=== PATIENT | female | born 1950 | race African-American/Black ===

== ENCOUNTER 2016-12-15 17:24 | Inpatient (IN) ==
[2016-12-15] MEDS ORDERED: SODIUM CHLORIDE 0.9% 500 ML IV STA (17:56)
--- NOTE | 2016-12-15 18:01 | Emergency Department Note ---
Guanako Lubin Brooke, am scribing for, and in the presence of, Chadwick Adrian MD 18 :00. Nguyễn Lubin Charles R, MD, personally performed the services described in this documentation, ascribed by Tanya Mujica in my presence, and it is both accurate and complete 801 . Arrival - Arrival Chief Complaint: Altered Mental Status ED Nursing Triage Note: pt has had alt loc for a few days per family Mode of Arrival: Stretcher Limitations: Altered Mental Status Source: Patient, EMS, RN Notes Reviewed Time Seen by Provider: 12/15/16 17:43 - History of Present Illness HPI Narrative: Patient is a 66 year old female who was brought into the ED by EMS with c/o altered mental status. Patient is a poor historian. There is no family in the room with her. She is not oriented to place or time but is oriented to person. She says she is here because she was disoriented. Patient says her abdomen hurts and the pain is located in the center. She says she does have bowel movements daily. Patient lives alone but does have a sitter. She says she is able to walk a little. Patient has PMHx of CHF, gout, and GERD. Patient's Primary Care Provider is Dr. Lomeli. Allergies/Adverse Reactions: Allergies Allergy/AdvReac Type Severity Reaction Status Date / Time povidone-iodine Allergy Unknown/Unable Verified 12/15/16 17:34 [From Betadine] to obtain soap [From Betadine] Allergy Unknown/Unable Verified 12/15/16 17:34 to obtain Sulfa (Sulfonamide Allergy Unknown/Unable Verified 12/15/16 17:34 Antibiotics) to obtain Review of System - Review of System ROS unobtainable: due to mental status - Review of System Constitutional: Absent: fever Respiratory: Absent: respiratory distress Gastrointestinal: Present: abdominal pain Skin: Absent: rash Neurological: Present: confusion Medical,Surgical,& Family Hx - Medical History Cardio: History of: CHF Rheumatology: History of;: Gout Gastrointestinal: History of: GERD - Social History Smoking Status: Smoker, status unknown Frequency of Alcohol Use: None Type of Drug Use: None Exam Vital Signs: Vital Signs Temperature 98.0 F 12/15/16 17:30 Pulse Rate 98 H 12/15/16 17:30 Respiratory Rate 18 12/15/16 17:43 Blood Pressure 90/61 12/15/16 17:30 O2 Sat by Pulse Oximetry 97 12/15/16 17:30 - General Exam limited due to: ALOC General appearance: alert, in no apparent distress, obese, other (confused) - Head Head exam: Present: atraumatic, normocephalic - Eye Eye exam: Present: normal appearance, PERRL, EOMI - ENT ENT exam: Present: normal exam - Neck Neck exam: Present: normal inspection - Chest Chest inspection: Present: normal inspection, symmetric chest wall rise - Respiratory Respiratory exam: Present: rhonchi (bilateral) - Cardiovascular Cardiovascular exam: Present: regular rate, normal rhythm, normal heart sounds - Abdominal Exam Abdominal exam: Present: soft, tenderness (suprapubic tenderness and fullness), hypoactive bowel sounds. Absent: distention - Extremities Exam Extremities exam: Present: pedal edema (chronic lower extremity edema) - Back Exam Back exam: Present: normal inspection - Neurological Exam Neurological exam: Present: alert, other (confused about why she is here and about her medical history.). Absent: oriented X3 (not oriented to place or time ) - Psychiatric Psychiatric exam: Present: normal affect, normal mood - Skin Skin exam: Present: warm, dry, intact, normal color Course - Consultations Consultation #1: Hospitalist will admit the patient Results - Labs CBC & BMP: 12/15/16 18:47 12/15/16 18:47 Lab Results: I have reviewed the patients labs Disposition Clinical Impression: Altered mental status, Sepsis, Confusion, Left perihilar infiltrate, Pneumonia , Pedal edema, Hypotension, Renal failure Case discussed with: patient, patient's family Disposition: Still a Patient Condition: Stable Time of Disposition: 20:33
--- NOTE | 2016-12-15 18:24 | CT Report ---
CT head/brain wo con Indication: Mental status changes. CT BRAIN WITHOUT CONTRAST DLP: 915 mGy*cm. One or more of the following dose reduction techniques was used: Automated exposure control, adjustment of the mA and/or kV according the patient size, or use of iterative reconstruction techniques. Comparison: None. Date of admission: 12/15/2016. Technique: Axial noncontrast CT images of the brain were obtained. Findings: No acute hemorrhage, mass or mass effect. Generalized atrophy and patchy periventricular white matter hypodensity is present throughout both convexities. Cortical costello-white junction and structures of the basal ganglia are well-defined. No bone lesions are shown. Internal auditory canals are symmetric. Visualized sinuses and mastoid air cells are clear. Impression: No acute intracranial pathology. Generalized atrophy and changes consistent with microvascular disease. PROCEDURE INTERPRETED AT [facility] DEPARTMENT OF RADIOLOGY Final Report Signed by: Jakub Silverman M.D.
--- NOTE | 2016-12-15 18:25 | XRay Report ---
XR chest 1V portable Indication: Altered mental status. Chest one view: No comparison. Heart size and mediastinal contour are unremarkable. Lungs are hypoinflated. Left basilar strand-like opacities are now present. Right lung appears generally clear. Pleural spaces are clear. Impression: Pulmonary hypoinflation. Left infrahilar pneumonia likely. Is there history of aspiration? PROCEDURE INTERPRETED AT [facility] DEPARTMENT OF RADIOLOGY Final Report Signed by: Jakub Silverman M.D.
[2016-12-15] MEDS ORDERED: cefTRIAXone 1,000 MG in SODIUM CHLORIDE 0.9% 100 ML IV STA (18:38)
[2016-12-15 18:55] LABS: Basophils % 0.3 % (0.0-0.8); Hematocrit 44.2 VOL% (35.7-47.0); Immature Granulocytes % 0.6 %; Immature Granulocytes Absolute 0.05 #; Lymphocytes % 10.9 % (21.3-54.2); Mean Corpuscular HGB Conc 33.9 GM/DL (32-36); Mean Corpuscular Hemoglobin 31 PG (27-34); Mean Corpuscular Volume 92.1 FL (87-102); Mean Platelet Volume 13.2 FL (9.6-12.0); Monocytes # 0.9 10*3/uL (0.11-0.8); Monocytes % 10.2 % (1.7-12.7); Neutrophils # 7.1 10*3/uL (1.4-7.4); Platelet Count 157 T/CUMM (130-400); Red Cell Distribution Width 17.7 % (9.3-17.3); White Blood Count 9.1 T/CUMM (4-12)
[2016-12-15 19:04] LABS: INR 1.1; PT Patient Result 11.4 SECS
[2016-12-15 19:15] LABS: Alanine Aminotransferase 16 U/L (13-56); Albumin 3.4 G/DL (3.4-5.0); Alkaline Phosphatase 107 U/L (45-117); Aspartate Amino Transferase 12 U/L (0-37); Blood Urea Nitrogen 48 MG/DL (7-18); Calcium 8.7 MG/DL (8.5-10.1); Glucose 104 MG/DL (74-106); Magnesium 1.8 MG/DL (1.8-2.4); Osmolality,Calculated 278.4 MOS/KG (273-304); Potassium 3.4 MMOL/L (3.5-5.1); Sodium 133 MMOL/L (136-145); Total Protein 6.8 G/DL (6.4-8.3); Troponin I Only < 0.015 NG/ML (0.00-0.045)
[2016-12-15 19:18] LABS: Ammonia 17 UMOL/L (11-32)
[2016-12-15 20:07] LABS: Sedimentation Rate-Westergren 8 MM/HR (0-30)
--- NOTE | 2016-12-15 20:48 | Hospitalist History & Physical ---
Assessment and Plan (1) Pneumonia Status: Acute Assessment and plan: The patient was treated for aspiration pneumonia with admission to intensive care unit for careful monitoring. She will receive IV antibiotic with renal adjusted dose Levaquin and with Rocephin. She will have beta agonist nebulized breathing therapies. We will obtain old records from [facility]. I am going to restart her hydrocodone to reduce risk of withdrawal phenomenon. The patient's confusion may be due to overtaking her pain medication or its effects while she has kidney failure. We will recheck electrolytes in the morning and obtain echocardiogram to assess her left ventricular status. It is possible that she has obesity hypoventilation syndrome as a cause of pulmonary hypertension causing the lower extremity edema. At any rate her blood pressure is too low to support aggressive diuresis at this time. Current Visit: Yes Qualifiers: Pneumonia type: aspiration pneumonia Aspiration pneumonia type: due to gastric secretions Laterality: left Lung location: upper lobe of lung Qualified Code(s): J69.0 - Pneumonitis due to inhalation of food and vomit (2) Altered mental status Status: Acute Current Visit: Yes (3) Confusion Status: Acute Current Visit: Yes (4) Renal failure Status: Acute Current Visit: Yes History of Present Illness Chief complaint: Generalized weakness and altered mental status History of present illness: Ms. Hightower is a 66 year old female with history of chronic kidney disease stage IV. The patient lives at home alone with the help with personal care providers in the home. The patient has received previous care at [facility]. The patient states that she was last hospitalized there about a year ago and was treated for congestive heart failure. The patient has no list of her current medications. The prescription monitoring program website shows that she feels prescriptions for Flexeril tramadol hydrocodone and Lomotil on a regular basis and has seen Karina Thomas and [facility] in [place] over the last several months. The patient was apparently at home in her usual state of health and found to have altered mental status by her fleet administrative assistant and sent to the emergency room. The patient has been drowsy here in the emergency room she has some cough mild shortness of breath no pleurisy. The patient denies palpitations or angina. The patient has not complained of abdominal pain. The patient does complain of lower extremity edema. The patient's generalized weakness is moderate, continuous, and worsening. I screen the patient for tobacco use and found that she was a previous smoker. I gave her 4 minutes tobacco avoidance education. The patient is her own healthcare decision maker and when asked she wished to be full code. Allergies Allergy/AdvReac Type Severity Reaction Status Date / Time povidone-iodine Allergy Unknown/Unable Verified 12/15/16 17:34 [From Betadine] to obtain soap [From Betadine] Allergy Unknown/Unable Verified 12/15/16 17:34 to obtain Sulfa (Sulfonamide Allergy Unknown/Unable Verified 12/15/16 17:34 Antibiotics) to obtain Medical,Surgical,& Family Hx - Medical History Cardio: History of: CHF Endocrine: History of: Diabetes Mellitus (NIDDM) Rheumatology: History of;: Gout Renal: History of: Renal Failure Gastrointestinal: History of: GERD - Social History Smoking Status: Former smoker Have you smoked in the last 12 months: No Time spent discussing smoking cessation with patient: 3 to 10 minutes Frequency of Alcohol Use: None Type of Drug Use: None Marital Status: Lives With:: Alone Functional capacity: wheelchair bound 12 point system: reviewed and no additional remarkable complaints except as stated Exam - Constitutional Vitals: Period Temp Pulse Resp BP Sys/Vega Pulse Ox Last 24 Hr 98.0 F-98.0 F 98-98 18-18 90-90/61-61 97-97 Exam: Constitutional System: Morbidly obese with moderate distress. No tremulousness. Head: Normocephalic, atraumatic. Ears, Nose and Throat System: No evidence of Otitis or Mastoiditis. No epistaxis or discharge Eyes System: Pupils equal, round, and reactive. Extraocular muscles intact. Neck: Supple, without adenopathy, No jugular venous distention. No thyromegaly , neck mass, or prior surgery apparent. Respiratory System: Chest with left-sided rhonchi to auscultation. Cardiovascular System: Heart with regular rate and rhythm. No murmur. GI System: Abdomen obese, soft, nontender. Normo active bowel sounds present. Musculoskeletal System: limbs with 2+ brawny pedal edema. Full distal pulses. Neurological System: No discernable sensory deficit. No aphasia Psychiatric System: Conversation is rational Results - Labs CBC & BMP: 12/15/16 18:47 12/15/16 18:47 Lab Results: I have reviewed the past 24 hour labs - Diagnostic Findings Procedure: Chest x-ray: image reviewed by me, report reviewed by me (The patient has some infiltrate in the left perihilar region consistent with aspiration)
[2016-12-15 20:53] LABS: Apearance,Urine CLEAR (Clear); Bilirubin,Urine Negative (Negative); Blood, Urine Negative (Negative); Glucose,Urine (UA) Negative (Negative); Ketones,Urine Negative (Negative); Mucus,Urine Occasional /LPF (Occasional); Nitrite,Urine Negative (Negative); Protein,Urine Negative; RBC,Urine 1 /HPF (0-4); Squamous Epithelial Cell,Urine Occasional /HPF (0-10); Urine Color Straw (Yellow); Urine Specific Gravity 1.004 (1.001-1.035); Urine Urobilinogen < 2.0 EU/DL (0.2-1.0); WBC,Urine 3 /HPF (0-6)
[2016-12-15 21:03] LABS: Barbiturates Screen,Urine Negative (Negative); Benzodiazepines Screen,Urine Negative (Negative); Cannabinoid Screen,Urine Negative (Negative); Opiate Screen,Urine Positive (Negative); Phencyclidine Screen,Urine Negative (Negative)
[2016-12-15] MEDS ORDERED: ONDANSETRON 4 MG/2 ML VIAL IV PRN (21:53)
[2016-12-15] MEDS ORDERED: GLUCAGON 1 MG VIAL IM PRN (21:53)
[2016-12-15] MEDS ORDERED: DEXTROSE 50% 25 GM/50 ML SYRINGE IV PRN (21:53)
[2016-12-15] MEDS ORDERED: LEVOFLOXACIN INJ 500 MG in PREMIX 1 EACH IV SCH (22:00)
[2016-12-15] MEDS: INSULIN LISPRO 100 UNIT/ML SUBCUT SCH (22:05)
[2016-12-15] MEDS: ENOXAPARIN 30 MG/0.3 ML SYRINGE SUBCUT SCH (22:10)
[2016-12-16] MEDS: ALBUTEROL/IPRATROPIUM 3 ML NEB RESP TX SCH ×4 (02:24→20:10)
[2016-12-16 05:47] LABS: Basophils % 0.3 % (0.0-0.8); Eosinophils % 0.4 % (0.00-10.9); Hematocrit 42.9 VOL% (35.7-47.0); Hemoglobin 14.4 GM/DL (12.0-16.0); Immature Granulocytes % 0.5 %; Immature Granulocytes Absolute 0.04 #; Lymphocytes # 1.3 10*3/uL (1.4-4.0); Lymphocytes % 16.5 % (21.3-54.2); Mean Corpuscular HGB Conc 33.6 GM/DL (32-36); Mean Corpuscular Hemoglobin 31 PG (27-34); Mean Corpuscular Volume 91.3 FL (87-102); Mean Platelet Volume 12.9 FL (9.6-12.0); Monocytes # 0.8 10*3/uL (0.11-0.8); Monocytes % 10.6 % (1.7-12.7); Neutrophils # 5.6 10*3/uL (1.4-7.4); Neutrophils % 71.7 % (38.7-73.9); Platelet Count 145 T/CUMM (130-400); White Blood Count 7.8 T/CUMM (4-12)
[2016-12-16 06:16] LABS: Magnesium 1.8 MG/DL (1.8-2.4); Osmolality,Calculated 283.7 MOS/KG (273-304); Potassium 3.3 MMOL/L (3.5-5.1)
[2016-12-16] MEDS: INSULIN LISPRO 100 UNIT/ML SUBCUT SCH ×4 (07:36→23:36)
--- NOTE | 2016-12-16 07:51 | EKG Report ---
Stationary ECG Study [facility] ER Test Date: 12/15/2016 6:52:41 PM Pat Name: CYRIL JONES Department: Room: 107 Gender: F Spray Applicator: RAE : 1950 Requested by: Chadwick Mccormack Order Number: [id number] Reading MD: LUCIA CASAREZ Intervals [place] Rate: 100 P: 44 MA: 165 QRS: -21 QRSD: 78 T: 61 QT: 363 QTc: 420 Interpretive Statements SINUS TACHYCARDIA LEFT ATRIAL ABNORMALITY LOW QRS VOLTAGE IN PRECORDIAL LEADS INFERIOR MYOCARDIAL INFARCTION, PROBABLY OLD Electronically Signed On 12-17-16 07:01:31 CDT by LUCIA CASAREZ [email or web address]
--- NOTE | 2016-12-16 08:06 | XRay Report ---
Portable chest. Indication: Cough and dyspnea. Comparison: Yesterday's exam. The heart is normal in size. There is uncoiling of the thoracic aorta. The lung volumes are small. The pulmonary vasculature is prominent. There are bilateral infiltrates present at the bases, with interval worsening. Some volume loss is also suspected at the right base. No pneumothorax or pleural effusion. Impression: Interval worsening. PROCEDURE INTERPRETED AT [facility] [place] DEPARTMENT OF RADIOLOGY Final Report Signed by: Dr. Elle Feng
[2016-12-16] MEDS: PANTOPRAZOLE 40 MG TABLET PO SCH (08:19)
--- NOTE | 2016-12-16 10:00 | Hospitalist Progress Note ---
Assessment and Plan (1) Pneumonia Status: Acute Assessment and plan: The patient was treated for aspiration pneumonia with admission to intensive care unit for careful monitoring. She will continue to receive IV antibiotic with renal adjusted dose Levaquin and with Rocephin. She will have beta agonist nebulized breathing therapies. We will obtain old records from [facility]. I am going to restart her hydrocodone to reduce risk of withdrawal phenomenon. The patient's confusion may be due to overtaking her pain medication or its effects while she has kidney failure. We will recheck electrolytes in the morning and obtain echocardiogram to assess her left ventricular status. It is possible that she has obesity hypoventilation syndrome as a cause of pulmonary hypertension causing the lower extremity edema. At any rate her blood pressure is too low to support aggressive diuresis at this time. The patient has improved enough to transfer to a monitored bed. Current Visit: Yes Qualifiers: Pneumonia type: aspiration pneumonia Aspiration pneumonia type: due to gastric secretions Laterality: left Lung location: upper lobe of lung Qualified Code(s): J69.0 - Pneumonitis due to inhalation of food and vomit (2) Altered mental status Status: Acute Current Visit: Yes (3) Confusion Status: Acute Current Visit: Yes (4) Renal failure Status: Acute Current Visit: Yes Hospitalist: Subjective Interval history: Mrs. Hightower was admitted to the hospital yesterday with generalized weakness, cough, chest x-ray consistent with aspiration pneumonia. She may have been oversedated from her chronic pain medications. The patient is mostly bedbound at home and has personal care assistance. The patient does not complain of chest pain or palpitations today. She is drowsy but arousable and oriented. She says she feels better today and her legs are less swollen. Exam - Constitutional Vitals: Period Temp Pulse Resp BP Sys/Vega Pulse Ox Last 24 Hr 97.3 F-98.9 F 88-105 16-22 90-112/57-74 91-100 Exam: Constitutional System: Morbidly obese with mild distress. No tremulousness. Head: Normocephalic, atraumatic. Ears, Nose and Throat System: No evidence of Otitis or Mastoiditis. No epistaxis or discharge Eyes System: Pupils equal, round, and reactive. Extraocular muscles intact. Neck: Supple, without adenopathy, No jugular venous distention. No thyromegaly , neck mass, or prior surgery apparent. Respiratory System: Chest with left-sided rhonchi to auscultation. Cardiovascular System: Heart with regular rate and rhythm. No murmur. GI System: Abdomen obese, soft, nontender. Normo active bowel sounds present. Musculoskeletal System: limbs with 1+ brawny pedal edema. Full distal pulses. Neurological System: No discernable sensory deficit. No aphasia Psychiatric System: Conversation is rational Results - Labs CBC & BMP: 12/16/16 05:08 12/16/16 05:08 Lab Results: I have reviewed the past 24 hour labs - Diagnostic Findings Procedure: Chest x-ray: image reviewed by me (Infiltrates are worsened today)
[2016-12-16] MEDS ORDERED: DIPHENOXYLATE/ATROPINE 2.5-0.025 MG TABLET PO PRN (11:39)
--- NOTE | 2016-12-16 12:02 | ECHO Report ---
Shawna Hightower 12/16/2016 Exam Date: 09:28 Referring Physician: Lashell Joaquin Technologist: CANDI Age: 66 Ht (in): 62 Wt (lb): 183 FExam Location: [facility] Gender: Echo [id number]: Pneumonia, Altered mental status, CoIndications:nfusion, Weakness, Edema, unspecified, Chronic kidney disease, stage 4 (severe), NIDDM BP: 100 / 62 HR: 105 SinusRhythm: goodTechnical Quality: IMPRESSIONS Left ventricular ejection fraction is estimated at 60 %. Mild left ventricular hypertrophy. Grade I diastolic dysfunction. Tricuspid regurgitation velocities suggest a RVSP of 41 mmHg plus the right atrial pressure. MEASUREMENTS (Male / Female) Normal Values 2D ECHO LV Diastolic Diameter PLAX 4.3 cm 4.2 - 5.9 / 3.9 - 5.3 cm LV Systolic Diameter PLAX 2.8 cm LV Fractional Shortening PLAX 35.1 % IVS Diastolic Thickness 1.1 cm 0.6 - 1.0 / 0.6 - 0.9 cm LVPW Diastolic Thickness 1.1 cm 0.6 - 1.0 / 0.6 - 0.9 cm RV Internal Dim ED PLAX 2.8 cm Aortic Root Diameter 3.0 cm LA Systolic Diameter LX 3.6 cm 3.0 - 4.0 / 2.7 - 3.8 cm DOPPLER TR Peak Velocity 322.0 cm/s TR Peak Gradient 41.5 mmHg FINDINGS Left Ventricle Normal left ventricular cavity size. Mild left ventricular hypertrophy. Left ventricular ejection fraction is estimated at 60 %. Grade I diastolic dysfunction. Right Ventricle The right ventricle is normal in size and function. Right Atrium The right atrium is normal in size. Left Atrium The left atrium is normal in size. Mitral Valve Morphologically normal mitral valve. Trace mitral valve regurgitation. Aortic Valve Morphologically normal aortic valve without significant sclerosis or stenosis. There is no aortic regurgitation. Tricuspid Valve Morphologically normal tricuspid valve. Mild tricuspid valve regurgitation. Tricuspid regurgitation velocities suggest a RVSP of 41 mmHg plus the right atrial pressure. Pulmonic Valve Morphologically normal pulmonic valve without significant stenosis. There is no pulmonic regurgitation. Pericardium Normal pericardium without effusion. Aorta Normal ascending aorta dimension. Gilda Berry (Electronically Signed) 16 December 2016 Final Date: 12:01
[2016-12-16] MEDS: ALLOPURINOL 300 MG TABLET PO SCH (13:04)
[2016-12-16] MEDS: SPIRONOLACTONE 50 MG TABLET PO SCH (13:04)
[2016-12-16] MEDS: COLCHICINE 0.6 MG TABLET PO SCH (13:04)
[2016-12-16] MEDS: POTASSIUM CHLORIDE 20 MEQ TABLET PO SCH ×3 (13:04→19:48)
[2016-12-16] MEDS: ESCITALOPRAM 10 MG TABLET PO SCH (13:05)
[2016-12-16] MEDS: NICOTINE 14 MG/24 HR PATCH TRANSDERM SCH (17:10)
[2016-12-16] MEDS: ENOXAPARIN 30 MG/0.3 ML SYRINGE SUBCUT SCH (23:17)
[2016-12-16] MEDS: cefTRIAXone 1,000 MG in SODIUM CHLORIDE 0.9% 100 ML IV SCH (23:20)
[2016-12-17] MEDS: ALBUTEROL/IPRATROPIUM 3 ML NEB RESP TX SCH ×5 (01:12→23:48)
[2016-12-17 07:23] LABS: Basophils % 0.2 % (0.0-0.8); Eosinophils % 0.1 % (0.00-10.9); Hematocrit 41.5 VOL% (35.7-47.0); Hemoglobin 13.9 GM/DL (12.0-16.0); Immature Granulocytes % 0.5 %; Immature Granulocytes Absolute 0.05 #; Lymphocytes # 0.7 10*3/uL (1.4-4.0); Lymphocytes % 7.7 % (21.3-54.2); Mean Corpuscular HGB Conc 33.5 GM/DL (32-36); Mean Corpuscular Hemoglobin 31 PG (27-34); Mean Platelet Volume 11.8 FL (9.6-12.0); Monocytes % 10.2 % (1.7-12.7); Neutrophils # 7.7 10*3/uL (1.4-7.4); Neutrophils % 81.3 % (38.7-73.9); Platelet Count 150 T/CUMM (130-400); Red Blood Count 4.51 MC/CUMM (3.8-5.5); Red Cell Distribution Width 17.6 % (9.3-17.3); White Blood Count 9.5 T/CUMM (4-12)
[2016-12-17 07:41] LABS: Calcium 9.1 MG/DL (8.5-10.1); Osmolality,Calculated 288.1 MOS/KG (273-304); Potassium 4.1 MMOL/L (3.5-5.1)
[2016-12-17] MEDS: INSULIN LISPRO 100 UNIT/ML SUBCUT SCH ×4 (09:17→21:00)
[2016-12-17] MEDS: NICOTINE 14 MG/24 HR PATCH TRANSDERM SCH (09:33)
[2016-12-17] MEDS: PANTOPRAZOLE 40 MG TABLET PO SCH (09:34)
[2016-12-17] MEDS: ESCITALOPRAM 10 MG TABLET PO SCH (09:34)
[2016-12-17] MEDS: SPIRONOLACTONE 50 MG TABLET PO SCH (09:34)
[2016-12-17] MEDS: COLCHICINE 0.6 MG TABLET PO SCH (09:34)
[2016-12-17] MEDS: ALLOPURINOL 300 MG TABLET PO SCH (09:34)
[2016-12-17] MEDS: LEVOFLOXACIN INJ 750 MG in PREMIX 1 EACH IV SCH (10:39)
--- NOTE | 2016-12-17 11:27 | Hospitalist Progress Note ---
Assessment and Plan (1) Altered mental status Status: Acute Assessment and plan: Her mental status appears normal today. Her admission alteration of mental status will most probably due to her underlying infection. Current Visit: Yes Qualifiers: Altered mental status type: disorientation Qualified Code(s): R41.0 - Disorientation, unspecified (2) Sepsis Status: Acute Assessment and plan: She is hemodynamically stable today. She is being treated with intravenous ceftriaxone and levofloxacin. Current Visit: Yes (3) Pneumonia Status: Acute Assessment and plan: As noted above, she is being treated with intravenous ceftriaxone and levofloxacin. Current Visit: Yes Qualifiers: Pneumonia type: aspiration pneumonia Aspiration pneumonia type: due to gastric secretions Laterality: left Lung location: upper lobe of lung Qualified Code(s): J69.0 - Pneumonitis due to inhalation of food and vomit Hospitalist: Subjective Interval history: Patient states that she is feeling well. She is awake and alert. She is presently being treated for pneumonia with intravenous ceftriaxone and levofloxacin and albuterol ipratropium nebulizer therapy. Exam - Constitutional Vitals: Period Temp Pulse Resp BP Sys/Vega Pulse Ox Last 24 Hr 97.2 F-100.2 F 90-121 16-24 95-122/61-81 91-100 General appearance: no acute distress - Head Head exam: Present: normal inspection - Neck Neck exam: Present: normal inspection - Respiratory Respiratory exam: Present: clear to auscultation bilaterally - Cardiovascular Cardiovascular exam: Present: regular rate and rhythm - GI/Abdominal GI/Abdominal exam: Present: normal bowel sounds, soft, other (Nontender with no palpable masses or hepatosplenomegaly.) - Extremities Exam Extremities exam: Present: normal inspection - Neurological Exam Neurological exam: Present: alert - Psychiatric Psychiatric exam: Present: normal affect - Skin Skin exam: Present: normal color, warm, intact Results - Labs CBC & BMP: 12/17/16 06:58 12/17/16 06:58
[2016-12-17] MEDS: cefTRIAXone 1,000 MG in SODIUM CHLORIDE 0.9% 100 ML IV SCH (21:00)
[2016-12-17] MEDS ORDERED: ENOXAPARIN 40 MG/0.4 ML SYRINGE SUBCUT SCH (21:00)
[2016-12-18] MEDS: ALBUTEROL/IPRATROPIUM 3 ML NEB RESP TX SCH ×2 (07:20→13:09)
[2016-12-18 07:39] LABS: Basophils % 0.3 % (0.0-0.8); Eosinophils % 0.2 % (0.00-10.9); Hematocrit 40.8 VOL% (35.7-47.0); Hemoglobin 13.6 GM/DL (12.0-16.0); Immature Granulocytes % 0.6 %; Immature Granulocytes Absolute 0.06 #; Lymphocytes % 9.9 % (21.3-54.2); Mean Corpuscular HGB Conc 33.3 GM/DL (32-36); Mean Corpuscular Hemoglobin 31 PG (27-34); Mean Corpuscular Volume 92.3 FL (87-102); Mean Platelet Volume 12.6 FL (9.6-12.0); Monocytes # 0.9 10*3/uL (0.11-0.8); Monocytes % 9.1 % (1.7-12.7); Neutrophils # 7.8 10*3/uL (1.4-7.4); Neutrophils % 79.9 % (38.7-73.9); Platelet Count 160 T/CUMM (130-400); Red Blood Count 4.42 MC/CUMM (3.8-5.5); Red Cell Distribution Width 17.7 % (9.3-17.3); White Blood Count 9.7 T/CUMM (4-12)
[2016-12-18] MEDS: INSULIN LISPRO 100 UNIT/ML SUBCUT SCH ×3 (07:52→16:24)
[2016-12-18] MEDS: NICOTINE 14 MG/24 HR PATCH TRANSDERM SCH (08:04)
[2016-12-18] MEDS: COLCHICINE 0.6 MG TABLET PO SCH (08:05)
[2016-12-18] MEDS: PANTOPRAZOLE 40 MG TABLET PO SCH (08:05)
[2016-12-18 08:06] LABS: Calcium 8.9 MG/DL (8.5-10.1); Osmolality,Calculated 284.1 MOS/KG (273-304)
[2016-12-18] MEDS: SPIRONOLACTONE 50 MG TABLET PO SCH (08:06)
[2016-12-18] MEDS: ALLOPURINOL 300 MG TABLET PO SCH (08:06)
[2016-12-18] MEDS: ESCITALOPRAM 10 MG TABLET PO SCH (08:48)
[2016-12-18] MEDS: LEVOFLOXACIN INJ 750 MG in PREMIX 1 EACH IV SCH (08:59)
--- NOTE | 2016-12-18 10:31 | Discharge Summary ---
Hospital Course - Hospital Course Hospital Course: Patient was admitted to the hospital with altered mental status and aspiration pneumonia. She was initially admitted to the intensive care unit and subsequently transferred to the medical surgical floor. She was treated with intravenous levofloxacin and ceftriaxone. She improved rapidly such that she was able to be transferred out of the intensive care unit the day after admission. On the day of discharge she insisted that she be discharged that day although I recommended to her that she remain in the hospital for further treatment. She was, however, stable on the day of discharge. Diagnosis - Discharge Diagnosis (1) Altered mental status Status: Acute (2) Sepsis Status: Acute (3) Pneumonia Status: Acute Discharge Plan - Discharge Data Condition at Discharge: Stable Discharge Diet: advance to your usual diet Activity: resume usual activities as tolerated - Discharge Medications Continue Ibuprofen 1 tablet PO TID Tizanidine HCl 1 tablet PO BID Enalapril/Hydrochlorothiazide [Enalapril-Hctz 5-12.5 mg Tab] 1 tablet PO DAILY Promethazine HCl 25 mg PO Q6HR PRN PRN Reason: Nausea/Vomiting Spironolactone 1 tablet PO DAILY Escitalopram Oxalate 10 mg PO DAILY Tramadol HCl [Tramadol Tab] 1 tablet PO BID PRN PRN Reason: Pain Colchicine [Colcrys] 1 tablet PO DAILY Omeprazole 1 tablet PO BID Allopurinol 1 tablet PO DAILY Diphenoxylate/Atrop 2.5-0.025 [Lomotil Tab] 1 tablet PO QID PRN PRN Reason: Diarrhea Metoclopramide Tab [Reglan Tab] 10 mg PO TID Amoxicillin/Potassium Clav [Amox-Clav 875-125 mg Tablet] 1 tablet PO Q12HR # 10 Magnesium Oxide 400 mg PO BID Furosemide 1 tablet PO BID - Follow Up or Referral - Forms/Instructions Exam - Constitutional Vitals: Period Temp Pulse Resp BP Sys/Vega Pulse Ox Last 24 Hr 97.5 F-98.6 F 75-102 16-20 112-141/61-83 93-98 Discharge Results Procedures and tests throughout hospitalization: Pending Orders 12/15/16 18:40 Blood Culture Stat Labs on day of discharge: Labs from last 24 hours 12/18/16 12/18/16 12/18/16 07:30 07:17 07:17 WBC 9.7 RBC 4.42 Hgb 13.6 Hct 40.8 MCV 92.3 MCH 31 MCHC 33.3 RDW 17.7 H Plt Count 160 MPV 12.6 H Neut % (Auto) 79.9 H Lymph % (Auto) 9.9 L [place] % (Auto) 9.1 Eos % (Auto) 0.2 Baso % (Auto) 0.3 Neut # (Auto) 7.8 H Lymph # (Auto) 1.0 L [place] # (Auto) 0.9 H Eos # (Auto) 0.0 Baso # (Auto) 0.0 Immature Gran % 0.6 Nucleated RBC % 0.0 Immature Gran # 0.06 Nucleated RBCs # 0.00 Immature Plt Fraction 0.0 Sodium 142 Potassium 5.0 Chloride 109 H Carbon Dioxide 31 Anion Gap 7.0 BUN 15 Creatinine 0.80 GFR Calculation 102 BUN/Creatinine Ratio 18.00 Glucose 112 H POC Glucose 113 H Calculated Osmolality 284.1 Calcium 8.9 12/17/16 12/17/16 12/17/16 20:04 19:41 15:19 WBC RBC Hgb Hct MCV MCH MCHC RDW Plt Count MPV Neut % (Auto) Lymph % (Auto) Mingo % (Auto) Eos % (Auto) Baso % (Auto) Neut # (Auto) Lymph # (Auto) Mingo # (Auto) Eos # (Auto) Baso # (Auto) Immature Gran % Nucleated RBC % Immature Gran # Nucleated RBCs # Immature Plt Fraction Sodium Potassium Chloride Carbon Dioxide Anion Gap BUN Creatinine GFR Calculation BUN/Creatinine Ratio Glucose POC Glucose 134 H 122 H 163 H Calculated Osmolality Calcium 12/17/16 11:41 WBC RBC Hgb Hct MCV MCH MCHC RDW Plt Count MPV Neut % (Auto) Lymph % (Auto) Mingo % (Auto) Eos % (Auto) Baso % (Auto) Neut # (Auto) Lymph # (Auto) Mingo # (Auto) Eos # (Auto) Baso # (Auto) Immature Gran % Nucleated RBC % Immature Gran # Nucleated RBCs # Immature Plt Fraction Sodium Potassium Chloride Carbon Dioxide Anion Gap BUN Creatinine GFR Calculation BUN/Creatinine Ratio Glucose POC Glucose 125 H Calculated Osmolality Calcium Preliminary micro results at discharge 12/15/16 18:40 Blood Culture - Preliminary Blood No growth at 1 day 12/15/16 18:27 Blood Culture - Preliminary Blood No growth at 1 day DS: Provider Date of admission: 12/15/16 20:37 Primary care physician: Byron Santoyo MD Attending physician on admission: Sherwin Valencia MD Consults: 12/15/16 22:24 Consult to Dietitian [CONS] Routine Reason for Dietitian: Dietary Consult Discharging clinician: Wiliam Matthew
[2016-12-18 17:49] VITALS: BP 133/81
== END 2016-12-18 16:25 | disposition home or self-care (01) | DRG 871 ==
LOC: EDUNIT# → EDBD → N.ED 17:24 → N.EDINP 20:37 → SUATTDRO 20:37 → N.ICU 21:14 → N.2E 12-16 16:51
PROVIDERS: ADMIT Internal Medicine

== ENCOUNTER 2017-01-11 19:37 | Inpatient (IN) ==
[2017-01-11] MEDS ORDERED: FUROSEMIDE 100 MG/10 ML VIAL IV STA (19:50)
[2017-01-11] MEDS ORDERED: FUROSEMIDE 40 MG/4 ML VIAL IV STA (19:50)
[2017-01-11] MEDS ORDERED: LEVOFLOXACIN INJ 750 MG in PREMIX 1 EACH IV STA (19:50)
[2017-01-11] MEDS ORDERED: ALBUTEROL/IPRATROPIUM 3 ML NEB RESP TX STA (19:50)
--- NOTE | 2017-01-11 20:02 | Emergency Department Note ---
Arrival - Arrival Stated Complaint: SOB, Lethargic, Elevated Temp, and Chest Pain Mode of Arrival: Stretcher Limitations: Altered Mental Status Source: EMS Time Seen by Provider: 01/11/17 19:50 - History of Present Illness HPI Narrative: This 66-year-old black female presents per EMS with history from the [facility] home of being short of breath with a temperature of 102, increasing mental confusion , and hypoxia. The patient is oriented to self and roughly to place but not time at all. Patient herself at this moment says she feels fine and does not know why she is here but does complain of some tightness to her feet. She denies chest pain, shortness of breath, nausea, vomiting, or any sweats. Of note, the patient was hospitalized by the hospitalist service for sepsis from aspiration pneumonia 1 month ago. Currently she presents in no acute medical distress resting in the [facility]. Onset (ago): unknown Allergies/Adverse Reactions: Allergies Allergy/AdvReac Type Severity Reaction Status Date / Time povidone-iodine Allergy Unknown/Unable Verified 12/15/16 17:34 [From Betadine] to obtain soap [From Betadine] Allergy Unknown/Unable Verified 12/15/16 17:34 to obtain Sulfa (Sulfonamide Allergy Unknown/Unable Verified 12/15/16 17:34 Antibiotics) to obtain Home Medications: Home Medications Medication Instructions Recorded Confirmed Type Diphenoxylate/Atrop 2.5-0.025 1 each PO QID PRN 12/15/16 01/11/17 History [Lomotil Tab] Enalapril/Hydrochlorothiazide 1 each PO DAILY 12/15/16 01/11/17 History [Enalapril-Hctz 5-12.5 mg Tab] Escitalopram Oxalate 10 mg PO DAILY 12/15/16 01/11/17 History Ibuprofen 800 mg PO TID 12/15/16 01/11/17 History Metoclopramide Tab [Reglan Tab] 10 mg PO TID 12/15/16 01/11/17 History Omeprazole 20 mg PO BID 12/15/16 01/11/17 History Promethazine HCl 25 mg PO Q6HR PRN 12/15/16 01/11/17 History Spironolactone 50 mg PO DAILY 12/15/16 01/11/17 History Tramadol HCl [Tramadol Tab] 50 mg PO BID PRN 12/15/16 01/11/17 History Carisoprodol [Carisoprodol] 350 mg PO BID 01/11/17 01/11/17 History Hydrocodone/Acetaminophen 1 each PO QID PRN 01/11/17 01/11/17 History [Hydrocodon-Acetaminophn 10-325] diphenhydrAMINE CAP [Benadryl Cap] 25 mg PO TID PRN 01/11/17 01/11/17 History Review of System - Review of System 12 point system: reviewed and no additional remarkable complaints except as stated - Review of System Constitutional: Present: as per HPI Respiratory: Present: as per HPI Cardiovascular: Present: as per HPI Gastrointestinal: Present: as per HPI Medical,Surgical,& Family Hx - Medical History Cardio: History of: Hypertension Endocrine: History of: Diabetes Mellitus (NIDDM) Rheumatology: History of;: Rheumatoid Arthritis Respiratory: History of: Asthma, Obstructive Sleep Apnea, Pneumonia Renal: History of: Renal Failure Genitourinary: History of: Recurring Urinary Tract Infections Gastrointestinal: History of: GERD - Surgical History Cardiac Surgeries: Sugical HX of: Cardiac Catheterization Abdominal Surgeries: Surgical HX of: Appendectomy, Cholecystectomy Orthopedic Surgeries: Surgical HX of;: Total Knee Replacement - Social History Smoking Status: Current every day smoker Exam Physical Examination: GENERAL: Obese elderly black female in no acute distress. HEENT: Normocephalic. No trauma. Moist mucous membranes. EOMI. PERRLA. ENT NML NECK: Supple. No adenopathy. CARDIAC: Regular. No murmurs. Heart rate 120 CHEST: Scattered rhonchi with end-expiratory rales and expiratory wheezes anteriorly. No respiratory distress. O2 sat 92% ABDOMEN: Soft. Nontender. Active bowel sounds. EXTREMITIES: No trauma. Normal ROM. 2+ pedal edema. Stasis dermatitis both ankles right worse than left with evidence of right stasis cellulitis as well as a small abrasion to the posterior right ankle, small skin ulcers/lesions SKIN: No diaphoresis. No rash. NEURO: Alert. Oriented to person and grossly to place and time. Motor, sensory , vibratory intact. No focal deficits. Vital Signs: Vital Signs Temperature 99.9 F H 01/11/17 19:49 Pulse Rate 122 H 01/11/17 20:10 Respiratory Rate 23 01/11/17 20:10 Blood Pressure 99/60 01/11/17 19:49 O2 Sat by Pulse Oximetry 95 01/11/17 20:10 Course - Reevaluation(s) Reevaluation #1: Discussed with patient the need for hospitalization - Consultations Consultation #1: Discussed with hospitalist service who will admit for further evaluation Results - Labs CBC & BMP: 01/11/17 20:12 01/11/17 20:12 Labs: I reviewed the lab and noted the elevated BMP and bump in troponin. - Impressions EKG: Sinus tachycardia with left axis deviation at rate of 120 with normal VA interval and QRS duration. Diffuse nonspecific ST changes. No acute injury pattern noted. - Diagnostic Findings Procedure: Chest x-ray: image reviewed by me, report reviewed by me ( Cardiomegaly with evidence of pulmonary edema) Disposition Clinical Impression: Congestive failure, Abnormal cardiac enzymes, Fever/skin ulcers Case discussed with: patient Disposition: Still a Patient Condition: Guarded Time of Disposition: 23:01
[2017-01-11] MEDS ORDERED: LEVOFLOXACIN INJ 150 ML IV ONE (20:07)
[2017-01-11] MEDS ORDERED: FUROSEMIDE 20 MG/2 ML VIAL ONE (20:07)
[2017-01-11] MEDS ORDERED: FUROSEMIDE 40 MG/4 ML VIAL ONE (20:07)
[2017-01-11 20:50] LABS: Basophils % 0.2 % (0.0-0.8); Eosinophils % 0.4 % (0.00-10.9); Hematocrit 44.1 VOL% (35.7-47.0); Hemoglobin 14.5 GM/DL (12.0-16.0); Immature Granulocytes % 0.6 %; Immature Granulocytes Absolute 0.06 #; Lymphocytes # 0.8 10*3/uL (1.4-4.0); Lymphocytes % 7.5 % (21.3-54.2); Mean Corpuscular HGB Conc 32.9 GM/DL (32-36); Mean Corpuscular Hemoglobin 31 PG (27-34); Mean Platelet Volume 13.4 FL (9.6-12.0); Monocytes # 0.8 10*3/uL (0.11-0.8); Monocytes % 7.8 % (1.7-12.7); Neutrophils # 8.7 10*3/uL (1.4-7.4); Neutrophils % 83.5 % (38.7-73.9); Platelet Count 164 T/CUMM (130-400); Red Blood Count 4.74 MC/CUMM (3.8-5.5); Red Cell Distribution Width 17.2 % (9.3-17.3); White Blood Count 10.4 T/CUMM (4-12)
[2017-01-11 21:00] LABS: INR 1.1; PT Patient Result 11.4 SECS; Partial Thromboplastin Time 30.6 SECS (0-40)
--- NOTE | 2017-01-11 21:05 | XRay Report ---
XR chest 1V portable Indication: Cough, dyspnea Comparison: 16 December 2016 Findings: The heart and mediastinum are stable in size and configuration. The pulmonary vascularity is slightly increased with bilateral increased interstitial lung density. No other lung infiltrates, effusions, pneumothorax or other abnormality is demonstrated. Impression: Findings suggest mild cardiac decompensation. PROCEDURE INTERPRETED AT [facility] DEPARTMENT OF RADIOLOGY Final Report Signed by: Dr. Mohit Saeed
[2017-01-11 21:20] LABS: Alanine Aminotransferase 20 U/L (13-56); Albumin 2.9 G/DL (3.4-5.0); Alkaline Phosphatase 106 U/L (45-117); Aspartate Amino Transferase 34 U/L (0-37); Blood Urea Nitrogen 25 MG/DL (7-18); Calcium 9.1 MG/DL (8.5-10.1); Glucose 139 MG/DL (74-106); Potassium 3.6 MMOL/L (3.5-5.1); Sodium 136 MMOL/L (136-145); Total Protein 6.3 G/DL (6.4-8.3); Troponin I Only 0.089 NG/ML (0.00-0.045)
[2017-01-11 22:13] LABS: Apearance,Urine CLEAR (Clear); Bacteria,Urine Occasional /HPF (Few); Bilirubin,Urine Negative (Negative); Blood, Urine Small mg/dL (Negative); Glucose,Urine (UA) Negative (Negative); Hyaline Casts,Urine 16 /LPF (0-3); Ketones,Urine Negative (Negative); Nitrite,Urine Negative (Negative); Protein,Urine Negative; RBC,Urine 1 /HPF (0-4); Squamous Epithelial Cell,Urine Occasional /HPF (0-10); Urine Color Yellow (Yellow); Urine Specific Gravity 1.004 (1.001-1.035); Urine Urobilinogen < 2.0 EU/DL (0.2-1.0); WBC,Urine 1 /HPF (0-6)
[2017-01-11 22:21] LABS: Barbiturates Screen,Urine Negative (Negative); Benzodiazepines Screen,Urine Negative (Negative); Cannabinoid Screen,Urine Negative (Negative); Opiate Screen,Urine Negative (Negative); Phencyclidine Screen,Urine Negative (Negative)
[2017-01-12] MEDS ORDERED: ONDANSETRON 4 MG/2 ML VIAL IV PRN (00:22)
[2017-01-12] MEDS ORDERED: SODIUM CHLORIDE 0.9% 1,000 ML IV ONE (01:25)
[2017-01-12] MEDS: CEFTAROLINE 600 MG in SODIUM CHLORIDE 0.9% 100 ML IV SCH ×3 (01:50→18:09)
--- NOTE | 2017-01-12 02:16 | Hospitalist History & Physical ---
Assessment and Plan - Time spent with patient Time spent with patient: Greater than 30 minutes (1) Sepsis Status: Acute Assessment and plan: Admit to hospitalist services. Monitored bed. HR 122, RR 22 with suspected infection of BLEs. WBC 10.4. Lactic acid pending. Blood cultures drawn in ED; follow. History of CHF and CKD, so careful hydration with a bolus of NS followed by NS at 100 ml/hr. Start Teflaro 600 mg IV Q12. Repeat CBC in am. Current Visit: No (2) Cellulitis Status: Acute Assessment and plan: As above for Sepsis. Current Visit: Yes (3) Hypertension Status: Acute Assessment and plan: Continue home medications. Monitor. Current Visit: Yes (4) Renal failure Status: Acute Assessment and plan: Creatinine 1.4. Rehydrate. Monitor for fluid overload. Repeat CMP in am. Current Visit: No (5) CHF (congestive heart failure) Status: Chronic Assessment and plan: BNP in ED was 299 and CXR showed "mild cardiac decompensation". However, upon assessment, the patient appeared to be dehydrated with dry mucus membranes and poor skin turgor. Lasix given in ED. No additional lasix for now. Careful hydration. Monitor for fluid overload. Continue home medications. Current Visit: Yes (6) DVT prophylaxis Status: Acute Assessment and plan: Lovenox 40 mg SQ daily. Current Visit: Yes History of Present Illness Chief complaint: "I couldn't walk" History of present illness: Ms. Hightower is a 66 year old female with a past medical history of HTN, CHF, CKD, and COPD who was brought to the ED tonight by EMS for complaints of weakness and inability to walk. The information obtained from the patient is conflicting with that given to the ERP, and the patient does not seem to be a reliable historian. The ERP reports that she was brought in for chest pain and SOB. The ER nurse reports that EMS was called by the patient's caregivers. EMS found her O2 sats to be in the 70s. They gave an Atrovent treatment in the field, and sats increased into the 80s. Upon arrival to ED, the nurse reports that the patient had altered mental status and seemed to be in mild respiratory distress , he reports that her course improved after ED treatment with lasix and O2. Ms. Hightower also reports that she had a fever of 98.0 at home and chills. She also complains of peristernal chest tenderness that is reproducible with palpation. She reports that caregivers wrapped their arms around her chest when trying to lift her. She denies any current nausea or vomiting. ED work up was significant for BNP 299, Total CK 470, Troponin 0.089, Creatinine 1.4, and BG of 139. WBC count was normal. CXR showed "mild cardiac decompensation" and stable size of heart. Hospitalist services were consulted, and the patient will be admitted for further evaluation and treatment. Home medications were reviewed and reconciled. She is a full code. Home Medications Medication Instructions Recorded Confirmed Type Diphenoxylate/Atrop 2.5-0.025 1 each PO QID PRN 12/15/16 01/11/17 History [Lomotil Tab] Enalapril/Hydrochlorothiazide 1 each PO DAILY 12/15/16 01/11/17 History [Enalapril-Hctz 5-12.5 mg Tab] Escitalopram Oxalate 10 mg PO DAILY 12/15/16 01/11/17 History Ibuprofen 800 mg PO TID 12/15/16 01/11/17 History Metoclopramide Tab [Reglan Tab] 10 mg PO TID 12/15/16 01/11/17 History Omeprazole 20 mg PO BID 12/15/16 01/11/17 History Promethazine HCl 25 mg PO Q6HR PRN 12/15/16 01/11/17 History Spironolactone 50 mg PO DAILY 12/15/16 01/11/17 History Tramadol HCl [Tramadol Tab] 50 mg PO BID PRN 12/15/16 01/11/17 History Carisoprodol [Carisoprodol] 350 mg PO BID 01/11/17 01/11/17 History Hydrocodone/Acetaminophen 1 each PO QID PRN 01/11/17 01/11/17 History [Hydrocodon-Acetaminophn 10-325] diphenhydrAMINE CAP [Benadryl Cap] 25 mg PO TID PRN 01/11/17 01/11/17 History Allergies Allergy/AdvReac Type Severity Reaction Status Date / Time povidone-iodine Allergy Unknown/Unable Verified 12/15/16 17:34 [From Betadine] to obtain soap [From Betadine] Allergy Unknown/Unable Verified 12/15/16 17:34 to obtain Sulfa (Sulfonamide Allergy Unknown/Unable Verified 12/15/16 17:34 Antibiotics) to obtain Medical,Surgical,& Family Hx - Medical History Cardio: History of: Hypertension Endocrine: History of: Diabetes Mellitus (NIDDM) Rheumatology: History of;: Rheumatoid Arthritis Respiratory: History of: Asthma, COPD, Obstructive Sleep Apnea, Pneumonia Renal: History of: Renal Failure Genitourinary: History of: Recurring Urinary Tract Infections Gastrointestinal: History of: GERD - Surgical History Cardiac Surgeries: Sugical HX of: Cardiac Catheterization HEENT Surgeries: Surgical HX of: Eye Surgery (reports bilateral cataract surgery ) Abdominal Surgeries: Surgical HX of: Appendectomy, Cholecystectomy Orthopedic Surgeries: Surgical HX of;: Total Knee Replacement - Family History Family History: Reports;: Family Hypertension - Social History Smoking Status: Current every day smoker Have you smoked in the last 12 months: Yes (1 ppd) Time spent discussing smoking cessation with patient: 3 to 10 minutes (3 minutes were spent discussing smoking cessation with the patinet.) Frequency of Alcohol Use: None Type of Drug Use: None Marital Status: Lives With:: Alone (has caregivers) Functional capacity: uses cane/walker 12 point system: reviewed and no additional remarkable complaints except as stated - Constitutional Constitutional: Present: fever(s), weakness. Absent: chills, malaise - EENT Eyes: Absent: blurry vision, diplopia, loss of vision Ears: Absent: decreased hearing, ear discharge, ear pain Nose, mouth and throat: Absent: headache(s), nasal congestion, sore throat - Cardiovascular Cardiovascular: Present: chest pain with activity, dyspnea, edema. Absent: orthopnea, palpitations - Respiratory Respiratory: Present: cough, dyspnea. Absent: wheezing - Gastrointestinal Gastrointestinal: Absent: abdominal pain, diarrhea, nausea, vomiting - Genitourinary Genitourinary: Absent: dysuria, flank pain, urinary frequency - Musculoskeletal Musculoskeletal: Present: arthralgias (knee pain ), joint swelling, muscle weakness. Absent: myalgias - Neurological Neurological: Absent: dizziness, numbness, paresthesias, syncope - Psychiatric Psychiatric: Absent: anxiety, depression - Endocrine Endocrine: Absent: cold intolerance, polydipsia, polyphagia, polyuria - Hematologic/Lymphatic Hematologic/Lymphatic: Absent: easy bleeding, easy bruising Exam - Constitutional Vitals: Period Temp Pulse Resp BP Sys/Vega Pulse Ox Last 24 Hr 99.9 F-99.9 F 101-124 17-23 99-110/60-81 85-97 Exam: Constitutional System: Low-grade fever. Awake, alert and oriented x 2. No distress. No tremulousness. Skin: poor turgor. Head: Normocephalic, atraumatic. Ears, Nose and Throat System: No pain or tenderness. No epistaxis or discharge. Dry mucus membranes. Eyes System: Pupils equal, round, and reactive. Extraocular muscles intact. Neck: Supple, without adenopathy, No jugular venous distention. No thyromegaly, neck mass, or prior surgery apparent. Respiratory System: Posterior inspiratory fine rales. Cardiovascular System: Heart with regular rate and rhythm. No murmur. GI System: Abdomen soft, nontender. Normo active bowel sounds present. Musculoskeletal System: Significant BLE edema, right worse than left with weeping. Full distal pulses. Normal capillary refill. Neurological System: No discernable sensory deficit. No aphasia Psychiatric System: Conversation is rational Results - Labs CBC & BMP: 01/11/17 20:12 01/11/17 20:12 Lab Results: I have reviewed the past 24 hour labs - Diagnostic Findings Procedure: Chest x-ray: report reviewed by me Sepsis - Sepsis Classification of Sepsis: Sepsis Sepsis documentation within 6 hours of presentation: fluid change - Physical Exam Respiratory exam: rales Capillary Refill: Less Than 3 Seconds Peripheral pulses: Radial (L): 5+, Radial (R): 5+ Cardiovascular exam: regular rate and rhythm Skin exam: normal color
[2017-01-12] MEDS: ACETAMINOPHEN 325 MG TABLET PO PRN ×2 (02:20→10:37)
[2017-01-12] MEDS ORDERED: SODIUM CHLORIDE 0.9% 1,000 ML IV SCH (02:30)
[2017-01-12 03:24] LABS: Basophils % 0.4 % (0.0-0.8); Eosinophils % 0.1 % (0.00-10.9); Hematocrit 39.6 VOL% (35.7-47.0); Hemoglobin 13.3 GM/DL (12.0-16.0); Immature Granulocytes % 0.5 %; Immature Granulocytes Absolute 0.04 #; Lymphocytes # 0.5 10*3/uL (1.4-4.0); Lymphocytes % 5.9 % (21.3-54.2); Mean Corpuscular HGB Conc 33.6 GM/DL (32-36); Mean Corpuscular Hemoglobin 31 PG (27-34); Mean Corpuscular Volume 91.7 FL (87-102); Monocytes # 0.5 10*3/uL (0.11-0.8); Monocytes % 6.4 % (1.7-12.7); Neutrophils # 7.2 10*3/uL (1.4-7.4); Neutrophils % 86.7 % (38.7-73.9); Platelet Count 133 T/CUMM (130-400); Red Blood Count 4.32 MC/CUMM (3.8-5.5); Red Cell Distribution Width 17.1 % (9.3-17.3); White Blood Count 8.3 T/CUMM (4-12)
[2017-01-12 03:54] LABS: Albumin 2.4 G/DL (3.4-5.0); Bilirubin,Total 0.8 MG/DL (0.2-1.0); Calcium 8.5 MG/DL (8.5-10.1); Magnesium 1.1 MG/DL (1.8-2.4); Potassium 3.9 MMOL/L (3.5-5.1); Total Protein 5.6 G/DL (6.4-8.3)
[2017-01-12] MEDS ORDERED: FUROSEMIDE 40 MG/4 ML VIAL IV SCH (08:00)
--- NOTE | 2017-01-12 08:13 | EKG Report ---
Stationary ECG Study 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
[2017-01-12] MEDS: METOCLOPRAMIDE 10 MG TABLET PO SCH ×3 (09:00→20:27)
[2017-01-12] MEDS: hydroCHLOROthiazide 12.5 MG CAPSULE PO SCH (09:00)
[2017-01-12] MEDS: ENOXAPARIN 40 MG/0.4 ML SYRINGE SUBCUT SCH (09:01)
[2017-01-12] MEDS: PANTOPRAZOLE 40 MG TABLET PO SCH ×2 (09:01→20:27)
[2017-01-12] MEDS ORDERED: MAGNESIUM SULF RIDER 4 GM in PREMIX 1 EACH IV ONE (10:03)
--- NOTE | 2017-01-12 10:07 | Hospitalist Progress Note ---
Assessment and Plan (1) Sepsis Status: Acute Assessment and plan: The patient has symptoms of acute sepsis syndrome likely due to the wounds on her lower extremities. We will continue IV antibiotics and wound care. The patient has had IV fluid hydration and appears to be mildly volume overloaded. Will restart her home diuretic medication. We will recheck electrolytes in the morning. We will replete magnesium overnight. Current Visit: No (2) Confusion Status: Acute Current Visit: No (3) Pedal edema Status: Acute Current Visit: No (4) Cellulitis Status: Acute Current Visit: Yes Hospitalist: Subjective Interval history: The patient is requesting to be discharged home. The patient has less discomfort in her legs today. The patient received IV antibiotics and fluid resuscitation overnight. The patient has modest elevation of troponin which is likely related to her severe infection. The patient had low oxygen this morning but responded to cough and deep breathe with improved oxygenation. Exam - Constitutional Vitals: Period Temp Pulse Resp BP Sys/Vega Pulse Ox Last 24 Hr 98.2 F-99.9 F 101-124 16-23 99-120/60-81 85-97 Exam: Constitutional System: Mild distress. No tremulousness. Sitting up in bed and in good spirits Head: Normocephalic, atraumatic. Ears, Nose and Throat System: No evidence of Otitis or Mastoiditis. No epistaxis or discharge Eyes System: Pupils equal, round, and reactive. Extraocular muscles intact. Neck: Supple, without adenopathy, 1+ jugular venous distention. No thyromegaly , neck mass, or prior surgery apparent. Respiratory System: Chest few rales in bases bilaterally to auscultation. Cardiovascular System: Heart with regular rate and rhythm. No murmur. GI System: Abdomen soft, nontender. Normo active bowel sounds present. Musculoskeletal System: limbs with 2+ brawny pedal edema. Inflamed wounds due to chronic edema Full distal pulses. Neurological System: No discernable sensory deficit. No aphasia Psychiatric System: Conversation is rational Capillary Refill: less than 2 sec Results - Labs CBC & BMP: 01/12/17 02:35 01/12/17 02:35 Lab Results: I have reviewed the past 24 hour labs
[2017-01-12] MEDS: SPIRONOLACTONE 50 MG TABLET PO SCH (10:37)
[2017-01-12] MEDS: ENALAPRIL 5 MG TABLET PO SCH (10:42)
[2017-01-12] MEDS: COLCHICINE 0.6 MG TABLET PO SCH (11:57)
[2017-01-12] MEDS: traMADol 50 MG TABLET PO SCH ×2 (11:57→20:27)
[2017-01-12] MEDS: ESCITALOPRAM 10 MG TABLET PO SCH (11:57)
[2017-01-12] MEDS: FUROSEMIDE 40 MG TABLET PO SCH (15:10)
[2017-01-13] MEDS: CEFTAROLINE 600 MG in SODIUM CHLORIDE 0.9% 100 ML IV SCH ×2 (05:22→17:01)
[2017-01-13 06:57] LABS: Basophils % 0.2 % (0.0-0.8); Eosinophils # 0.1 10*3/uL (0.0-0.87); Eosinophils % 1.2 % (0.00-10.9); Hematocrit 39.9 VOL% (35.7-47.0); Hemoglobin 13.6 GM/DL (12.0-16.0); Immature Granulocytes % 0.6 %; Immature Granulocytes Absolute 0.05 #; Lymphocytes # 1.2 10*3/uL (1.4-4.0); Mean Corpuscular HGB Conc 34.1 GM/DL (32-36); Mean Corpuscular Hemoglobin 31 PG (27-34); Mean Corpuscular Volume 90.1 FL (87-102); Mean Platelet Volume 11.7 FL (9.6-12.0); Monocytes # 0.7 10*3/uL (0.11-0.8); Monocytes % 7.9 % (1.7-12.7); Neutrophils # 6.4 10*3/uL (1.4-7.4); Neutrophils % 76.1 % (38.7-73.9); Platelet Count 131 T/CUMM (130-400); Red Blood Count 4.43 MC/CUMM (3.8-5.5); Red Cell Distribution Width 17.2 % (9.3-17.3); White Blood Count 8.4 T/CUMM (4-12)
[2017-01-13 07:29] LABS: Magnesium 1.6 MG/DL (1.8-2.4); Osmolality,Calculated 275.7 MOS/KG (273-304); Potassium 3.4 MMOL/L (3.5-5.1)
[2017-01-13] MEDS ORDERED: ALLOPURINOL 300 MG TABLET PO SCH (09:00)
[2017-01-13] MEDS: COLCHICINE 0.6 MG TABLET PO SCH (09:15)
[2017-01-13] MEDS: SPIRONOLACTONE 50 MG TABLET PO SCH (09:15)
[2017-01-13] MEDS: hydroCHLOROthiazide 12.5 MG CAPSULE PO SCH (09:16)
[2017-01-13] MEDS: ESCITALOPRAM 10 MG TABLET PO SCH (09:16)
[2017-01-13] MEDS: ENOXAPARIN 40 MG/0.4 ML SYRINGE SUBCUT SCH (09:17)
[2017-01-13] MEDS: traMADol 50 MG TABLET PO SCH (09:18)
[2017-01-13] MEDS: PANTOPRAZOLE 40 MG TABLET PO SCH (09:18)
[2017-01-13] MEDS: METOCLOPRAMIDE 10 MG TABLET PO SCH ×2 (09:18→14:24)
[2017-01-13] MEDS: ENALAPRIL 5 MG TABLET PO SCH (09:20)
[2017-01-13] MEDS: FUROSEMIDE 40 MG TABLET PO SCH ×2 (09:36→15:22)
[2017-01-13] MEDS ORDERED: MAGNESIUM SULF RIDER 2 GM in PREMIX 1 EACH IV PRN (09:57)
[2017-01-13] MEDS ORDERED: MAGNESIUM SULF RIDER 4 GM in PREMIX 1 EACH IV PRN (09:57)
[2017-01-13] MEDS: POTASSIUM CHLORIDE 20 MEQ TABLET PO PRN ×3 (10:37→14:24)
--- NOTE | 2017-01-13 11:22 | Discharge Summary ---
Hospital Course - Hospital Course Hospital Course: The patient was admitted to the hospital with infection of wounds on her lower extremities. The patient has chronic brawny edema below the knees to the ankles. The patient is dressed with compression dressings which were changed yesterday. The patient no longer has sepsis syndrome symptoms. The patient requests discharge home so she can make office visits to her outpatient doctor. On the date of discharge, the chest is clear and heart has regular rate and rhythm. Abdomen is soft. Patient medications were reconciled upon admission, and again at the time of discharge. The patient was screened for tobacco use and found to be a occasional smoker. The patient was given 4 minutes of tobacco avoidance education. The patient's medical decsion maker is themself, and when asked, they asked to be Full code. Discharge Time was 34 minutes, including final examination, evaluation and planning, education, reconciliation of medications, writing prescriptions, coordinating care with case fitter, and preparing discharge documentation. - Time spent with patient Time with patient DS: Greater than 30 minutes Time spent discussing smoking cessation with patient: 3 to 10 minutes Diagnosis - Discharge Diagnosis (1) Sepsis Status: Resolved (2) Confusion Status: Resolved (3) Pedal edema Status: Chronic (4) Cellulitis Status: Chronic Discharge Plan - Discharge Data Disposition: Home Health Service Condition at Discharge: Stable Discharge Diet: diabetic diet Activity: resume usual activities as tolerated Wound / Dressing Care Instructions: home health to change compressive bandages twice weekly. - Discharge Medications New Ciprofloxacin Tab [Cipro Tab] 500 mg PO BID #14 tablet Continue Enalapril/Hydrochlorothiazide [Enalapril-Hctz 5-12.5 mg Tab] 1 each PO DAILY Spironolactone 50 mg PO DAILY Escitalopram Oxalate 10 mg PO DAILY Tramadol HCl [Tramadol Tab] 50 mg PO BID Omeprazole 20 mg PO BID Metoclopramide Tab [Reglan Tab] 10 mg PO TID Colchicine [Colcrys] 0.6 mg PO DAILY Amoxicillin/Potassium Clav [Amox-Clav 875-125 mg Tablet] 1 each PO Q12HR Allopurinol 300 mg PO DAILY Carisoprodol 350 mg PO BID Hydrocodone/Acetaminophen [Hydrocodon-Acetaminophn 10-325] 1 each PO QID PRN PRN Reason: Pain Furosemide Tab [Lasix Tab] 40 mg PO BID DIURETIC Discontinued Ibuprofen 800 mg PO TID Promethazine HCl 25 mg PO Q6HR PRN PRN Reason: Nausea/Vomiting Diphenoxylate/Atrop 2.5-0.025 [Lomotil Tab] 1 each PO QID PRN PRN Reason: Diarrhea diphenhydrAMINE CAP [Benadryl Cap] 25 mg PO TID PRN PRN Reason: ALLERGIES - Follow Up or Referral Follow Up: Adarsh Perry [REFERRING DOCTOR/PRACTITIONER] - 2 Weeks - Forms/Instructions Exam - Constitutional Vitals: Period Temp Pulse Resp BP Sys/Vega Pulse Ox Last 24 Hr 97.6 F-99.0 F 90-109 18-21 117-158/68-82 89-96 Discharge Results Procedures and tests throughout hospitalization: Pending Orders 01/11/17 20:12 Blood Culture Stat Labs on day of discharge: Labs from last 24 hours 01/13/17 01/13/17 06:21 06:21 WBC 8.4 RBC 4.43 Hgb 13.6 Hct 39.9 MCV 90.1 MCH 31 MCHC 34.1 RDW 17.2 Plt Count 131 MPV 11.7 Neut % (Auto) 76.1 H Lymph % (Auto) 14.0 L [place] % (Auto) 7.9 Eos % (Auto) 1.2 Baso % (Auto) 0.2 Neut # (Auto) 6.4 Lymph # (Auto) 1.2 L [place] # (Auto) 0.7 Eos # (Auto) 0.1 Baso # (Auto) 0.0 Immature Gran % 0.6 Nucleated RBC % 0.0 Immature Gran # 0.05 Nucleated RBCs # 0.00 Immature Plt Fraction 0.0 Sodium 138 Potassium 3.4 L Chloride 99 Carbon Dioxide 36 H Anion Gap 6.4 BUN 16 Creatinine 0.80 GFR Calculation 102 BUN/Creatinine Ratio 20.00 Glucose 93 Calculated Osmolality 275.7 Calcium 9.0 Magnesium 1.6 L Preliminary micro results at discharge 01/11/17 20:12 Blood Culture - Preliminary Blood No growth at 1 day 01/11/17 20:12 Blood Culture - Preliminary Blood No growth at 1 day DS: Provider Date of admission: 01/11/17 23:02 Primary care physician: Byron Santoyo MD Attending physician on admission: Festus Hudson MD Consults: 01/12/17 02:01 Consult to Case Mgmt/Social Srvs [CONS] Routine Reason for Case Mgmt/Social Srvs: Discharge Planning 01/13/17 11:15 Consult to Case Mgmt/Social Srvs [CONS] Routine Reason for Case Mgmt/Social Srvs: Home Health Consult Comment: [facility] w/ PT Discharging clinician: Sherwin Valencia MD
[2017-01-13] MEDS: ACETAMINOPHEN 325 MG TABLET PO PRN (15:45)
[2017-01-13 16:21] VITALS: BP 124/61
--- NOTE | 2017-01-14 10:58 | Physician Query Form ---
CLICK EDIT DOCUMENT TO SELECT QUERY ANSWER --> OK --> SIGN Trina Yo RN, CCDS Certified Clinical Hold Worker W) [phone] (f) [phone] [email or web address] PROVIDERS: Make your selection(s) from the choices in EACH section by typing an "x" and enter comments in the comment section. Please use your independent medical judgment in providing your response. This request does not imply that any particular answer is desired or expected. CLINICAL INDICATORS: (Providers should not edit this section) The medical record indicates that the patient was admitted with sepsis, BNP 299# , "Rales", CXR showed "mild cardiac decompensation", and the patient was treated with IV / PO Lasix: "normal ejection fraction in the recent past" Please provide further specificity regarding CHF. ACUITY: ( ) Acute ( ) Chronic (X ) Acute on Chronic ( ) Clinically unable to determine TYPE: ( ) Systolic (HFrEF - heart failure with reduced systolic function/EF) (X ) Diastolic (HFpEF - heart failure with preserved systolic function/EF) ( ) Combined Systolic/Diastolic ( ) Other, please specify: ( ) Clinically unable to determine ( ) Past Medical History of Systolic CHF ( ) Past Medical History of Diastolic CHF ( ) Clinically unable to determine COMMENTS: PLEASE ALSO DOCUMENT RESPONSE IN PROGRESS NOTES AND/OR DISCHARGE SUMMARY Use of terms such as suspected, likely, or probable (associated with a specific diagnosis that is being evaluated, monitored, or treated as if it exists) are acceptable and can be restated in the discharge summary if not ruled out. MTDD
== END 2017-01-13 17:52 | disposition home health service (06) | DRG 871 ==
LOC: N.ED 19:37 → N.EDINP 23:02 → SUATTDRO 23:02 → N.5E 01-12 00:50
PROVIDERS: ADMIT Hospitalist; ATTEND Internal Medicine

== ENCOUNTER 2017-01-14 13:30 | Inpatient (IN) ==
[2017-01-14] MEDS ORDERED: SODIUM CHLORIDE 0.9% 2,700 ML IV ONE (13:50)
--- NOTE | 2017-01-14 14:14 | XRay Report ---
XR chest 1V portable Indication: Hypertension, tachycardia Comparison: Chest x-ray January 11, 2017 Technique: Single frontal view of the chest. Findings: Continued cardiomegaly. There is a nonspecific reticular pattern throughout the bilateral lungs suspicious for interstitial pulmonary edema, interstitial pneumonia, or other interstitial lung disease. Bilateral basilar opacification suspicious for superimposed pneumonia. There is left hilar prominence. Consider CT chest for further evaluation. Visualized osseous and surrounding soft tissue structures appear grossly unchanged. IMPRESSION: As above. PROCEDURE INTERPRETED AT [facility] DEPARTMENT OF RADIOLOGY Final Report Signed by: Dr Julius Spicer
[2017-01-14 14:36] LABS: Basophils % 0.4 % (0.0-0.8); Hematocrit 47.1 VOL% (35.7-47.0); Hemoglobin 15.4 GM/DL (12.0-16.0); Immature Granulocytes % 1.5 %; Immature Granulocytes Absolute 0.15 #; Lymphocytes # 0.9 10*3/uL (1.4-4.0); Lymphocytes % 9.3 % (21.3-54.2); Mean Corpuscular HGB Conc 32.7 GM/DL (32-36); Mean Corpuscular Hemoglobin 31 PG (27-34); Mean Platelet Volume 12.2 FL (9.6-12.0); Monocytes # 0.7 10*3/uL (0.11-0.8); Monocytes % 6.7 % (1.7-12.7); NRBC # 0.04 10*3/uL; Neutrophils # 8.1 10*3/uL (1.4-7.4); Neutrophils % 82.1 % (38.7-73.9); Platelet Count 165 T/CUMM (130-400); Red Blood Count 5.01 MC/CUMM (3.8-5.5); Red Cell Distribution Width 18.3 % (9.3-17.3); White Blood Count 9.9 T/CUMM (4-12)
[2017-01-14] MEDS ORDERED: SODIUM CHLORIDE 0.9% 1,000 ML IV STA (14:49)
[2017-01-14] MEDS ORDERED: PIPERACILLIN/TAZOBACTAM 3,375 MG VIAL IV ONE (15:02)
[2017-01-14 15:04] LABS: Albumin 2.9 G/DL (3.4-5.0); Bilirubin,Total 0.6 MG/DL (0.2-1.0); Calcium 9.1 MG/DL (8.5-10.1); Potassium 4.3 MMOL/L (3.5-5.1); Total Protein 6.7 G/DL (6.4-8.3)
[2017-01-14 15:27] LABS: Apearance,Urine Slightly Hazy (Clear); Bacteria,Urine Occasional /HPF (Few); Bilirubin,Urine Negative (Negative); Blood, Urine Negative (Negative); Glucose,Urine (UA) Negative (Negative); Ketones,Urine Negative (Negative); Mucus,Urine Occasional /LPF (Occasional); Nitrite,Urine Negative (Negative); Protein,Urine 100 MG/DL; RBC,Urine 6 /HPF (0-4); Urine Specific Gravity 1.013 (1.001-1.035); WBC,Urine 3 /HPF (0-6)
[2017-01-14 15:28] LABS: Urine Color Yellow (Yellow)
--- NOTE | 2017-01-14 15:30 | Emergency Department Note ---
Toby Lubin Manpreet, am scribing for, and in the presence of, Maciel Ascencio MD 13:57. Silva Luibn Phillip K, MD, personally performed the services described in this documentation, ascribed by Phong Luis in my presence, and it is both accurate and complete 529 . Arrival - Arrival Chief Complaint: Altered Mental Status Stated Complaint: altered LOC ED Nursing Triage Note: Brought in by EMS c/o altered LOC-onset this morning upon waking. Patient recently discharged from here for urosepsis. Mode of Arrival: Stretcher Limitations: No Limitations Source: Patient, RN Notes Reviewed Time Seen by Provider: 01/14/17 13:45 - History of Present Illness HPI Narrative: Pt iws a 66 y/o female, with PMHx of HTN, CHF, NIDDM, RA, asthma, COPD, and PNA , who is brought to the ED via EMS with CC of AMS. Pt was brought to the ED on for AMS and hospitalized for LE wound infection. Pt is unable to communicate clearly and effectively but follows commands of marker shipments and leg raise when prompted. Pt denies being in any pain. No other pains/complaints reported to the ED. Onset (ago): hour(s) (This AM) Consistency: constant Allergies/Adverse Reactions: Allergies Allergy/AdvReac Type Severity Reaction Status Date / Time povidone-iodine Allergy Unknown/Unable Verified 12/15/16 17:34 [From Betadine] to obtain soap [From Betadine] Allergy Unknown/Unable Verified 12/15/16 17:34 to obtain Sulfa (Sulfonamide Allergy Unknown/Unable Verified 12/15/16 17:34 Antibiotics) to obtain Home Medications: Home Medications Medication Instructions Recorded Confirmed Type Enalapril/Hydrochlorothiazide 1 each PO DAILY 12/15/16 01/14/17 History [Enalapril-Hctz 5-12.5 mg Tab] Escitalopram Oxalate 10 mg PO DAILY 12/15/16 01/14/17 History Metoclopramide Tab [Reglan Tab] 10 mg PO TID 12/15/16 01/14/17 History Omeprazole 20 mg PO BID 12/15/16 01/14/17 History Spironolactone 50 mg PO DAILY 12/15/16 01/14/17 History Tramadol HCl [Tramadol Tab] 50 mg PO BID 12/15/16 01/14/17 History Carisoprodol 350 mg PO BID 01/11/17 01/14/17 History Hydrocodone/Acetaminophen 1 each PO QID PRN 01/11/17 01/14/17 History [Hydrocodon-Acetaminophn 10-325] Allopurinol 300 mg PO DAILY 01/12/17 01/14/17 History Amoxicillin/Potassium Clav 1 each PO Q12HR 01/12/17 01/14/17 History [Amox-Clav 875-125 mg Tablet] Colchicine [Colcrys] 0.6 mg PO DAILY 01/12/17 01/14/17 History Furosemide Tab [Lasix Tab] 40 mg PO BID DIURETIC 01/12/17 01/14/17 History Ciprofloxacin Tab [Cipro Tab] 500 mg PO BID #14 tablet 01/13/17 01/14/17 Rx Review of System - Review of System 12 point system: reviewed and no additional remarkable complaints except as stated - Review of System Constitutional: Absent: chills, diaphoresis, fever Respiratory: Absent: cough, respiratory distress, wheezing Cardiovascular: Absent: chest pain Gastrointestinal: Absent: abdominal pain, nausea, vomiting, diarrhea Genitourinary female: Absent: dysuria Musculoskeletal: Absent: arm pain, back pain Neurological: Present: confusion. Absent: headache, weakness, numbness, paresthesias Medical,Surgical,& Family Hx - Medical History Cardio: History of: CHF, Hypertension Endocrine: History of: Diabetes Mellitus (NIDDM) Rheumatology: History of;: Rheumatoid Arthritis Respiratory: History of: Asthma, COPD, Obstructive Sleep Apnea, Pneumonia Renal: History of: Renal Failure Genitourinary: History of: Recurring Urinary Tract Infections Gastrointestinal: History of: GERD - Surgical History Cardiac Surgeries: Sugical HX of: Cardiac Catheterization HEENT Surgeries: Surgical HX of: Eye Surgery (reports bilateral cataract surgery ) Abdominal Surgeries: Surgical HX of: Appendectomy, Cholecystectomy Orthopedic Surgeries: Surgical HX of;: Total Knee Replacement - Family History Family History: Reports;: Family Hypertension - Social History Smoking Status: Current every day smoker Frequency of Alcohol Use: None Type of Drug Use: None Exam Vital Signs: Vital Signs Temperature 97.5 F L 01/14/17 13:36 Pulse Rate 122 H 01/14/17 13:36 Respiratory Rate 01/14/17 13:36 Blood Pressure 107/75 01/14/17 13:36 O2 Sat by Pulse Oximetry 99 01/14/17 13:36 - General General appearance: alert, obese - Head Head exam: Present: atraumatic, normocephalic, normal inspection - Eye Eye exam: Present: normal appearance, PERRL, EOMI - ENT ENT exam: Present: normal exam, normal oropharynx, mucous membranes moist, TM's normal bilaterally - Neck Neck exam: Present: normal inspection, full ROM, trachea midline - Chest Chest inspection: Present: normal inspection, symmetric chest wall rise - Respiratory Respiratory exam: Present: normal lung sounds bilaterally. Absent: respiratory distress - Cardiovascular Cardiovascular exam: Present: regular rate, normal rhythm, normal heart sounds. Absent: murmur, rubs, gallop - Abdominal Exam Abdominal exam: Present: soft, distention, normal bowel sounds. Absent: tenderness, guarding - Extremities Exam Extremities exam: Absent: normal inspection - Back Exam Back exam: Present: normal inspection, full ROM. Absent: tenderness - Neurological Exam Neurological exam: Present: alert, oriented X3, CN II-XII intact, reflexes normal - Psychiatric Psychiatric exam: Present: normal affect, normal mood - Skin Skin exam: Present: warm, dry, intact, normal color. Absent: pallor Course Course Narrative: Admit to the hospitalist Results - Labs CBC & BMP: 01/14/17 14:11 01/14/17 14:11 Lab Results: I have reviewed the patients labs Labs: Laboratory Tests 01/14/17 01/14/17 14:11 14:43 WBC 9.9 RBC 5.01 Hgb 15.4 Hct 47.1 H MCV 94.0 MCH 31 MCHC 32.7 MPV 12.2 H Neut % (Auto) 82.1 H Lymph % (Auto) 9.3 L [place] % (Auto) 6.7 Eos % (Auto) 0.0 Baso % (Auto) 0.4 Neut # (Auto) 8.1 H Lymph # (Auto) 0.9 L POC Glucose 153 H Laboratory Tests 01/14/17 14:44 Lactic Acid 2.3 H Laboratory Tests 01/14/17 15:09 Urine Color Yellow Urine Appearance Slightly hazy Urine pH 5.0 Ur Specific [place] 1.013 Urine Protein 100 Urine Glucose (UA) Negative Urine Ketones Negative Urine Blood Negative Urine Nitrate Negative Urine Bilirubin Negative Urine Urobilinogen 4.0 H Urine Leukocytes Trace Urine RBC 6 Urine WBC 3 Urine Bacteria Occasional Urine Mucus Occasional Ur Culture Indicated? Ordered separately Laboratory Tests 01/14/17 14:11 Sodium 136 Potassium 4.3 Chloride 98 Carbon Dioxide 29 Anion Gap 13.3 BUN 23 H Creatinine 2.00 H GFR Calculation 34 BUN/Creatinine Ratio 11.00 Glucose 132 H Calculated Osmolality 277.0 Calcium 9.1 Total Bilirubin 0.60 AST 54 H ALT 24 Alkaline Phosphatase 113 Total Protein 6.7 Albumin 2.9 L Globulin 3.8 H Albumin/Globulin Ratio 0.7 L Laboratory Tests 01/14/17 01/14/17 14:11 15:09 Sodium 136 Potassium 4.3 Chloride 98 Carbon Dioxide 29 Anion Gap 13.3 BUN 23 H Creatinine 2.00 H GFR Calculation 34 BUN/Creatinine Ratio 11.00 Glucose 132 H Calculated Osmolality 277.0 Calcium 9.1 Total Bilirubin 0.60 AST 54 H ALT 24 Alkaline Phosphatase 113 Total Protein 6.7 Albumin 2.9 L Globulin 3.8 H Albumin/Globulin Ratio 0.7 L Urine Opiates Screen Positive H Ur Barbiturates Screen Negative Ur Phencyclidine Scrn Negative U Amphetamine/Methamph Negative U Benzodiazepines Scrn Negative U Cocaine Metab Screen Negative U Cannabinoids Screen Negative - EKG EKG results: interpreted by ERMD (Sinus tachycardia, questionable old inferior NV) - Diagnostic Findings Procedure: Chest x-ray: report reviewed by me ("Chest X-ray: Continued cardiomegaly. There is nonspecific reticular pattern throughout the bilateral lungs suspicious for interstitial pulmonary edema, interstitial pneumonia, or other interstitial lung disease. Bilateral basilar opacification suspicious for superimposed pneumonia. There is left hilar prominence. Consider CT chest for further evaluation. Visualized osseous and surrounding soft tissue structures appear grossly unchanged.") Disposition Clinical Impression: Bibasilar pneumonia, Sepsis Case discussed with: patient Disposition: Still a Patient Condition: Guarded
[2017-01-14 15:36] LABS: Barbiturates Screen,Urine Negative (Negative); Benzodiazepines Screen,Urine Negative (Negative); Cannabinoid Screen,Urine Negative (Negative); Opiate Screen,Urine Positive (Negative); Phencyclidine Screen,Urine Negative (Negative)
--- NOTE | 2017-01-14 16:23 | Hospitalist History & Physical ---
Assessment and Plan - Time spent with patient Time spent with patient: Less than 30 minutes (1) Severe sepsis Status: Acute Assessment and plan: At the time of ED presentation, the patient presented grossly altered. In addition, the patient was noted to be tachycardic with a heart rate recorded at 122. Labs were obtained which were significant for renal insufficiency with a creatinine noted at 2.00, and BUN noted at 23. The patient's lactic acid level was elevated at 2.3. Urinalysis was significant for trace leukocytes, urine WBCs were noted at 3 in the presence of occasional urine bacteria and mucus was noted. Chest x-ray was significant for continued cardiomegaly, the presence of a non-specific reticular pattern throughout the bilateral lungs which was suspicious for interstitial pneumonia, interstitial pulmonary edema, or other interstitial lung disease. In addition, bilateral basilar opacification suspicious for superimposed pneumonia and the presence of a left hilar prominence was noted. Based on these findings, the patient meets the severe sepsis criteria. The severe sepsis criteria bundle has been initiated. Current Visit: Yes (2) Altered mental status Status: Acute Assessment and plan: At the time of ED presentation, the patient was noted to be grossly altered. Upon examination, the patient was noted to respond to both tactile and verbal stimuli with much encouragement. We will obtain a CT head without contrast to investigate possible sources of altered mental status. The patient source of altered mental status may is likely secondary to overwhelming infection however ,we will obtain CT for good measures. Current Visit: No Qualifiers: Altered mental status type: disorientation Qualified Code(s): R41.0 - Disorientation, unspecified (3) Pneumonia Status: Acute Assessment and plan: Chest x-ray significant was for continued cardiomegaly, the presence of a non- specific reticular pattern throughout the bilateral lungs which was suspicious for interstitial pneumonia, interstitial pulmonary edema, or other interstitial lung disease. In addition, bilateral basilar opacification suspicious for superimposed pneumonia and the presence of a left hilar prominence was noted. We will start empiric antibiotic coverage, inhaled bronchodilators and recheck chest x-ray in a.m. Current Visit: Yes Qualifiers: Pneumonia type: due to unspecified organism Laterality: bilateral (4) Chronic skin ulcer of lower leg Status: Acute Assessment and plan: The patient has chronic skin ulcerations to the bilateral lower extremities. We will consult surgery and wound care to evaluate and offer recommendations. Current Visit: Yes History of Present Illness Chief complaint: Altered mental status History of present illness: This is a chronically ill 66-year-old female that presented to the ED at [facility] this afternoon via EMS for the evaluation of altered mental status. The patient has a medical history significant for congestive heart failure, hypertension, [id number] diabetes mellitus , rheumatoid arthritis, asthma, chronic obstructive pulmonary disease, obstructive sleep apnea, pneumonia, renal failure, gouty arthritis, depression, chronic urinary tract infections, chronic lower extremity ulcerations, and gastroesophageal reflux disease. Patient has a surgical history significant for cardiac catheterization, bilateral cataract removal, appendectomy, cholecystectomy, right total knee replacement. The patient was discharged from [facility] on yesterday after a subsequent admission for urosepsis. The patient was treated with empiric antibiotic coverage and her symptoms improved. Today, family noted that she was experiencing a change in mental status. They reported that they noticed a change initially this morning when the patient and the patient's mental status gradually declined throughout the day. They became alarmed and summoned EMS. The patient was subsequently transferred to [facility] for further evaluation. The patient was assessed at the time of ED presentation. The patient was noted to be grossly altered and lethargic. The patient was noted to only respond to tactile stimuli initially however, her mental status improved slightly and she was able to follow simple commands. Labs were obtained which were significant for hematocrit 47.1, BUN 23, creatinine 2.00, glucose 132, lactic acid 2.3, AST 54, albumin 2.9. Urinalysis was obtained which was remarkable for urine urobilinogen 4.0, urine leukocytes trace, urine RBCs 6, urine WBC 3, and occasional urine bacteria and urine mucus was noted. Urine toxicology was positive for urine opiates. Chest x-ray was significant for continued cardiomegaly, the presence of a non-specific reticular pattern throughout the bilateral lungs which was suspicious for interstitial pneumonia, interstitial pulmonary edema, or other interstitial lung disease. In addition, bilateral basilar opacification suspicious for superimposed pneumonia and the presence of a left hilar prominence was noted. After brief discussion with both Dr. Ascencio and Dr. Valencia, the patient will be admitted to the hospitalist service for continuation of care. Home medications have been reviewed and reconciled. CODE STATUS discussed; the patient is FULL CODE. At the time of ED presentation, the patient presented grossly altered. In addition, the patient was noted to be tachycardic with a heart rate recorded at 122. Labs were obtained which were significant for renal insufficiency with a creatinine noted at 2.00, and BUN noted at 23. The patient's lactic acid level was elevated at 2.3. Urinalysis was significant for trace leukocytes, urine WBCs were noted at 3 in the presence of occasional urine bacteria and mucus was noted. Chest x-ray was significant for continued cardiomegaly, the presence of a non-specific reticular pattern throughout the bilateral lungs which was suspicious for interstitial pneumonia, interstitial pulmonary edema, or other interstitial lung disease. In addition, bilateral basilar opacification suspicious for superimposed pneumonia and the presence of a left hilar prominence was noted.Based on these findings, the patient meets the severe sepsis criteria. The severe sepsis criteria bundle has been initiated. Home Medications Medication Instructions Recorded Confirmed Type Enalapril/Hydrochlorothiazide 1 each PO DAILY 12/15/16 01/14/17 History [Enalapril-Hctz 5-12.5 mg Tab] Escitalopram Oxalate 10 mg PO DAILY 12/15/16 01/14/17 History Metoclopramide Tab [Reglan Tab] 10 mg PO TID 12/15/16 01/14/17 History Omeprazole 20 mg PO BID 12/15/16 01/14/17 History Spironolactone 50 mg PO DAILY 12/15/16 01/14/17 History Tramadol HCl [Tramadol Tab] 50 mg PO BID 12/15/16 01/14/17 History Carisoprodol 350 mg PO BID 01/11/17 01/14/17 History Hydrocodone/Acetaminophen 1 each PO QID PRN 01/11/17 01/14/17 History [Hydrocodon-Acetaminophn 10-325] Allopurinol 300 mg PO DAILY 01/12/17 01/14/17 History Amoxicillin/Potassium Clav 1 each PO Q12HR 01/12/17 01/14/17 History [Amox-Clav 875-125 mg Tablet] Colchicine [Colcrys] 0.6 mg PO DAILY 01/12/17 01/14/17 History Furosemide Tab [Lasix Tab] 40 mg PO BID DIURETIC 01/12/17 01/14/17 History Ciprofloxacin Tab [Cipro Tab] 500 mg PO BID #14 tablet 01/13/17 01/14/17 Rx Allergies Allergy/AdvReac Type Severity Reaction Status Date / Time povidone-iodine Allergy Unknown/Unable Verified 12/15/16 17:34 [From Betadine] to obtain soap [From Betadine] Allergy Unknown/Unable Verified 12/15/16 17:34 to obtain Sulfa (Sulfonamide Allergy Unknown/Unable Verified 12/15/16 17:34 Antibiotics) to obtain Medical,Surgical,& Family Hx - Medical History Cardio: History of: CHF, Hypertension Endocrine: History of: Diabetes Mellitus (NIDDM) Rheumatology: History of;: Gout, Rheumatoid Arthritis Respiratory: History of: Asthma, COPD, Obstructive Sleep Apnea, Pneumonia Renal: History of: Renal Failure Genitourinary: History of: Recurring Urinary Tract Infections Gastrointestinal: History of: GERD - Surgical History Cardiac Surgeries: Sugical HX of: Cardiac Catheterization HEENT Surgeries: Surgical HX of: Eye Surgery (reports bilateral cataract surgery ) Abdominal Surgeries: Surgical HX of: Appendectomy, Cholecystectomy Orthopedic Surgeries: Surgical HX of;: Total Knee Replacement - Family History Family History: Reports;: Family Hypertension - Social History Smoking Status: Current every day smoker Have you smoked in the last 12 months: Yes Frequency of Alcohol Use: None Type of Drug Use: None Marital Status: Single Lives With:: Children Functional capacity: wheelchair bound ROS unobtainable: due to mental status Exam - Constitutional Vitals: Period Temp Pulse Resp BP Sys/Vega Pulse Ox Last 24 Hr 97.5 F-97.5 F 122-122 18-18 107-107/75-75 99 General appearance: normal weight - Head Head exam: Present: normal inspection, normocephalic, atraumatic - Eye Eye exam: Present: EOMI. Absent: conjunctival injection Pupils: Present: JUICE, normal accommodation - ENT ENT exam: Present: normal exam, normal external ear exam, normal oropharynx - Neck Neck exam: Present: normal inspection. Absent: lymphadenopathy, meningismus, thyromegaly - Respiratory Respiratory exam: Present: clear to auscultation bilaterally. Absent: rales, rhonchi, stridor, wheezes - Cardiovascular Cardiovascular exam: Present: tachycardia. Absent: carotid bruit, diastolic murmur, gallop, JVD, regular rate and rhythm, rubs, systolic murmur - GI/Abdominal GI/Abdominal exam: Present: normal bowel sounds, soft - Extremities Exam Extremities exam: Present: normal capillary refill, edema (+2 pitting edema noted to the bilateral lower extremity), other (Compression dressings noted to the patient's bilateral lower extremities) - Back Exam Back exam: Present: normal inspection - Neurological Exam Neurological exam: Present: altered, other (Lethargic) - Psychiatric Psychiatric exam: Present: other (Unable to assess secondary to altered mental status) - Skin Skin exam: Present: normal color, warm, dry Results - Labs CBC & BMP: 01/14/17 14:11 01/14/17 14:11 Lab Results: I have reviewed the past 24 hour labs Sepsis - Sepsis Classification of Sepsis: Severe Sepsis Possible / Suspected infection from: Urinary tract/pneumonia - Physical Exam Physical Exam: At the time of ED presentation, the patient presented grossly altered. In addition, the patient was noted to be tachycardic with a heart rate recorded at 122. Labs were obtained which were significant for renal insufficiency with a creatinine noted at 2.00, and BUN noted at 23. The patient's lactic acid level was elevated at 2.3. Urinalysis was significant for trace leukocytes, urine WBCs were noted at 3 in the presence of occasional urine bacteria and mucus was noted. Based on these findings, the patient meets the severe sepsis criteria. The severe sepsis criteria bundle has been initiated. - Physical Exam Respiratory exam: clear to auscultation bilaterally Capillary Refill: Less Than 3 Seconds Peripheral pulses: Radial (L): 1+, Radial (R): 1+, Dorsalis Pedis (L) PM: 1+, Dorsalis Pedis (R) PM: 1+, Posterior Tibialis (L): 1+, Posterior Tibialis (R): 1 + Cardiovascular exam: tachycardia Skin exam: normal color
[2017-01-14] MEDS: PIPERACILLIN/TAZOBACTAM 3,375 MG in SODIUM CHLORIDE 0.9% 100 ML IV SCH ×2 (16:34→23:22)
[2017-01-14] MEDS ORDERED: ONDANSETRON 4 MG/2 ML VIAL IV PRN (16:43)
[2017-01-14 17:05] LABS: ABG Base Excess 1.7 MMOL/L (-2.5-2.5); ABG HCO3 25.5 MMOL/L (20-26); ABG Oxygen Saturation 83.8 % (95-100); ABG PCO2 57.3 MM HG (35-48); ABG PH 7.321 (7.35-7.45); ABG PO2 54.6 MM HG (80-95); ABG TCO2 25.6 MMOL/L (23-27)
--- NOTE | 2017-01-14 17:42 | CT Report ---
CT of the head without contrast. Indication: Altered mental status. Comparison: December 15, 2016. There is heavy calcific plaque present within the intracranial internal carotid arteries. There is generalized atrophy, worse in the cerebellum. There are prominent areas of low density in the periventricular white matter, worse in the parietal lobes. These are stable compared to the recent previous study. No cortical infarcts are seen at this time. There is no mass effect, midline shift, or area of hemorrhage noted. The calvarium is intact. Included paranasal sinuses and the mastoid air cells are clear. Impression: 1. Generalized atrophy, worse in the cerebellum. 2. Extensive white matter abnormality, stable, and likely attributable to chronic microvascular ischemia. The CT exam was performed using one or more of the following dose reduction techniques: Automated exposure control, adjustment of the mA and/or kV according to patient size, or use of iterative reconstruction technique. PROCEDURE INTERPRETED AT [facility] DEPARTMENT OF RADIOLOGY Final Report Signed by: Dr. Elle Feng
[2017-01-14] MEDS: SODIUM CHLORIDE 0.9% 1,000 ML IV SCH (17:53)
[2017-01-14] MEDS: ENOXAPARIN 40 MG/0.4 ML SYRINGE SUBCUT SCH (18:01)
[2017-01-14] MEDS: CEFTAROLINE 400 MG in SODIUM CHLORIDE 0.9% 100 ML IV SCH (18:32)
[2017-01-14] MEDS: VANCOMYCIN INJ 1,250 MG in SODIUM CHLORIDE 0.9% 250 ML IV SCH (20:01)
[2017-01-15] MEDS: CEFTAROLINE 400 MG in SODIUM CHLORIDE 0.9% 100 ML IV SCH ×2 (05:08→20:36)
[2017-01-15 06:06] LABS: Basophils % 0.1 % (0.0-0.8); Hematocrit 43.6 VOL% (35.7-47.0); Hemoglobin 14.4 GM/DL (12.0-16.0); Immature Granulocytes % 0.5 %; Immature Granulocytes Absolute 0.05 #; Lymphocytes # 1.3 10*3/uL (1.4-4.0); Lymphocytes % 13.5 % (21.3-54.2); Mean Corpuscular Hemoglobin 31 PG (27-34); Mean Corpuscular Volume 93.6 FL (87-102); Mean Platelet Volume 11.8 FL (9.6-12.0); Monocytes # 0.7 10*3/uL (0.11-0.8); Monocytes % 7.3 % (1.7-12.7); NRBC # 0.04 10*3/uL; Neutrophils # 7.3 10*3/uL (1.4-7.4); Neutrophils % 78.6 % (38.7-73.9); Platelet Count 145 T/CUMM (130-400); Red Blood Count 4.66 MC/CUMM (3.8-5.5); Red Cell Distribution Width 18.1 % (9.3-17.3); White Blood Count 9.2 T/CUMM (4-12)
[2017-01-15] MEDS: SODIUM CHLORIDE 0.9% 1,000 ML IV SCH (06:23)
[2017-01-15 06:52] LABS: Magnesium 1.9 MG/DL (1.8-2.4); Osmolality,Calculated 281.7 MOS/KG (273-304)
[2017-01-15 06:53] LABS: Troponin I Only 0.516 NG/ML (0.00-0.045)
[2017-01-15] MEDS: PIPERACILLIN/TAZOBACTAM 3,375 MG in SODIUM CHLORIDE 0.9% 100 ML IV SCH ×2 (06:59→15:30)
[2017-01-15] MEDS: MORPHINE 2 MG/1 ML SYRINGE IV PRN ×2 (07:15→17:57)
--- NOTE | 2017-01-15 08:13 | EKG Report ---
Stationary ECG Study [facility] ER Test Date: 01/14/2017 1:39:02 PM Pat Name: CYRIL JONES Department: Room: 338 Gender: F Cops: : 1950 Requested by: Maciel Holbrook Order Number: [id number] Reading MD: LUCIA CASAREZ Intervals [place] Rate: 121 P: 40 [place]: 120 QRS: 60 QRSD: 85 T: -5 QT: 338 QTc: 410 Interpretive Statements SINUS TACHYCARDIA LOW QRS VOLTAGE IN PRECORDIAL LEADS PROBABLE INFERIOR MYOCARDIAL INFARCTION, OLD Electronically Signed On 01-17-17 17:10:08 CDT by LUCIA CASAREZ [email or web address]
--- NOTE | 2017-01-15 08:26 | EKG Report ---
Stationary ECG Study [facility] Test Date: 01/15/2017 8:19:15 AM Pat Name: CYRIL JONES Department: Room: 338 Gender: F Pattern Mechanic: ANUJA : 1950 Requested by: Laurel Ingram Order Number: [id number] Reading MD: LUCIA CASAREZ Intervals [place] Rate: 109 P: 1 [place]: 144 QRS: -47 QRSD: 90 T: 10 QT: 372 QTc: 436 Interpretive Statements SINUS TACHYCARDIA MARKED LEFT AXIS DEVIATION POSSIBLE RIGHT VENTRICULAR CONDUCTION DELAY Electronically Signed On 01-17-17 17:42:49 CDT by LUCIA CASAREZ [email or web address]
[2017-01-15] MEDS ORDERED: ASPIRIN 325 MG TABLET ONE (08:31)
[2017-01-15] MEDS ORDERED: PANTOPRAZOLE 40 MG VIAL IV ONE ×2 (08:33→08:36)
[2017-01-15] MEDS ORDERED: ASPIRIN EC 325 MG TABLET PO ONE (08:34)
[2017-01-15] MEDS ORDERED: NITROGLYCERIN SL 0.4 MG TABLET SL ONE (08:35)
[2017-01-15] MEDS ORDERED: ENOXAPARIN 100 MG/ML SYRINGE SUBCUT ONE (08:36)
[2017-01-15] MEDS ORDERED: ALUM/MAG/SIMETH/LIDO VISC 1:1 30 ML BOTTLE PO ONE (08:36)
[2017-01-15] MEDS ORDERED: NITROGLYCERIN SL 0.4 MG TABLET SL PRN (08:37)
[2017-01-15] MEDS ORDERED: METOPROLOL TARTRATE 5 MG/5 ML VIAL IV ONE (08:39)
[2017-01-15] MEDS ORDERED: NITROGLYCERIN 2% OINT 1 INCH/GM PACK TOP ONE (08:45)
[2017-01-15] MEDS: NITROGLYCERIN 0.1 MG/HR PATCH TRANSDERM SCH (08:47)
[2017-01-15] MEDS ORDERED: SODIUM CHLORIDE 0.9% 1,000 ML IV ONE (09:21)
--- NOTE | 2017-01-15 09:29 | Event Note ---
I was called a stat consult to see this patient. The patient had been moved from the room on 3 E. when I arrived I came to the ICU to evaluate the patient. At that time her blood pressure was 85 over 50s heart rate was 110. Echocardiogram was being performed she has a small underfilled hyperdynamic left ventricle she has a dilated hypokinetic right ventricle the right ventricle is almost 50% larger than the left ventricle. She has pain in her legs they are dressed. She does not answer questions appropriately and completely. I reviewed her chart I see her creatinine is 2.0. She is hypotensive and has right heart failure by echocardiogram. I do not think this represents acute coronary syndrome if anything there may be some demand ischemia she has no regional wall motion abnormal healthy but does have flattening of the interventricular septum suggesting right-sided pressure and volume overload. I think this necessitates and a rapid workup first ulnar embolism potentially life-threatening. I have ordered a CT PE protocol I will initiate bicarbonate infusion along with a fluid bolus to hopefully escalate her pressure. With the fluid bolus the hospitalist ordered her blood pressure has come from the 70s to the 100s. The patient is not able to give any significant history she is [facility] but answers "yeah" to open ended questions. Her mental status is clearly not normal at this time. Initial orders have been started. Blood gases are crossed and she is hypoxemic. She may need further workup for this if she does not have pulmonary embolism however I think at this time this is #1 on the list. This could potentially represent septic shock but I think the findings at the echo are suggestive of pulmonary embolism. She has a "allergy" to Provodine-Iodine I am not aware if she has ever had problems with IV contrast. The first and foremost issue here I think is to correct her hypoxemia currently her sats are 94% on nasal cannula. Rule out pulmonary embolism if not there is pulmonary embolism as there is a diagnosis consider EKOS. This right ventricular changes look acute her pressures are about 36 by TR jet and she has right heart failure. Although I have completed my history and physical exam and reviewed the data I am in a crunch for time and will have to come back and complete a full detailed note later.
[2017-01-15] MEDS ORDERED: SODIUM CHLORIDE 0.45% 1,000 ML IV SCH (09:30)
--- NOTE | 2017-01-15 09:48 | Ultrasound Report ---
Venous Doppler ultrasound bilateral lower extremities Indication: Shortness of breath Comparison: None available Findings: No evidence of echogenic, noncompressible thrombus seen in the visualized veins of the extremities. Color Doppler venous waveform pattern is within normal limits. Impression: No evidence of deep venous thrombosis. Ultrasound images stored and captured. PROCEDURE INTERPRETED AT [facility] DEPARTMENT OF RADIOLOGY Final Report Signed by: Dr. Mohit Saeed
--- NOTE | 2017-01-15 10:05 | XRay Report ---
XR chest 1V portable Indication: Chest pain Comparison: 14 January 2017 Findings: The heart and mediastinum are stable in size and configuration. The pulmonary vascularity is prominent centrally similar to previous exam. Bilateral lower lung pulmonary density is present similar to previous study. No other lung infiltrates, effusions, pneumothorax or other abnormality is demonstrated. Impression: No significant changes. PROCEDURE INTERPRETED AT [facility] DEPARTMENT OF RADIOLOGY Final Report Signed by: Dr. Mohit Saeed
--- NOTE | 2017-01-15 10:18 | CT Report ---
CT chest pulmonary embolism Indication: Chest pain, shortness of breath Comparison: None available Technique: Axial CT imaging of the chest is performed with intravenous contrast. Contrast dose is 80 cc of Omnipaque 350. Findings: No thrombus or other abnormality is identified in the pulmonary arteries or veins. The pulmonary vessel caliber is within normal limits. The right ventricle appears prominent and contrast refluxes into the inferior cava and hepatic veins. Mediastinum and great vessels appear within normal limits. There is bilateral lower lung airspace density. Remaining pulmonary parenchyma shows no evidence of airspace disease or abnormal density. No effusion or pneumothorax is present. Impression: No evidence of pulmonary thromboembolism. Bilateral lower lung airspace density, may indicate pneumonia. Prominent right ventricle with reflux of contrast in the inferior vena cava and hepatic veins can indicate right ventricle dysfunction. This CT exam was performed using one or more the following dose reduction techniques: Automated exposure control, adjustment of the MA and/or KV according to patient size, or use of iterative reconstruction technique. PROCEDURE INTERPRETED AT [facility] DEPARTMENT OF RADIOLOGY Final Report Signed by: Dr. Mohit Saeed
[2017-01-15] MEDS ORDERED: MORPHINE 2 MG/1 ML SYRINGE IV ONE (10:31)
--- NOTE | 2017-01-15 10:46 | EKG Report ---
Stationary ECG Study [facility] Test Date: 01/15/2017 8:39:26 AM Pat Name: CYRIL JONES Department: Room: 111 Gender: F Patient Scheduling Manager: : [id number] Requested by: Laurel Ingram Order Number: [id number] Reading MD: LUCIA CASAREZ Intervals [place] Rate: 108 P: 33 CO: 177 QRS: -44 QRSD: 79 T: 2 QT: 352 QTc: 416 Interpretive Statements SINUS TACHYCARDIA POSSIBLE RIGHT VENTRICULAR CONDUCTION DELAY LOW VOLTAGE TRACING Electronically Signed On 01-17-17 17:44:28 CDT by LUCIA CASAREZ [email or web address]
[2017-01-15] MEDS: SODIUM BICARB INJ 50 MEQ in SODIUM CHLORIDE 0.45% 1,000 ML IV SCH ×2 (10:51→19:59)
[2017-01-15] MEDS: VANCOMYCIN INJ 1,250 MG in SODIUM CHLORIDE 0.9% 250 ML IV SCH ×2 (10:59→21:51)
--- NOTE | 2017-01-15 11:16 | Hospitalist Progress Note ---
Assessment and Plan (1) Chest pain Status: Acute Assessment and plan: cause is still unclear. ?ACS with PE ruled out. May be due to bilateral pneumonia. Echocardiogram showed a small underfilled hyperdynamic left ventricle she has a dilated hypokinetic right ventricle the right ventricle is almost 50% larger than the left ventricle.Troponin was slightly bumped though her creatinine was 2.0. She had a CT chest which showed no PE but bilateral pneumonia. Doppler showed no evidence of DVT. Plan -Unit for closer monitoring -continue with ASA, lovenox, bblocker -Follow Cardiology and Pulmonology's recommendations -continue IV antibiotics Current Visit: Yes (2) Severe sepsis Status: Acute Assessment and plan: continue with IV antibiotics. UC -no growth so far Plan Follow BC Current Visit: Yes (3) Altered mental status Status: Acute Assessment and plan: CT head showed chronic changes. She appeared lucid and was not confused this am. Current Visit: No Qualifiers: Altered mental status type: disorientation Qualified Code(s): R41.0 - Disorientation, unspecified (4) Pneumonia Status: Acute Assessment and plan: Bilateral Continue with Iv antibiotics Pulm to see Current Visit: No Qualifiers: Pneumonia type: aspiration pneumonia Aspiration pneumonia type: due to gastric secretions Laterality: left Lung location: upper lobe of lung Qualified Code(s): J69.0 - Pneumonitis due to inhalation of food and vomit (5) Chronic skin ulcer of lower leg Status: Acute Assessment and plan: Dopplers showed no DVT Plan Follow Wound care Nurse consult Current Visit: Yes (6) Acute hypoxemic respiratory failure Status: Acute Assessment and plan: PE has been ruled out. It is most likely due to combination of FADY vs COPD vs Asthma vs Pneumonia Plan Continue with IV antibiotics, oxygen Pulm to evaluate Current Visit: Yes Hospitalist: Subjective Interval history: Patient complained of chest pain this am. Chest pain was located in the sternal region, occasionally radiating to the neck. EKG showed some changes.She was given some oxygen,nitro,aspirin, lovenox, lopressor, morphine, protonix. Cardiology was consulted and her Echocardiogram showed a small underfilled hyperdynamic left ventricle she has a dilated hypokinetic right ventricle the right ventricle is almost 50% larger than the left ventricle.Troponin was slightly bumped though her creatinine was 2.0. She had a CT chest which showed no PE but bilateral pneumonia. Doppler showed no evidence of DVT. She has been moved to the unit for closer monitoring. Exam - Constitutional Vitals: Period Temp Pulse Resp BP Sys/Vega Pulse Ox Last 24 Hr 97.0 F-98.4 F 102-122 18-22 94-119/60-75 91-99 General appearance: no acute distress, over weight, other (moaning in pain) - Head Head exam: Present: normal inspection - Respiratory Respiratory exam: Present: clear to auscultation bilaterally - Cardiovascular Cardiovascular exam: Present: regular rate and rhythm - GI/Abdominal GI/Abdominal exam: Present: normal bowel sounds - Extremities Exam Extremities exam: Present: other (bilateral wounds- bandaged) - Neurological Exam Neurological exam: Present: alert, oriented X3 Results - Labs CBC & BMP: 01/15/17 05:38 01/15/17 05:38 Lab Results: I have reviewed the past 24 hour labs Quality Measures - VTE Contraindication to Mechanical VTE Prophylaxis: Vascular Ulceration
--- NOTE | 2017-01-15 11:22 | ECHO Report ---
Shawna Hightower Exam Date: 01/15/2017 09:15 Referring Physician: Technologist: Aixa Riggs Age: 66 Ht (in): 66 Wt (lb): 215 Gender: F Exam Location: [facility] Echo Indications: chest pain, sepsis, pneumonia, skin ulcer lower leg BP: 119 / 70 HR: 111 Rhythm: tachycardia Technical Quality: IMPRESSIONS Grossly mild to moderate right ventricular enlargement with RV hypokinesis Hyperdynamic LV systolic function with ejection fraction estimated to be 75% without segmental wall motion normality 1+ tricuspid regurgitation with RVSP 37 mmHg plus RAP Mild tachycardia noted MEASUREMENTS (Male / Female) Normal Values 2D ECHO LV Diastolic Diameter PLAX 3.0 cm 4.2 - 5.9 / 3.9 - 5.3 cm LV Systolic Diameter PLAX 1.7 cm LV Fractional Shortening PLAX 45.2 % IVS Diastolic Thickness 1.3 cm 0.6 - 1.0 / 0.6 - 0.9 cm LVPW Diastolic Thickness 1.2 cm 0.6 - 1.0 / 0.6 - 0.9 cm Aortic Root Diameter 2.5 cm LA Systolic Diameter LX 3.3 cm 3.0 - 4.0 / 2.7 - 3.8 cm DOPPLER TR Peak Velocity 304.0 cm/s TR Peak Gradient 37.0 mmHg FINDINGS Left Ventricle Normal left ventricular cavity size. Moderate concentric left ventricular hypertrophy with moderate diastolic dysfunction. Left ventricular ejection fraction is estimated at 50-55 %. Right Ventricle Moderately increased right ventricular size. Right Atrium Moderately increased right atrial size. Left Atrium Normal left atrial size. Mitral Valve Mildly thickened mitral valve with trace- mild mitral regurgitation. Aortic Valve The aortic valve is trileaflet and has normal motion. Tricuspid Valve Morphologically normal tricuspid valve. Moderate tricuspid valve regurgitation. Tricuspid regurgitation velocities suggest a PAP of 37.1 mmHg + RAP. Pulmonic Valve Morphologically normal pulmonic valve. Trace pulmonary valve regurgitation. Pericardium No pericardial effusion. Aorta Normal size aortic root and proximal ascending aorta. Alvarado Reyes (Electronically Signed) Final Date: 15 January 2017 11:20
[2017-01-15 11:48] LABS: Basophils % 0.2 % (0.0-0.8); Eosinophils % 0.2 % (0.00-10.9); Hematocrit 44.6 VOL% (35.7-47.0); Hemoglobin 14.7 GM/DL (12.0-16.0); Immature Granulocytes % 0.5 %; Immature Granulocytes Absolute 0.07 #; Lymphocytes # 1.2 10*3/uL (1.4-4.0); Lymphocytes % 9.4 % (21.3-54.2); Mean Corpuscular Hemoglobin 31 PG (27-34); Mean Corpuscular Volume 94.9 FL (87-102); Mean Platelet Volume 12.8 FL (9.6-12.0); Monocytes # 1.2 10*3/uL (0.11-0.8); Monocytes % 9.1 % (1.7-12.7); NRBC # 0.03 10*3/uL; Neutrophils # 10.4 10*3/uL (1.4-7.4); Neutrophils % 80.6 % (38.7-73.9); Platelet Count 171 T/CUMM (130-400); Red Cell Distribution Width 18.3 % (9.3-17.3); White Blood Count 12.9 T/CUMM (4-12)
[2017-01-15 11:50] LABS: INR 1.1; PT Patient Result 11.4 SECS; Partial Thromboplastin Time 31.5 SECS (0-40)
[2017-01-15 12:11] LABS: Blood Urea Nitrogen 34 MG/DL (7-18); Calcium 8.8 MG/DL (8.5-10.1); Glucose 99 MG/DL (74-106); Potassium 5.4 MMOL/L (3.5-5.1); Sodium 136 MMOL/L (136-145)
[2017-01-15 12:15] LABS: Troponin I Only 0.499 NG/ML (0.00-0.045)
--- NOTE | 2017-01-15 13:27 | Cardiology Consult Note ---
Assessment and Plan - Time spent with patient Time spent with patient: Greater than 30 minutes (Chart review film reviewed documentation discussion with radiology examination orders) (1) Right heart failure Status: Acute Assessment and plan: see HPI. Current Visit: Yes (2) Altered mental status Status: Acute Current Visit: No Qualifiers: Altered mental status type: disorientation Qualified Code(s): R41.0 - Disorientation, unspecified (3) Sepsis Status: Resolved Current Visit: No (4) Confusion Status: Resolved Current Visit: No (5) Hypotension Status: Acute Current Visit: No (6) Hypertension Status: Acute Current Visit: No (7) Diabetes mellitus Status: Acute Current Visit: Yes (8) Acute hypoxemic respiratory failure Status: Acute Current Visit: Yes (9) Chest pain Status: Acute Assessment and plan: I do not think this represents ACS if it does certainly may be related to demand ischemia patient has been hypotensive and she has resting tachycardia with sepsis syndrome type pictures. I recommended that we give her fluid bolus and also because of need for CT scan I placed the patient on a bicarbonate infusion. Recommend serial cardiac biomarkers improving hemodynamics and consider the addition of beta-carmen. Current Visit: Yes History of Present Illness - Data of Consult Patient: new to practice Consult date: 01/15/17 Requesting Physician: Laurel Ingram - Consult Narrative Reason for consult: chest pain History of present illness: Ms. Hightower is a 66 year old female admitted yesterday to the hospital service with sepsis and signs and symptoms of underlying infection altered mental status. Patient was admitted to the floor yesterday and today complained of chest discomfort and a "heart alert" was called I was consulted. I came to 3 E. to see the patient however she had been moved to the ICU where I evaluated her. Time I evaluated her she was receiving a transthoracic echocardiogram which I reviewed briefly at the bedside which demonstrated significant right ventricular enlargement and hypokinesis with flattening of the intraventricular septum in the hyperdynamic left ventricle. Given this history I recommended CT PE protocol which was performed and shows no evidence of pulmonary embolism. The patient appears to have evidence of right-sided heart failure and acute elevation of right-sided pressures based on the findings seen echocardiogram. Her left ventricle is underfilled and hyperdynamic with no regional wall motion O'Santos however she has flattening of the interventricular septum I saw and examined the patient and there is an admit note that correlates with the time of that evaluation. The patient has altered mental status and will not answer my questions appropriately I do not know her baseline status. She is alert and oriented only to "Jelani's" but many other questions I am unable to get an answer or even get a "yeah" to even open ended questions. I do not think the history that I taken his in any way reliable. She is not able to give any clarification quantification or additional information other than "chest pain." I have reviewed her EKG and her echo. I reviewed her chart as well. Also reviewed her echocardiogram from 12/16/2016 that showed a similar PA pressure to his pressures today however her right ventricle was functioning dramatically better at that time. She had right ventricular systolic pressure estimated in the low 40s. Her right ventricular function appeared to be normal and her right ventricle was not dilated. This is significantly better or different at that time then currently. CC: Laurel Ingram MD - Home Medications and Allergies Home Medications: Home Medications Medication Instructions Recorded Confirmed Type Enalapril/Hydrochlorothiazide 1 each PO DAILY 12/15/16 01/14/17 History [Enalapril-Hctz 5-12.5 mg Tab] Escitalopram Oxalate 10 mg PO DAILY 12/15/16 01/14/17 History Metoclopramide Tab [Reglan Tab] 10 mg PO TID 12/15/16 01/14/17 History Omeprazole 20 mg PO BID 12/15/16 01/14/17 History Spironolactone 50 mg PO DAILY 12/15/16 01/14/17 History Tramadol HCl [Tramadol Tab] 50 mg PO BID 12/15/16 01/14/17 History Carisoprodol 350 mg PO BID 01/11/17 01/14/17 History Hydrocodone/Acetaminophen 1 each PO QID PRN 01/11/17 01/14/17 History [Hydrocodon-Acetaminophn 10-325] Allopurinol 300 mg PO DAILY 01/12/17 01/14/17 History Amoxicillin/Potassium Clav 1 each PO Q12HR 01/12/17 01/14/17 History [Amox-Clav 875-125 mg Tablet] Colchicine [Colcrys] 0.6 mg PO DAILY 01/12/17 01/14/17 History Furosemide Tab [Lasix Tab] 40 mg PO BID DIURETIC 01/12/17 01/14/17 History Ciprofloxacin Tab [Cipro Tab] 500 mg PO BID #14 tablet 01/13/17 01/14/17 Rx Allergies/Adverse Reactions: Allergies Allergy/AdvReac Type Severity Reaction Status Date / Time povidone-iodine Allergy Unknown/Unable Verified 12/15/16 17:34 [From Betadine] to obtain soap [From Betadine] Allergy Unknown/Unable Verified 12/15/16 17:34 to obtain Sulfa (Sulfonamide Allergy Unknown/Unable Verified 12/15/16 17:34 Antibiotics) to obtain ROS unobtainable: due to delirium Medical,Surgical,& Family Hx - Medical History Cardio: History of: Hypertension Endocrine: History of: Diabetes Mellitus (NIDDM) Rheumatology: History of;: Gout, Rheumatoid Arthritis Respiratory: History of: Asthma, COPD, Obstructive Sleep Apnea, Pneumonia Renal: History of: Renal Failure Genitourinary: History of: Recurring Urinary Tract Infections Gastrointestinal: History of: GERD - Surgical History Cardiac Surgeries: Sugical HX of: Cardiac Catheterization HEENT Surgeries: Surgical HX of: Eye Surgery (reports bilateral cataract surgery ) Abdominal Surgeries: Surgical HX of: Appendectomy, Cholecystectomy Reproductive Surgeries: Patient denies;: Genitourinary Surgery Orthopedic Surgeries: Surgical HX of;: Total Knee Replacement - Family History Family History: Reports;: Family Hypertension - Social History Smoking Status: Current every day smoker Frequency of Alcohol Use: None Type of Drug Use: None Physical Examination Vital Signs Temp Pulse Resp BP Pulse Ox 97.5 F L 122 H 18 107/75 99 01/14/17 13:36 01/14/17 13:36 01/14/17 13:36 01/14/17 13:36 01/14/17 13:36 General: Present: Other (She appears ill but comfortable no distress she has a Ventimask on Thursday saturations are 94% on a Ventimask) HEENT: Present: Normocephaly Neck: Present: Supple Neck, Midline Trachea Cardiac: Present: Reg Rate and Rhythm, S1/S2. Absent: S4 Lungs: Present: Scattered Rhonchi Neuro: Present: Cranial Nerve 2-12 Intact Abdomen: Present: Soft, Active Bowel Sounds Skin: Present: Clear Extremities: Present: No Edema Result/EKG - Labs CBC & BMP: 01/15/17 11:37 09/21/17 11:37 Labs: Laboratory Results - last 24 hr 01/14/17 01/14/17 01/14/17 14:11 14:11 14:43 WBC 9.9 RBC 5.01 Hgb 15.4 Hct 47.1 H MCV 94.0 MCH 31 MCHC 32.7 RDW 18.3 H Plt Count 165 D MPV 12.2 H Neut % (Auto) 82.1 H Lymph % (Auto) 9.3 L Faulk % (Auto) 6.7 Eos % (Auto) 0.0 Baso % (Auto) 0.4 Neut # (Auto) 8.1 H Lymph # (Auto) 0.9 L Faulk # (Auto) 0.7 Eos # (Auto) 0.0 Baso # (Auto) 0.0 Immature Gran % 1.5 Nucleated RBC % 0.4 Immature Gran # 0.15 Nucleated RBCs # 0.04 Immature Plt Fraction 0.0 INR PT Patient/Control Mix Fibrinogen D-Dimer, Quantitative Circ Anticoag PTT Plt Func Screen - ADP Plt Func Scrn - Epineph ABG pH ABG pCO2 ABG pO2 ABG HCO3 ABG Total CO2 ABG O2 Saturation ABG Base Excess Sodium 136 Potassium 4.3 Chloride 98 Carbon Dioxide 29 Anion Gap 13.3 BUN 23 H Creatinine 2.00 H GFR Calculation 34 BUN/Creatinine Ratio 11.00 Glucose 132 H POC Glucose 153 H Calculated Osmolality 277.0 Lactic Acid Cancelled Calcium 9.1 Magnesium Total Bilirubin 0.60 AST 54 H ALT 24 Alkaline Phosphatase 113 Total Creatine Kinase CK-MB (CK-2) Troponin I Total Protein 6.7 Albumin 2.9 L Globulin 3.8 H Albumin/Globulin Ratio 0.7 L Urine Color Urine Appearance Urine pH Ur Specific Converse Urine Protein Urine Glucose (UA) Urine Ketones Urine Blood Urine Nitrate Urine Bilirubin Urine Urobilinogen Urine Leukocytes Urine RBC Urine WBC Urine Bacteria Urine Mucus Ur Culture Indicated? Urine Opiates Screen Ur Barbiturates Screen Ur Phencyclidine Scrn U Amphetamine/Methamph U Benzodiazepines Scrn U Cocaine Metab Screen U Cannabinoids Screen 01/14/17 01/14/17 01/14/17 14:44 15:09 15:09 WBC RBC Hgb Hct MCV MCH MCHC RDW Plt Count MPV Neut % (Auto) Lymph % (Auto) Faulk % (Auto) Eos % (Auto) Baso % (Auto) Neut # (Auto) Lymph # (Auto) Faulk # (Auto) Eos # (Auto) Baso # (Auto) Immature Gran % Nucleated RBC % Immature Gran # Nucleated RBCs # Immature Plt Fraction INR PT Patient/Control Mix Fibrinogen D-Dimer, Quantitative Circ Anticoag PTT Plt Func Screen - ADP Plt Func Scrn - Epineph ABG pH ABG pCO2 ABG pO2 ABG HCO3 ABG Total CO2 ABG O2 Saturation ABG Base Excess Sodium Potassium Chloride Carbon Dioxide Anion Gap BUN Creatinine GFR Calculation BUN/Creatinine Ratio Glucose POC Glucose Calculated Osmolality Lactic Acid 2.3 H Calcium Magnesium Total Bilirubin AST ALT Alkaline Phosphatase Total Creatine Kinase CK-MB (CK-2) Troponin I Total Protein Albumin Globulin Albumin/Globulin Ratio Urine Color Yellow Urine Appearance Slightly hazy Urine pH 5.0 Ur Specific Converse 1.013 Urine Protein 100 Urine Glucose (UA) Negative Urine Ketones Negative Urine Blood Negative Urine Nitrate Negative Urine Bilirubin Negative Urine Urobilinogen 4.0 H Urine Leukocytes Trace Urine RBC 6 Urine WBC 3 Urine Bacteria Occasional Urine Mucus Occasional Ur Culture Indicated? Ordered separately Urine Opiates Screen Positive H Ur Barbiturates Screen Negative Ur Phencyclidine Scrn Negative U Amphetamine/Methamph Negative U Benzodiazepines Scrn Negative U Cocaine Metab Screen Negative U Cannabinoids Screen Negative 01/14/17 01/15/17 01/15/17 15:15 05:38 05:38 WBC 9.2 RBC 4.66 Hgb 14.4 Hct 43.6 MCV 93.6 MCH 31 MCHC 33.0 RDW 18.1 H Plt Count 145 MPV 11.8 Neut % (Auto) 78.6 H Lymph % (Auto) 13.5 L Faulk % (Auto) 7.3 Eos % (Auto) 0.0 Baso % (Auto) 0.1 Neut # (Auto) 7.3 Lymph # (Auto) 1.3 L Faulk # (Auto) 0.7 Eos # (Auto) 0.0 Baso # (Auto) 0.0 Immature Gran % 0.5 Nucleated RBC % 0.4 Immature Gran # 0.05 Nucleated RBCs # 0.04 Immature Plt Fraction 0.0 INR PT Patient/Control Mix Fibrinogen D-Dimer, Quantitative Circ Anticoag PTT Plt Func Screen - ADP Plt Func Scrn - Epineph ABG pH 7.321 L ABG pCO2 57.3 H ABG pO2 54.6 L ABG HCO3 25.5 ABG Total CO2 25.6 ABG O2 Saturation 83.8 L ABG Base Excess 1.7 Sodium 138 Potassium 5.0 Chloride 101 Carbon Dioxide 27 Anion Gap 15.0 BUN 31 H Creatinine 2.00 H GFR Calculation 35 BUN/Creatinine Ratio 15.00 Glucose 106 POC Glucose Calculated Osmolality 281.7 Lactic Acid Calcium 9.0 Magnesium 1.9 Total Bilirubin AST ALT Alkaline Phosphatase Total Creatine Kinase 139 D CK-MB (CK-2) Troponin I 0.516 H D Total Protein Albumin Globulin Albumin/Globulin Ratio Urine Color Urine Appearance Urine pH Ur Specific Converse Urine Protein Urine Glucose (UA) Urine Ketones Urine Blood Urine Nitrate Urine Bilirubin Urine Urobilinogen Urine Leukocytes Urine RBC Urine WBC Urine Bacteria Urine Mucus Ur Culture Indicated? Urine Opiates Screen Ur Barbiturates Screen Ur Phencyclidine Scrn U Amphetamine/Methamph U Benzodiazepines Scrn U Cocaine Metab Screen U Cannabinoids Screen 01/15/17 01/15/17 01/15/17 08:37 08:44 11:37 WBC 12.9 H D RBC 4.70 Hgb 14.7 Hct 44.6 MCV 94.9 MCH 31 MCHC 33.0 RDW 18.3 H Plt Count 171 MPV 12.8 H Neut % (Auto) 80.6 H Lymph % (Auto) 9.4 L Faulk % (Auto) 9.1 Eos % (Auto) 0.2 Baso % (Auto) 0.2 Neut # (Auto) 10.4 H Lymph # (Auto) 1.2 L Faulk # (Auto) 1.2 H Eos # (Auto) 0.0 Baso # (Auto) 0.0 Immature Gran % 0.5 Nucleated RBC % 0.2 Immature Gran # 0.07 Nucleated RBCs # 0.03 Immature Plt Fraction 0.0 INR PT Patient/Control Mix Fibrinogen D-Dimer, Quantitative 3.9 Circ Anticoag PTT Plt Func Screen - ADP Plt Func Scrn - Epineph ABG pH ABG pCO2 ABG pO2 ABG HCO3 ABG Total CO2 ABG O2 Saturation ABG Base Excess Sodium Potassium Chloride Carbon Dioxide Anion Gap BUN Creatinine GFR Calculation BUN/Creatinine Ratio Glucose POC Glucose Calculated Osmolality Lactic Acid Calcium Magnesium Total Bilirubin AST ALT Alkaline Phosphatase Total Creatine Kinase CK-MB (CK-2) Troponin I 0.484 H Total Protein Albumin Globulin Albumin/Globulin Ratio Urine Color Urine Appearance Urine pH Ur Specific Converse Urine Protein Urine Glucose (UA) Urine Ketones Urine Blood Urine Nitrate Urine Bilirubin Urine Urobilinogen Urine Leukocytes Urine RBC Urine WBC Urine Bacteria Urine Mucus Ur Culture Indicated? Urine Opiates Screen Ur Barbiturates Screen Ur Phencyclidine Scrn U Amphetamine/Methamph U Benzodiazepines Scrn U Cocaine Metab Screen U Cannabinoids Screen 01/15/17 01/15/17 11:37 11:37 WBC RBC Hgb Hct MCV MCH MCHC RDW Plt Count MPV Neut % (Auto) Lymph % (Auto) Faulk % (Auto) Eos % (Auto) Baso % (Auto) Neut # (Auto) Lymph # (Auto) Faulk # (Auto) Eos # (Auto) Baso # (Auto) Immature Gran % Nucleated RBC % Immature Gran # Nucleated RBCs # Immature Plt Fraction INR 1.1 PT Patient/Control Mix 11.4 Fibrinogen 575 H D-Dimer, Quantitative Circ Anticoag PTT 31.5 Plt Func Screen - ADP 55 L Plt Func Scrn - Epineph 75 L ABG pH ABG pCO2 ABG pO2 ABG HCO3 ABG Total CO2 ABG O2 Saturation ABG Base Excess Sodium 136 Potassium 5.4 H Chloride 100 Carbon Dioxide 29 Anion Gap 12.4 BUN 34 H Creatinine 1.90 H GFR Calculation 37 BUN/Creatinine Ratio 17.00 Glucose 99 POC Glucose Calculated Osmolality 279.0 Lactic Acid Calcium 8.8 Magnesium Total Bilirubin AST ALT Alkaline Phosphatase Total Creatine Kinase 128 CK-MB (CK-2) 3.1 Troponin I 0.499 H Total Protein Albumin Globulin Albumin/Globulin Ratio Urine Color Urine Appearance Urine pH Ur Specific Converse Urine Protein Urine Glucose (UA) Urine Ketones Urine Blood Urine Nitrate Urine Bilirubin Urine Urobilinogen Urine Leukocytes Urine RBC Urine WBC Urine Bacteria Urine Mucus Ur Culture Indicated? Urine Opiates Screen Ur Barbiturates Screen Ur Phencyclidine Scrn U Amphetamine/Methamph U Benzodiazepines Scrn U Cocaine Metab Screen U Cannabinoids Screen - EKG EKG results: interpreted by me (I reviewed multiple EKGs the patient has right her pulmonary disease type pattern she has got some ST segment changes that are appear to be old. I see no acute changes from the current EKG compared the most recent one done routinely this morning without chest discomfort) Quality Measures - VTE Contraindication to Mechanical VTE Prophylaxis: Vascular Ulceration
[2017-01-15 13:51] LABS: ABG Base Excess 0.2 MMOL/L (-2.5-2.5); ABG HCO3 24.5 MMOL/L (20-26); ABG Oxygen Saturation 92.7 % (95-100); ABG PH 7.328 (7.35-7.45); ABG PO2 74.6 MM HG (80-95); ABG TCO2 23.8 MMOL/L (23-27)
[2017-01-15] MEDS: ENOXAPARIN 40 MG/0.4 ML SYRINGE SUBCUT SCH (17:30)
[2017-01-15] MEDS ORDERED: ALBUTEROL/IPRATROPIUM 3 ML NEB RESP TX PRN (18:18)
[2017-01-15 18:32] LABS: Troponin I Only 0.372 NG/ML (0.00-0.045)
[2017-01-15] MEDS ORDERED: ALBUTEROL/IPRATROPIUM 3 ML NEB RESP TX SCH (19:00)
--- NOTE | 2017-01-15 20:28 | Pulmonology Consult Note ---
History of Present Illness Chief complaint: S OB. Hypoxemia. Tachycardia. CRF. Pneumonia History of present illness: Ms. Hightower is a 66 year old female whom I been asked to see in pulmonary consultation. This patient was admitted to [facility] 01/14/2017. She had an altered mental status. She was found to have a fast heart rate. He had a creatinine of 2.0. Lactic acid level is elevated 2.3. Chest x-ray and CT scan of the tests were abnormal. On the morning of 01/15/2017 patient developed hypotension. Echocardiogram was done and this showed a small underfilled hyperdynamic left ventricle. There was a dilated hypokinetic right ventricle. The right ventricle was 50% larger than the left ventricle. It was noted that the patient had dressed infections or lower extremities. Her mental status was still altered. It was felt that she had acute pulmonary emboli but test did not show this. This patient is unable to give a review of systems. Her review of systems therefore is negative. I reviewed this patient's chest x-rays and CT scans of her chest and I think she probably has bibasilar aspiration pneumonia. Note that the patient was hospitalized here 12/15/2016 through 12/18/2016. At that time she had a diagnosis of aspiration pneumonia and altered mental status . She did not see pulmonary during that admission. Dr. Matthew's had recommended that the patient stay in the hospital a while longer but she insisted on discharge today. Patient was then hospitalized here 01/11/2017 through 01/13/2017. Her discharge diagnosis was infection of wounds in the lower extremities. Sepsis syndrome which has resolved. Patient was then readmitted 01/14/2017 with an altered mental status fast heart rate elevated lactic acid level. Allergies. Betadine. Sulfa. Home medicines. See list. Hospital medicines. See list Past history. See above concerning hospitalization 12/15/2016 through 12/18/2016 with a diagnosis of aspiration pneumonia and altered mental status. See above concerning hospitalization 01/11/2017 through 01/13/2017 with infected wounds and sepsis syndrome.High blood pressure. History of congestive heart failure. Non- insulin-dependent diabetes mellitus. Gout. Rheumatoid arthritis. COPD/ asthma. Obstructive sleep apnea. History pneumonia. History of renal failure. History of gastroesophageal reflux disease. History of recurrent urinary tract infections. Previous appendectomy, cholecystectomy and total knee replacement. Family history. Positive for high blood pressure Social history. Daily smoker. Denies alcohol and drug use in the past. Single. Lives with children. Wheelchair-bound. Chest x-ray and CT of the chest. My impression. Bibasilar infiltrates. Most likely secondary to aspiration. Probable bacterial superinfection. Lab. White count is 12,900 with 80.6 segs. H&H is 14.7/44.6. INR is 1.1. Fibrinogen is elevated 575. D-dimer is elevated 3.9. Electrolytes are normal. Creatinine was 0.80 on 01/13/2017. On 01/14/2017 creatinine was 2.0 and today it is dropped 1.90. BUN is 34. Troponins are 0.405. Platelets are 171,000. Urinalysis shows no evidence of infection. ABGs. FiO2 28%. PH 7.328, PCO2 52.0, PO2 74.6, bicarb 24.5. Doppler venograms. 01/15/2017. Negative for deep venous thrombophlebitis Echocardiogram. 01/15/2017. See report. Pulmonary hypertension with right ventricular enlargement. Physical exam. Vital signs. See below. No recent elevated temps. Psychiatric. Hard to arouse. Mental status appears to be abnormal. Neurologic. Cranial nerves are grossly intact. Patient moves all 4 extremities. Face. Symmetrical. No edema of the lips or tongue Neck. Symmetrical. No meningismus Lymphatics. No submandibular cervical supraclavicular or epitrochlear adenopathy Chest. Mild large airway congestion. Heart. No gallop Abdomen. Obese. Rare bowel sounds Lower extremities. Her bandage for treatment of infection. Brawny edema is present. The remainder the physical exam is negative for noncontributory. Impression. 1. Probable bibasilar pneumonia. Suspect aspiration pneumonia and/or bacterial superinfection 2. History of gastroesophageal reflux disease and recent history of aspiration pneumonia 3. Tobacco abuse. Probable underlying COPD 4. Mild hypercarbia and moderate hypoxemia 5. Acute renal failure 6. See past history. 7. Pulmonary hypertension. Pulmonary emboli suspected but not found. Plan. 1. Agree with medicines including antibiotics 2. Cultures 3. When this patient is sufficiently stable she will be evaluated with fiberoptic bronchoscopy. 4. Follow-up chest x-ray and ABGs. 5. See Home Medications Medication Instructions Recorded Confirmed Type Enalapril/Hydrochlorothiazide 1 each PO DAILY 12/15/16 01/14/17 History [Enalapril-Hctz 5-12.5 mg Tab] Escitalopram Oxalate 10 mg PO DAILY 12/15/16 01/14/17 History Metoclopramide Tab [Reglan Tab] 10 mg PO TID 12/15/16 01/14/17 History Omeprazole 20 mg PO BID 12/15/16 01/14/17 History Spironolactone 50 mg PO DAILY 12/15/16 01/14/17 History Tramadol HCl [Tramadol Tab] 50 mg PO BID 12/15/16 01/14/17 History Carisoprodol 350 mg PO BID 01/11/17 01/14/17 History Hydrocodone/Acetaminophen 1 each PO QID PRN 01/11/17 01/14/17 History [Hydrocodon-Acetaminophn 10-325] Allopurinol 300 mg PO DAILY 01/12/17 01/14/17 History Amoxicillin/Potassium Clav 1 each PO Q12HR 01/12/17 01/14/17 History [Amox-Clav 875-125 mg Tablet] Colchicine [Colcrys] 0.6 mg PO DAILY 01/12/17 01/14/17 History Furosemide Tab [Lasix Tab] 40 mg PO BID DIURETIC 01/12/17 01/14/17 History Ciprofloxacin Tab [Cipro Tab] 500 mg PO BID #14 tablet 01/13/17 01/14/17 Rx Allergies Allergy/AdvReac Type Severity Reaction Status Date / Time povidone-iodine Allergy Unknown/Unable Verified 12/15/16 17:34 [From Betadine] to obtain soap [From Betadine] Allergy Unknown/Unable Verified 12/15/16 17:34 to obtain Sulfa (Sulfonamide Allergy Unknown/Unable Verified 12/15/16 17:34 Antibiotics) to obtain Exam (Pulmonay) H&P - Constitutional Vitals: Period Temp Pulse Resp BP Sys/Vega Pulse Ox Last 24 Hr 96.9 F-98.4 F 90-111 16-26 79-119/58-90 86-96 Medical,Surgical,& Family Hx - Medical History Cardio: History of: CHF, Hypertension Endocrine: History of: Diabetes Mellitus (NIDDM) Rheumatology: History of;: Gout, Rheumatoid Arthritis Respiratory: History of: Asthma, COPD, Obstructive Sleep Apnea, Pneumonia Renal: History of: Renal Failure Genitourinary: History of: Recurring Urinary Tract Infections Gastrointestinal: History of: GERD - Surgical History Cardiac Surgeries: Sugical HX of: Cardiac Catheterization HEENT Surgeries: Surgical HX of: Eye Surgery (reports bilateral cataract surgery ) Abdominal Surgeries: Surgical HX of: Appendectomy, Cholecystectomy Reproductive Surgeries: Patient denies;: Genitourinary Surgery Orthopedic Surgeries: Surgical HX of;: Total Knee Replacement - Family History Family History: Reports;: Family Hypertension - Social History Smoking Status: Current every day smoker Frequency of Alcohol Use: None Type of Drug Use: None Results - Labs CBC & BMP: 01/15/17 11:37 01/15/17 11:37 Quality Measures - VTE Contraindication to Mechanical VTE Prophylaxis: Vascular Ulceration
[2017-01-15 21:39] LABS: Troponin I Only 0.353 NG/ML (0.00-0.045)
[2017-01-16] MEDS: PIPERACILLIN/TAZOBACTAM 3,375 MG in SODIUM CHLORIDE 0.9% 100 ML IV SCH ×4 (00:13→22:56)
[2017-01-16] MEDS: ALBUTEROL/IPRATROPIUM 3 ML NEB RESP TX SCH ×4 (01:09→19:34)
[2017-01-16 03:14] LABS: Basophils % 0.2 % (0.0-0.8); Eosinophils % 0.1 % (0.00-10.9); Hematocrit 39.7 VOL% (35.7-47.0); Immature Granulocytes % 0.4 %; Immature Granulocytes Absolute 0.04 #; Lymphocytes # 0.8 10*3/uL (1.4-4.0); Lymphocytes % 9.1 % (21.3-54.2); Mean Corpuscular HGB Conc 32.7 GM/DL (32-36); Mean Corpuscular Hemoglobin 30 PG (27-34); Mean Platelet Volume 12.7 FL (9.6-12.0); Monocytes # 0.8 10*3/uL (0.11-0.8); Monocytes % 9.4 % (1.7-12.7); NRBC # 0.02 10*3/uL; Neutrophils # 7.2 10*3/uL (1.4-7.4); Neutrophils % 80.8 % (38.7-73.9); Platelet Count 139 T/CUMM (130-400); Red Blood Count 4.27 MC/CUMM (3.8-5.5); Red Cell Distribution Width 17.8 % (9.3-17.3); White Blood Count 8.9 T/CUMM (4-12)
[2017-01-16 03:30] LABS: INR 1.1; PT Patient Result 11.7 SECS; Partial Thromboplastin Time 33.5 SECS (0-40)
[2017-01-16 03:48] LABS: Calcium 8.5 MG/DL (8.5-10.1); Magnesium 1.7 MG/DL (1.8-2.4); Osmolality,Calculated 282.7 MOS/KG (273-304); Potassium 4.4 MMOL/L (3.5-5.1); Risk Ratio 4.37; VLDL CHOLESTEROL 21.6 MG/DL
[2017-01-16 04:04] LABS: Troponin I Only 0.312 NG/ML (0.00-0.045)
[2017-01-16] MEDS: SODIUM BICARB INJ 50 MEQ in SODIUM CHLORIDE 0.45% 1,000 ML IV SCH (04:25)
[2017-01-16] MEDS: CEFTAROLINE 400 MG in SODIUM CHLORIDE 0.9% 100 ML IV SCH ×2 (05:34→18:20)
--- NOTE | 2017-01-16 07:10 | Cardiology Progress Note ---
Assessment and Plan (1) Right heart failure Status: Acute Assessment and plan: see HPI. Current Visit: Yes (2) Altered mental status Status: Acute Current Visit: No Qualifiers: Altered mental status type: disorientation Qualified Code(s): R41.0 - Disorientation, unspecified (3) Hypotension Status: Acute Assessment and plan: Blood pressure is labile. He was hypotensive up until this morning she is hypertensive with escalate her beta-carmen if she tolerates. Current Visit: No (4) Hypertension Status: Acute Current Visit: No (5) Diabetes mellitus Status: Chronic Current Visit: Yes Qualifiers: Diabetes mellitus type: type 2 (6) Acute hypoxemic respiratory failure Status: Acute Current Visit: Yes (7) Chest pain Status: Acute Assessment and plan: I do not think this represents ACS. Treat risk factors for coronary artery disease. Current Visit: Yes Cardiology - PN: Subj Interval history: Ms. Hightower seems to me to still be confused when I ask her where she was and what year it was she told me she was at [facility] and it was 2006. Her blood pressure has been low but actually when I saw her it was 150/100 her heart rate was about 100. Her cardiac biomarkers are not suggestive of significant myocardial ischemia. She has tachycardia and this is certainly enough to cause this troponin elevation in the face of her renal insufficiency she may also have demand ischemia. Her right ventricle echocardiogram was enlarged and failings certainly this can cause this degree of troponin elevation as well. Her creatinine has improved with hydration. Decrease bicarbonate infusion. This point I have nothing further to add I will decrease her bicarbonate infusion and sign off. Please call if needed. Exam (Progress Note) - Constitutional Vitals: Period Temp Pulse Resp BP Sys/Vega Pulse Ox Last 24 Hr 96.9 F-98.4 F 89-111 16-29 79-150/50-100 86-98 General appearance: over weight - Head Head exam: Present: normal inspection - Eye Eye exam: Present: EOMI - Respiratory Respiratory exam: Present: rhonchi - Cardiovascular Cardiovascular exam: Present: regular rate and rhythm (Resting tachycardia), tachycardia - GI/Abdominal GI/Abdominal exam: Present: normal bowel sounds - Extremities Exam Extremities exam: Present: other (Wrapped) - Neurological Exam Neurological exam: Present: alert. Absent: oriented X3 Result/EKG - Labs CBC & BMP: 01/16/17 02:53 01/16/17 02:53 Labs: Laboratory Results - last 24 hr 01/15/17 01/15/17 01/15/17 08:37 08:44 11:37 WBC 12.9 H D RBC 4.70 Hgb 14.7 Hct 44.6 MCV 94.9 MCH 31 MCHC 33.0 RDW 18.3 H Plt Count 171 MPV 12.8 H Neut % (Auto) 80.6 H Lymph % (Auto) 9.4 L Elliott % (Auto) 9.1 Eos % (Auto) 0.2 Baso % (Auto) 0.2 Neut # (Auto) 10.4 H Lymph # (Auto) 1.2 L Elliott # (Auto) 1.2 H Eos # (Auto) 0.0 Baso # (Auto) 0.0 Immature Gran % 0.5 Nucleated RBC % 0.2 Immature Gran # 0.07 Nucleated RBCs # 0.03 Immature Plt Fraction 0.0 INR PT Patient/Control Mix Fibrinogen D-Dimer, Quantitative 3.9 Circ Anticoag PTT Plt Func Screen - ADP Plt Func Scrn - Epineph ABG pH ABG pCO2 ABG pO2 ABG HCO3 ABG Total CO2 ABG O2 Saturation ABG Base Excess FiO2 Sodium Potassium Chloride Carbon Dioxide Anion Gap BUN Creatinine GFR Calculation BUN/Creatinine Ratio Glucose Calculated Osmolality Calcium Magnesium Total Creatine Kinase CK-MB (CK-2) Troponin I 0.484 H Triglycerides Cholesterol LDL Cholesterol VLDL Cholesterol HDL Cholesterol Heart Disease Risk Ratio 01/15/17 01/15/17 01/15/17 11:37 11:37 13:41 WBC RBC Hgb Hct MCV MCH MCHC RDW Plt Count MPV Neut % (Auto) Lymph % (Auto) Elliott % (Auto) Eos % (Auto) Baso % (Auto) Neut # (Auto) Lymph # (Auto) Elliott # (Auto) Eos # (Auto) Baso # (Auto) Immature Gran % Nucleated RBC % Immature Gran # Nucleated RBCs # Immature Plt Fraction INR 1.1 PT Patient/Control Mix 11.4 Fibrinogen 575 H D-Dimer, Quantitative Circ Anticoag PTT 31.5 Plt Func Screen - ADP 55 L Plt Func Scrn - Epineph 75 L ABG pH 7.328 L ABG pCO2 52.0 H ABG pO2 74.6 L ABG HCO3 24.5 ABG Total CO2 23.8 ABG O2 Saturation 92.7 L ABG Base Excess 0.2 FiO2 28.00 Sodium 136 Potassium 5.4 H Chloride 100 Carbon Dioxide 29 Anion Gap 12.4 BUN 34 H Creatinine 1.90 H GFR Calculation 37 BUN/Creatinine Ratio 17.00 Glucose 99 Calculated Osmolality 279.0 Calcium 8.8 Magnesium Total Creatine Kinase 128 CK-MB (CK-2) 3.1 Troponin I 0.499 H Triglycerides Cholesterol LDL Cholesterol VLDL Cholesterol HDL Cholesterol Heart Disease Risk Ratio 01/15/17 01/15/17 01/15/17 13:51 17:49 21:12 WBC RBC Hgb Hct MCV MCH MCHC RDW Plt Count MPV Neut % (Auto) Lymph % (Auto) Elliott % (Auto) Eos % (Auto) Baso % (Auto) Neut # (Auto) Lymph # (Auto) Elliott # (Auto) Eos # (Auto) Baso # (Auto) Immature Gran % Nucleated RBC % Immature Gran # Nucleated RBCs # Immature Plt Fraction INR PT Patient/Control Mix Fibrinogen D-Dimer, Quantitative Circ Anticoag PTT Plt Func Screen - ADP Plt Func Scrn - Epineph ABG pH ABG pCO2 ABG pO2 ABG HCO3 ABG Total CO2 ABG O2 Saturation ABG Base Excess FiO2 Sodium Potassium Chloride Carbon Dioxide Anion Gap BUN Creatinine GFR Calculation BUN/Creatinine Ratio Glucose Calculated Osmolality Calcium Magnesium Total Creatine Kinase 102 D 71 D CK-MB (CK-2) 2.4 1.9 Troponin I 0.405 H 0.372 H 0.353 H Triglycerides Cholesterol LDL Cholesterol VLDL Cholesterol HDL Cholesterol Heart Disease Risk Ratio 01/16/17 01/16/17 01/16/17 02:53 02:53 02:53 WBC 8.9 D RBC 4.27 Hgb 13.0 Hct 39.7 MCV 93.0 MCH 30 MCHC 32.7 RDW 17.8 H Plt Count 139 MPV 12.7 H Neut % (Auto) 80.8 H Lymph % (Auto) 9.1 L Elliott % (Auto) 9.4 Eos % (Auto) 0.1 Baso % (Auto) 0.2 Neut # (Auto) 7.2 Lymph # (Auto) 0.8 L Elliott # (Auto) 0.8 Eos # (Auto) 0.0 Baso # (Auto) 0.0 Immature Gran % 0.4 Nucleated RBC % 0.2 Immature Gran # 0.04 Nucleated RBCs # 0.02 Immature Plt Fraction 0.0 INR PT Patient/Control Mix Fibrinogen D-Dimer, Quantitative Circ Anticoag PTT Plt Func Screen - ADP Plt Func Scrn - Epineph ABG pH ABG pCO2 ABG pO2 ABG HCO3 ABG Total CO2 ABG O2 Saturation ABG Base Excess FiO2 Sodium 138 Potassium 4.4 Chloride 101 Carbon Dioxide 31 Anion Gap 10.4 BUN 34 H Creatinine 1.30 H GFR Calculation 59 BUN/Creatinine Ratio 26.00 H Glucose 107 H Calculated Osmolality 282.7 Calcium 8.5 Magnesium 1.7 L Total Creatine Kinase 59 CK-MB (CK-2) 1.6 Troponin I 0.312 H Triglycerides 108 Cholesterol 118 LDL Cholesterol 76.0 VLDL Cholesterol 21.6 HDL Cholesterol 27 L Heart Disease Risk Ratio 4.37 01/16/17 02:53 WBC RBC Hgb Hct MCV MCH MCHC RDW Plt Count MPV Neut % (Auto) Lymph % (Auto) Elliott % (Auto) Eos % (Auto) Baso % (Auto) Neut # (Auto) Lymph # (Auto) Elliott # (Auto) Eos # (Auto) Baso # (Auto) Immature Gran % Nucleated RBC % Immature Gran # Nucleated RBCs # Immature Plt Fraction INR 1.1 PT Patient/Control Mix 11.7 Fibrinogen D-Dimer, Quantitative Circ Anticoag PTT 33.5 Plt Func Screen - ADP Plt Func Scrn - Epineph ABG pH ABG pCO2 ABG pO2 ABG HCO3 ABG Total CO2 ABG O2 Saturation ABG Base Excess FiO2 Sodium Potassium Chloride Carbon Dioxide Anion Gap BUN Creatinine GFR Calculation BUN/Creatinine Ratio Glucose Calculated Osmolality Calcium Magnesium Total Creatine Kinase CK-MB (CK-2) Troponin I Triglycerides Cholesterol LDL Cholesterol VLDL Cholesterol HDL Cholesterol Heart Disease Risk Ratio Quality Measures - VTE Contraindication to Mechanical VTE Prophylaxis: Vascular Ulceration
--- NOTE | 2017-01-16 07:32 | XRay Report ---
Exam: XR chest 1V portable Date: 01/16/2017 4:00 AM Indication: Shortness of breath Comparison: 01/15/2017 Technical: AP Findings: Cardiomegaly is present with low volume effusion and interstitial infiltrates present in the basilar regions and left perihilar region. External cardiac leads are present. The mediastinum is intact. Impression: 1. Cardiomegaly with low volume effusions and atelectatic changes with bibasilar infiltrates and left perihilar infiltrate present. 2. Tiny low volume effusions PROCEDURE INTERPRETED AT [facility] Final Report Signed by: Dr. Festus Giraldo
--- NOTE | 2017-01-16 08:30 | Event Note ---
In-hospital diagnostic and therapeutic fiberoptic bronchoscopy. Bilateral bronchoalveolar lavages were sent for cytology, Gram stain, bacterial cultures, fungal stains and culture, AFB stains and cultures. This is a 66-year-old black female with a history of aspiration. She has known gastroesophageal reflux. She was admitted with extensive bibasilar infiltrates along with hypoxemia shortness of breath and altered mental status. For all these reasons she is evaluated with fiberoptic bronchoscopy. Vocal cords were normal. There was a good bit of retained thick secretions in the laryngeal area had occluded the suction channel requiring withdrawal and cleaning of the suction channel. The trachea was markedly collapsible and full of secretions that were retained because of the severe obstruction. The trachea was friable secondary to aspiration injury. The julius was sharp. The left mainstem bronchus was full of thick tenacious secretions. These extended into the left upper lung and right lower lung. These areas were lavaged and suctioned until clear. The large and small airways were markedly collapsible secondary to underlying COPD. There was severe erosive thickened friable partially stenotic bronchitis in the left upper lung all of the segments in the left lower lung. The right mainstem bronchus was full of thick tenacious secretions these extended into the right upper lung, right middle lung and right lower lung. Right upper lung and right middle lung with friable. In the bronchial mucosa was taken in the right lower lung. These thick and edematous and friable areas exacerbated the underlying obstruction secondary to collapsible large and small airways. All 3 lobes were evaluated with bronchoalveolar lavage. Specimens were sent for cytology. The patient has severe erosive friable partially stenotic bronchitis bilaterally. This is probably secondary to aspiration injury but I could not say for sure that there was no cancerous involvement. Patient tolerated procedure well and there were no complications. Impression. 1. Severe COPD with collapsible trachea, large airways and small airways. 2. Tracheitis and extensive bilateral erosive friable partially stenotic bronchitis, most prominent in the left lower lung and right lower lung. This all appears to be secondary to aspiration injury with bacterial superinfection. 3. History of gastroesophageal reflux disease 4. Extensive bibasilar infiltrates secondary to retained secretions, gastric aspirate and probably secondary to infection. 5. Hypercarbia and hypoxemia Plan. 1. Steroids 2. Antibiotics 3. Follow-up chest x-ray 4. Follow-up ABGs 5. Check bronchoscopy spelled
[2017-01-16] MEDS: VANCOMYCIN INJ 1,250 MG in SODIUM CHLORIDE 0.9% 250 ML IV SCH ×2 (08:54→21:21)
--- NOTE | 2017-01-16 09:28 | Hospitalist Progress Note ---
Assessment and Plan (1) Cellulitis Status: Chronic Assessment and plan: Chronic venous insufficiency with secondary wound infections. 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 Recurrent episodes of prerenal azotemia suggesting impaired oral intake perhaps exacerbated by use of diuretics with normal echocardiographic left ventricular systolic performance Current Visit: Yes Hospitalist: Subjective Interval history: 66-year-old female presenting with hypercapnia, respiratory acidosis and hypoxemia, with elevated serum creatinine level with normal white blood cell count on January 14. This was the third hospitalization since late November for this individual including a discharge from this hospital on 13 January. She typically has presented with an elevated creatinine with a benign urinary sediment responding to rehydration with normal renal function at times of discharge. She has a chronic nonhealing lower extremity lesions and has been evaluated several times for possible sepsis with all cultures negative by current report. On this occasion she was felt to have sepsis syndrome possibly arising from lower extremity cellulitis once again. She has had an elevated but gradually decreasing cardiac troponin I level dating back to November admissions with a cardiac alert performed shortly after transfer from intensive care unit yesterday. Her echocardiogram does suggest mild right ventricular dysfunction however there was no evidence of pulmonary thromboembolus or peripheral venous thrombosis. Her blood pressure was quite labile overnight she was afebrile. She voices no specific complaint this morning. The patient's November discharge summary indicates treatment for aspiration pneumonia. Today she had undergone bronchoscopy by pulmonary which shows changes of a chemical bronchitis superimposed upon COPD. Her echocardiographic findings and radiographic findings raise the possibility of chronic recurrent aspiration syndrome. The recurrent episodes of prerenal azotemia raises potential for problems associated with deglutination (prior H&P's have consistently shown a component at least of altered mental status at each presentation). Exam - Constitutional Vitals: Period Temp Pulse Resp BP Sys/Vega Pulse Ox Last 24 Hr 96.9 F-98.2 F 89-100 16-29 83-155/50-108 88-98 General appearance: over weight - Respiratory Respiratory exam: Present: rales (Bilaterally, both bases are also slightly vesicular). Absent: rhonchi, wheezes - Cardiovascular Cardiovascular exam: Present: regular rate and rhythm - GI/Abdominal GI/Abdominal exam: Present: normal bowel sounds. Absent: distended, organomegaly - Extremities Exam Extremities exam: Present: other (Bandaged wounds lower extremities). Absent: edema - Neurological Exam Neurological exam: Present: alert, oriented X3 Results - Labs CBC & BMP: 01/16/17 02:53 01/16/17 02:53 Labs: PH 7.33 PCO2 52 PO2 75 Non-HDL cholesterol 91 Continued fallen troponin level currently 0.312 - Diagnostic Findings Procedure: Chest x-ray: image reviewed by me (Widened mediastinum with prominent pulmonary trunks) Quality Measures - VTE Contraindication to Mechanical VTE Prophylaxis: Vascular Ulceration
--- NOTE | 2017-01-16 10:04 | Pulmonology Progress Note ---
Pulmonary - PN: Subj Interval history: This is a 66-year-old black female. I saw this patient in pulmonary consultation on 01/15/2017. She had been admitted with sepsis and evidence of bibasilar pneumonia. My impressions were. 1. Probable bibasilar pneumonia. Suspect aspiration pneumonia and/or bacterial superinfection 2. History of gastroesophageal reflux disease and recent history of aspiration pneumonia 3. Tobacco abuse. Probable underlying COPD 4. Mild hypercarbia and moderate hypoxemia 5. Acute renal failure 6. See past history. 7. Pulmonary hypertension. Pulmonary emboli suspected but not found. 01/16/2017. This patient's chest x-ray shows cardiomegaly bibasilar infiltrates. Infiltrates are much more prominent on CT scan of the chest. This morning she was evaluated with fiberoptic bronchoscopy. See bronchoscopy report. She had aspiration injury in her trachea both mainstem bronchi all 5 lobes of the lung. The injury was worse at the bases and this appears chronic. There is hypertrophy friable mucosa which is partially stenotic. This is superimposed on severe obstructive disease that involves the trachea and all the large and small airways that are visible. I did not see any evidence of cancer but I sent specimens for cytology. Also specimens were sent for bacteria , AFB and fungus. This patient's had a recent November hospitalization with a discharge diagnosis of aspiration pneumonia. Pulmonary did not see her during that admission. She then had a second admission that ended one day prior to this admission. She was treated for sepsis and lower extremity infections. White count is fallen from 12,900 8900 with 81% segs. H&H is 13.0/39.7. Platelets are 139,000. Electrolytes are normal. Creatinine has dropped from 2.0-1.30 with a BUN of 34. Hypotension has resolved. The patient had an altered mental status and this is improved significantly. So far there are no positive cultures. Plan is to treat this patient with steroids and antibiotics. Check bronchoscopy specimens. She is receiving inhalation therapy and I have added Pulmozyme. I have also ordered a TSH. Physical exam. Psychiatric. Awake and will respond to simple commands. Neurologic. Cranial nerves appear to be intact. Patient moves all 4 extremities. Face symmetrical. Tongue is large but I do not see any edema. Neck. Short thick symmetrical with no meningismus. Chest. Coarse large airway congestion Heart. No gallop Abdomen obese. Positive bowel sounds. Lower extremities. Chronic brawny edema with bandaged lesions. Lymphatics. No submandibular cervical supraclavicular or epitrochlear adenopathy. The remainder the physical exam is noncontributory Plan. 01/15/2017. 1. Agree with medicines including antibiotics 2. Cultures 3. When this patient is sufficiently stable she will be evaluated with fiberoptic bronchoscopy. 4. Follow-up chest x-ray and ABGs. 5. See past history 01/16/2017 1. See fiberoptic bronchoscopy. Severe chronic and acute aspiration injury 2. Check bronchoscopy specimens 3. Get TSH 4. Add Solu-Medrol 40 IV push every 8 hours 5. Continue inhalation therapy 6. And inhalation therapy with Pulmozyme 7. Add Mucinex 600 mg p.o. 3 times daily. Exam (Progress Note) - Constitutional Vitals: Period Temp Pulse Resp BP Sys/Vega Pulse Ox Last 24 Hr 96.9 F-98.2 F 89-113 14-29 83-208/50-135 88-98 Results - Labs CBC & BMP: 01/16/17 02:53 01/16/17 02:53
[2017-01-16] MEDS: DORNASE ALFA 2.5 MG/2.5 ML VIAL RESP TX SCH ×2 (10:29→19:34)
[2017-01-16 10:32] LABS: Free T4 (Free Thyroxine) 1.06 NG/DL (0.76-1.46); Thyroid Stimulating Hormone 0.784 uIU/ml (0.358-3.74)
[2017-01-16] MEDS: NITROGLYCERIN 0.1 MG/HR PATCH TRANSDERM SCH (10:35)
[2017-01-16] MEDS: methylPREDNISolone SOD SUC 40 MG/1 ML VIAL IV SCH ×2 (11:42→18:24)
[2017-01-16] MEDS: SKIN HEALING OINT (AQUAPHOR) 50 GM TUBE TOP PRN (11:59)
[2017-01-16] MEDS: LACTATED RINGERS 1,000 ML IV SCH ×2 (14:09→23:36)
[2017-01-16] MEDS: ESCITALOPRAM 10 MG TABLET PO SCH (14:11)
[2017-01-16] MEDS: ALLOPURINOL 300 MG TABLET PO SCH (14:11)
[2017-01-16] MEDS: ENOXAPARIN 40 MG/0.4 ML SYRINGE SUBCUT SCH (18:26)
[2017-01-16] MEDS: traMADol 50 MG TABLET PO SCH (20:53)
[2017-01-17] MEDS: ALBUTEROL/IPRATROPIUM 3 ML NEB RESP TX SCH ×5 (00:53→23:42)
[2017-01-17] MEDS: VANCOMYCIN INJ 1,250 MG in SODIUM CHLORIDE 0.9% 250 ML IV SCH ×2 (01:45→21:04)
[2017-01-17] MEDS: methylPREDNISolone SOD SUC 40 MG/1 ML VIAL IV SCH ×3 (01:46→18:08)
[2017-01-17 03:46] LABS: ABG Base Excess 4.1 MMOL/L (-2.5-2.5); ABG HCO3 27.9 MMOL/L (20-26); ABG Oxygen Saturation 93.2 % (95-100); ABG PCO2 48.1 MM HG (35-48); ABG PH 7.401 (7.35-7.45); ABG PO2 71.1 MM HG (80-95); ABG TCO2 25.9 MMOL/L (23-27); Allen Test Positive
[2017-01-17] MEDS: CEFTAROLINE 400 MG in SODIUM CHLORIDE 0.9% 100 ML IV SCH ×2 (06:23→17:58)
[2017-01-17] MEDS: PIPERACILLIN/TAZOBACTAM 3,375 MG in SODIUM CHLORIDE 0.9% 100 ML IV SCH ×3 (06:23→23:34)
[2017-01-17 06:49] LABS: Calcium 8.8 MG/DL (8.5-10.1); Magnesium 1.8 MG/DL (1.8-2.4); Osmolality,Calculated 280.5 MOS/KG (273-304)
[2017-01-17] MEDS: DORNASE ALFA 2.5 MG/2.5 ML VIAL RESP TX SCH ×2 (07:34→17:37)
--- NOTE | 2017-01-17 07:51 | Pulmonology Progress Note ---
Pulmonary - PN: Subj Interval history: Patient is a 66-year-old black lady that has a history of COPD and is overweight and recently was in the hospital with cellulitis of her legs. She came back in with shortness of breath and confusion and was felt to have had aspiration pneumonia. She has bibasilar infiltrates. She says she is feeling better and having less shortness of breath. She still gets confused easily. She apparently is having trouble swallowing also. She is on liquids at the present time. She still has a little cough and congestion. She appears comfortable at present. Exam (Progress Note) - Constitutional Vitals: Period Temp Pulse Resp BP Sys/Vega Pulse Ox Last 24 Hr 97.5 F-98.3 F 92-113 12-31 101-208/63-135 3-100 General appearance: no acute distress (She looks reasonably comfortable at present.), over weight - Head Head exam: Present: normal inspection, normocephalic - Eye Eye exam: Present: EOMI. Absent: scleral icterus Pupils: Present: JUICE - ENT ENT exam: Present: other (She has a narrow hypopharynx) - Neck Neck exam: Present: other (She has no stridor.). Absent: lymphadenopathy, thyromegaly - Respiratory Respiratory exam: Present: rhonchi, other (She has fair breath sounds bilaterally with some rhonchi present.). Absent: accessory muscle use - Cardiovascular Cardiovascular exam: Present: regular rate and rhythm. Absent: gallop, systolic murmur - GI/Abdominal GI/Abdominal exam: Present: normal bowel sounds, soft. Absent: organomegaly, tenderness - Extremities Exam Extremities exam: Present: edema (She has some chronic brawny edema of the legs. ). Absent: calf tenderness - Neurological Exam Neurological exam: Present: alert, altered (She does get confused easily.). Absent: oriented X3 - Psychiatric Psychiatric exam: Absent: anxious - Skin Skin exam: Present: warm, dry Results - Labs CBC & BMP: 01/16/17 02:53 01/17/17 03:40 Labs: Her PO2 71 with a PCO2 of 48 and a pH of 7.4 - Diagnostic Findings Procedure: Chest x-ray: image reviewed by me, report reviewed by me (Chest x- ray showed cardiomegaly with mild bibasilar infiltrates.) Assessment and Plan (1) COPD (chronic obstructive pulmonary disease) Status: Acute Assessment and plan: The patient will be treated for COPD and continue bronchodilator therapy. Current Visit: Yes (2) Confusion Status: Resolved Assessment and plan: Her mental status is better but she still gets confused easily. Current Visit: No (3) Pneumonia Status: Acute Assessment and plan: Patient will continue treatment for pneumonia. Current Visit: No Qualifiers: Pneumonia type: aspiration pneumonia Aspiration pneumonia type: due to gastric secretions Laterality: left Lung location: upper lobe of lung Qualified Code(s): J69.0 - Pneumonitis due to inhalation of food and vomit (4) Hypertension Status: Acute Assessment and plan: Blood pressure and heart rate have been stable. Current Visit: No (5) Chronic skin ulcer of lower leg Status: Acute Assessment and plan: Patient will continue with wound care. Current Visit: Yes (6) Diabetes mellitus Status: Chronic Assessment and plan: Glucoses been monitored and is 125 today. Current Visit: Yes Qualifiers: Diabetes mellitus type: type 2 (7) Acute hypoxemic respiratory failure Status: Acute Assessment and plan: The patient's ABGs are better and she is stable at present. She will continue with present therapy. Current Visit: Yes
[2017-01-17] MEDS: ESCITALOPRAM 10 MG TABLET PO SCH (08:11)
[2017-01-17] MEDS: NITROGLYCERIN 0.1 MG/HR PATCH TRANSDERM SCH (08:11)
[2017-01-17] MEDS: traMADol 50 MG TABLET PO SCH ×2 (08:11→21:05)
[2017-01-17] MEDS: ALLOPURINOL 300 MG TABLET PO SCH (08:12)
--- NOTE | 2017-01-17 09:47 | Hospitalist Progress Note ---
Assessment and Plan (1) Cellulitis Status: Chronic Assessment and plan: Chronic venous insufficiency with secondary wound infections. 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 Recurrent episodes of prerenal azotemia suggesting impaired oral intake perhaps exacerbated by use of diuretics with normal echocardiographic left ventricular systolic performance. Swallowing evaluation suggest swallowing dysfunction. Current Visit: Yes Hospitalist: Subjective Interval history: 66-year-old female who had presented with hypercapnia, respiratory acidosis, and hypoxemia. This was a third hospitalization since November for this individual including a discharge from the hospital on 13 January. She is typically presented with confusion elevated serum creatinine level with a benign urinary sediment with normalization of her creatinine during the hospital stay. She has been treated for sepsis on each occasion attributed to chronic venous insufficiency with leg ulcerations. Her echocardiogram shows mild right ventricular dysfunction with normal right ventricular systolic pressure and no evidence of pulmonary thromboembolism. Her left ventricular systolic performance is preserved. She had been admitted in November with a possible aspiration pneumonia and bronchoscopic evaluation done during this hospitalization confirmed a presumed chemical bronchial injury. Her swallowing study shows poor function with solids and the overall clinical picture suggest a chronic recurrent aspirations and associated with early right ventricular systolic dysfunction. Patient vital signs have been stable overnight blood pressure continues to be variable. She feels well and has no specific complaint. Exam - Constitutional Vitals: Period Temp Pulse Resp BP Sys/Vega Pulse Ox Last 24 Hr 97.5 F-98.3 F 93-104 12-22 101-140/63-96 3-100 General appearance: over weight - Respiratory Respiratory exam: Present: rales (Bilateral). Absent: rhonchi, wheezes - Cardiovascular Cardiovascular exam: Present: regular rate and rhythm - GI/Abdominal GI/Abdominal exam: Present: normal bowel sounds. Absent: distended, tenderness - Extremities Exam Extremities exam: Present: other (Chronic venous changes). Absent: edema - Neurological Exam Neurological exam: Present: alert, oriented X3 Results - Labs CBC & BMP: 01/16/17 02:53 01/17/17 03:40 Labs: PH 7.40 PCO2 48 PO2 71 Vancomycin 24.9 (adjusted last p.m.) Magnesium 1.8 - Diagnostic Findings Procedure: Chest x-ray: image reviewed by me (Basilar reticular changes right greater than left, mediastinal widening) Quality Measures - VTE Contraindication to Mechanical VTE Prophylaxis: Vascular Ulceration
[2017-01-17] MEDS: LACTATED RINGERS 1,000 ML IV SCH ×2 (10:07→21:05)
--- NOTE | 2017-01-17 11:45 | XRay Report ---
History is pneumonia follow-up Comparison 01/16/2017 The cardiac silhouette is markedly enlarged with diffuse prominence the thoracic aorta again seen The there remain diffuse bilateral hazy and interstitial pulmonary opacities without significant change Small underlying effusion suspected bilaterally Impression: No significant change in diffuse bilateral infiltrates versus edema PROCEDURE INTERPRETED AT [facility] DEPARTMENT OF RADIOLOGY Final Report Signed by: Dr. Sharmila Feng
[2017-01-17] MEDS: METOCLOPRAMIDE 10 MG TABLET PO SCH ×2 (15:56→21:05)
[2017-01-17] MEDS: SKIN HEALING OINT (AQUAPHOR) 50 GM TUBE TOP PRN (18:10)
[2017-01-17] MEDS: ENOXAPARIN 40 MG/0.4 ML SYRINGE SUBCUT SCH (18:10)
[2017-01-17] MEDS: PANTOPRAZOLE 40 MG TABLET PO SCH (21:05)
[2017-01-18] MEDS: methylPREDNISolone SOD SUC 40 MG/1 ML VIAL IV SCH ×3 (01:42→18:31)
[2017-01-18 03:30] LABS: Hematocrit 38.9 VOL% (35.7-47.0); Immature Granulocytes % 0.5 %; Immature Granulocytes Absolute 0.04 #; Lymphocytes # 0.3 10*3/uL (1.4-4.0); Mean Corpuscular HGB Conc 33.4 GM/DL (32-36); Mean Corpuscular Hemoglobin 31 PG (27-34); Mean Corpuscular Volume 91.7 FL (87-102); Mean Platelet Volume 11.8 FL (9.6-12.0); Monocytes # 0.2 10*3/uL (0.11-0.8); Monocytes % 2.4 % (1.7-12.7); NRBC # 0.02 10*3/uL; Neutrophils # 7.4 10*3/uL (1.4-7.4); Neutrophils % 93.1 % (38.7-73.9); Platelet Count 178 T/CUMM (130-400); Red Blood Count 4.24 MC/CUMM (3.8-5.5); Red Cell Distribution Width 17.7 % (9.3-17.3)
[2017-01-18 03:59] LABS: Calcium 8.9 MG/DL (8.5-10.1); Magnesium 1.8 MG/DL (1.8-2.4); Osmolality,Calculated 281.5 MOS/KG (273-304)
[2017-01-18 04:05] LABS: ABG Base Excess 3.7 MMOL/L (-2.5-2.5); ABG HCO3 27.6 MMOL/L (20-26); ABG Oxygen Saturation 93.3 % (95-100); ABG PCO2 48.3 MM HG (35-48); ABG PH 7.394 (7.35-7.45); ABG PO2 71.2 MM HG (80-95); ABG TCO2 25.8 MMOL/L (23-27)
[2017-01-18] MEDS: DORNASE ALFA 2.5 MG/2.5 ML VIAL RESP TX SCH ×2 (04:56→19:31)
[2017-01-18] MEDS: ALBUTEROL/IPRATROPIUM 3 ML NEB RESP TX SCH ×3 (04:56→19:19)
[2017-01-18] MEDS: LACTATED RINGERS 1,000 ML IV SCH (06:23)
[2017-01-18] MEDS: PIPERACILLIN/TAZOBACTAM 3,375 MG in SODIUM CHLORIDE 0.9% 100 ML IV SCH ×2 (06:31→14:11)
[2017-01-18] MEDS: CEFTAROLINE 400 MG in SODIUM CHLORIDE 0.9% 100 ML IV SCH (06:31)
--- NOTE | 2017-01-18 07:19 | Pulmonology Progress Note ---
Pulmonary - PN: Subj Interval history: Patient is a 66-year-old black lady that has a history of COPD and is overweight and recently was in the hospital with cellulitis of her legs. She came back in with shortness of breath and confusion and was felt to have had aspiration pneumonia. She has bibasilar infiltrates. She says she is feeling better and having less shortness of breath. She apparently had a fairly good night and rested well. Her confusion is better. She denies shortness of breath and her cough is better. Her chest x-ray does look better. She says she sat up in a chair for hours yesterday. Overall she appears quite stable. She should be able to move to a regular room. Exam (Progress Note) - Constitutional Vitals: Period Temp Pulse Resp BP Sys/Vega Pulse Ox Last 24 Hr 97.2 F-98.2 F 82-97 12-258 116-145/76-105 93-100 Exam: General appearance: no acute distress (She looks reasonably comfortable at present. She has no respiratory distress.), over weight - Head Head exam: Present: normal inspection, normocephalic - Eye Eye exam: Present: EOMI. Absent: scleral icterus Pupils: Present: JUICE - ENT ENT exam: Present: other (She has a narrow hypopharynx) - Neck Neck exam: Present: other (She has no stridor.). Absent: lymphadenopathy, thyromegaly - Respiratory Respiratory exam: Present: She has good breath sounds bilaterally is moving air well and has no wheezing now. - Cardiovascular Cardiovascular exam: Present: regular rate and rhythm. Absent: gallop, systolic murmur - GI/Abdominal GI/Abdominal exam: Present: normal bowel sounds, soft. Absent: organomegaly, tenderness - Extremities Exam Extremities exam: Present: Her leg swelling is better and she has dressings on both legs. - Neurological Exam Neurological exam: Present: alert, she looks reasonably clear mentally now. - Psychiatric Psychiatric exam: Absent: anxious - Skin Skin exam: Present: warm, dry Results - Labs CBC & BMP: 01/18/17 02:49 01/18/17 02:49 Labs: Her PO2 71 with a PCO2 of 48 and a pH of 7.39 - Diagnostic Findings Procedure: Chest x-ray: image reviewed by me, report reviewed by me (Her chest x -ray shows mild cardiomegaly with better aeration of both lower lungs.) Assessment and Plan (1) COPD (chronic obstructive pulmonary disease) Status: Acute Assessment and plan: The patient will be treated for COPD and continue bronchodilator therapy. She is certainly breathing comfortably at present. Current Visit: Yes (2) Pneumonia Status: Acute Assessment and plan: Patient will continue treatment for pneumonia. Her chest x-ray looks much better now Current Visit: No Qualifiers: Pneumonia type: aspiration pneumonia Aspiration pneumonia type: due to gastric secretions Laterality: left Lung location: upper lobe of lung Qualified Code(s): J69.0 - Pneumonitis due to inhalation of food and vomit (3) Hypertension Status: Acute Assessment and plan: Blood pressure and heart rate have been stable. Current Visit: No (4) Chronic skin ulcer of lower leg Status: Acute Assessment and plan: Patient will continue with wound care. Current Visit: Yes (5) Diabetes mellitus Status: Chronic Assessment and plan: Glucoses been monitored and is 132 today. Current Visit: Yes Qualifiers: Diabetes mellitus type: type 2 (6) Acute hypoxemic respiratory failure Status: Acute Assessment and plan: The patient's ABGs are stable and clinically she is doing quite well. Will cut back on her steroids and she can probably move to a room. Current Visit: Yes
[2017-01-18 07:37] LABS: Giant Platelets Few; Hypochromasia 1+; Lymphocytes 2 % (20-55); Ovalocytes Slight; Platelet Estimate Normal; Segmented Neutrophils 96 % (50-85); Total Cells Counted 100
[2017-01-18] MEDS: NITROGLYCERIN 0.1 MG/HR PATCH TRANSDERM SCH (08:00)
[2017-01-18] MEDS: ALLOPURINOL 300 MG TABLET PO SCH (08:02)
[2017-01-18] MEDS: ESCITALOPRAM 10 MG TABLET PO SCH (08:02)
[2017-01-18] MEDS: METOCLOPRAMIDE 10 MG TABLET PO SCH ×3 (08:02→20:56)
[2017-01-18] MEDS: traMADol 50 MG TABLET PO SCH ×2 (08:03→20:55)
[2017-01-18] MEDS: PANTOPRAZOLE 40 MG TABLET PO SCH ×2 (08:03→20:56)
[2017-01-18] MEDS ORDERED: ALLOPURINOL 300 MG TABLET PO SCH (09:00)
[2017-01-18] MEDS ORDERED: ESCITALOPRAM 10 MG TABLET PO SCH (09:00)
--- NOTE | 2017-01-18 09:33 | XRay Report ---
Portable chest Exam date: 01/18/2017 4:00 AM Indication: Shortness of breath, cough pneumonia Comparison: Previous day at 0309 hours Findings: Cardiomediastinal contours are stable with underlying cardiomegaly. Improving pulmonary edema pattern with likely no change in the bibasilar atelectasis and trace effusions. No acute osseous abnormalities. Visualized upper abdomen demonstrates no acute pathology. Impression: Improving pulmonary edema pattern with no change in the bibasilar atelectasis and small effusions PROCEDURE INTERPRETED AT [facility] DEPARTMENT OF RADIOLOGY Final Report Signed by: All Hayden
--- NOTE | 2017-01-18 10:54 | Hospitalist Progress Note ---
Hospitalist: Subjective Interval history: Patient is doing quite well in ICU. She is a 66-year-old -[place] female who was admitted with shortness of breath and was found to have aspiration pneumonia with bibasilar infiltrates. She was recently in the hospital for cellulitis of the lower extremity. She is breathing much more comfortably. Exam - Constitutional Vitals: Period Temp Pulse Resp BP Sys/Vega Pulse Ox Last 24 Hr 97.2 F-98.2 F 82-97 12-258 116-145/76-107 93-100 Exam: General: No Acute Distress HEENT: Normocephalic, atraumatic, Extra ocular movements intact Neck: Supple, No JVD Chest: Crackles at lung bases, good breath sounds bilaterally CV: S1 + S2 audible without murmur, gallop or rub Abd: soft, NT, Non-distended, BS + Ext: Some edema Skin: No purpura, bruising or rash Rheumatologic: No Joint deformities Neurologic: Awake and alert Results - Labs CBC & BMP: 01/18/17 02:49 01/18/17 02:49 - Impressions Assessment and Plan: Aspiration pneumonia Status: Acute Assessment and plan: Chest x-ray shows improvement, continue IV antibiotics Current Visit: Impaired swallowing Status: Acute Assessment and plan: Swallowing evaluation suggest swallowing dysfunction. Continue speech therapy evaluation for further recommendations Current Visit: Yes Acute on chronic COPD exacerbation Status: Acute Assessment and plan: This is improved with bronchodilators and other supportive treatment Current Visit: Yes Acute on chronic hypoxemic and hypercapnic respiratory failure Status: Acute Assessment and plan: Stable Current Visit: Yes Chronic skin ulcer of lower leg Status: Chronic Assessment and plan: Continue wound care. Current Visit: Yes Essential hypertension Status: Chronic Assessment and plan: Controlled Current Visit: No Diabetes mellitus-2 Status: Chronic Assessment and plan: Accu-Cheks are controlled Current Visit: Yes Patient is doing quite well in ICU and transferred to medical floor today. Will order physical therapy. Quality Measures - VTE Contraindication to Mechanical VTE Prophylaxis: Vascular Ulceration
[2017-01-18] MEDS: SKIN HEALING OINT (AQUAPHOR) 50 GM TUBE TOP PRN (12:33)
[2017-01-18] MEDS: VANCOMYCIN INJ 1,250 MG in SODIUM CHLORIDE 0.9% 250 ML IV SCH (14:11)
[2017-01-18] MEDS: ENOXAPARIN 40 MG/0.4 ML SYRINGE SUBCUT SCH (18:31)
[2017-01-19] MEDS: ALBUTEROL/IPRATROPIUM 3 ML NEB RESP TX SCH ×4 (00:25→19:06)
[2017-01-19] MEDS: PIPERACILLIN/TAZOBACTAM 3,375 MG in SODIUM CHLORIDE 0.9% 100 ML IV SCH ×4 (00:26→22:20)
[2017-01-19 03:36] LABS: ABG Base Excess 4.1 MMOL/L (-2.5-2.5); ABG HCO3 27.9 MMOL/L (20-26); ABG PH 7.377 (7.35-7.45); ABG PO2 72.1 MM HG (80-95); ABG TCO2 26.7 MMOL/L (23-27); Allen Test Positive
[2017-01-19 06:53] LABS: Calcium 8.9 MG/DL (8.5-10.1); Magnesium 1.9 MG/DL (1.8-2.4); Osmolality,Calculated 282.5 MOS/KG (273-304); Potassium 4.2 MMOL/L (3.5-5.1)
[2017-01-19] MEDS: DORNASE ALFA 2.5 MG/2.5 ML VIAL RESP TX SCH ×2 (08:05→19:06)
--- NOTE | 2017-01-19 08:24 | XRay Report ---
History: Pneumonia Date: 01/19/2017 Study: Chest x-ray AP portable Comparison exam: 01/18/2017 There is continued cardiomegaly. There is increasing patchy and hazy edema/infiltrate in the lower lungs compared to the previous study. There is mild bilateral pleural effusion. The pulmonary vasculature appears slightly prominent on today's exam. The mediastinal contour is unchanged. Osseous structures are similar. Impression: Increasing bibasilar pulmonary edema/infiltrate compared to the previous study. Mild bilateral pleural effusion, the same or increased. There is at least an element of congestive heart failure present PROCEDURE INTERPRETED AT [facility] DEPARTMENT OF RADIOLOGY Final Report Signed by: Dr. Apolonia Dumont
[2017-01-19] MEDS: traMADol 50 MG TABLET PO SCH ×2 (09:05→20:08)
[2017-01-19] MEDS: PANTOPRAZOLE 40 MG TABLET PO SCH ×2 (09:05→20:07)
[2017-01-19] MEDS: methylPREDNISolone SOD SUC 40 MG/1 ML VIAL IV SCH ×2 (09:05→20:09)
[2017-01-19] MEDS: ALLOPURINOL 300 MG TABLET PO SCH (09:05)
[2017-01-19] MEDS: ESCITALOPRAM 10 MG TABLET PO SCH (09:05)
[2017-01-19] MEDS: METOCLOPRAMIDE 10 MG TABLET PO SCH ×3 (09:06→20:07)
[2017-01-19] MEDS: NITROGLYCERIN 0.1 MG/HR PATCH TRANSDERM SCH (09:07)
[2017-01-19] MEDS: VANCOMYCIN INJ 1,250 MG in SODIUM CHLORIDE 0.9% 250 ML IV SCH ×3 (09:14→20:11)
--- NOTE | 2017-01-19 12:16 | Pathology Report from [facility] ---
[facility] [place] : [id number] PATIENT NAME : Shawna Hightower ORDERING DR : KELLY BENNETT MD CLINICAL HX: COPD, Aspiration POST-OP DX: Same SPECIMEN INFO: Washing,Bronchial,TIKI - 20 mls blood tinged, cloudy with white particles CLASS: I CLASS COMMENTS: Benign respiratory cells; fungal hyphae and spores suggestive of Latha sp.CELL BLOCK: Same CLASS LEGEND: CLASS 0 Material inadequate for diagnosis because of (see comment) CLASS I Absence of atypical or abnormal cells CLASS II Atypical Cytology but no evidence of malignancy CLASS III Cytology suggestive of but not conclusive for malignancy CLASS IV Cytology strongly suggestive of malignancy CLASS V Cytology conclusive for malignancy COLLECTED DATE: 01/16/2017 [facility] REPORT DATE: 01/19/2017 ELECTRONICALLY SIGNED BY: Zaina Garcia M.D. 01/19/2017 - 9:08:54 ADRIAN
--- NOTE | 2017-01-19 15:00 | Hospitalist Progress Note ---
Assessment and Plan (1) Aspiration pneumonia Status: Acute Assessment and plan: 1)resp failure from asp pneumonia and COPD- improving. continue vanc and zosyn and nebs. on steroids. taper steroids tomorrow. She is improved. 2)impaired swallowing- speech to see today 3)leg ulcer- local care continue per wound nurses 4)HTN 5)DMT2- controlled. 6)give lasix today and take sherwood out tomorrow. Current Visit: Yes (2) Acute on chronic respiratory failure with hypoxemia Status: Acute Current Visit: Yes (3) COPD exacerbation Status: Acute Current Visit: Yes (4) Impaired swallowing Status: Acute Current Visit: Yes (5) Hypertension Status: Acute Current Visit: No (6) Chronic skin ulcer of lower leg Status: Acute Current Visit: Yes (7) Diabetes mellitus Status: Chronic Current Visit: Yes Qualifiers: Diabetes mellitus type: type 2 Hospitalist: Subjective Interval history: Mrs Hightower is feeling better but remains tired and wants to keep her sherwood another day. She denies shortness of breath or cough. She denies pain. Exam - Constitutional Vitals: Period Temp Pulse Resp BP Sys/Vega Pulse Ox Last 24 Hr 97.1 F-98.3 F 77-85 15-22 129-148/55-91 90-100 General appearance: no acute distress, morbidly obese - Eye Eye exam: Present: EOMI. Absent: scleral icterus - Respiratory Respiratory exam: Present: rales (at bases) - Cardiovascular Cardiovascular exam: Present: regular rate and rhythm - GI/Abdominal GI/Abdominal exam: Present: normal bowel sounds, soft. Absent: tenderness - Extremities Exam Extremities exam: Present: edema (1-2+ edema, no erythema) - Neurological Exam Neurological exam: Present: alert, oriented X3 Results - Labs CBC & BMP: 01/18/17 02:49 01/19/17 05:33 Lab Results: I have reviewed the past 24 hour labs Quality Measures - VTE Contraindication to Mechanical VTE Prophylaxis: Vascular Ulceration
[2017-01-19] MEDS ORDERED: FUROSEMIDE 40 MG/4 ML VIAL IV ONE (15:02)
--- NOTE | 2017-01-19 17:04 | Pulmonology Progress Note ---
Pulmonary - PN: Subj Interval history: Kevin Joseph, [facility]-, acting as scribe for Dr. Festus Abdalla This is a 66-year-old black female. We saw this patient in pulmonary consultation on 01/15/2017. She had been admitted with sepsis and evidence of bibasilar pneumonia. At the time of our initial consultation, our impressions were: 1. Probable bibasilar pneumonia. Suspect aspiration pneumonia and/or bacterial superinfection 2. History of gastroesophageal reflux disease and recent history of aspiration pneumonia 3. Tobacco abuse. Probable underlying COPD 4. Mild hypercarbia and moderate hypoxemia 5. Acute renal failure 6. Pulmonary hypertension. Pulmonary emboli suspected but not found. 7. See past history 01/16/2017. This patient's chest x-ray shows cardiomegaly bibasilar infiltrates. Infiltrates are much more prominent on CT scan of the chest. This morning she was evaluated with fiberoptic bronchoscopy. See bronchoscopy report. She had aspiration injury in her trachea both mainstem bronchi all 5 lobes of the lung. The injury was worse at the bases and this appears chronic. There is hypertrophy friable mucosa which is partially stenotic. This is superimposed on severe obstructive disease that involves the trachea and all the large and small airways that are visible. I did not see any evidence of cancer but I sent specimens for cytology. Also specimens were sent for bacteria , AFB and fungus. This patient's had a recent November hospitalization with a discharge diagnosis of aspiration pneumonia. Pulmonary did not see her during that admission. She then had a second admission that ended one day prior to this admission. She was treated for sepsis and lower extremity infections. White count is fallen from 12,900 8900 with 81% segs. H&H is 13.0/39.7. Platelets are 139,000. Electrolytes are normal. Creatinine has dropped from 2.0-1.30 with a BUN of 34. Hypotension has resolved. The patient had an altered mental status and this is improved significantly. So far there are no positive cultures. Plan is to treat this patient with steroids and antibiotics. Check bronchoscopy specimens. She is receiving inhalation therapy and I have added Pulmozyme. I have also ordered a TSH. 01/19/2017. The patient was seen today along with Krystal Abrams RN. The patient was moved to the medical floor of the weekend. She is much more awake and alert. She is talkative and able to answer questions. She states her breathing has improved. Chest x-ray today shows improvement. Tomorrow we will attempt to obtain a PA and lateral chest x-ray. ABGs are stable. Bronchoscopy cultures only grew Latha albicans, but this was not a Latha pneumonia. Medications have been reviewed. We made no changes today. Labs been reviewed. Creatinine 1.00, BUN 23, electrolytes are normal; vancomycin trough still elevated at 24.2. Note, this is being managed by pharmacology. ABGs this morning on an FiO2 of 28% show pH of 7.377, PCO2 52.0, PO2 72.1, bicarb 27.9, and oxygen saturation 93.0% Exam (Progress Note) - Constitutional Vitals: Period Temp Pulse Resp BP Sys/Vega Pulse Ox Last 24 Hr 97.1 F-98.0 F 77-85 16-22 129-158/55-97 90-100 Exam: Chest is fairly clear Heart no gallop Abdomen is nontender and nondistended; bowel sounds positive 4 Extremities nothing to suggest acute deep venous thrombophlebitis; dressings to bilateral legs Psychiatric oriented at least to person and place Neurologic... See above Plan: Continue present treatment. Will attempt to obtain a PA and lateral chest x-ray tomorrow. See orders. Results - Labs CBC & BMP: 01/18/17 02:49 01/19/17 05:33
[2017-01-19] MEDS: ENOXAPARIN 40 MG/0.4 ML SYRINGE SUBCUT SCH (17:20)
[2017-01-20] MEDS: ALBUTEROL/IPRATROPIUM 3 ML NEB RESP TX SCH ×4 (00:24→19:18)
[2017-01-20] MEDS: PIPERACILLIN/TAZOBACTAM 3,375 MG in SODIUM CHLORIDE 0.9% 100 ML IV SCH ×3 (06:02→22:16)
[2017-01-20 06:08] LABS: Osmolality,Calculated 279.8 MOS/KG (273-304); Potassium 4.2 MMOL/L (3.5-5.1)
[2017-01-20] MEDS: DORNASE ALFA 2.5 MG/2.5 ML VIAL RESP TX SCH ×2 (07:31→19:18)
[2017-01-20] MEDS: methylPREDNISolone SOD SUC 40 MG/1 ML VIAL IV SCH (08:46)
[2017-01-20] MEDS: NITROGLYCERIN 0.1 MG/HR PATCH TRANSDERM SCH (08:46)
[2017-01-20] MEDS: ALLOPURINOL 300 MG TABLET PO SCH (08:47)
[2017-01-20] MEDS: METOCLOPRAMIDE 10 MG TABLET PO SCH ×3 (08:47→20:07)
[2017-01-20] MEDS: PANTOPRAZOLE 40 MG TABLET PO SCH ×2 (08:47→20:07)
[2017-01-20] MEDS: traMADol 50 MG TABLET PO SCH ×2 (08:47→20:07)
[2017-01-20] MEDS: ESCITALOPRAM 10 MG TABLET PO SCH (08:47)
--- NOTE | 2017-01-20 09:56 | XRay Report ---
XR chest 1V portable Indication: Shortness of breath and cough. Chest one view: Comparison 01/19/2017. Given changes in patient positioning, cardiomegaly and tortuous thoracic aorta appear stable. Worsening bilateral perihilar infiltrates are noted with continued obscuration of both lung bases. Pleural spaces are indeterminate. Impression: Worsening bilateral perihilar infiltrates with continued bibasilar pneumonia. PROCEDURE INTERPRETED AT [facility] DEPARTMENT OF RADIOLOGY Final Report Signed by: Jakub Silverman M.D.
--- NOTE | 2017-01-20 10:27 | Pulmonology Progress Note ---
Pulmonary - PN: Subj Interval history: Kevin Joseph, [facility]-, acting as scribe for Dr. Festus Abdalla This is a 66-year-old black female. We saw this patient in pulmonary consultation on 01/15/2017. She had been admitted with sepsis and evidence of bibasilar pneumonia. At the time of our initial consultation, our impressions were: 1. Probable bibasilar pneumonia. Suspect aspiration pneumonia and/or bacterial superinfection 2. History of gastroesophageal reflux disease and recent history of aspiration pneumonia 3. Tobacco abuse. Probable underlying COPD 4. Mild hypercarbia and moderate hypoxemia 5. Acute renal failure 6. Pulmonary hypertension. Pulmonary emboli suspected but not found. 7. See past history 01/16/2017. This patient's chest x-ray shows cardiomegaly bibasilar infiltrates. Infiltrates are much more prominent on CT scan of the chest. This morning she was evaluated with fiberoptic bronchoscopy. See bronchoscopy report. She had aspiration injury in her trachea both mainstem bronchi all 5 lobes of the lung. The injury was worse at the bases and this appears chronic. There is hypertrophy friable mucosa which is partially stenotic. This is superimposed on severe obstructive disease that involves the trachea and all the large and small airways that are visible. I did not see any evidence of cancer but I sent specimens for cytology. Also specimens were sent for bacteria , AFB and fungus. This patient's had a recent November hospitalization with a discharge diagnosis of aspiration pneumonia. Pulmonary did not see her during that admission. She then had a second admission that ended one day prior to this admission. She was treated for sepsis and lower extremity infections. White count is fallen from 12,900 8900 with 81% segs. H&H is 13.0/39.7. Platelets are 139,000. Electrolytes are normal. Creatinine has dropped from 2.0-1.30 with a BUN of 34. Hypotension has resolved. The patient had an altered mental status and this is improved significantly. So far there are no positive cultures. Plan is to treat this patient with steroids and antibiotics. Check bronchoscopy specimens. She is receiving inhalation therapy and I have added Pulmozyme. I have also ordered a TSH. 01/19/2017. The patient was seen today along with Krystal Abrams RN. The patient was moved to the medical floor of the weekend. She is much more awake and alert. She is talkative and able to answer questions. She states her breathing has improved. Chest x-ray today shows improvement. Tomorrow we will attempt to obtain a PA and lateral chest x-ray. ABGs are stable. Bronchoscopy cultures only grew Latha albicans, but this was not a Latha pneumonia. Medications have been reviewed. We made no changes today. Labs been reviewed. Creatinine 1.00, BUN 23, electrolytes are normal; vancomycin trough still elevated at 24.2. Note, this is being managed by pharmacology. ABGs this morning on an FiO2 of 28% show pH of 7.377, PCO2 52.0, PO2 72.1, bicarb 27.9, and oxygen saturation 93.0% 01/20/2017. The patient was seen today along with Baiely Salter RN. Today's chest x-ray is an upright, shallow right oblique. There are retained secretions in the bilateral bases but no overt congestive heart failure. Overall, this is improved when compared to previous films. Patient is able to take a deeper breath. She states that her breathing is doing very well. She asked about discharge. We again explained her that she has had now 3 recent hospitalizations and we feel is in her best interest to treat her until she is fully well. She understands this. Cytology from his recent bronchoscopy was class I. Medications have been reviewed. We made no changes today. Labs been reviewed. Creatinine is stable at 1.00, BUN 26, electrolytes are normal Exam (Progress Note) - Constitutional Vitals: Period Temp Pulse Resp BP Sys/Vega Pulse Ox Last 24 Hr 97.6 F-98.0 F 77-92 16-20 140-158/91-100 93-99 Exam: Chest is fairly clear Heart no gallop Abdomen is nontender and nondistended; bowel sounds positive 4 Extremities with nothing to suggest acute deep venous thrombophlebitis; dressings to bilateral legs Psychiatric oriented at least to person and place Neurologic long-term motor function is intact Plan: Continue present treatment. Again, this is her third recent hospitalization and we feel is in her best interest to treat her until well. See orders. Results - Labs CBC & BMP: 01/18/17 02:49 01/20/17 04:38
[2017-01-20] MEDS ORDERED: methylPREDNISolone SOD SUC 40 MG/1 ML VIAL IV SCH (10:30)
--- NOTE | 2017-01-20 11:18 | Hospitalist Progress Note ---
Assessment and Plan (1) Aspiration pneumonia Status: Acute Assessment and plan: 1)resp failure from asp pneumonia and COPD- improving. continue vanc and zosyn and nebs. on steroids- change to oral. She is improving. CXR with increased perhilar infiltrates and bibasilar pneumonia at odds with her clinical improvements. increase activity. 2)impaired swallowing- she did well with bedside eval and soft diet recommended while upright. 3)leg ulcer- local care continue per wound nurses 4)HTN 5)DMT2- controlled. 6)sherwood out, increase activity to get to [facility] [place]. 7)dispo- to home with caregiver and and medicaid waiver. Current Visit: Yes (2) Acute on chronic respiratory failure with hypoxemia Status: Acute Current Visit: Yes (3) COPD exacerbation Status: Acute Current Visit: Yes (4) Impaired swallowing Status: Acute Current Visit: Yes (5) Hypertension Status: Acute Current Visit: No (6) Chronic skin ulcer of lower leg Status: Acute Current Visit: Yes (7) Diabetes mellitus Status: Chronic Current Visit: Yes Qualifiers: Diabetes mellitus type: type 2 Hospitalist: Subjective Interval history: Mrs Hightower is doing well this morning and wants to go home. I have reviewed Dr Abdalla's note and agree with her frequent admission recently she would benefit from a longer stay with IV antibiotics. She will go home from here. No nausea, no pain. No shortness of breath. She has O2 at home. Exam - Constitutional Vitals: Period Temp Pulse Resp BP Sys/Vega Pulse Ox Last 24 Hr 97.6 F-98.0 F 77-92 16-20 140-158/91-100 93-99 General appearance: no acute distress, morbidly obese - Eye Eye exam: Present: EOMI. Absent: scleral icterus - Respiratory Respiratory exam: Present: clear to auscultation bilaterally. Absent: rales, rhonchi, wheezes - Cardiovascular Cardiovascular exam: Present: regular rate and rhythm - GI/Abdominal GI/Abdominal exam: Present: normal bowel sounds, soft. Absent: tenderness - Extremities Exam Extremities exam: Absent: edema - Neurological Exam Neurological exam: Present: alert, oriented X3 - Skin Skin exam: Present: warm, dry Results - Labs CBC & BMP: 01/18/17 02:49 01/20/17 04:38 Lab Results: I have reviewed the past 24 hour labs Quality Measures - VTE Contraindication to Mechanical VTE Prophylaxis: Vascular Ulceration
[2017-01-20] MEDS: ENOXAPARIN 40 MG/0.4 ML SYRINGE SUBCUT SCH ×2 (16:57→17:03)
[2017-01-20] MEDS: VANCOMYCIN INJ 1,250 MG in SODIUM CHLORIDE 0.9% 250 ML IV SCH (20:07)
[2017-01-21] MEDS: PIPERACILLIN/TAZOBACTAM 3,375 MG in SODIUM CHLORIDE 0.9% 100 ML IV SCH ×3 (06:27→22:04)
[2017-01-21] MEDS: ALLOPURINOL 300 MG TABLET PO SCH (08:18)
[2017-01-21] MEDS: predniSONE 20 MG TABLET PO SCH (08:18)
[2017-01-21] MEDS: traMADol 50 MG TABLET PO SCH ×2 (08:18→20:40)
[2017-01-21] MEDS: ESCITALOPRAM 10 MG TABLET PO SCH (08:18)
[2017-01-21] MEDS: PANTOPRAZOLE 40 MG TABLET PO SCH ×2 (08:19→20:40)
[2017-01-21] MEDS: NITROGLYCERIN 0.1 MG/HR PATCH TRANSDERM SCH (08:19)
[2017-01-21] MEDS: METOCLOPRAMIDE 10 MG TABLET PO SCH ×3 (08:19→22:03)
[2017-01-21] MEDS: ALBUTEROL/IPRATROPIUM 3 ML NEB RESP TX SCH ×4 (08:35→19:55)
[2017-01-21] MEDS: DORNASE ALFA 2.5 MG/2.5 ML VIAL RESP TX SCH ×2 (08:40→20:00)
--- NOTE | 2017-01-21 10:28 | Pulmonology Progress Note ---
Pulmonary - PN: Subj Interval history: Kevin Joseph, [facility]-, acting as scribe for Dr. Festus Abdalla This is a 66-year-old black female. We saw this patient in pulmonary consultation on 01/15/2017. She had been admitted with sepsis and evidence of bibasilar pneumonia. At the time of our initial consultation, our impressions were: 1. Probable bibasilar pneumonia. Suspect aspiration pneumonia and/or bacterial superinfection 2. History of gastroesophageal reflux disease and recent history of aspiration pneumonia 3. Tobacco abuse. Probable underlying COPD 4. Mild hypercarbia and moderate hypoxemia 5. Acute renal failure 6. Pulmonary hypertension. Pulmonary emboli suspected but not found. 7. See past history 01/16/2017. This patient's chest x-ray shows cardiomegaly bibasilar infiltrates. Infiltrates are much more prominent on CT scan of the chest. This morning she was evaluated with fiberoptic bronchoscopy. See bronchoscopy report. She had aspiration injury in her trachea both mainstem bronchi all 5 lobes of the lung. The injury was worse at the bases and this appears chronic. There is hypertrophy friable mucosa which is partially stenotic. This is superimposed on severe obstructive disease that involves the trachea and all the large and small airways that are visible. I did not see any evidence of cancer but I sent specimens for cytology. Also specimens were sent for bacteria , AFB and fungus. This patient's had a recent November hospitalization with a discharge diagnosis of aspiration pneumonia. Pulmonary did not see her during that admission. She then had a second admission that ended one day prior to this admission. She was treated for sepsis and lower extremity infections. White count is fallen from 12,900 8900 with 81% segs. H&H is 13.0/39.7. Platelets are 139,000. Electrolytes are normal. Creatinine has dropped from 2.0-1.30 with a BUN of 34. Hypotension has resolved. The patient had an altered mental status and this is improved significantly. So far there are no positive cultures. Plan is to treat this patient with steroids and antibiotics. Check bronchoscopy specimens. She is receiving inhalation therapy and I have added Pulmozyme. I have also ordered a TSH. 01/19/2017. The patient was seen today along with Krystal Abrams RN. The patient was moved to the medical floor of the weekend. She is much more awake and alert. She is talkative and able to answer questions. She states her breathing has improved. Chest x-ray today shows improvement. Tomorrow we will attempt to obtain a PA and lateral chest x-ray. ABGs are stable. Bronchoscopy cultures only grew Latha albicans, but this was not a Latha pneumonia. Medications have been reviewed. We made no changes today. Labs been reviewed. Creatinine 1.00, BUN 23, electrolytes are normal; vancomycin trough still elevated at 24.2. Note, this is being managed by pharmacology. ABGs this morning on an FiO2 of 28% show pH of 7.377, PCO2 52.0, PO2 72.1, bicarb 27.9, and oxygen saturation 93.0% 01/20/2017. The patient was seen today along with Bailey Salter RN. Today's chest x-ray is an upright, shallow right oblique. There are retained secretions in the bilateral bases but no overt congestive heart failure. Overall, this is improved when compared to previous films. Patient is able to take a deeper breath. She states that her breathing is doing very well. She asked about discharge. We again explained her that she has had now 3 recent hospitalizations and we feel is in her best interest to treat her until she is fully well. She understands this. Cytology from his recent bronchoscopy was class I. Medications have been reviewed. We made no changes today. Labs been reviewed. Creatinine is stable at 1.00, BUN 26, electrolytes are normal 01/21/2017. Patient's chest x-ray today continues to show non-resolving bilateral basilar infiltrates, however, clinically she is improving. We will continue IV antibiotics for the time being. We have ordered a repeat chest x- ray tomorrow. She continues to have loose large airway congestion that she needs to expectorate. She is already on Pulmozyme twice daily and Mucinex. She would like to be discharged in the near future and with any luck she could be ready by Thursday. We will repeat a sputum for Gram stain, culture and sensitivity today. Medications been reviewed. We made no changes today. Labs been reviewed. No new labs were drawn today. Exam (Progress Note) - Constitutional Vitals: Period Temp Pulse Resp BP Sys/Vega Pulse Ox Last 24 Hr 97.6 F-98.5 F 82-98 18-20 127-166/77-96 89-98 Exam: Chest... See above Heart no gallop Abdomen is nontender and nondistended; bowel sounds positive 4 Extremities with nothing to suggest acute deep venous thrombophlebitis; dressings to bilateral legs Psychiatric oriented at least to person and place Neurologic long-term motor function is intact Plan: Continue present treatment. Again, this is her third recent hospitalization and we feel is in her best interest to treat her until well. Will repeat chest x-ray again tomorrow. Will attempt to repeat sputum for Gram stain, culture and sensitivity today. Hopefully she will be appropriate for discharge on Thursday. Results - Labs CBC & BMP: 01/18/17 02:49 01/20/17 04:38
--- NOTE | 2017-01-21 11:57 | Hospitalist Progress Note ---
Assessment and Plan (1) Aspiration pneumonia Status: Acute Assessment and plan: 1)resp failure from asp pneumonia and COPD- improving. continue vanc and zosyn and nebs. on steroids- change to oral. She is improving. CXR with increased perhilar infiltrates and bibasilar pneumonia at odds with her clinical improvements. increase activity. 2)impaired swallowing- she did well with bedside eval and soft diet recommended while upright. 3)leg ulcer- local care continue per wound nurses 4)HTN 5)DMT2- controlled. 6)[place] out, increase activity to get [place] [facility] [place] 7)dispo- to home with caregiver and HH and medicaid waiver. Current Visit: Yes (2) Acute on chronic respiratory failure with hypoxemia Status: Acute Current Visit: Yes (3) COPD exacerbation Status: Acute Current Visit: Yes (4) Impaired swallowing Status: Acute Current Visit: Yes (5) Hypertension Status: Acute Current Visit: No (6) Chronic skin ulcer of lower leg Status: Acute Current Visit: Yes (7) Diabetes mellitus Status: Chronic Current Visit: Yes Qualifiers: Diabetes mellitus type: type 2 Hospitalist: Subjective Interval history: Mrs Hightower is doing well this morning. She is able to lie flat and breathe comfortably. She wants to go home but agrees with plan to continue IV antibiotics here. Exam - Constitutional Vitals: Period Temp Pulse Resp BP Sys/Vega Pulse Ox Last 24 Hr 97.6 F-98.5 F 84-98 18-20 127-166/77-94 89-98 General appearance: no acute distress, morbidly obese - Head Head exam: Present: normocephalic, atraumatic - Eye Eye exam: Present: EOMI. Absent: scleral icterus - Respiratory Respiratory exam: Present: rales (few at bases bilaterally) - Cardiovascular Cardiovascular exam: Present: regular rate and rhythm - GI/Abdominal GI/Abdominal exam: Present: normal bowel sounds, soft. Absent: tenderness - Extremities Exam Extremities exam: Absent: edema - Neurological Exam Neurological exam: Present: alert, oriented X3 Results - Labs CBC & BMP: 01/18/17 02:49 01/20/17 04:38 Lab Results: I have reviewed the past 24 hour labs Quality Measures - VTE Contraindication to Mechanical VTE Prophylaxis: Vascular Ulceration
[2017-01-21] MEDS: ENOXAPARIN 40 MG/0.4 ML SYRINGE SUBCUT SCH (17:15)
[2017-01-21] MEDS: VANCOMYCIN INJ 1,250 MG in SODIUM CHLORIDE 0.9% 250 ML IV SCH (20:40)
[2017-01-21] MEDS ORDERED: VANCOMYCIN INJ 1,250 MG in SODIUM CHLORIDE 0.9% 250 ML IV SCH (21:00)
[2017-01-22] MEDS: ALBUTEROL/IPRATROPIUM 3 ML NEB RESP TX SCH ×4 (00:06→19:01)
[2017-01-22] MEDS: PIPERACILLIN/TAZOBACTAM 3,375 MG in SODIUM CHLORIDE 0.9% 100 ML IV SCH ×3 (06:05→23:26)
[2017-01-22] MEDS: DORNASE ALFA 2.5 MG/2.5 ML VIAL RESP TX SCH ×2 (07:35→19:06)
[2017-01-22] MEDS: PANTOPRAZOLE 40 MG TABLET PO SCH ×2 (08:29→21:04)
[2017-01-22] MEDS: traMADol 50 MG TABLET PO SCH ×2 (08:29→21:03)
[2017-01-22] MEDS: METOCLOPRAMIDE 10 MG TABLET PO SCH ×3 (08:29→21:03)
[2017-01-22] MEDS: ALLOPURINOL 300 MG TABLET PO SCH (08:29)
[2017-01-22] MEDS: predniSONE 20 MG TABLET PO SCH (08:29)
[2017-01-22] MEDS: ESCITALOPRAM 10 MG TABLET PO SCH (08:30)
--- NOTE | 2017-01-22 09:16 | XRay Report ---
Portable chest Date: 01/22/2017 Clinical history: Pneumonia Comparison: 01/20/2017 Technique: Portable AP sitting chest Findings: The heart appears smaller in size with reduced parenchymal findings in both mid to lower lung zones with smaller pleural effusions. Stable mediastinum and osseous structures. Impression: Improved bilateral pneumonia/CHF with smaller pleural effusions. PROCEDURE INTERPRETED AT [facility] DEPARTMENT OF RADIOLOGY Final Report Signed by: Dr. Linh Sheriff
--- NOTE | 2017-01-22 10:43 | Discharge Summary ---
Hospital Course - Hospital Course Hospital Course: Mrs Hightower presented with aspiration pneumonia and has done well. She is breathing back at baseline but remains weak generally. A month ago she was getting around with a walker but today it requires max assist to help her to the chair. She is agreeable with referral to [facility] which SW has done. She has completed her course of antibiotics. Her bronch specimen grew yeast so I will give her diflucan at discharge. She will be discharged to swing bed when it is arranged. She was discharged after admission for sepsis and cellulitis a day prior to this admission but this time she was not septic. She had a bronch at admission. Dr Abdalla was the pulmonary [employer] consultant. - Time spent with patient Time with patient DS: Greater than 30 minutes (42 minutes were required for coordination of care with pulmonary, documentation, medicine reconciliation, and discharge planning) Diagnosis - Discharge Diagnosis (1) Aspiration pneumonia Status: Resolved (2) Acute on chronic respiratory failure with hypoxemia Status: Resolved (3) COPD exacerbation Status: Resolved (4) Impaired swallowing Status: Chronic (5) Hypertension Status: Chronic (6) Chronic skin ulcer of lower leg Status: Chronic (7) Diabetes mellitus Status: Chronic Specialty Discharge - Follow Up or Referrals Follow up with: Adarsh Perry [REFERRING DOCTOR/PRACTITIONER] - 1 Week (Pt needs appt within 1 week of discharge date. Nurse to call [phone]. If over the weekend, leave a voicemail and let pt know they will be contact thursday chelly with an appt. All records need to be faxed to [phone]. ) Festus Abdalla MD [Physician] - Discharge Plan - Discharge Data Disposition: Home Health Service Condition at Discharge: Stable Discharge Diet: diabetic diet, heart healthy Activity: resume usual activities as tolerated (home PT) - Discharge Medications New Dornase Matt [Pulmozyme] 2.5 mg RESP TX RT Q12H #10 vial guaiFENesin ER TAB [Mucinex] 600 mg PO BID tablet Nitroglycerin 0.1 mg/Hr Patch [Nitro-Dur 0.1 mg/hr Patch] 1 patch TRANSDERM DAILY #30 patch predniSONE TAB [PredniSONE] 10 mg PO DAILY #10 tablet Fluconazole Tab [Diflucan Tab] 150 mg PO DAILY #10 tablet Albuterol/Ipratropium Neb [Duoneb] 3 ml RESP TX RT Q6H #40 vial Skin Healing Oint (Aquaphor) [Aquaphor] 1 applic TOP PRN PRN applic PRN Reason: Dry Skin Continue Enalapril/Hydrochlorothiazide [Enalapril-Hctz 5-12.5 mg Tab] 1 each PO DAILY Escitalopram Oxalate 10 mg PO DAILY Tramadol HCl [Tramadol Tab] 50 mg PO BID Omeprazole 20 mg PO BID Metoclopramide Tab [Reglan Tab] 10 mg PO TID Colchicine [Colcrys] 0.6 mg PO DAILY Allopurinol 300 mg PO DAILY Hydrocodone/Acetaminophen [Hydrocodon-Acetaminophn 10-325] 1 each PO QID PRN PRN Reason: Pain Furosemide Tab [Lasix Tab] 40 mg PO BID DIURETIC Promethazine HCl 25 mg PO Q6HR PRN PRN Reason: Nausea/Vomiting Discontinued Spironolactone 50 mg PO DAILY Diphenoxylate HCl/Atropine [Diphenoxylate/Atropine 2.5-0.025 mg Tab] 1 tablet PO Q6H PRN PRN Reason: Diarrhea Carisoprodol 350 mg PO BID - Follow Up or Referral Follow Up: Adarsh Perry [REFERRING DOCTOR/PRACTITIONER] - 1 Week (Pt needs appt within 1 week of discharge date. Nurse to call [phone]. If over the weekend, leave a voicemail and let pt know they will be contact thursday chelly with an appt. All records need to be faxed to [phone]. ) Festus Abdalla MD [Physician] - - Forms/Instructions Additional Discharge Instructions: refer to swing bed today and if she is approved, send her there. If she is not approved, she will go home with home health and Pt and medicaid waiver. Exam - Constitutional Vitals: Period Temp Pulse Resp BP Sys/Vega Pulse Ox Last 24 Hr 97.6 F-98.7 F 71-88 18-20 140-157/81-94 89-98 General appearance: no acute distress, morbidly obese - Eye Eye exam: Present: EOMI. Absent: scleral icterus - Respiratory Respiratory exam: Present: clear to auscultation bilaterally - Cardiovascular Cardiovascular exam: Present: regular rate and rhythm - GI/Abdominal GI/Abdominal exam: Present: normal bowel sounds, soft. Absent: tenderness - Extremities Exam Extremities exam: Absent: edema Discharge Results Procedures and tests throughout hospitalization: Pending Orders 01/16/17 08:24 AFB Culture/Smears Stat Fungal Culture w/ Prep Stat 01/21/17 10:27 Sputum Culture and Gram Stain Routine Labs on day of discharge: Labs from last 24 hours 01/21/17 01/21/17 19:27 10:44 Troponin I 0.109 H Vancomycin Trough 15.6 DS: Provider Date of admission: 01/14/17 15:00 Primary care physician: . No PCP Attending physician on admission: Sherwin Valencia MD Consults: 01/14/17 16:43 Consult to Wound Care - [place] [CONS] Routine Reason for Wound Care: Wound Care Management 01/17/17 13:25 Consult to Physical Therapy [CONS] Routine Reason for Physical Therapy: Weakness 01/19/17 09:46 Consult to Physician [CONS] Routine Comment: Consulting Provider: Festus Abdalla Date Notified: 01/19/17 Time Notified: 15:31 Consult Notification Comment: PATIENT OF DR. Abdalla Discharging clinician: Dianna Morton MD
--- NOTE | 2017-01-22 11:19 | Pulmonology Progress Note ---
Pulmonary - PN: Subj Interval history: Kevin Joseph, [facility]-, acting as scribe for Dr. Festus Abdalla This is a 66-year-old black female. We saw this patient in pulmonary consultation on 01/15/2017. She had been admitted with sepsis and evidence of bibasilar pneumonia. At the time of our initial consultation, our impressions were: 1. Probable bibasilar pneumonia. Suspect aspiration pneumonia and/or bacterial superinfection 2. History of gastroesophageal reflux disease and recent history of aspiration pneumonia 3. Tobacco abuse. Probable underlying COPD 4. Mild hypercarbia and moderate hypoxemia 5. Acute renal failure 6. Pulmonary hypertension. Pulmonary emboli suspected but not found. 7. See past history 01/16/2017. This patient's chest x-ray shows cardiomegaly bibasilar infiltrates. Infiltrates are much more prominent on CT scan of the chest. This morning she was evaluated with fiberoptic bronchoscopy. See bronchoscopy report. She had aspiration injury in her trachea both mainstem bronchi all 5 lobes of the lung. The injury was worse at the bases and this appears chronic. There is hypertrophy friable mucosa which is partially stenotic. This is superimposed on severe obstructive disease that involves the trachea and all the large and small airways that are visible. I did not see any evidence of cancer but I sent specimens for cytology. Also specimens were sent for bacteria , AFB and fungus. This patient's had a recent November hospitalization with a discharge diagnosis of aspiration pneumonia. Pulmonary did not see her during that admission. She then had a second admission that ended one day prior to this admission. She was treated for sepsis and lower extremity infections. White count is fallen from 12,900 8900 with 81% segs. H&H is 13.0/39.7. Platelets are 139,000. Electrolytes are normal. Creatinine has dropped from 2.0-1.30 with a BUN of 34. Hypotension has resolved. The patient had an altered mental status and this is improved significantly. So far there are no positive cultures. Plan is to treat this patient with steroids and antibiotics. Check bronchoscopy specimens. She is receiving inhalation therapy and I have added Pulmozyme. I have also ordered a TSH. 01/19/2017. The patient was seen today along with Krystal Abrams RN. The patient was moved to the medical floor of the weekend. She is much more awake and alert. She is talkative and able to answer questions. She states her breathing has improved. Chest x-ray today shows improvement. Tomorrow we will attempt to obtain a PA and lateral chest x-ray. ABGs are stable. Bronchoscopy cultures only grew Latha albicans, but this was not a Latha pneumonia. Medications have been reviewed. We made no changes today. Labs been reviewed. Creatinine 1.00, BUN 23, electrolytes are normal; vancomycin trough still elevated at 24.2. Note, this is being managed by pharmacology. ABGs this morning on an FiO2 of 28% show pH of 7.377, PCO2 52.0, PO2 72.1, bicarb 27.9, and oxygen saturation 93.0% 01/20/2017. The patient was seen today along with Bailey Salter RN. Today's chest x-ray is an upright, shallow right oblique. There are retained secretions in the bilateral bases but no overt congestive heart failure. Overall, this is improved when compared to previous films. Patient is able to take a deeper breath. She states that her breathing is doing very well. She asked about discharge. We again explained her that she has had now 3 recent hospitalizations and we feel is in her best interest to treat her until she is fully well. She understands this. Cytology from his recent bronchoscopy was class I. Medications have been reviewed. We made no changes today. Labs been reviewed. Creatinine is stable at 1.00, BUN 26, electrolytes are normal 01/21/2017. Patient's chest x-ray today continues to show non-resolving bilateral basilar infiltrates, however, clinically she is improving. We will continue IV antibiotics for the time being. We have ordered a repeat chest x- ray tomorrow. She continues to have loose large airway congestion that she needs to expectorate. She is already on Pulmozyme twice daily and Mucinex. She would like to be discharged in the near future and with any luck she could be ready by Thursday. We will repeat a sputum for Gram stain, culture and sensitivity today. Medications been reviewed. We made no changes today. Labs been reviewed. No new labs were drawn today. 01/22/2017. The patient was seen today along with Sharmila Hu RN. We discussed the case with Dr. Christensen and have coordinated our care. Patient's chest x-ray shows that her previously noted infiltrates are gradually clearing, but this is lagging behind her clinical improvement. There are no positive cultures, therefore, given the length of her antibiotics while inpatient we do not feel that she would require any further antibiotics at discharge. She has been working with physical therapy and is slowly regaining her strength. She states that at home she walks with a walker. Medications have been reviewed. We made no changes today. Labs been reviewed. Vancomycin trough yesterday was 15.6. Vancomycin is being managed by pharmacology. Exam (Progress Note) - Constitutional Vitals: Period Temp Pulse Resp BP Sys/Vega Pulse Ox Last 24 Hr 97.6 F-98.7 F 71-88 18-20 140-157/81-94 89-98 Exam: Chest is fairly clear; wheeze free Heart no gallop Abdomen is nontender and nondistended; bowel sounds positive 4 Extremities with nothing to suggest acute deep venous thrombophlebitis; dressings to bilateral legs Psychiatric oriented at least to person and place Neurologic long-term motor function is intact Plan: As discussed with Dr. Morton, the patient's chest x-ray is clearly lacking behind her clinical improvement. We feel that she would be safe for discharge at this point. We did not think that she needs any further antibiotics at discharge. She can follow-up with her primary care physician. She does not need a follow-up appointment to see us, but we could see her as an outpatient in the future if needed. We will sign off. Please reconsult as needed. Results - Labs CBC & BMP: 01/18/17 02:49 01/20/17 04:38 Specialty Discharge - Follow Up or Referrals Follow up with: Adarsh Perry [REFERRING DOCTOR/PRACTITIONER] - 1 Week (Pt needs appt within 1 week of discharge date. Nurse to call [phone]. If over the weekend, leave a voicemail and let pt know they will be contact thursday chelly with an appt. All records need to be faxed to [phone]. ) Festus Abdalla MD [Physician] -
[2017-01-22] MEDS ORDERED: TUBERCULIN SKIN TEST 0.1 ML SYRINGE INTRADERM ONE (15:00)
--- NOTE | 2017-01-22 15:03 | Case Mgmt Physician Query Form ---
TB Signs and Symptoms Screening ([place]) INSTRUCTIONS: To be completed annually on residents/staff with a significant Tuberculin Skin Test (TST) upon admission/hire or a prior significant TST. To be completed on all staff at hire. Please respond to each listed symptom with an (X) in either the "YES" or "NO" box. Do you currently have any of the following symptoms: YES NO ( ) ( ) A cough If yes, is it: ( ) Productive ( ) Non- productive ( ) ( ) Hemoptysis (spitting up blood) ( ) ( ) Chest pains ( ) ( ) Weight Loss ( ) ( ) Fever ( ) ( ) Night Sweats ( ) ( ) Weakness ( ) ( ) Loss of Appetite ( ) ( ) Difficulty Breathing If you answered YES" to any of the above questions, how long have symptoms been present? Comments: If you have any questions, please contact me . Thank you, Arely VILLALBA Email: [email or web address] Patient was discharged before I became aware of this form. So, I am unable to complete it. ADRIAN
[2017-01-22] MEDS: NITROGLYCERIN 0.1 MG/HR PATCH TRANSDERM SCH (16:33)
[2017-01-22] MEDS: VANCOMYCIN INJ 1,250 MG in SODIUM CHLORIDE 0.9% 250 ML IV SCH (16:33)
[2017-01-22] MEDS: ENOXAPARIN 40 MG/0.4 ML SYRINGE SUBCUT SCH (18:13)
[2017-01-22] MEDS: ZINC OXIDE PASTE 113 GM TUBE TOP SCH (21:03)
[2017-01-23] MEDS: ALBUTEROL/IPRATROPIUM 3 ML NEB RESP TX SCH ×2 (00:03→07:42)
[2017-01-23] MEDS: PIPERACILLIN/TAZOBACTAM 3,375 MG in SODIUM CHLORIDE 0.9% 100 ML IV SCH (06:34)
[2017-01-23] MEDS: DORNASE ALFA 2.5 MG/2.5 ML VIAL RESP TX SCH (07:42)
[2017-01-23] MEDS: traMADol 50 MG TABLET PO SCH (08:54)
[2017-01-23] MEDS: PANTOPRAZOLE 40 MG TABLET PO SCH (08:54)
[2017-01-23] MEDS: METOCLOPRAMIDE 10 MG TABLET PO SCH (08:54)
[2017-01-23] MEDS: ALLOPURINOL 300 MG TABLET PO SCH (08:55)
[2017-01-23] MEDS: predniSONE 20 MG TABLET PO SCH (08:55)
[2017-01-23] MEDS: ESCITALOPRAM 10 MG TABLET PO SCH (08:55)
[2017-01-23] MEDS: VANCOMYCIN INJ 1,250 MG in SODIUM CHLORIDE 0.9% 250 ML IV SCH (08:55)
[2017-01-23] MEDS: ZINC OXIDE PASTE 113 GM TUBE TOP SCH (08:58)
[2017-01-23 12:21] VITALS: BP 159/93
[2017-01-23] MEDS ORDERED: NITROGLYCERIN 0.1 MG/HR PATCH TRANSDERM SCH (16:00)
== END 2017-01-23 13:58 | disposition home health service (06) | DRG 853 ==
LOC: EDBD → EDUNIT# → N.ED 13:30 → N.EDINP 15:00 → SUATTDRO 15:00 → N.3E 16:29 → N.ICU 01-15 08:55 → N.5E 01-18 15:15
PROVIDERS: ADMIT Internal Medicine; ATTEND Internal Medicine

== ENCOUNTER 2017-03-06 09:53 | Inpatient (IN) ==
[2017-03-06] MEDS ORDERED: FUROSEMIDE 40 MG/4 ML VIAL ONE (10:19)
[2017-03-06] MEDS ORDERED: FUROSEMIDE 40 MG/4 ML VIAL IV STA (10:19)
[2017-03-06 10:30] LABS: Basophils % 0.3 % (0.0-0.8); Eosinophils % 0.1 % (0.00-10.9); Hematocrit 45.6 VOL% (35.7-47.0); Hemoglobin 15.3 GM/DL (12.0-16.0); Immature Granulocytes % 0.9 %; Lymphocytes % 8.7 % (21.3-54.2); Mean Corpuscular HGB Conc 33.6 GM/DL (32-36); Mean Corpuscular Hemoglobin 31 PG (27-34); Mean Corpuscular Volume 91.4 FL (87-102); Mean Platelet Volume 11.9 FL (9.6-12.0); Monocytes # 0.9 10*3/uL (0.11-0.8); Monocytes % 7.9 % (1.7-12.7); Neutrophils % 82.1 % (38.7-73.9); Platelet Count 301 T/CUMM (130-400); Red Blood Count 4.99 MC/CUMM (3.8-5.5); Red Cell Distribution Width 17.5 % (9.3-17.3)
[2017-03-06 10:38] LABS: PT Patient Result 10.7 SECS; Partial Thromboplastin Time 28.6 SECS (0-40)
[2017-03-06 11:04] LABS: Albumin 3.1 G/DL (3.4-5.0); Bilirubin,Total 0.4 MG/DL (0.2-1.0); CKMB % 0.7 %; Calcium 9.2 MG/DL (8.5-10.1); Total Protein 6.8 G/DL (6.4-8.3)
[2017-03-06 11:05] LABS: Troponin I Only 0.231 NG/ML (0.00-0.045)
[2017-03-06] MEDS ORDERED: POTASSIUM CHLORIDE 20 MEQ TABLET PO STA (11:13)
[2017-03-06] MEDS ORDERED: POTASSIUM CHLORIDE 20 MEQ TABLET PO ONE (11:27)
[2017-03-06] MEDS ORDERED: ASPIRIN 325 MG TABLET ONE (11:28)
[2017-03-06] MEDS ORDERED: ASPIRIN 325 MG TABLET PO STA (11:29)
[2017-03-06] MEDS ORDERED: ENOXAPARIN 100 MG/ML SYRINGE SUBCUT STA (11:40)
[2017-03-06] MEDS ORDERED: ENOXAPARIN 100 MG/ML SYRINGE SUBCUT ONE (11:41)
[2017-03-06 12:42] LABS: Apearance,Urine CLOUDY (Clear); Bilirubin,Urine Negative (Negative); Blood, Urine Large mg/dL (Negative); Glucose,Urine (UA) Negative (Negative); Ketones,Urine Negative (Negative); Nitrite,Urine Negative (Negative); Protein,Urine 100 MG/DL; RBC,Urine 7 /HPF (0-4); Urine Color Amber (Yellow); Urine Urobilinogen < 2.0 EU/DL (0.2-1.0); WBC,Urine 1088 /HPF (0-6)
[2017-03-06] MEDS ORDERED: ZALEPLON 5 MG CAPSULE PO PRN (15:04)
[2017-03-06] MEDS ORDERED: ONDANSETRON 4 MG/2 ML VIAL IV PRN (15:04)
[2017-03-06] MEDS ORDERED: MORPHINE 2 MG/1 ML SYRINGE IV PRN (15:04)
[2017-03-06] MEDS ORDERED: IBUPROFEN 800 MG TABLET PO PRN (15:06)
[2017-03-06] MEDS ORDERED: SKIN HEALING OINT (AQUAPHOR) 50 GM TUBE TOP PRN (15:06)
[2017-03-06] MEDS ORDERED: PROMETHAZINE 25 MG TABLET PO PRN (15:06)
[2017-03-06] MEDS: FUROSEMIDE 40 MG TABLET PO SCH (16:24)
[2017-03-06] MEDS ORDERED: POTASSIUM CHLORIDE 20 MEQ/15 ML UDCUP PER TUBE PRN (16:28)
[2017-03-06] MEDS: traMADol 50 MG TABLET PO SCH (20:56)
[2017-03-06] MEDS: CIPROFLOXACIN 500 MG TABLET PO SCH (20:56)
[2017-03-06] MEDS: PANTOPRAZOLE 40 MG TABLET PO SCH (20:56)
[2017-03-06] MEDS: POTASSIUM CHLORIDE 20 MEQ TABLET PO PRN (20:56)
[2017-03-06] MEDS: tiZANidine 4 MG TABLET PO SCH (20:57)
[2017-03-06] MEDS: METOCLOPRAMIDE 10 MG TABLET PO SCH (20:57)
[2017-03-06] MEDS: CARISOPRODOL 350 MG TABLET PO SCH (21:03)
[2017-03-07 03:19] LABS: CKMB % 0.5 %; Magnesium 1.7 MG/DL (1.8-2.4); Osmolality,Calculated 284.1 MOS/KG (273-304); Risk Ratio 2.56; Thyroid Stimulating Hormone 0.304 uIU/ml (0.358-3.74); VLDL CHOLESTEROL 14.2 MG/DL
[2017-03-07 03:24] LABS: Troponin I Only 0.159 NG/ML (0.00-0.045)
[2017-03-07] MEDS: ALLOPURINOL 300 MG TABLET PO SCH (08:40)
[2017-03-07] MEDS: METOCLOPRAMIDE 10 MG TABLET PO SCH ×3 (08:40→20:48)
[2017-03-07] MEDS: COLCHICINE 0.6 MG TABLET PO SCH (08:40)
[2017-03-07] MEDS: hydroCHLOROthiazide 12.5 MG CAPSULE PO SCH (08:40)
[2017-03-07] MEDS: CARISOPRODOL 350 MG TABLET PO SCH (08:40)
[2017-03-07] MEDS: ENALAPRIL 2.5 MG TABLET PO SCH (08:41)
[2017-03-07] MEDS: ESCITALOPRAM 10 MG TABLET PO SCH (08:42)
[2017-03-07] MEDS: FUROSEMIDE 40 MG TABLET PO SCH ×2 (08:42→17:34)
[2017-03-07] MEDS: CIPROFLOXACIN 500 MG TABLET PO SCH ×2 (08:42→20:48)
[2017-03-07] MEDS: traMADol 50 MG TABLET PO SCH (08:42)
[2017-03-07] MEDS: SPIRONOLACTONE 50 MG TABLET PO SCH (08:42)
[2017-03-07] MEDS: PANTOPRAZOLE 40 MG TABLET PO SCH ×2 (08:42→20:48)
[2017-03-07] MEDS: tiZANidine 4 MG TABLET PO SCH (08:43)
[2017-03-07] MEDS: NITROGLYCERIN 0.1 MG/HR PATCH TRANSDERM SCH (09:58)
[2017-03-07 22:34] LABS: Barbiturates Screen,Urine Negative (Negative); Benzodiazepines Screen,Urine Negative (Negative); Cannabinoid Screen,Urine Negative (Negative); Opiate Screen,Urine Positive (Negative); Phencyclidine Screen,Urine Negative (Negative)
[2017-03-08] MEDS: ALLOPURINOL 300 MG TABLET PO SCH (09:19)
[2017-03-08] MEDS: ENALAPRIL 2.5 MG TABLET PO SCH (09:20)
[2017-03-08] MEDS: COLCHICINE 0.6 MG TABLET PO SCH (09:20)
[2017-03-08] MEDS: hydroCHLOROthiazide 12.5 MG CAPSULE PO SCH (09:20)
[2017-03-08] MEDS: SPIRONOLACTONE 50 MG TABLET PO SCH (09:21)
[2017-03-08] MEDS: PANTOPRAZOLE 40 MG TABLET PO SCH ×2 (09:21→21:22)
[2017-03-08] MEDS: NITROGLYCERIN 0.1 MG/HR PATCH TRANSDERM SCH (09:21)
[2017-03-08] MEDS: METOCLOPRAMIDE 10 MG TABLET PO SCH ×3 (09:21→21:22)
[2017-03-08] MEDS: CIPROFLOXACIN 500 MG TABLET PO SCH ×2 (09:21→21:22)
[2017-03-08] MEDS: FUROSEMIDE 40 MG TABLET PO SCH ×2 (09:21→15:19)
[2017-03-08] MEDS: ESCITALOPRAM 10 MG TABLET PO SCH (09:21)
[2017-03-09 04:01] LABS: Basophils % 0.3 % (0.0-0.8); Eosinophils # 0.1 10*3/uL (0.0-0.87); Eosinophils % 1.5 % (0.00-10.9); Hematocrit 39.6 VOL% (35.7-47.0); Hemoglobin 13.1 GM/DL (12.0-16.0); Immature Granulocytes % 1.1 %; Immature Granulocytes Absolute 0.07 #; Lymphocytes # 1.8 10*3/uL (1.4-4.0); Lymphocytes % 27.2 % (21.3-54.2); Mean Corpuscular HGB Conc 33.1 GM/DL (32-36); Mean Corpuscular Hemoglobin 30 PG (27-34); Mean Platelet Volume 11.7 FL (9.6-12.0); Monocytes # 0.8 10*3/uL (0.11-0.8); Monocytes % 11.7 % (1.7-12.7); NRBC # 0.02 10*3/uL; Neutrophils # 3.8 10*3/uL (1.4-7.4); Neutrophils % 58.2 % (38.7-73.9); Platelet Count 250 T/CUMM (130-400); Red Blood Count 4.35 MC/CUMM (3.8-5.5); Red Cell Distribution Width 17.1 % (9.3-17.3); White Blood Count 6.5 T/CUMM (4-12)
[2017-03-09 04:35] LABS: Calcium 8.7 MG/DL (8.5-10.1); Osmolality,Calculated 279.4 MOS/KG (273-304); Potassium 3.1 MMOL/L (3.5-5.1)
[2017-03-09 06:48] LABS: Apearance,Urine CLEAR (Clear); Bacteria,Urine Occasional /HPF (Few); Bilirubin,Urine Negative (Negative); Blood, Urine Small mg/dL (Negative); Glucose,Urine (UA) Negative (Negative); Ketones,Urine Negative (Negative); Nitrite,Urine Negative (Negative); Protein,Urine Negative; RBC,Urine 1 /HPF (0-4); Squamous Epithelial Cell,Urine Occasional /HPF (0-10); Urine Color Yellow (Yellow); Urine Specific Gravity 1.006 (1.001-1.035); Urine Urobilinogen < 2.0 EU/DL (0.2-1.0); WBC,Urine 12 /HPF (0-6)
[2017-03-09] MEDS ORDERED: AMOXICILLIN/CLAV 875 MG TABLET PO SCH (09:00)
[2017-03-09] MEDS: hydroCHLOROthiazide 12.5 MG CAPSULE PO SCH (09:02)
[2017-03-09] MEDS: COLCHICINE 0.6 MG TABLET PO SCH (09:02)
[2017-03-09] MEDS: ENALAPRIL 2.5 MG TABLET PO SCH (09:03)
[2017-03-09] MEDS: SPIRONOLACTONE 50 MG TABLET PO SCH (09:05)
[2017-03-09] MEDS: ALLOPURINOL 300 MG TABLET PO SCH (09:05)
[2017-03-09] MEDS: PANTOPRAZOLE 40 MG TABLET PO SCH (09:06)
[2017-03-09] MEDS: METOCLOPRAMIDE 10 MG TABLET PO SCH ×2 (09:06→15:48)
[2017-03-09] MEDS: FUROSEMIDE 40 MG TABLET PO SCH ×2 (09:06→16:12)
[2017-03-09] MEDS: ESCITALOPRAM 10 MG TABLET PO SCH (09:07)
[2017-03-09] MEDS: POTASSIUM CHLORIDE 20 MEQ TABLET PO PRN ×2 (10:37→13:39)
[2017-03-09] MEDS: NITROGLYCERIN 0.1 MG/HR PATCH TRANSDERM SCH (10:39)
[2017-03-09 13:09] VITALS: BP 120/66
== END 2017-03-09 16:00 | disposition home health service (06) | DRG 91 ==
LOC: EDUNIT# → EDBD → N.ED 09:53 → N.EDINP 11:37 → SUATTDRO 11:37 → N.2E 13:05
PROVIDERS: ADMIT Family Medicine; ATTEND Hospitalist

== ENCOUNTER 2017-05-01 17:13 | Inpatient (IN) ==
[2017-05-01] MEDS ORDERED: ALUM/MAG/SIMETH/LIDO VISC 1:1 30 ML BOTTLE PO STA (17:57)
[2017-05-01] MEDS ORDERED: ASPIRIN 325 MG TABLET PO STA (17:57)
[2017-05-01] MEDS ORDERED: MORPHINE 2 MG/1 ML SYRINGE IV STA (17:57)
[2017-05-01] MEDS ORDERED: NITROGLYCERIN 2% OINT 1 INCH/GM PACK TOP STA (17:57)
[2017-05-01] MEDS ORDERED: ONDANSETRON 4 MG/2 ML VIAL IV STA (17:57)
[2017-05-01 18:11] LABS: Basophils % 0.1 % (0.0-0.8); Eosinophils # 0.1 10*3/uL (0.0-0.87); Eosinophils % 0.8 % (0.00-10.9); Hemoglobin 11.8 GM/DL (12.0-16.0); Immature Granulocytes % 0.5 %; Immature Granulocytes Absolute 0.04 #; Lymphocytes % 13.2 % (21.3-54.2); Mean Corpuscular HGB Conc 31.9 GM/DL (32-36); Mean Corpuscular Hemoglobin 29 PG (27-34); Mean Corpuscular Volume 90.5 FL (87-102); Mean Platelet Volume 11.4 FL (9.6-12.0); Monocytes # 0.6 10*3/uL (0.11-0.8); Monocytes % 8.2 % (1.7-12.7); Neutrophils # 5.8 10*3/uL (1.4-7.4); Neutrophils % 77.2 % (38.7-73.9); Platelet Count 235 T/CUMM (130-400); Red Blood Count 4.09 MC/CUMM (3.8-5.5); Red Cell Distribution Width 17.3 % (9.3-17.3); White Blood Count 7.6 T/CUMM (4-12)
[2017-05-01 18:14] LABS: INR 0.9; PT Patient Result 9.8 SECS
[2017-05-01] MEDS ORDERED: ALUM/MAG/SIMETH/LIDO VISC 1:1 30 ML BOTTLE PO ONE (18:29)
[2017-05-01] MEDS ORDERED: NITROGLYCERIN 2% OINT 1 INCH/GM PACK TOP ONE (18:29)
[2017-05-01 18:37] LABS: Albumin 2.4 G/DL (3.4-5.0); Bilirubin,Total 0.8 MG/DL (0.2-1.0); Calcium 8.3 MG/DL (8.5-10.1); Magnesium 1.8 MG/DL (1.8-2.4); Osmolality,Calculated 272.1 MOS/KG (273-304); Potassium 3.8 MMOL/L (3.5-5.1); Total Protein 6.8 G/DL (6.4-8.3)
[2017-05-01 18:38] LABS: Lactic Acid 1.6 MMOL/L (0.4-2.0); Troponin I Only 0.02 NG/ML (0.00-0.045)
[2017-05-01 18:52] LABS: Burr Cells Few; Hypochromasia Slight; Platelet Estimate Normal; Poikilocytosis Slight; Tear Drop Cells Few
[2017-05-01] MEDS ORDERED: cefTRIAXone 1,000 MG in SODIUM CHLORIDE 0.9% 100 ML IV STA (19:09)
[2017-05-01] MEDS ORDERED: SKIN HEALING OINT (AQUAPHOR) 50 GM TUBE TOP PRN (19:57)
[2017-05-01] MEDS ORDERED: cefTRIAXone 1,000 MG VIAL ONE (19:57)
[2017-05-01] MEDS ORDERED: DOCUSATE SODIUM 100 MG CAPSULE PO PRN (20:00)
[2017-05-01] MEDS ORDERED: NICOTINE 21 MG/24 HR PATCH TRANSDERM PRN (20:00)
[2017-05-01] MEDS ORDERED: SODIUM CHLORIDE 0.9% 1,000 ML IV SCH (20:00)
[2017-05-01] MEDS ORDERED: DEXTROSE 50% 25 GM/50 ML VIAL IV PRN (20:00)
[2017-05-01] MEDS ORDERED: traZODone 50 MG TABLET PO PRN (20:00)
[2017-05-01] MEDS ORDERED: ACETAMINOPHEN 325 MG TABLET PO PRN (20:00)
[2017-05-01] MEDS ORDERED: guaiFENesin/DM ER 600-30 MG TABLET PO PRN (20:00)
[2017-05-01] MEDS ORDERED: GLUCAGON 1 MG VIAL IM PRN (20:00)
[2017-05-01] MEDS ORDERED: BISACODYL 5 MG TABLET PO PRN (20:00)
[2017-05-01] MEDS ORDERED: ONDANSETRON 4 MG/2 ML VIAL IV PRN (20:00)
[2017-05-01] MEDS ORDERED: hydrALAZINE 20 MG/1 ML VIAL IV PRN (20:11)
[2017-05-01] MEDS ORDERED: ENOXAPARIN 30 MG/0.3 ML SYRINGE SUBCUT SCH (21:00)
[2017-05-01] MEDS ORDERED: cefTRIAXone 1,000 MG in SYRINGE 1 EACH IV SCH (21:00)
[2017-05-01] MEDS ORDERED: AZITHROMYCIN INJ 500 MG in SODIUM CHLORIDE 0.9% 250 ML IV SCH (22:00)
[2017-05-01] MEDS: PANTOPRAZOLE 40 MG TABLET PO SCH (22:28)
[2017-05-02] MEDS ORDERED: SODIUM CHLORIDE 0.9% 1,000 ML IV SCH (02:37)
[2017-05-02 05:08] LABS: Basophils % 0.2 % (0.0-0.8); Eosinophils # 0.1 10*3/uL (0.0-0.87); Eosinophils % 0.8 % (0.00-10.9); Hematocrit 30.8 VOL% (35.7-47.0); Hemoglobin 9.8 GM/DL (12.0-16.0); Immature Granulocytes % 0.6 %; Immature Granulocytes Absolute 0.04 #; Lymphocytes % 15.5 % (21.3-54.2); Mean Corpuscular HGB Conc 31.8 GM/DL (32-36); Mean Corpuscular Hemoglobin 29 PG (27-34); Mean Corpuscular Volume 89.5 FL (87-102); Mean Platelet Volume 11.2 FL (9.6-12.0); Monocytes # 0.6 10*3/uL (0.11-0.8); Monocytes % 9.4 % (1.7-12.7); Neutrophils # 4.7 10*3/uL (1.4-7.4); Neutrophils % 73.5 % (38.7-73.9); Platelet Count 228 T/CUMM (130-400); Red Blood Count 3.44 MC/CUMM (3.8-5.5); Red Cell Distribution Width 17.2 % (9.3-17.3); White Blood Count 6.4 T/CUMM (4-12)
[2017-05-02 05:35] LABS: Osmolality,Calculated 276.7 MOS/KG (273-304); Potassium 3.9 MMOL/L (3.5-5.1)
[2017-05-02] MEDS ORDERED: INSULIN REGULAR 100 UNIT/ML SUBCUT SCH (07:30)
[2017-05-02] MEDS: PANTOPRAZOLE 40 MG TABLET PO SCH (08:57)
[2017-05-02] MEDS ORDERED: ENALAPRIL 10 MG TABLET PO SCH (09:00)
[2017-05-02] MEDS ORDERED: hydroCHLOROthiazide 12.5 MG CAPSULE PO SCH (09:00)
[2017-05-02] MEDS ORDERED: THEOPHYLLINE ER (24 HR) 300 MG CAPSULE PO SCH (09:00)
[2017-05-02 11:52] VITALS: BP 137/68
== END 2017-05-02 13:58 | DRG 194 ==
LOC: EDUNIT# → EDBD → N.ED 17:13 → N.EDINP 19:56 → N.2E 20:20

== ENCOUNTER 2017-08-04 10:21 | Inpatient (IN) ==
[2017-08-04] MEDS ORDERED: ROCURONIUM 100 MG/10 ML VIAL IV ONE ×2 (10:37→10:42)
[2017-08-04] MEDS ORDERED: ETOMIDATE 20 MG/10 ML VIAL IV ONE ×2 (10:37→10:42)
[2017-08-04] MEDS ORDERED: SODIUM CHLORIDE 0.9% 500 ML IV STA (10:41)
[2017-08-04] MEDS ORDERED: PROPOFOL 1,000 MG/100 ML BOTTLE IV ONE ×2 (10:48→14:21)
[2017-08-04 10:54] LABS: INR 1.1; PT Patient Result 11.5 SECS; Partial Thromboplastin Time 24.8 SECS (0-40)
[2017-08-04 10:57] LABS: Basophils % 0.2 % (0.0-0.8); Hematocrit 46.5 VOL% (35.7-47.0); Immature Granulocytes % 0.6 %; Immature Granulocytes Absolute 0.05 #; Lymphocytes # 0.7 10*3/uL (1.4-4.0); Lymphocytes % 8.2 % (21.3-54.2); Mean Corpuscular HGB Conc 28.8 GM/DL (32-36); Mean Corpuscular Hemoglobin 22 PG (27-34); Mean Corpuscular Volume 75.5 FL (87-102); Monocytes # 0.4 10*3/uL (0.11-0.8); Monocytes % 5.2 % (1.7-12.7); NRBC # 0.07 10*3/uL; Neutrophils # 7.2 10*3/uL (1.4-7.4); Neutrophils % 85.8 % (38.7-73.9); Platelet Count 340 T/CUMM (130-400); Red Blood Count 6.16 MC/CUMM (3.8-5.5); Red Cell Distribution Width 23.8 % (9.3-17.3); White Blood Count 8.3 T/CUMM (4-12)
[2017-08-04 10:58] LABS: Hemoglobin 13.4 GM/DL (12.0-16.0)
[2017-08-04 11:08] LABS: ABG Base Excess 6.8 MMOL/L (-2.5-2.5); ABG HCO3 30.5 MMOL/L (20-26); ABG Oxygen Saturation 92.5 % (95-100); ABG PCO2 45.4 MM HG (35-48); ABG PH 7.454 (7.35-7.45); ABG TCO2 27.7 MMOL/L (23-27)
[2017-08-04 11:09] LABS: Albumin 3.1 G/DL (3.4-5.0); Bilirubin,Total 0.4 MG/DL (0.2-1.0); Calcium 9.2 MG/DL (8.5-10.1); Osmolality,Calculated 284.4 MOS/KG (273-304); Total Protein 7.8 G/DL (6.4-8.3)
[2017-08-04 11:12] LABS: Potassium 2.5 MMOL/L (3.5-5.1)
[2017-08-04 11:13] LABS: Troponin I Only 0.113 NG/ML (0.00-0.045)
[2017-08-04] MEDS ORDERED: POTASSIUM CHLORIDE RIDER 20 MEQ in PREMIX 1 EACH IV STA (11:13)
[2017-08-04] MEDS: PROPOFOL 1,000 MG/100 ML BOTTLE IV SCH (11:15)
[2017-08-04 11:18] LABS: Hypochromasia 2+; Microcytosis 1+; Ovalocytes Slight; Platelet Estimate Normal; Target Cells Slight
[2017-08-04] MEDS ORDERED: PIPERACILLIN/TAZOBACTAM 3,375 MG in SODIUM CHLORIDE 0.9% 100 ML IV STA (11:18)
[2017-08-04 11:23] LABS: Lactic Acid 2.2 MMOL/L (0.4-2.0)
[2017-08-04 12:02] LABS: Apearance,Urine Slightly Hazy (Clear); Bilirubin,Urine Negative (Negative); Blood, Urine Negative (Negative); Glucose,Urine (UA) Negative (Negative); Hyaline Casts,Urine 7 /LPF (0-3); Ketones,Urine Negative (Negative); Mucus,Urine Occasional /LPF (Occasional); Nitrite,Urine Negative (Negative); Protein,Urine >=500 MG/DL; RBC,Urine <1 /HPF (0-4); Squamous Epithelial Cell,Urine Occasional /HPF (0-10); Urine Color Yellow (Yellow); Urine Specific Gravity 1.016 (1.001-1.035); Urine Urobilinogen < 2.0 EU/DL (0.2-1.0); WBC,Urine <1 /HPF (0-6)
[2017-08-04 12:03] LABS: Barbiturates Screen,Urine Negative (Negative); Benzodiazepines Screen,Urine Negative (Negative); Cannabinoid Screen,Urine Negative (Negative); Opiate Screen,Urine Positive (Negative); Phencyclidine Screen,Urine Negative (Negative)
[2017-08-04] MEDS ORDERED: PIPERACILLIN/TAZOBACTAM 3,375 MG VIAL IV ONE (12:12)
[2017-08-04] MEDS ORDERED: POTASSIUM CHLORIDE RIDER 100 ML IV ONE ×2 (12:12→14:50)
[2017-08-04] MEDS ORDERED: SODIUM CHLORIDE 0.9% 100 ML IV ONE (12:13)
[2017-08-04] MEDS ORDERED: ALBUTEROL 2.5 MG/3 ML NEB RESP TX PRN (12:36)
[2017-08-04] MEDS ORDERED: hydrALAZINE 20 MG/1 ML VIAL IV PRN (13:32)
[2017-08-04] MEDS ORDERED: GLUCAGON 1 MG VIAL IM PRN (13:35)
[2017-08-04] MEDS ORDERED: DEXTROSE 50% 25 GM/50 ML VIAL IV PRN (13:35)
[2017-08-04] MEDS ORDERED: POTASSIUM CHLORIDE 20 MEQ TABLET PO ONE (14:05)
[2017-08-04] MEDS ORDERED: CARVEDILOL 3.125 MG TABLET ONE ×2 (14:05→14:09)
[2017-08-04] MEDS: CARVEDILOL 12.5 MG TABLET PO SCH ×2 (14:30→16:24)
[2017-08-04] MEDS: POTASSIUM CHLORIDE 20 MEQ TABLET PO SCH ×3 (14:34→18:11)
[2017-08-04] MEDS: INSULIN LISPRO 100 UNIT/ML SUBCUT SCH ×2 (14:59→20:39)
[2017-08-04] MEDS: methylPREDNISolone SOD SUC 40 MG/1 ML VIAL IV SCH (15:00)
[2017-08-04] MEDS: FUROSEMIDE 40 MG/4 ML VIAL IV SCH (15:47)
[2017-08-04 16:01] LABS: ABG Base Excess 6.3 MMOL/L (-2.5-2.5); ABG HCO3 29.3 MMOL/L (20-26); ABG Oxygen Saturation 99.6 % (95-100); ABG PCO2 36.4 MM HG (35-48); ABG PH 7.523 (7.35-7.45); ABG PO2 352.7 MM HG (80-95); ABG TCO2 30.4 MMOL/L (23-27)
[2017-08-04] MEDS: ALBUTEROL/IPRATROPIUM 3 ML NEB RESP TX SCH ×3 (16:13→23:12)
[2017-08-04 18:58] LABS: Troponin I Only 0.109 NG/ML (0.00-0.045)
[2017-08-04] MEDS: PIPERACILLIN/TAZOBACTAM 3,375 MG in SODIUM CHLORIDE 0.9% 100 ML IV SCH (20:30)
[2017-08-05 00:08] LABS: Troponin I Only 0.082 NG/ML (0.00-0.045)
[2017-08-05] MEDS: INSULIN LISPRO 100 UNIT/ML SUBCUT SCH ×4 (00:13→17:50)
[2017-08-05] MEDS ORDERED: SODIUM CHLORIDE 0.9% 250 ML IV ONE (02:12)
[2017-08-05] MEDS: ALBUTEROL/IPRATROPIUM 3 ML NEB RESP TX SCH ×6 (02:17→23:00)
[2017-08-05 03:36] LABS: ABG HCO3 30.9 MMOL/L (20-26); ABG Oxygen Saturation 99.3 % (95-100); ABG PCO2 37.8 MM HG (35-48); ABG PH 7.513 (7.35-7.45); ABG TCO2 26.3 MMOL/L (23-27)
[2017-08-05] MEDS: PIPERACILLIN/TAZOBACTAM 3,375 MG in SODIUM CHLORIDE 0.9% 100 ML IV SCH ×3 (04:21→20:13)
[2017-08-05] MEDS: methylPREDNISolone SOD SUC 40 MG/1 ML VIAL IV SCH ×2 (04:22→16:20)
[2017-08-05 06:09] LABS: Basophils % 0.1 % (0.0-0.8); Hematocrit 41.3 VOL% (35.7-47.0); Hemoglobin 12.5 GM/DL (12.0-16.0); Immature Granulocytes % 0.4 %; Immature Granulocytes Absolute 0.04 #; Lymphocytes # 0.3 10*3/uL (1.4-4.0); Lymphocytes % 2.8 % (21.3-54.2); Mean Corpuscular HGB Conc 30.3 GM/DL (32-36); Mean Corpuscular Hemoglobin 22 PG (27-34); Mean Corpuscular Volume 72.7 FL (87-102); Mean Platelet Volume 10.1 FL (9.6-12.0); Monocytes # 0.2 10*3/uL (0.11-0.8); Monocytes % 1.9 % (1.7-12.7); NRBC # 0.09 10*3/uL; Neutrophils # 8.8 10*3/uL (1.4-7.4); Neutrophils % 94.8 % (38.7-73.9); Platelet Count 308 T/CUMM (130-400); Red Blood Count 5.68 MC/CUMM (3.8-5.5); Red Cell Distribution Width 23.4 % (9.3-17.3); White Blood Count 9.3 T/CUMM (4-12)
[2017-08-05 06:21] LABS: Band Neutrophils 1 % (0-10); Lymphocytes 4 % (20-55); Nucleated Red Blood Cells 1 (0-5); Segmented Neutrophils 92 % (50-85); Total Cells Counted 100
[2017-08-05 06:22] LABS: Hypochromasia 2+; Microcytosis 1+; Ovalocytes Slight; Target Cells Slight
[2017-08-05 06:23] LABS: Platelet Estimate Normal
[2017-08-05 06:34] LABS: Calcium 8.7 MG/DL (8.5-10.1); Osmolality,Calculated 290.8 MOS/KG (273-304); Potassium 3.1 MMOL/L (3.5-5.1)
[2017-08-05 06:49] LABS: Lactic Acid 1.7 MMOL/L (0.4-2.0)
[2017-08-05] MEDS: ESCITALOPRAM 10 MG TABLET PO SCH (08:25)
[2017-08-05] MEDS: CARVEDILOL 12.5 MG TABLET PO SCH ×2 (08:25→16:20)
[2017-08-05] MEDS: FUROSEMIDE 40 MG/4 ML VIAL IV SCH ×2 (08:25→16:20)
[2017-08-05] MEDS: ZINC OXIDE PASTE 113 GM TUBE TOP SCH ×2 (12:15→20:14)
[2017-08-05] MEDS: PROPOFOL 1,000 MG/100 ML BOTTLE IV SCH ×2 (13:30→18:50)
[2017-08-05] MEDS: POTASSIUM CHLORIDE 20 MEQ/15 ML UDCUP PO SCH ×2 (16:20→20:15)
[2017-08-06] MEDS: INSULIN LISPRO 100 UNIT/ML SUBCUT SCH ×4 (00:07→18:00)
[2017-08-06] MEDS: PROPOFOL 1,000 MG/100 ML BOTTLE IV SCH ×4 (00:49→21:18)
[2017-08-06] MEDS: ALBUTEROL/IPRATROPIUM 3 ML NEB RESP TX SCH ×6 (01:32→23:10)
[2017-08-06] MEDS: PIPERACILLIN/TAZOBACTAM 3,375 MG in SODIUM CHLORIDE 0.9% 100 ML IV SCH (03:22)
[2017-08-06] MEDS: methylPREDNISolone SOD SUC 40 MG/1 ML VIAL IV SCH (03:23)
[2017-08-06 03:34] LABS: ABG Base Excess 7.3 MMOL/L (-2.5-2.5); ABG HCO3 27.4 MMOL/L (20-26); ABG Oxygen Saturation 98.4 % (95-100); ABG PCO2 25.8 MM HG (35-48); ABG PO2 117.7 MM HG (80-95); ABG TCO2 28.2 MMOL/L (23-27); Allen Test Positive; Pt O2 Delivery Device Ventilator
[2017-08-06 03:39] LABS: ABG PH 7.644 (7.35-7.45)
[2017-08-06 04:02] LABS: Hematocrit 43.9 VOL% (35.7-47.0); Hemoglobin 12.5 GM/DL (12.0-16.0); Immature Granulocytes % 0.4 %; Immature Granulocytes Absolute 0.03 #; Lymphocytes # 0.3 10*3/uL (1.4-4.0); Lymphocytes % 3.1 % (21.3-54.2); Mean Corpuscular HGB Conc 28.5 GM/DL (32-36); Mean Corpuscular Hemoglobin 22 PG (27-34); Mean Platelet Volume 10.1 FL (9.6-12.0); Monocytes # 0.4 10*3/uL (0.11-0.8); Monocytes % 4.5 % (1.7-12.7); Neutrophils # 7.4 10*3/uL (1.4-7.4); Platelet Count 329 T/CUMM (130-400); Red Blood Count 5.78 MC/CUMM (3.8-5.5); Red Cell Distribution Width 23.9 % (9.3-17.3); White Blood Count 8.1 T/CUMM (4-12)
[2017-08-06 04:23] LABS: Calcium 8.9 MG/DL (8.5-10.1); Osmolality,Calculated 299.4 MOS/KG (273-304); Potassium 3.9 MMOL/L (3.5-5.1)
[2017-08-06 04:34] LABS: Lymphocytes 6 % (20-55); Nucleated Red Blood Cells 1 (0-5); Polychromasia Few; Segmented Neutrophils 90 % (50-85); Total Cells Counted 100
[2017-08-06 04:35] LABS: Elliptocytes Few; Giant Platelets Few; Hypochromasia 1+; Platelet Estimate Normal; Target Cells Few
[2017-08-06 05:18] LABS: ABG Base Excess 6.9 MMOL/L (-2.5-2.5); ABG HCO3 30.7 MMOL/L (20-26); ABG Oxygen Saturation 98.7 % (95-100); ABG PH 7.554 (7.35-7.45); ABG TCO2 25.5 MMOL/L (23-27); Allen Test Positive; Pt O2 Delivery Device Ventilator
[2017-08-06] MEDS: FUROSEMIDE 40 MG/4 ML VIAL IV SCH (07:40)
[2017-08-06] MEDS: CARVEDILOL 12.5 MG TABLET PO SCH ×2 (08:10→17:00)
[2017-08-06] MEDS: ESCITALOPRAM 10 MG TABLET PO SCH (08:10)
[2017-08-06] MEDS: POTASSIUM CHLORIDE 20 MEQ/15 ML UDCUP PO SCH (08:10)
[2017-08-06] MEDS: ZINC OXIDE PASTE 113 GM TUBE TOP SCH ×2 (09:10→20:37)
[2017-08-06] MEDS ORDERED: MORPHINE 4 MG/1 ML VIAL IV PRN (09:45)
[2017-08-06] MEDS ORDERED: MAGNESIUM SULF RIDER 2 GM in PREMIX 1 EACH IV ONE (10:30)
[2017-08-06] MEDS: CEFEPIME 1,000 MG in SYRINGE 1 EACH IV SCH ×2 (10:30→23:54)
[2017-08-06] MEDS ORDERED: VANCOMYCIN INJ 2,250 MG in SODIUM CHLORIDE 0.9% 500 ML IV ONE (11:00)
[2017-08-06] MEDS: methylPREDNISolone SOD SUC 125 MG/2 ML VIAL IV SCH ×2 (13:05→18:20)
[2017-08-06] MEDS ORDERED: SODIUM CHLORIDE 0.9% 250 ML IV ONE (20:22)
[2017-08-06] MEDS ORDERED: ENOXAPARIN 40 MG/0.4 ML SYRINGE SUBCUT SCH (21:00)
[2017-08-07] MEDS: INSULIN LISPRO 100 UNIT/ML SUBCUT SCH ×3 (00:49→12:14)
[2017-08-07] MEDS: methylPREDNISolone SOD SUC 125 MG/2 ML VIAL IV SCH ×3 (00:50→12:14)
[2017-08-07 02:16] LABS: Basophils % 0.1 % (0.0-0.8); Hematocrit 42.7 VOL% (35.7-47.0); Hemoglobin 12.1 GM/DL (12.0-16.0); Immature Granulocytes % 0.4 %; Immature Granulocytes Absolute 0.04 #; Lymphocytes # 0.2 10*3/uL (1.4-4.0); Lymphocytes % 2.1 % (21.3-54.2); Mean Corpuscular HGB Conc 28.3 GM/DL (32-36); Mean Corpuscular Hemoglobin 22 PG (27-34); Mean Corpuscular Volume 77.1 FL (87-102); Mean Platelet Volume 10.7 FL (9.6-12.0); Monocytes # 0.2 10*3/uL (0.11-0.8); Monocytes % 2.3 % (1.7-12.7); Neutrophils # 8.7 10*3/uL (1.4-7.4); Neutrophils % 95.1 % (38.7-73.9); Platelet Count 315 T/CUMM (130-400); Red Blood Count 5.54 MC/CUMM (3.8-5.5); Red Cell Distribution Width 23.7 % (9.3-17.3); White Blood Count 9.1 T/CUMM (4-12)
[2017-08-07] MEDS: ALBUTEROL/IPRATROPIUM 3 ML NEB RESP TX SCH ×3 (02:22→11:07)
[2017-08-07 02:31] LABS: Calcium 8.4 MG/DL (8.5-10.1); Osmolality,Calculated 300.7 MOS/KG (273-304); Potassium 4.2 MMOL/L (3.5-5.1)
[2017-08-07 03:05] LABS: Band Neutrophils 2 % (0-10); Lymphocytes 10 % (20-55); Microcytosis 2+; Platelet Estimate Normal; Segmented Neutrophils 87 % (50-85); Total Cells Counted 100
[2017-08-07 03:20] LABS: ABG Base Excess 4.8 MMOL/L (-2.5-2.5); ABG HCO3 28.7 MMOL/L (20-26); ABG Oxygen Saturation 97.6 % (95-100); ABG PCO2 33.3 MM HG (35-48); ABG PH 7.522 (7.35-7.45); ABG TCO2 23.9 MMOL/L (23-27); Allen Test Positive; Pt O2 Delivery Device Ventilator
[2017-08-07] MEDS: PROPOFOL 1,000 MG/100 ML BOTTLE IV SCH ×2 (04:09→12:16)
[2017-08-07] MEDS ORDERED: VANCOMYCIN INJ 1,250 MG in SODIUM CHLORIDE 0.9% 250 ML IV SCH (06:00)
[2017-08-07 08:20] LABS: Prealbumin 33.6 MG/DL (20-40)
[2017-08-07] MEDS ORDERED: FUROSEMIDE 40 MG/4 ML VIAL IV SCH (09:00)
[2017-08-07] MEDS: CARVEDILOL 12.5 MG TABLET PO SCH (09:05)
[2017-08-07] MEDS: ESCITALOPRAM 10 MG TABLET PO SCH (09:05)
[2017-08-07] MEDS: ZINC OXIDE PASTE 113 GM TUBE TOP SCH (09:06)
[2017-08-07] MEDS: SODIUM CHLORIDE 0.45% 1,000 ML IV SCH ×2 (09:15→14:23)
[2017-08-07] MEDS: CEFEPIME 1,000 MG in SYRINGE 1 EACH IV SCH (10:35)
[2017-08-07 14:25] VITALS: BP 132/87
== END 2017-08-07 14:45 | DRG 917 ==
LOC: EDBD → EDUNIT# → N.ED 10:21 → N.EDINP 12:34 → N.ICU 15:17
PROVIDERS: ADMIT Internal Medicine; ATTEND Internal Medicine

== ENCOUNTER 2017-10-05 16:13 | Inpatient (IN) ==
[2017-10-05] MEDS ORDERED: ALBUTEROL/IPRATROPIUM 3 ML NEB RESP TX STA (16:42)
[2017-10-05 17:47] LABS: ABG HCO3 24.6 MMOL/L (20-26); ABG Oxygen Saturation 20.8 % (95-100); ABG PCO2 64.4 MM HG (35-48); ABG PH 7.286 (7.35-7.45)
[2017-10-05 17:49] LABS: ABG PO2 17.5 MM HG (80-95)
[2017-10-05 18:10] LABS: Basophils % 0.6 % (0.0-0.8); Eosinophils % 0.6 % (0.00-10.9); Immature Granulocytes % 0.3 %; Immature Granulocytes Absolute 0.02 #; Lymphocytes # 1.2 10*3/uL (1.4-4.0); Lymphocytes % 18.4 % (21.3-54.2); Mean Corpuscular Hemoglobin 23 PG (27-34); Mean Corpuscular Volume 80.9 FL (87-102); Mean Platelet Volume 10.2 FL (9.6-12.0); Monocytes # 0.5 10*3/uL (0.11-0.8); Monocytes % 7.5 % (1.7-12.7); Neutrophils # 4.6 10*3/uL (1.4-7.4); Neutrophils % 72.6 % (38.7-73.9); Platelet Count 318 T/CUMM (130-400); Red Blood Count 5.13 MC/CUMM (3.8-5.5); Red Cell Distribution Width 24.6 % (9.3-17.3); White Blood Count 6.4 T/CUMM (4-12)
[2017-10-05 18:18] LABS: Lactic Acid 1.1 MMOL/L (0.4-2.0)
[2017-10-05 18:20] LABS: Albumin 2.6 G/DL (3.4-5.0); Bilirubin,Total 0.5 MG/DL (0.2-1.0); Calcium 9.1 MG/DL (8.5-10.1); Potassium 3.2 MMOL/L (3.5-5.1); Total Protein 6.8 G/DL (6.4-8.3)
[2017-10-05 18:26] LABS: INR 1.2; PT Patient Result 12.2 SECS; Partial Thromboplastin Time 28.5 SECS (0-40)
[2017-10-05 18:29] LABS: Apearance,Urine Slightly Hazy (Clear); Bacteria,Urine Moderate /HPF (Few); Bilirubin,Urine Negative (Negative); Blood, Urine Small mg/dL (Negative); Glucose,Urine (UA) Negative (Negative); Ketones,Urine Negative (Negative); Mucus,Urine Occasional /LPF (Occasional); Nitrite,Urine Negative (Negative); Protein,Urine Negative; RBC,Urine 4 /HPF (0-4); Squamous Epithelial Cell,Urine Occasional /HPF (0-10); Urine Color Yellow (Yellow); Urine Specific Gravity 1.006 (1.001-1.035); Urine Urobilinogen < 2.0 EU/DL (0.2-1.0); WBC,Urine 62 /HPF (0-6)
[2017-10-05 18:33] LABS: Hematocrit 41.2 VOL% (35.7-47.0)
[2017-10-05 18:34] LABS: Hemoglobin 11.6 GM/DL (12.0-16.0)
[2017-10-05 18:38] LABS: Barbiturates Screen,Urine Negative (Negative); Benzodiazepines Screen,Urine Negative (Negative); Cannabinoid Screen,Urine Negative (Negative); Opiate Screen,Urine Positive (Negative); Phencyclidine Screen,Urine Negative (Negative)
[2017-10-05] MEDS ORDERED: FUROSEMIDE 40 MG/4 ML VIAL IV STA (19:13)
[2017-10-05] MEDS ORDERED: ONDANSETRON 4 MG/2 ML VIAL IV PRN (21:21)
[2017-10-05] MEDS ORDERED: ALBUTEROL 2.5 MG/3 ML NEB RESP TX PRN (21:21)
[2017-10-05] MEDS ORDERED: ALBUMIN 25% 50 GM in PREMIX 1 EACH IV ONE (21:21)
[2017-10-05] MEDS ORDERED: ATROPINE 1 MG/10 ML SYRINGE IV ONE (21:35)
[2017-10-05 21:41] LABS: ABG Base Excess 1.3 MMOL/L (-2.5-2.5); ABG HCO3 25.6 MMOL/L (20-26); ABG Oxygen Saturation 99.7 % (95-100); ABG PCO2 55.3 MM HG (35-48); ABG PH 7.322 (7.35-7.45); ABG TCO2 25.6 MMOL/L (23-27)
[2017-10-05] MEDS: PANTOPRAZOLE 40 MG VIAL IV SCH (21:53)
[2017-10-05] MEDS: FUROSEMIDE 40 MG/4 ML VIAL IV SCH (21:54)
[2017-10-05] MEDS: cefTRIAXone 1,000 MG in SYRINGE 1 EACH IV SCH (21:55)
[2017-10-05] MEDS ORDERED: ENOXAPARIN 30 MG/0.3 ML SYRINGE SUBCUT SCH (22:00)
[2017-10-05] MEDS ORDERED: LEVOFLOXACIN INJ 500 MG in PREMIX 1 EACH IV SCH (22:00)
[2017-10-05 23:06] LABS: Cholesterol 112 MG/DL (50-200); HDL Cholesterol 34 MG/DL (40-60); Risk Ratio 3.29; Triglycerides 133 MG/DL (2-150); Troponin I Only < 0.015 NG/ML (0.00-0.045); VLDL CHOLESTEROL 26.6 MG/DL
[2017-10-05 23:08] LABS: Free T4 (Free Thyroxine) 0.73 NG/DL (0.76-1.46); Thyroid Stimulating Hormone 1.59 uIU/ml (0.358-3.74)
[2017-10-05 23:43] LABS: Troponin I Only < 0.015 NG/ML (0.00-0.045)
[2017-10-05] MEDS: ALBUTEROL/IPRATROPIUM 3 ML NEB RESP TX SCH (23:57)
[2017-10-06] MEDS: POTASSIUM CHLORIDE RIDER 10 MEQ in PREMIX 1 EACH IV PRN ×2 (00:36→01:15)
[2017-10-06] MEDS ORDERED: DEXTROSE 50% 25 GM/50 ML VIAL IV PRN (01:35)
[2017-10-06] MEDS ORDERED: GLUCAGON 1 MG VIAL IM PRN (01:35)
[2017-10-06] MEDS: ALBUTEROL/IPRATROPIUM 3 ML NEB RESP TX SCH ×6 (04:19→23:46)
[2017-10-06] MEDS: FUROSEMIDE 40 MG/4 ML VIAL IV SCH ×4 (04:55→21:20)
[2017-10-06 06:15] LABS: Basophils % 0.5 % (0.0-0.8); Eosinophils % 0.3 % (0.00-10.9); Hematocrit 39.4 VOL% (35.7-47.0); Hemoglobin 11.2 GM/DL (12.0-16.0); Immature Granulocytes % 0.3 %; Immature Granulocytes Absolute 0.02 #; Lymphocytes % 17.8 % (21.3-54.2); Mean Corpuscular HGB Conc 28.4 GM/DL (32-36); Mean Corpuscular Hemoglobin 23 PG (27-34); Mean Corpuscular Volume 81.9 FL (87-102); Mean Platelet Volume 9.7 FL (9.6-12.0); Monocytes # 0.4 10*3/uL (0.11-0.8); Monocytes % 7.3 % (1.7-12.7); NRBC # 0.05 10*3/uL; Neutrophils # 4.2 10*3/uL (1.4-7.4); Neutrophils % 73.8 % (38.7-73.9); Platelet Count 240 T/CUMM (130-400); Red Blood Count 4.81 MC/CUMM (3.8-5.5); Red Cell Distribution Width 24.4 % (9.3-17.3); White Blood Count 5.7 T/CUMM (4-12)
[2017-10-06 06:19] LABS: Hypochromasia 2+
[2017-10-06 06:20] LABS: Microcytosis 1+
[2017-10-06 06:21] LABS: Anisocytosis 1+; Platelet Estimate Normal
[2017-10-06 07:09] LABS: Hyaline Casts,Urine 61 /LPF (0-3)
[2017-10-06] MEDS ORDERED: INSULIN REGULAR 100 UNIT/ML SUBCUT SCH (07:30)
[2017-10-06 08:15] LABS: Calcium 9.1 MG/DL (8.5-10.1); Osmolality,Calculated 289.8 MOS/KG (273-304); Potassium 3.2 MMOL/L (3.5-5.1)
[2017-10-06 08:25] LABS: Troponin I Only 0.039 NG/ML (0.00-0.045)
[2017-10-06] MEDS ORDERED: FUROSEMIDE 40 MG/4 ML VIAL IV SCH (09:00)
[2017-10-06] MEDS ORDERED: FUROSEMIDE 20 MG/2 ML VIAL ONE (09:26)
[2017-10-06] MEDS: POTASSIUM CHLORIDE 20 MEQ TABLET PO PRN ×4 (09:38→18:40)
[2017-10-06] MEDS: cefTRIAXone 1,000 MG in SYRINGE 1 EACH IV SCH ×2 (09:46→21:17)
[2017-10-06] MEDS ORDERED: MAGNESIUM SULF RIDER 4 GM in PREMIX 1 EACH IV PRN ×2 (10:37→12:20)
[2017-10-06] MEDS: INSULIN REGULAR 100 UNIT/ML SUBCUT SCH ×3 (11:50→20:40)
[2017-10-06] MEDS ORDERED: ASPIRIN EC 81 MG TABLET PO SCH (12:00)
[2017-10-06] MEDS ORDERED: MAGNESIUM SULF RIDER 2 GM in PREMIX 1 EACH IV PRN (12:20)
[2017-10-06] MEDS: MAGNESIUM SULF RIDER 2 GM in PREMIX 1 EACH IV PRN (12:21)
[2017-10-06 13:49] LABS: Troponin I Only 0.029 NG/ML (0.00-0.045)
[2017-10-06] MEDS ORDERED: APIXABAN 5 MG TABLET PO SCH (17:00)
[2017-10-06] MEDS ORDERED: ENOXAPARIN 40 MG/0.4 ML SYRINGE SUBCUT SCH (21:00)
[2017-10-06] MEDS: PANTOPRAZOLE 40 MG VIAL IV SCH (21:20)
[2017-10-07] MEDS: FUROSEMIDE 40 MG/4 ML VIAL IV SCH ×3 (03:14→16:40)
[2017-10-07] MEDS: ALBUTEROL/IPRATROPIUM 3 ML NEB RESP TX SCH ×6 (03:16→23:39)
[2017-10-07 05:45] LABS: Calcium 8.9 MG/DL (8.5-10.1); Osmolality,Calculated 287.7 MOS/KG (273-304); Potassium 3.6 MMOL/L (3.5-5.1)
[2017-10-07 05:55] LABS: Basophils % 0.4 % (0.0-0.8); Eosinophils % 0.4 % (0.00-10.9); Hematocrit 36.4 VOL% (35.7-47.0); Hemoglobin 10.4 GM/DL (12.0-16.0); Immature Granulocytes % 0.5 %; Immature Granulocytes Absolute 0.04 #; Lymphocytes # 1.4 10*3/uL (1.4-4.0); Lymphocytes % 18.8 % (21.3-54.2); Mean Corpuscular HGB Conc 28.6 GM/DL (32-36); Mean Corpuscular Hemoglobin 23 PG (27-34); Mean Corpuscular Volume 79.5 FL (87-102); Monocytes # 0.7 10*3/uL (0.11-0.8); Monocytes % 8.6 % (1.7-12.7); NRBC # 0.09 10*3/uL; Neutrophils # 5.4 10*3/uL (1.4-7.4); Neutrophils % 71.3 % (38.7-73.9); Platelet Count 258 T/CUMM (130-400); Red Blood Count 4.58 MC/CUMM (3.8-5.5); Red Cell Distribution Width 24.1 % (9.3-17.3); White Blood Count 7.6 T/CUMM (4-12)
[2017-10-07 06:01] LABS: Hypochromasia 2+; Microcytosis 1+; Polychromasia Slight; Target Cells Slight
[2017-10-07 06:02] LABS: Platelet Estimate Normal; Spherocytes Slight
[2017-10-07] MEDS: MAGNESIUM SULF RIDER 2 GM in PREMIX 1 EACH IV PRN (06:28)
[2017-10-07] MEDS: INSULIN REGULAR 100 UNIT/ML SUBCUT SCH ×4 (08:21→22:44)
[2017-10-07] MEDS ORDERED: FUROSEMIDE 20 MG/2 ML VIAL ONE (08:29)
[2017-10-07] MEDS: APIXABAN 5 MG TABLET PO SCH ×2 (08:50→21:02)
[2017-10-07] MEDS: POTASSIUM CHLORIDE 20 MEQ TABLET PO PRN ×2 (08:50→12:38)
[2017-10-07] MEDS: cefTRIAXone 1,000 MG in SYRINGE 1 EACH IV SCH ×2 (09:00→15:35)
[2017-10-07] MEDS ORDERED: TUBERCULIN SKIN TEST 0.1 ML SYRINGE INTRADERM ONE (10:42)
[2017-10-07] MEDS: PANTOPRAZOLE 40 MG VIAL IV SCH (21:01)
[2017-10-08] MEDS: MORPHINE 4 MG/1 ML VIAL IV PRN ×2 (00:25→04:34)
[2017-10-08] MEDS: ALBUTEROL/IPRATROPIUM 3 ML NEB RESP TX SCH ×6 (03:49→23:17)
[2017-10-08 06:02] LABS: Calcium 8.6 MG/DL (8.5-10.1); Osmolality,Calculated 288.6 MOS/KG (273-304); Potassium 2.9 MMOL/L (3.5-5.1)
[2017-10-08 06:31] LABS: Basophils % 0.4 % (0.0-0.8); Eosinophils # 0.1 10*3/uL (0.0-0.87); Eosinophils % 0.8 % (0.00-10.9); Hematocrit 38.3 VOL% (35.7-47.0); Immature Granulocytes % 0.4 %; Immature Granulocytes Absolute 0.03 #; Lymphocytes # 1.6 10*3/uL (1.4-4.0); Lymphocytes % 22.2 % (21.3-54.2); Mean Corpuscular HGB Conc 27.9 GM/DL (32-36); Mean Corpuscular Hemoglobin 23 PG (27-34); Mean Corpuscular Volume 80.6 FL (87-102); Mean Platelet Volume 10.4 FL (9.6-12.0); Monocytes # 0.8 10*3/uL (0.11-0.8); Monocytes % 10.5 % (1.7-12.7); NRBC # 0.05 10*3/uL; Neutrophils # 4.7 10*3/uL (1.4-7.4); Neutrophils % 65.7 % (38.7-73.9); Platelet Count 268 T/CUMM (130-400); Red Blood Count 4.75 MC/CUMM (3.8-5.5); Red Cell Distribution Width 23.5 % (9.3-17.3); White Blood Count 7.1 T/CUMM (4-12)
[2017-10-08 06:34] LABS: Hemoglobin 10.7 GM/DL (12.0-16.0)
[2017-10-08 06:36] LABS: Hypochromasia 1+; Microcytosis Slight; Ovalocytes Slight; Platelet Estimate Adequate
[2017-10-08] MEDS: APIXABAN 5 MG TABLET PO SCH ×2 (08:55→22:10)
[2017-10-08] MEDS: FUROSEMIDE 40 MG/4 ML VIAL IV SCH ×2 (08:56→15:19)
[2017-10-08] MEDS: INSULIN REGULAR 100 UNIT/ML SUBCUT SCH ×4 (09:03→22:09)
[2017-10-08] MEDS: POTASSIUM CHLORIDE 20 MEQ TABLET PO SCH ×3 (11:16→18:20)
[2017-10-08] MEDS: ACETAMINOPHEN 325 MG TABLET PO PRN ×2 (11:44→18:20)
[2017-10-08] MEDS: cefTRIAXone 1,000 MG in SYRINGE 1 EACH IV SCH (15:18)
[2017-10-08] MEDS: PANTOPRAZOLE 40 MG VIAL IV SCH (22:08)
[2017-10-09] MEDS: ALBUTEROL/IPRATROPIUM 3 ML NEB RESP TX SCH ×4 (03:32→15:28)
[2017-10-09 06:16] LABS: Calcium 8.8 MG/DL (8.5-10.1); Osmolality,Calculated 288.6 MOS/KG (273-304); Potassium 4.6 MMOL/L (3.5-5.1)
[2017-10-09 06:58] LABS: Basophils % 0.5 % (0.0-0.8); Eosinophils # 0.1 10*3/uL (0.0-0.87); Eosinophils % 1.7 % (0.00-10.9); Hemoglobin 11.3 GM/DL (12.0-16.0); Immature Granulocytes % 0.5 %; Immature Granulocytes Absolute 0.04 #; Lymphocytes # 1.6 10*3/uL (1.4-4.0); Mean Corpuscular HGB Conc 27.8 GM/DL (32-36); Mean Corpuscular Hemoglobin 23 PG (27-34); Mean Corpuscular Volume 81.4 FL (87-102); Mean Platelet Volume 10.2 FL (9.6-12.0); Monocytes # 0.9 10*3/uL (0.11-0.8); Monocytes % 11.4 % (1.7-12.7); NRBC # 0.02 10*3/uL; Neutrophils # 4.8 10*3/uL (1.4-7.4); Neutrophils % 63.9 % (38.7-73.9); Platelet Count 230 T/CUMM (130-400); Red Cell Distribution Width 23.6 % (9.3-17.3); White Blood Count 7.5 T/CUMM (4-12)
[2017-10-09 07:04] LABS: Hematocrit 40.7 VOL% (35.7-47.0)
[2017-10-09 07:27] LABS: Hypochromasia 1+
[2017-10-09 07:28] LABS: Microcytosis Slight; Ovalocytes Slight; Platelet Estimate Adequate
[2017-10-09] MEDS: INSULIN REGULAR 100 UNIT/ML SUBCUT SCH ×3 (08:32→16:55)
[2017-10-09] MEDS: APIXABAN 5 MG TABLET PO SCH (08:35)
[2017-10-09] MEDS: FUROSEMIDE 40 MG/4 ML VIAL IV SCH ×2 (08:35→16:55)
[2017-10-09 16:30] VITALS: BP 110/69
[2017-10-09] MEDS: cefTRIAXone 1,000 MG in SYRINGE 1 EACH IV SCH (16:55)
== END 2017-10-09 18:25 | disposition home health service (06) | DRG 189 ==
LOC: EDUNIT# → EDBD → N.ED 16:13 → N.EDINP 18:49 → SUATTDRO 18:49 → N.CC 19:31 → N.2E 10-07 17:04
PROVIDERS: ADMIT Internal Medicine; ATTEND Internal Medicine Infectious Disease

== ENCOUNTER 2017-11-11 12:32 | Inpatient (IN) ==
[2017-11-18 16:10] VITALS: BP 129/91
== END 2017-11-18 16:07 | DRG 177 ==
LOC: EDBD → EDUNIT# → N.ED 12:32 → N.EDINP 16:02 → N.5E 19:07
PROVIDERS: ADMIT Hospitalist; ATTEND Hospitalist

== ENCOUNTER 2018-03-02 12:44 | Observation (INO) ==
[2018-03-02] MEDS ORDERED: FUROSEMIDE 100 MG/10 ML VIAL IV STA (13:55)
[2018-03-02] MEDS ORDERED: ALBUTEROL/IPRATROPIUM 3 ML NEB RESP TX STA (13:56)
[2018-03-02 14:09] LABS: Basophils % 0.5 % (0.0-0.8); Hemoglobin 12.8 GM/DL (12.0-16.0); Immature Granulocytes % 0.4 %; Immature Granulocytes Absolute 0.03 #; Lymphocytes # 0.9 10*3/uL (1.4-4.0); Mean Corpuscular HGB Conc 31.2 GM/DL (32-36); Mean Corpuscular Hemoglobin 26 PG (27-34); Mean Platelet Volume 10.6 FL (9.6-12.0); Monocytes # 0.4 10*3/uL (0.11-0.8); Monocytes % 4.7 % (1.7-12.7); Neutrophils # 7.1 10*3/uL (1.4-7.4); Neutrophils % 83.4 % (38.7-73.9); Platelet Count 355 T/CUMM (130-400); Red Blood Count 4.94 MC/CUMM (3.8-5.5); Red Cell Distribution Width 19.8 % (9.3-17.3); White Blood Count 8.5 T/CUMM (4-12)
[2018-03-02 14:37] LABS: Albumin 2.8 G/DL (3.4-5.0); Bilirubin,Total 0.4 MG/DL (0.2-1.0); Calcium 8.3 MG/DL (8.5-10.1); Osmolality,Calculated 287.3 MOS/KG (273-304); Potassium 4.3 MMOL/L (3.5-5.1); Total Protein 6.9 G/DL (6.4-8.3)
[2018-03-02] MEDS ORDERED: ONDANSETRON 4 MG/2 ML VIAL IV PRN (18:45)
[2018-03-02] MEDS ORDERED: GLUCAGON 1 MG VIAL IM PRN (18:45)
[2018-03-02] MEDS ORDERED: DEXTROSE 50% 25 GM/50 ML VIAL IV PRN (18:45)
[2018-03-02] MEDS ORDERED: DOCUSATE SODIUM 100 MG CAPSULE PO PRN (18:45)
[2018-03-02] MEDS ORDERED: LACTULOSE 20 GM/30 ML UDCUP PO PRN (18:45)
[2018-03-02] MEDS: ALBUTEROL/IPRATROPIUM 3 ML NEB RESP TX SCH (20:23)
[2018-03-02] MEDS: ENOXAPARIN 40 MG/0.4 ML SYRINGE SUBCUT SCH (20:46)
[2018-03-02] MEDS: INSULIN LISPRO 100 UNIT/ML SUBCUT SCH (20:47)
[2018-03-02] MEDS: methylPREDNISolone SOD SUC 40 MG/1 ML VIAL IV SCH (21:23)
[2018-03-03] MEDS: ALBUTEROL/IPRATROPIUM 3 ML NEB RESP TX SCH ×4 (00:10→19:17)
[2018-03-03] MEDS: methylPREDNISolone SOD SUC 40 MG/1 ML VIAL IV SCH ×3 (05:30→21:37)
[2018-03-03 06:12] LABS: Calcium 8.4 MG/DL (8.5-10.1); Osmolality,Calculated 285.4 MOS/KG (273-304); Potassium 3.6 MMOL/L (3.5-5.1); Risk Ratio 5.58
[2018-03-03 06:24] LABS: Basophils % 0.4 % (0.0-0.8); Hemoglobin 11.7 GM/DL (12.0-16.0); Immature Granulocytes % 0.4 %; Immature Granulocytes Absolute 0.02 #; Lymphocytes # 0.5 10*3/uL (1.4-4.0); Lymphocytes % 9.4 % (21.3-54.2); Mean Corpuscular HGB Conc 30.8 GM/DL (32-36); Mean Corpuscular Hemoglobin 26 PG (27-34); Mean Corpuscular Volume 83.7 FL (87-102); Mean Platelet Volume 10.1 FL (9.6-12.0); Monocytes % 0.4 % (1.7-12.7); NRBC # 0.02 10*3/uL; Neutrophils # 4.3 10*3/uL (1.4-7.4); Neutrophils % 89.4 % (38.7-73.9); Platelet Count 313 T/CUMM (130-400); Red Blood Count 4.54 MC/CUMM (3.8-5.5); Red Cell Distribution Width 19.8 % (9.3-17.3); White Blood Count 4.8 T/CUMM (4-12)
[2018-03-03 07:04] LABS: Anisocytosis 1+; Band Neutrophils 3 % (0-10); Lymphocytes 7 % (20-55); Platelet Estimate Normal; Poikilocytosis 1+; Segmented Neutrophils 90 % (50-85); Total Cells Counted 100
[2018-03-03 07:05] LABS: Giant Platelets Few
[2018-03-03] MEDS: INSULIN LISPRO 100 UNIT/ML SUBCUT SCH ×4 (07:26→21:42)
[2018-03-03] MEDS: PANTOPRAZOLE 40 MG TABLET PO SCH (08:49)
[2018-03-03] MEDS ORDERED: FUROSEMIDE 40 MG/4 ML VIAL IV SCH (09:00)
[2018-03-03] MEDS: NICOTINE 21 MG/24 HR PATCH TRANSDERM PRN (09:01)
[2018-03-03] MEDS ORDERED: MAGNESIUM HYDROXIDE SUSP 30 ML UDCUP PO PRN (14:48)
[2018-03-03] MEDS ORDERED: ALUMINUM/MAGNES/SIMETH MAX STR 30 ML UDCUP PO PRN (14:48)
[2018-03-03] MEDS ORDERED: ACETAMINOPHEN 325 MG TABLET PO PRN (19:33)
[2018-03-03] MEDS: ROSUVASTATIN 10 MG TABLET PO SCH (21:36)
[2018-03-03] MEDS: ENOXAPARIN 40 MG/0.4 ML SYRINGE SUBCUT SCH (21:37)
[2018-03-04] MEDS: ALBUTEROL/IPRATROPIUM 3 ML NEB RESP TX SCH ×4 (01:03→18:55)
[2018-03-04 05:40] LABS: Osmolality,Calculated 290.1 MOS/KG (273-304); Potassium 3.2 MMOL/L (3.5-5.1)
[2018-03-04 05:54] LABS: Hematocrit 38.1 VOL% (35.7-47.0); Hemoglobin 11.8 GM/DL (12.0-16.0); Immature Granulocytes % 0.8 %; Immature Granulocytes Absolute 0.05 #; Lymphocytes # 0.4 10*3/uL (1.4-4.0); Lymphocytes % 7.1 % (21.3-54.2); Mean Corpuscular Hemoglobin 26 PG (27-34); Mean Corpuscular Volume 83.4 FL (87-102); Mean Platelet Volume 10.4 FL (9.6-12.0); Monocytes # 0.1 10*3/uL (0.11-0.8); Monocytes % 1.1 % (1.7-12.7); NRBC # 0.02 10*3/uL; Neutrophils # 5.6 10*3/uL (1.4-7.4); Platelet Count 314 T/CUMM (130-400); Red Blood Count 4.57 MC/CUMM (3.8-5.5); Red Cell Distribution Width 19.9 % (9.3-17.3); White Blood Count 6.2 T/CUMM (4-12)
[2018-03-04 06:27] LABS: Lymphocytes 9 % (20-55); Nucleated Red Blood Cells 1 (0-5); Segmented Neutrophils 88 % (50-85); Total Cells Counted 100
[2018-03-04 06:28] LABS: Hypochromasia 1+; Platelet Estimate Normal; Polychromasia Few
[2018-03-04 06:29] LABS: Giant Platelets Few
[2018-03-04] MEDS: INSULIN LISPRO 100 UNIT/ML SUBCUT SCH ×4 (07:53→21:30)
[2018-03-04] MEDS: FUROSEMIDE 40 MG TABLET PO SCH (08:47)
[2018-03-04] MEDS: methylPREDNISolone SOD SUC 40 MG/1 ML VIAL IV SCH (08:47)
[2018-03-04] MEDS: PANTOPRAZOLE 40 MG TABLET PO SCH (08:47)
[2018-03-04] MEDS: NICOTINE 21 MG/24 HR PATCH TRANSDERM PRN (08:54)
[2018-03-04] MEDS ORDERED: TUBERCULIN SKIN TEST 0.1 ML SYRINGE INTRADERM ONE (10:30)
[2018-03-04] MEDS: POTASSIUM CHLORIDE 20 MEQ TABLET PO SCH (16:48)
[2018-03-04] MEDS: predniSONE 10 MG TABLET PO SCH (16:48)
[2018-03-04] MEDS: ROSUVASTATIN 10 MG TABLET PO SCH (21:28)
[2018-03-04] MEDS: ENOXAPARIN 40 MG/0.4 ML SYRINGE SUBCUT SCH (21:29)
[2018-03-05] MEDS: ALBUTEROL/IPRATROPIUM 3 ML NEB RESP TX SCH ×3 (00:25→14:01)
[2018-03-05 06:32] LABS: Hematocrit 36.7 VOL% (35.7-47.0); Hemoglobin 11.1 GM/DL (12.0-16.0); Immature Granulocytes % 0.8 %; Immature Granulocytes Absolute 0.05 #; Lymphocytes # 0.6 10*3/uL (1.4-4.0); Mean Corpuscular HGB Conc 30.2 GM/DL (32-36); Mean Corpuscular Hemoglobin 26 PG (27-34); Mean Corpuscular Volume 84.8 FL (87-102); Monocytes # 0.5 10*3/uL (0.11-0.8); Monocytes % 7.3 % (1.7-12.7); NRBC # 0.02 10*3/uL; Neutrophils # 5.3 10*3/uL (1.4-7.4); Neutrophils % 82.9 % (38.7-73.9); Platelet Count 304 T/CUMM (130-400); Red Blood Count 4.33 MC/CUMM (3.8-5.5); Red Cell Distribution Width 19.9 % (9.3-17.3); White Blood Count 6.4 T/CUMM (4-12)
[2018-03-05 06:49] LABS: Calcium 9.2 MG/DL (8.5-10.1); Osmolality,Calculated 289.8 MOS/KG (273-304)
[2018-03-05] MEDS: INSULIN LISPRO 100 UNIT/ML SUBCUT SCH ×2 (08:35→11:51)
[2018-03-05] MEDS: PANTOPRAZOLE 40 MG TABLET PO SCH (08:36)
[2018-03-05] MEDS: POTASSIUM CHLORIDE 20 MEQ TABLET PO SCH (08:36)
[2018-03-05] MEDS: FUROSEMIDE 40 MG TABLET PO SCH (08:36)
[2018-03-05] MEDS: predniSONE 10 MG TABLET PO SCH (08:36)
[2018-03-05] MEDS ORDERED: POTASSIUM CHLORIDE 20 MEQ TABLET PO ONE (10:00)
[2018-03-05 11:56] VITALS: BP 127/76
== END 2018-03-05 14:42 | disposition home or self-care (01) ==
LOC: EDUNIT# → N.EDINP 12:44 → N.ED 12:44 → N.2E 19:26
PROVIDERS: ADMIT Internal Medicine; ATTEND Internal Medicine

== ENCOUNTER 2018-03-25 09:39 | Inpatient (IN) ==
[2018-03-25 10:31] LABS: Basophils # 0.1 10*3/uL (0.0-0.2); Basophils % 0.7 % (0.0-0.8); Eosinophils # 0.1 10*3/uL (0.0-0.87); Eosinophils % 0.7 % (0.00-10.9); Hematocrit 47.6 VOL% (35.7-47.0); Immature Granulocytes % 1.1 %; Immature Granulocytes Absolute 0.12 #; Lymphocytes # 1.6 10*3/uL (1.4-4.0); Lymphocytes % 14.7 % (21.3-54.2); Mean Corpuscular HGB Conc 28.8 GM/DL (32-36); Mean Corpuscular Hemoglobin 25 PG (27-34); Mean Corpuscular Volume 85.2 FL (87-102); Monocytes # 0.8 10*3/uL (0.11-0.8); Monocytes % 7.3 % (1.7-12.7); Neutrophils # 8.3 10*3/uL (1.4-7.4); Neutrophils % 75.5 % (38.7-73.9); Platelet Count 477 T/CUMM (130-400); Red Blood Count 5.59 MC/CUMM (3.8-5.5); Red Cell Distribution Width 19.4 % (9.3-17.3)
[2018-03-25 10:32] LABS: Hemoglobin 13.7 GM/DL (12.0-16.0)
[2018-03-25 10:35] LABS: Apearance,Urine Slightly Hazy (Clear); Bilirubin,Urine Negative (Negative); Blood, Urine Negative (Negative); Glucose,Urine (UA) Negative (Negative); Hyaline Casts,Urine 1 /LPF (0-3); Ketones,Urine Negative (Negative); Mucus,Urine Occasional /LPF (Occasional); Nitrite,Urine Negative (Negative); Protein,Urine 30 MG/DL; RBC,Urine 4 /HPF (0-4); Squamous Epithelial Cell,Urine Occasional /HPF (0-10); Urine Color Yellow (Yellow); Urine Specific Gravity 1.008 (1.001-1.035); Urine Urobilinogen < 2.0 EU/DL (0.2-1.0); WBC,Urine 3 /HPF (0-6)
[2018-03-25 11:06] LABS: Hypochromasia 2+; Microcytosis 1+
[2018-03-25 11:07] LABS: Ovalocytes Slight; Polychromasia Slight
[2018-03-25 11:08] LABS: Platelet Estimate Increased
[2018-03-25 11:28] LABS: Calcium 9.4 MG/DL (8.5-10.1); Potassium 3.3 MMOL/L (3.5-5.1)
[2018-03-25] MEDS: POTASSIUM CHLORIDE 20 MEQ TABLET PO PRN ×3 (11:58→23:58)
[2018-03-25] MEDS ORDERED: ONDANSETRON 4 MG/2 ML VIAL IV PRN (14:20)
[2018-03-25] MEDS ORDERED: GLUCAGON 1 MG VIAL IM PRN (14:27)
[2018-03-25] MEDS ORDERED: ALBUTEROL/IPRATROPIUM 3 ML NEB RESP TX PRN (14:27)
[2018-03-25] MEDS ORDERED: DEXTROSE 50% 25 GM/50 ML VIAL IV PRN (14:27)
[2018-03-25] MEDS: INSULIN REGULAR 100 UNIT/ML SUBCUT SCH ×2 (16:52→22:57)
[2018-03-25] MEDS: PANTOPRAZOLE 40 MG VIAL IV SCH (17:27)
[2018-03-25] MEDS: NICOTINE 21 MG/24 HR PATCH TRANSDERM SCH (17:27)
[2018-03-25] MEDS: ACETAMINOPHEN 325 MG TABLET PO PRN (18:11)
[2018-03-25] MEDS ORDERED: CIPROFLOXACIN INJ 400 MG in PREMIX 1 EACH IV ONE (18:48)
[2018-03-25] MEDS ORDERED: metroNIDAZOLE INJ 500 MG in PREMIX 1 EACH IV ONE (21:00)
[2018-03-25] MEDS ORDERED: MAGNESIUM CITRATE 300 ML BOTTLE PO ONE (21:00)
[2018-03-25] MEDS: MORPHINE 4 MG/1 ML VIAL IV PRN (21:52)
[2018-03-25] MEDS: DOCUSATE SODIUM 100 MG CAPSULE PO SCH (21:55)
[2018-03-26 05:08] LABS: Basophils % 0.5 % (0.0-0.8); Eosinophils # 0.1 10*3/uL (0.0-0.87); Eosinophils % 1.2 % (0.00-10.9); Hematocrit 39.4 VOL% (35.7-47.0); Immature Granulocytes % 0.7 %; Immature Granulocytes Absolute 0.06 #; Lymphocytes # 1.7 10*3/uL (1.4-4.0); Lymphocytes % 20.3 % (21.3-54.2); Mean Corpuscular HGB Conc 28.4 GM/DL (32-36); Mean Corpuscular Hemoglobin 24 PG (27-34); Mean Corpuscular Volume 84.2 FL (87-102); Mean Platelet Volume 10.3 FL (9.6-12.0); Monocytes # 0.8 10*3/uL (0.11-0.8); Monocytes % 8.9 % (1.7-12.7); Neutrophils # 5.8 10*3/uL (1.4-7.4); Neutrophils % 68.4 % (38.7-73.9); Platelet Count 480 T/CUMM (130-400); Red Blood Count 4.68 MC/CUMM (3.8-5.5); Red Cell Distribution Width 18.8 % (9.3-17.3); White Blood Count 8.5 T/CUMM (4-12)
[2018-03-26 05:09] LABS: Hemoglobin 11.2 GM/DL (12.0-16.0)
[2018-03-26 05:18] LABS: Calcium 8.6 MG/DL (8.5-10.1); Osmolality,Calculated 284.1 MOS/KG (273-304); Potassium 3.7 MMOL/L (3.5-5.1)
[2018-03-26] MEDS ORDERED: PROPOFOL 200 MG/20 ML VIAL IV ONE (07:20)
[2018-03-26] MEDS ORDERED: ETOMIDATE 20 MG/10 ML VIAL IV ONE (07:20)
[2018-03-26] MEDS ORDERED: LIDOCAINE 1% 5 ML VIAL ONE (07:20)
[2018-03-26] MEDS: INSULIN REGULAR 100 UNIT/ML SUBCUT SCH ×3 (09:19→16:48)
[2018-03-26] MEDS: DOCUSATE SODIUM 100 MG CAPSULE PO SCH ×2 (09:48→20:49)
[2018-03-26] MEDS: NICOTINE 21 MG/24 HR PATCH TRANSDERM SCH (09:48)
[2018-03-26] MEDS: CIPROFLOXACIN INJ 400 MG in PREMIX 1 EACH IV SCH ×2 (09:48→20:44)
[2018-03-26] MEDS: PANTOPRAZOLE 40 MG VIAL IV SCH (09:48)
[2018-03-26] MEDS: metroNIDAZOLE INJ 500 MG in PREMIX 1 EACH IV SCH ×2 (11:07→17:53)
[2018-03-26] MEDS: MORPHINE 4 MG/1 ML VIAL IV PRN (12:47)
[2018-03-26] MEDS ORDERED: SKIN HEALING OINT (AQUAPHOR) 50 GM TUBE TOP PRN (15:34)
[2018-03-27] MEDS: INSULIN REGULAR 100 UNIT/ML SUBCUT SCH ×5 (02:23→23:50)
[2018-03-27] MEDS: ACETAMINOPHEN 325 MG TABLET PO PRN ×2 (02:51→12:22)
[2018-03-27] MEDS: metroNIDAZOLE INJ 500 MG in PREMIX 1 EACH IV SCH ×3 (02:51→18:21)
[2018-03-27 05:54] LABS: Calcium 8.8 MG/DL (8.5-10.1); Osmolality,Calculated 276.4 MOS/KG (273-304); Potassium 3.7 MMOL/L (3.5-5.1)
[2018-03-27 06:47] LABS: Basophils % 0.4 % (0.0-0.8); Eosinophils # 0.1 10*3/uL (0.0-0.87); Eosinophils % 1.8 % (0.00-10.9); Hematocrit 36.7 VOL% (35.7-47.0); Hemoglobin 10.5 GM/DL (12.0-16.0); Immature Granulocytes % 0.7 %; Immature Granulocytes Absolute 0.05 #; Lymphocytes # 1.3 10*3/uL (1.4-4.0); Lymphocytes % 17.7 % (21.3-54.2); Mean Corpuscular HGB Conc 28.6 GM/DL (32-36); Mean Corpuscular Hemoglobin 24 PG (27-34); Mean Corpuscular Volume 84.8 FL (87-102); Mean Platelet Volume 10.6 FL (9.6-12.0); Monocytes # 0.7 10*3/uL (0.11-0.8); Monocytes % 10.1 % (1.7-12.7); Neutrophils # 5.1 10*3/uL (1.4-7.4); Neutrophils % 69.3 % (38.7-73.9); Platelet Count 402 T/CUMM (130-400); Red Blood Count 4.33 MC/CUMM (3.8-5.5); Red Cell Distribution Width 18.7 % (9.3-17.3); White Blood Count 7.4 T/CUMM (4-12)
[2018-03-27 07:07] LABS: Hypochromasia 2+; Microcytosis 1+; Ovalocytes Slight; Platelet Estimate Increased
[2018-03-27] MEDS: CIPROFLOXACIN INJ 400 MG in PREMIX 1 EACH IV SCH ×2 (10:35→22:34)
[2018-03-27] MEDS: NICOTINE 21 MG/24 HR PATCH TRANSDERM SCH (10:35)
[2018-03-27] MEDS: DOCUSATE SODIUM 100 MG CAPSULE PO SCH ×2 (10:35→20:42)
[2018-03-27] MEDS: PANTOPRAZOLE 40 MG VIAL IV SCH (10:35)
[2018-03-27] MEDS: MORPHINE 4 MG/1 ML VIAL IV PRN ×2 (17:10→20:42)
[2018-03-27] MEDS: ZALEPLON 5 MG CAPSULE PO PRN (23:28)
[2018-03-28] MEDS: metroNIDAZOLE INJ 500 MG in PREMIX 1 EACH IV SCH ×3 (02:35→17:37)
[2018-03-28] MEDS: INSULIN REGULAR 100 UNIT/ML SUBCUT SCH ×4 (09:18→21:49)
[2018-03-28] MEDS: MORPHINE 4 MG/1 ML VIAL IV PRN ×3 (09:29→22:01)
[2018-03-28] MEDS: PANTOPRAZOLE 40 MG VIAL IV SCH (09:31)
[2018-03-28] MEDS: DOCUSATE SODIUM 100 MG CAPSULE PO SCH ×2 (09:31→21:33)
[2018-03-28] MEDS: NICOTINE 21 MG/24 HR PATCH TRANSDERM SCH (09:32)
[2018-03-28] MEDS: CIPROFLOXACIN INJ 400 MG in PREMIX 1 EACH IV SCH ×2 (09:46→21:34)
[2018-03-28] MEDS: ALBUTEROL/IPRATROPIUM 3 ML NEB RESP TX SCH ×3 (11:12→19:49)
[2018-03-28] MEDS ORDERED: POLYETHYLENE GLYCOL POWDER 255 GM BOTTLE PO ONE (18:00)
[2018-03-28] MEDS: ACETAMINOPHEN 325 MG TABLET PO PRN (19:40)
[2018-03-28] MEDS ORDERED: MAGNESIUM CITRATE 300 ML BOTTLE PO ONE (21:00)
[2018-03-29] MEDS: ALBUTEROL/IPRATROPIUM 3 ML NEB RESP TX SCH ×4 (00:57→19:41)
[2018-03-29] MEDS: MORPHINE 4 MG/1 ML VIAL IV PRN ×2 (01:35→05:19)
[2018-03-29] MEDS: metroNIDAZOLE INJ 500 MG in PREMIX 1 EACH IV SCH ×3 (01:36→17:06)
[2018-03-29] MEDS: INSULIN REGULAR 100 UNIT/ML SUBCUT SCH ×4 (08:08→23:37)
[2018-03-29] MEDS: PANTOPRAZOLE 40 MG VIAL IV SCH (08:08)
[2018-03-29] MEDS: DOCUSATE SODIUM 100 MG CAPSULE PO SCH ×2 (08:08→21:38)
[2018-03-29] MEDS: NICOTINE 21 MG/24 HR PATCH TRANSDERM SCH (08:08)
[2018-03-29] MEDS ORDERED: LIDOCAINE 100 MG/5 ML SYRINGE ONE (09:00)
[2018-03-29] MEDS ORDERED: PROPOFOL 200 MG/20 ML VIAL IV ONE (09:00)
[2018-03-29] MEDS: CIPROFLOXACIN INJ 400 MG in PREMIX 1 EACH IV SCH ×2 (10:15→21:38)
[2018-03-29] MEDS: ZALEPLON 5 MG CAPSULE PO PRN (21:38)
[2018-03-30] MEDS: ALBUTEROL/IPRATROPIUM 3 ML NEB RESP TX SCH ×4 (00:32→20:02)
[2018-03-30] MEDS: ACETAMINOPHEN 325 MG TABLET PO PRN ×2 (00:50→15:55)
[2018-03-30] MEDS: metroNIDAZOLE INJ 500 MG in PREMIX 1 EACH IV SCH ×2 (02:59→09:21)
[2018-03-30 06:49] LABS: Ammonia 37 UMOL/L (11-32)
[2018-03-30 06:54] LABS: Alanine Aminotransferase < 9 U/L (13-56); Albumin 1.9 G/DL (3.4-5.0); Alkaline Phosphatase 90 U/L (45-117); Aspartate Amino Transferase 11 U/L (0-37); Bilirubin,Total < 0.39 MG/DL (0.2-1.0); Blood Urea Nitrogen 7 MG/DL (7-18); Calcium 8.7 MG/DL (8.5-10.1); Glucose 117 MG/DL (74-106); Osmolality,Calculated 277.4 MOS/KG (273-304); Sodium 140 MMOL/L (136-145); Total Protein 5.8 G/DL (6.4-8.3)
[2018-03-30 06:55] LABS: Basophils % 0.5 % (0.0-0.8); Eosinophils # 0.1 10*3/uL (0.0-0.87); Eosinophils % 0.9 % (0.00-10.9); Hematocrit 39.6 VOL% (35.7-47.0); Immature Granulocytes % 0.6 %; Immature Granulocytes Absolute 0.05 #; Lymphocytes # 1.3 10*3/uL (1.4-4.0); Lymphocytes % 15.7 % (21.3-54.2); Mean Corpuscular HGB Conc 28.5 GM/DL (32-36); Mean Corpuscular Hemoglobin 24 PG (27-34); Mean Corpuscular Volume 84.3 FL (87-102); Mean Platelet Volume 9.8 FL (9.6-12.0); Monocytes # 0.9 10*3/uL (0.11-0.8); Monocytes % 10.6 % (1.7-12.7); Neutrophils # 5.8 10*3/uL (1.4-7.4); Neutrophils % 71.7 % (38.7-73.9); Red Cell Distribution Width 18.7 % (9.3-17.3)
[2018-03-30 06:56] LABS: Hemoglobin 11.3 GM/DL (12.0-16.0); Platelet Count 311 T/CUMM (130-400)
[2018-03-30 06:59] LABS: Hypochromasia 2+; Microcytosis 1+
[2018-03-30 07:00] LABS: Anisocytosis 1+; Platelet Estimate Normal
[2018-03-30] MEDS: INSULIN REGULAR 100 UNIT/ML SUBCUT SCH ×4 (08:00→22:51)
[2018-03-30] MEDS: NICOTINE 21 MG/24 HR PATCH TRANSDERM SCH (08:00)
[2018-03-30] MEDS: CIPROFLOXACIN INJ 400 MG in PREMIX 1 EACH IV SCH (08:01)
[2018-03-30] MEDS: DOCUSATE SODIUM 100 MG CAPSULE PO SCH ×2 (08:01→22:50)
[2018-03-30] MEDS: PANTOPRAZOLE 40 MG VIAL IV SCH (08:03)
[2018-03-30] MEDS ORDERED: TUBERCULIN SKIN TEST 0.1 ML SYRINGE INTRADERM ONE (16:00)
[2018-03-31] MEDS: ALBUTEROL/IPRATROPIUM 3 ML NEB RESP TX SCH ×4 (00:19→19:42)
[2018-03-31] MEDS: INSULIN REGULAR 100 UNIT/ML SUBCUT SCH ×4 (08:20→22:23)
[2018-03-31] MEDS: ACETAMINOPHEN 325 MG TABLET PO PRN (10:06)
[2018-03-31] MEDS: PANTOPRAZOLE 40 MG VIAL IV SCH (10:07)
[2018-03-31] MEDS: NICOTINE 21 MG/24 HR PATCH TRANSDERM SCH (10:07)
[2018-03-31] MEDS: DOCUSATE SODIUM 100 MG CAPSULE PO SCH (12:40)
[2018-04-01] MEDS: ALBUTEROL/IPRATROPIUM 3 ML NEB RESP TX SCH ×2 (00:01→07:21)
[2018-04-01] MEDS: ACETAMINOPHEN 325 MG TABLET PO PRN ×2 (05:33→12:14)
[2018-04-01 07:26] VITALS: BP 140/80
[2018-04-01] MEDS: INSULIN REGULAR 100 UNIT/ML SUBCUT SCH ×2 (07:35→12:41)
[2018-04-01] MEDS: PANTOPRAZOLE 40 MG VIAL IV SCH ×2 (09:15→09:29)
[2018-04-01] MEDS: NICOTINE 21 MG/24 HR PATCH TRANSDERM SCH (09:28)
[2018-04-01] MEDS ORDERED: PANTOPRAZOLE 40 MG TABLET PO SCH (12:00)
[2018-04-01] MEDS ORDERED: APIXABAN 5 MG TABLET PO SCH (12:00)
[2018-04-01] MEDS ORDERED: ROSUVASTATIN 10 MG TABLET PO SCH (21:00)
== END 2018-04-01 14:39 | DRG 389 ==
LOC: EDUNIT# → N.EDINP 09:39 → N.ED 09:39 → N.EDINP 15:20 → N.5E 15:35 → SUATTDRO 03-26 12:06
PROVIDERS: ADMIT Internal Medicine; ATTEND Internal Medicine

== ENCOUNTER 2018-04-03 01:27 | Inpatient (IN) ==
[2018-04-03 02:18] LABS: Red Cell Distribution Width 19.7 % (9.3-17.3)
[2018-04-03 02:32] LABS: Basophils % 0.3 % (0.0-0.8); Eosinophils # 0.1 10*3/uL (0.0-0.87); Eosinophils % 0.6 % (0.00-10.9); Hematocrit 41.1 VOL% (35.7-47.0); Hemoglobin 11.8 GM/DL (12.0-16.0); Immature Granulocytes % 0.6 %; Immature Granulocytes Absolute 0.06 #; Lymphocytes # 1.6 10*3/uL (1.4-4.0); Lymphocytes % 16.3 % (21.3-54.2); Mean Corpuscular HGB Conc 28.7 GM/DL (32-36); Mean Corpuscular Hemoglobin 24 PG (27-34); Mean Corpuscular Volume 84.2 FL (87-102); Mean Platelet Volume 10.9 FL (9.6-12.0); Monocytes # 0.8 10*3/uL (0.11-0.8); Monocytes % 7.8 % (1.7-12.7); NRBC # 0.02 10*3/uL; Neutrophils # 7.4 10*3/uL (1.4-7.4); Neutrophils % 74.4 % (38.7-73.9); Platelet Count 286 T/CUMM (130-400); Red Blood Count 4.88 MC/CUMM (3.8-5.5); White Blood Count 9.9 T/CUMM (4-12)
[2018-04-03 02:39] LABS: Alanine Aminotransferase < 9 U/L (13-56); Alkaline Phosphatase 98 U/L (45-117); Aspartate Amino Transferase 12 U/L (0-37); Blood Urea Nitrogen 9 MG/DL (7-18); Calcium 8.3 MG/DL (8.5-10.1); Glucose 109 MG/DL (74-106); Osmolality,Calculated 287.7 MOS/KG (273-304); Potassium 4.2 MMOL/L (3.5-5.1); Sodium 145 MMOL/L (136-145); Total Protein 5.6 G/DL (6.4-8.3)
[2018-04-03] MEDS ORDERED: AZITHROMYCIN INJ 500 MG in SODIUM CHLORIDE 0.9% 250 ML IV STA (04:26)
[2018-04-03] MEDS ORDERED: cefTRIAXone 1,000 MG in SODIUM CHLORIDE 0.9% 100 ML IV STA (04:26)
[2018-04-03] MEDS ORDERED: FUROSEMIDE 40 MG/4 ML VIAL IV STA (04:27)
[2018-04-03] MEDS ORDERED: CEFEPIME 2,000 MG in SODIUM CHLORIDE 0.9% 100 ML IV STA (04:33)
[2018-04-03] MEDS ORDERED: VANCOMYCIN INJ 1,000 MG in SODIUM CHLORIDE 0.9% 250 ML IV STA (04:33)
[2018-04-03] MEDS ORDERED: ONDANSETRON 4 MG/2 ML VIAL IV PRN (04:56)
[2018-04-03] MEDS ORDERED: DEXTROSE 50% 25 GM/50 ML SYRINGE IV PRN (04:56)
[2018-04-03] MEDS ORDERED: GLUCAGON 1 MG VIAL IM PRN ×2 (04:56)
[2018-04-03] MEDS ORDERED: ALBUTEROL 2.5 MG/3 ML NEB RESP TX PRN (04:56)
[2018-04-03] MEDS ORDERED: DEXTROSE 50% 25 GM/50 ML VIAL IV PRN (04:56)
[2018-04-03] MEDS ORDERED: guaiFENesin/CODEINE 5 ML LIQUID PO PRN (04:56)
[2018-04-03] MEDS ORDERED: MAGNESIUM SULF RIDER 4 GM in PREMIX 1 EACH IV PRN (05:56)
[2018-04-03] MEDS ORDERED: MAGNESIUM SULF RIDER 2 GM in PREMIX 1 EACH IV PRN (05:56)
[2018-04-03] MEDS ORDERED: ZALEPLON 5 MG CAPSULE PO PRN (06:57)
[2018-04-03] MEDS ORDERED: SKIN HEALING OINT (AQUAPHOR) 50 GM TUBE TOP PRN (06:57)
[2018-04-03] MEDS ORDERED: ACETAMINOPHEN 325 MG TABLET PO PRN (06:57)
[2018-04-03] MEDS ORDERED: ALBUTEROL/IPRATROPIUM 3 ML NEB RESP TX SCH (07:00)
[2018-04-03] MEDS: ALBUTEROL/IPRATROPIUM 3 ML NEB RESP TX SCH ×3 (07:36→20:10)
[2018-04-03] MEDS ORDERED: PANTOPRAZOLE 40 MG TABLET PO SCH (09:00)
[2018-04-03] MEDS ORDERED: ENOXAPARIN 40 MG/0.4 ML SYRINGE SUBCUT SCH (09:00)
[2018-04-03] MEDS: INSULIN REGULAR 100 UNIT/ML SUBCUT SCH ×4 (09:56→21:19)
[2018-04-03] MEDS: PANTOPRAZOLE 40 MG TABLET PO SCH (09:58)
[2018-04-03] MEDS: NICOTINE 21 MG/24 HR PATCH TRANSDERM SCH ×2 (09:58→10:07)
[2018-04-03] MEDS: APIXABAN 5 MG TABLET PO SCH ×2 (09:58→21:14)
[2018-04-03] MEDS: LEVOFLOXACIN INJ 750 MG in PREMIX 1 EACH IV SCH (14:16)
[2018-04-03] MEDS: FUROSEMIDE 40 MG/4 ML VIAL IV SCH (15:46)
[2018-04-03] MEDS: COLCHICINE 0.6 MG TABLET PO SCH ×2 (15:47→21:14)
[2018-04-03] MEDS: ROSUVASTATIN 10 MG TABLET PO SCH (21:14)
[2018-04-04] MEDS ORDERED: KETOROLAC 15 MG/1 ML VIAL IV ONE (00:30)
[2018-04-04] MEDS: ALBUTEROL/IPRATROPIUM 3 ML NEB RESP TX SCH ×4 (01:20→19:54)
[2018-04-04 06:25] LABS: Basophils % 0.3 % (0.0-0.8); Eosinophils # 0.1 10*3/uL (0.0-0.87); Eosinophils % 1.1 % (0.00-10.9); Hemoglobin 10.8 GM/DL (12.0-16.0); Immature Granulocytes % 0.5 %; Immature Granulocytes Absolute 0.04 #; Lymphocytes # 1.2 10*3/uL (1.4-4.0); Lymphocytes % 15.2 % (21.3-54.2); Mean Corpuscular HGB Conc 28.4 GM/DL (32-36); Mean Corpuscular Hemoglobin 24 PG (27-34); Mean Corpuscular Volume 83.5 FL (87-102); Mean Platelet Volume 10.7 FL (9.6-12.0); Monocytes # 0.8 10*3/uL (0.11-0.8); Neutrophils # 5.5 10*3/uL (1.4-7.4); Neutrophils % 72.9 % (38.7-73.9); Platelet Count 263 T/CUMM (130-400); Red Blood Count 4.55 MC/CUMM (3.8-5.5); Red Cell Distribution Width 19.7 % (9.3-17.3); White Blood Count 7.6 T/CUMM (4-12)
[2018-04-04 06:41] LABS: Alanine Aminotransferase < 9 U/L (13-56); Albumin 1.7 G/DL (3.4-5.0); Alkaline Phosphatase 96 U/L (45-117); Aspartate Amino Transferase 13 U/L (0-37); Blood Urea Nitrogen 11 MG/DL (7-18); Calcium 8.1 MG/DL (8.5-10.1); Glucose 87 MG/DL (74-106); Osmolality,Calculated 280.1 MOS/KG (273-304); Potassium 3.8 MMOL/L (3.5-5.1); Sodium 142 MMOL/L (136-145)
[2018-04-04] MEDS ORDERED: COLCHICINE 0.6 MG TABLET PO ONE (07:05)
[2018-04-04] MEDS: INSULIN REGULAR 100 UNIT/ML SUBCUT SCH ×4 (08:58→21:32)
[2018-04-04] MEDS: COLCHICINE 0.6 MG TABLET PO SCH ×2 (08:59→21:29)
[2018-04-04] MEDS: APIXABAN 5 MG TABLET PO SCH ×2 (09:00→21:29)
[2018-04-04] MEDS: NICOTINE 21 MG/24 HR PATCH TRANSDERM SCH (09:00)
[2018-04-04] MEDS: FUROSEMIDE 40 MG/4 ML VIAL IV SCH ×2 (09:00→17:42)
[2018-04-04] MEDS: PANTOPRAZOLE 40 MG TABLET PO SCH (09:00)
[2018-04-04] MEDS ORDERED: BENZONATATE 100 MG CAPSULE PO PRN (10:09)
[2018-04-04] MEDS: LEVOFLOXACIN INJ 750 MG in PREMIX 1 EACH IV SCH (12:14)
[2018-04-04 12:48] LABS: Hypochromasia Slight; Microcytosis Slight
[2018-04-04 12:49] LABS: Platelet Estimate Adequate
[2018-04-04] MEDS: KETOROLAC 15 MG/1 ML VIAL IV PRN ×2 (13:37→23:53)
[2018-04-04] MEDS: ROSUVASTATIN 10 MG TABLET PO SCH (21:29)
[2018-04-05] MEDS: ALBUTEROL/IPRATROPIUM 3 ML NEB RESP TX SCH ×3 (01:20→11:50)
[2018-04-05] MEDS: INSULIN REGULAR 100 UNIT/ML SUBCUT SCH ×2 (07:05→11:49)
[2018-04-05] MEDS: FUROSEMIDE 40 MG/4 ML VIAL IV SCH (08:55)
[2018-04-05] MEDS: COLCHICINE 0.6 MG TABLET PO SCH (08:55)
[2018-04-05] MEDS: PANTOPRAZOLE 40 MG TABLET PO SCH (08:55)
[2018-04-05] MEDS: APIXABAN 5 MG TABLET PO SCH (08:55)
[2018-04-05] MEDS: NICOTINE 21 MG/24 HR PATCH TRANSDERM SCH (08:56)
[2018-04-05] MEDS: LEVOFLOXACIN INJ 750 MG in PREMIX 1 EACH IV SCH (11:50)
[2018-04-05 13:11] VITALS: BP 103/67
== END 2018-04-05 13:58 | DRG 291 ==
LOC: EDUNIT# → EDBD → N.ED 01:27 → N.EDINP 04:56 → N.5E 05:29
PROVIDERS: ADMIT Internal Medicine; ATTEND Internal Medicine

== ENCOUNTER 2019-01-27 18:44 | Inpatient (IN) ==
[2019-01-27 19:56] LABS: ABG Base Excess -2.8 MMOL/L (-2.5-2.5); ABG HCO3 22.1 MMOL/L (20-26); ABG PH 7.295 (7.35-7.45); ABG TCO2 21.7 MMOL/L (23-27); Allen Test Positive; Pt O2 Delivery Device BIPAP
[2019-01-27] MEDS ORDERED: ONDANSETRON 4 MG/2 ML VIAL IV PRN (21:17)
[2019-01-27 22:06] LABS: Basophils # 0.1 10*3/uL (0.0-0.2); Basophils % 0.7 % (0.0-0.8); Eosinophils % 0.5 % (0.00-10.9); Hematocrit 43.5 VOL% (35.7-47.0); Immature Granulocytes % 0.7 %; Immature Granulocytes Absolute 0.05 #; Lymphocytes # 1.1 10*3/uL (1.4-4.0); Lymphocytes % 14.3 % (21.3-54.2); Mean Corpuscular HGB Conc 28.5 GM/DL (32-36); Mean Corpuscular Volume 77.3 FL (87-102); Monocytes % 9.2 % (1.7-12.7); Neutrophils % 74.6 % (38.7-73.9); Platelet Count 268 T/CUMM (130-400); Red Blood Count 5.63 MC/CUMM (3.8-5.5); Red Cell Distribution Width 24.2 % (9.3-17.3); White Blood Count 7.4 T/CUMM (4-12)
[2019-01-27 22:15] LABS: Apearance,Urine Slightly Hazy (Clear); Bacteria,Urine Occasional /HPF (Few); Bilirubin,Urine Negative (Negative); Blood, Urine Moderate mg/dL (Negative); Glucose,Urine (UA) Negative (Negative); Hyaline Casts,Urine 4 /LPF (0-3); Ketones,Urine Negative (Negative); Mucus,Urine Occasional /LPF (Occasional); Nitrite,Urine Negative (Negative); Protein,Urine Negative; RBC,Urine 37 /HPF (0-4); Squamous Epithelial Cell,Urine Occasional /HPF (0-10); Urine Color Yellow (Yellow); Urine Specific Gravity 1.006 (1.001-1.035); Urine Urobilinogen < 2.0 EU/DL (0.2-1.0); WBC,Urine 11 /HPF (0-6)
[2019-01-27 22:25] LABS: Alanine Aminotransferase < 9 U/L (13-56); Albumin 2.2 G/DL (3.4-5.0); Alkaline Phosphatase 101 U/L (45-117); Aspartate Amino Transferase 21 U/L (0-37); Blood Urea Nitrogen 26 MG/DL (7-18); Calcium 7.9 MG/DL (8.5-10.1); Estimated Glom Filtration Rate 70 ML/MIN; Glucose 99 MG/DL (74-106); Osmolality,Calculated 285.3 MOS/KG (273-304); Total Protein 6.3 G/DL (6.4-8.3)
[2019-01-27 22:26] LABS: Hemoglobin 12.4 GM/DL (12.0-16.0); Troponin I 0.072 NG/ML (0.00-0.045)
[2019-01-27] MEDS ORDERED: MEROPENEM 500 MG in SODIUM CHLORIDE 0.9% 100 ML IV SCH (23:00)
[2019-01-28] MEDS ORDERED: VANCOMYCIN INJ 2,500 MG in SODIUM CHLORIDE 0.9% 500 ML IV SCH
[2019-01-28] MEDS ORDERED: VANCOMYCIN INJ 2,000 MG in SODIUM CHLORIDE 0.9% 500 ML IV SCH
[2019-01-28] MEDS: ALBUTEROL/IPRATROPIUM 3 ML NEB RESP TX SCH ×4 (01:17→20:00)
[2019-01-28 05:58] LABS: Alanine Aminotransferase < 6 U/L (13-56); Albumin 2.1 G/DL (3.4-5.0); Alkaline Phosphatase 99 U/L (45-117); Aspartate Amino Transferase 11 U/L (0-37); Blood Urea Nitrogen 24 MG/DL (7-18); Calcium 8.4 MG/DL (8.5-10.1); Estimated Glom Filtration Rate 82 ML/MIN; Glucose 82 MG/DL (74-106); Osmolality,Calculated 285.1 MOS/KG (273-304); Total Protein 5.7 G/DL (6.4-8.3)
[2019-01-28] MEDS ORDERED: MEROPENEM 500 MG in SODIUM CHLORIDE 0.9% 100 ML IV SCH (09:00)
[2019-01-28] MEDS: FUROSEMIDE 40 MG/4 ML VIAL IV SCH ×2 (09:17→15:37)
[2019-01-28 09:41] LABS: ABG Base Excess -1.4 MMOL/L (-2.5-2.5); ABG HCO3 23.3 MMOL/L (20-26); ABG Oxygen Saturation 97.8 % (95-100); ABG PCO2 53.5 MM HG (35-48); ABG PH 7.296 (7.35-7.45); ABG TCO2 23.2 MMOL/L (23-27); Allen Test Positive; Pt O2 Delivery Device BIPAP
[2019-01-28] MEDS: MORPHINE 4 MG/1 ML VIAL IV PRN ×2 (13:22→16:33)
[2019-01-28] MEDS ORDERED: ENOXAPARIN 40 MG/0.4 ML SYRINGE SUBCUT SCH (15:30)
[2019-01-28] MEDS ORDERED: ENOXAPARIN 80 MG/0.8 ML SYRINGE SUBCUT ONE (16:03)
[2019-01-28] MEDS: ASPIRIN EC 81 MG TABLET PO SCH (16:34)
[2019-01-28] MEDS: ZINC OXIDE PASTE 113 GM TUBE TOP SCH (21:12)
[2019-01-28] MEDS: ROSUVASTATIN 10 MG TABLET PO SCH (21:13)
[2019-01-29] MEDS: ALBUTEROL/IPRATROPIUM 3 ML NEB RESP TX SCH ×4 (00:50→18:35)
[2019-01-29] MEDS: MORPHINE 4 MG/1 ML VIAL IV PRN (03:42)
[2019-01-29 07:00] LABS: Albumin 2.4 G/DL (3.4-5.0); Calcium 8.7 MG/DL (8.5-10.1); Osmolality,Calculated 290.8 MOS/KG (273-304); Osmolality,Calculated 292.7 MOS/KG (273-304)
[2019-01-29 07:04] LABS: Basophils % 0.5 % (0.0-0.8); Eosinophils # 0.2 10*3/uL (0.0-0.87); Hematocrit 41.2 VOL% (35.7-47.0); Hemoglobin 11.7 GM/DL (12.0-16.0); Immature Granulocytes % 0.4 %; Immature Granulocytes Absolute 0.03 #; Lymphocytes # 0.7 10*3/uL (1.4-4.0); Lymphocytes % 8.8 % (21.3-54.2); Mean Corpuscular HGB Conc 28.4 GM/DL (32-36); Mean Corpuscular Volume 77.7 FL (87-102); Mean Platelet Volume 10.6 FL (9.6-12.0); Monocytes % 5.8 % (1.7-12.7); Neutrophils % 82.5 % (38.7-73.9); Platelet Count 259 T/CUMM (130-400); Red Cell Distribution Width 23.7 % (9.3-17.3); White Blood Count 7.7 T/CUMM (4-12)
[2019-01-29 07:06] LABS: Hypochromasia 1+; Microcytosis 1+; Platelet Estimate Adequate
[2019-01-29 07:31] LABS: Risk Ratio 2.65; VLDL CHOLESTEROL 14.8 MG/DL
[2019-01-29] MEDS: ASPIRIN EC 81 MG TABLET PO SCH (09:42)
[2019-01-29] MEDS: FUROSEMIDE 40 MG/4 ML VIAL IV SCH ×2 (09:42→16:34)
[2019-01-29] MEDS: ZINC OXIDE PASTE 113 GM TUBE TOP SCH ×2 (09:47→21:47)
[2019-01-29] MEDS ORDERED: POTASSIUM CHLORIDE 20 MEQ TABLET PO PRN (10:53)
[2019-01-29] MEDS: MAGNESIUM SULF RIDER 2 GM in PREMIX 1 EACH IV PRN (13:00)
[2019-01-29] MEDS: POTASSIUM CHLORIDE 20 MEQ TABLET PO SCH ×2 (13:48→21:46)
[2019-01-29] MEDS: ENOXAPARIN 120 MG/0.8 ML SYRINGE SUBCUT SCH (16:34)
[2019-01-29] MEDS: ROSUVASTATIN 10 MG TABLET PO SCH (21:47)
[2019-01-30] MEDS: ALBUTEROL/IPRATROPIUM 3 ML NEB RESP TX SCH ×4 (01:35→19:18)
[2019-01-30 02:41] LABS: Basophils % 0.6 % (0.0-0.8); Eosinophils # 0.2 10*3/uL (0.0-0.87); Eosinophils % 2.3 % (0.00-10.9); Immature Granulocytes % 0.5 %; Immature Granulocytes Absolute 0.03 #; Lymphocytes # 0.9 10*3/uL (1.4-4.0); Lymphocytes % 14.2 % (21.3-54.2); Mean Corpuscular HGB Conc 28.3 GM/DL (32-36); Mean Corpuscular Volume 76.7 FL (87-102); Mean Platelet Volume 10.3 FL (9.6-12.0); Monocytes % 8.3 % (1.7-12.7); Neutrophils % 74.1 % (38.7-73.9); Platelet Count 261 T/CUMM (130-400); Red Blood Count 4.89 MC/CUMM (3.8-5.5); Red Cell Distribution Width 23.6 % (9.3-17.3); White Blood Count 6.5 T/CUMM (4-12)
[2019-01-30 02:49] LABS: Calcium 8.4 MG/DL (8.5-10.1); Osmolality,Calculated 289.8 MOS/KG (273-304)
[2019-01-30 03:06] LABS: Hematocrit 37.2 VOL% (35.7-47.0); Hemoglobin 10.6 GM/DL (12.0-16.0)
[2019-01-30 03:08] LABS: Hypochromasia 1+; Platelet Estimate Adequate
[2019-01-30 03:09] LABS: Microcytosis 1+
[2019-01-30] MEDS: MORPHINE 4 MG/1 ML VIAL IV PRN ×3 (04:10→20:58)
[2019-01-30] MEDS: ASPIRIN EC 81 MG TABLET PO SCH (08:17)
[2019-01-30] MEDS: POTASSIUM CHLORIDE 20 MEQ TABLET PO SCH ×2 (08:17→20:51)
[2019-01-30] MEDS: FUROSEMIDE 40 MG/4 ML VIAL IV SCH ×2 (08:17→16:17)
[2019-01-30] MEDS: ZINC OXIDE PASTE 113 GM TUBE TOP SCH ×2 (08:36→20:51)
[2019-01-30] MEDS: MAGNESIUM SULF RIDER 2 GM in PREMIX 1 EACH IV PRN (08:36)
[2019-01-30] MEDS: ENOXAPARIN 120 MG/0.8 ML SYRINGE SUBCUT SCH (16:18)
[2019-01-30] MEDS: ROSUVASTATIN 10 MG TABLET PO SCH (20:51)
[2019-01-31] MEDS: ALBUTEROL/IPRATROPIUM 3 ML NEB RESP TX SCH ×4 (00:57→18:49)
[2019-01-31] MEDS: MORPHINE 4 MG/1 ML VIAL IV PRN (01:22)
[2019-01-31 03:54] LABS: Hematocrit 27.9 VOL% (35.7-47.0); Hemoglobin 7.5 GM/DL (12.0-16.0)
[2019-01-31 04:27] LABS: Calcium 7.5 MG/DL (8.5-10.1)
[2019-01-31] MEDS ORDERED: SODIUM CHLORIDE 0.9% 1,000 ML IV PRN ×5 (04:37→15:07)
[2019-01-31 06:00] LABS: Basophils # 0.1 10*3/uL (0.0-0.2); Basophils % 0.5 % (0.0-0.8); Eosinophils # 0.1 10*3/uL (0.0-0.87); Eosinophils % 0.5 % (0.00-10.9); Hematocrit 19.9 VOL% (35.7-47.0); Immature Granulocytes % 0.7 %; Immature Granulocytes Absolute 0.07 #; Lymphocytes # 0.8 10*3/uL (1.4-4.0); Mean Corpuscular HGB Conc 29.1 GM/DL (32-36); Mean Corpuscular Volume 78.3 FL (87-102); Mean Platelet Volume 10.9 FL (9.6-12.0); Monocytes % 7.1 % (1.7-12.7); Neutrophils % 83.2 % (38.7-73.9); Platelet Count 255 T/CUMM (130-400); Red Blood Count 2.54 MC/CUMM (3.8-5.5); White Blood Count 10.5 T/CUMM (4-12)
[2019-01-31 06:03] LABS: Hemoglobin 5.8 GM/DL (12.0-16.0)
[2019-01-31 06:27] LABS: Alanine Aminotransferase < 6 U/L (13-56); Albumin 1.5 G/DL (3.4-5.0); Alkaline Phosphatase 54 U/L (45-117); Aspartate Amino Transferase 7 U/L (0-37); Blood Urea Nitrogen 22 MG/DL (7-18); Calcium 7.4 MG/DL (8.5-10.1); Estimated Glom Filtration Rate 80 ML/MIN; Glucose 171 MG/DL (74-106); Osmolality,Calculated 296.6 MOS/KG (273-304); Total Protein 3.8 G/DL (6.4-8.3)
[2019-01-31] MEDS ORDERED: VANCOMYCIN INJ 1,000 MG in SODIUM CHLORIDE 0.9% 250 ML IV ONE (06:38)
[2019-01-31] MEDS ORDERED: VANCOMYCIN 1,000 MG VIAL ONE (06:39)
[2019-01-31 07:05] LABS: Basophils % 0.4 % (0.0-0.8); Eosinophils % 0.2 % (0.00-10.9); Hematocrit 23.4 VOL% (35.7-47.0); Hemoglobin 7.3 GM/DL (12.0-16.0); Immature Granulocytes % 0.4 %; Immature Granulocytes Absolute 0.03 #; Lymphocytes # 0.5 10*3/uL (1.4-4.0); Lymphocytes % 5.6 % (21.3-54.2); Mean Corpuscular HGB Conc 31.2 GM/DL (32-36); Mean Corpuscular Volume 83.3 FL (87-102); Monocytes % 7.6 % (1.7-12.7); Neutrophils % 85.8 % (38.7-73.9); Platelet Count 163 T/CUMM (130-400); Red Blood Count 2.81 MC/CUMM (3.8-5.5); Red Cell Distribution Width 21.4 % (9.3-17.3); White Blood Count 8.4 T/CUMM (4-12)
[2019-01-31] MEDS ORDERED: MICROFIBRILLAR COLLAGEN POWDER 1 GM CAN TOP ONE (07:23)
[2019-01-31] MEDS ORDERED: SUGAMMADEX 200 MG/2 ML VIAL IV ONE (07:41)
[2019-01-31 07:47] LABS: Anisocytosis 2+; Poikilocytosis 2+
[2019-01-31 07:48] LABS: Hypochromasia 3+; Macrocytosis Slight; Microcytosis 2+; Ovalocytes Few; Polychromasia Slight
[2019-01-31 07:49] LABS: Platelet Estimate Normal; Schistocytes Slight
[2019-01-31] MEDS ORDERED: PROPOFOL 1,000 MG/100 ML BOTTLE IV ONE (08:11)
[2019-01-31 08:23] LABS: Apearance,Urine CLEAR (Clear); Bilirubin,Urine Negative (Negative); Blood, Urine Negative (Negative); Glucose,Urine (UA) Negative (Negative); Hyaline Casts,Urine 1 /LPF (0-3); Ketones,Urine Negative (Negative); Mucus,Urine Occasional /LPF (Occasional); Nitrite,Urine Negative (Negative); Protein,Urine Negative; RBC,Urine 1 /HPF (0-4); Urine Color Straw (Yellow); Urine Specific Gravity 1.023 (1.001-1.035); Urine Urobilinogen < 2.0 EU/DL (0.2-1.0); WBC,Urine <1 /HPF (0-6)
[2019-01-31] MEDS ORDERED: MIDAZOLAM 2 MG/2 ML VIAL ONE (09:03)
[2019-01-31] MEDS ORDERED: DESFLURANE 1 UNIT/15 MINUTE INH ONE (09:03)
[2019-01-31] MEDS ORDERED: PROPOFOL 200 MG/20 ML VIAL IV ONE (09:04)
[2019-01-31] MEDS ORDERED: LIDOCAINE 2% 5 ML VIAL ONE (09:04)
[2019-01-31] MEDS ORDERED: ETOMIDATE 40 MG/20 ML VIAL IV ONE (09:04)
[2019-01-31] MEDS ORDERED: PHENYLEPHRINE DRIP 20 MG/250 ML PREMIX IV ONE (09:04)
[2019-01-31] MEDS ORDERED: SUCCINYLCHOLINE 200 MG/10 ML VIAL ONE (09:05)
[2019-01-31] MEDS ORDERED: ePHEDrine 50 MG/ML AMP ONE (09:05)
[2019-01-31] MEDS ORDERED: PHENYLEPHRINE 1 MG/10 ML SYRINGE IV ONE (09:05)
[2019-01-31] MEDS ORDERED: ROCURONIUM 100 MG/10 ML VIAL IV ONE (09:05)
[2019-01-31] MEDS ORDERED: SODIUM CHLORIDE 0.9% 1,000 ML IV ONE ×3 (09:05→21:07)
[2019-01-31] MEDS ORDERED: PHENYLEPHRINE DRIP 40 MG/250 ML PREMIX IV ONE (09:19)
[2019-01-31 09:36] LABS: Hematocrit 30.3 VOL% (35.7-47.0); Hemoglobin 9.7 GM/DL (12.0-16.0)
[2019-01-31] MEDS: PROPOFOL 1,000 MG/100 ML BOTTLE IV SCH ×2 (09:41→22:12)
[2019-01-31] MEDS: FUROSEMIDE 40 MG/4 ML VIAL IV SCH (09:44)
[2019-01-31] MEDS: ASPIRIN EC 81 MG TABLET PO SCH (09:45)
[2019-01-31] MEDS: PHENYLEPHRINE DRIP 40 MG/250 ML PREMIX IV PRN ×5 (09:52→23:15)
[2019-01-31] MEDS: POTASSIUM CHLORIDE 20 MEQ TABLET PO SCH ×2 (09:54→20:06)
[2019-01-31] MEDS: ZINC OXIDE PASTE 113 GM TUBE TOP SCH ×2 (09:54→20:36)
[2019-01-31 09:55] LABS: ABG Base Excess 2.1 MMOL/L (-2.5-2.5); ABG HCO3 26.3 MMOL/L (20-26); ABG PCO2 49.5 MM HG (35-48); ABG PH 7.362 (7.35-7.45); ABG TCO2 25.9 MMOL/L (23-27); Allen Test Positive; Pt O2 Delivery Device Ventilator
[2019-01-31] MEDS ORDERED: NOREPINEPHRINE 4 MG/4 ML VIAL IV ONE (11:20)
[2019-01-31] MEDS ORDERED: CALCIUM GLUCONATE 1,000 MG in SODIUM CHLORIDE 0.9% 100 ML IV ONE (12:00)
[2019-01-31 13:34] LABS: Hematocrit 27.5 VOL% (35.7-47.0); Hemoglobin 8.8 GM/DL (12.0-16.0)
[2019-01-31] MEDS: NOREPINEPHRINE 8 MG in SODIUM CHLORIDE 0.9% 242 ML IV PRN ×4 (13:34→23:22)
[2019-01-31] MEDS: MEROPENEM 500 MG in SODIUM CHLORIDE 0.9% 100 ML IV SCH ×2 (14:45→20:05)
[2019-01-31] MEDS ORDERED: ALBUMIN IV ONE (15:33)
[2019-01-31] MEDS ORDERED: ALBUMIN 5% 12.5 GM/250 ML VIAL IV ONE (15:33)
[2019-01-31 15:48] LABS: Hematocrit 24.1 VOL% (35.7-47.0); Hemoglobin 7.7 GM/DL (12.0-16.0)
[2019-01-31] MEDS ORDERED: ALBUMIN 25% 12.5 GM in PREMIX 1 EACH IV ONE (15:53)
[2019-01-31 16:45] LABS: INR 1.5; PT Patient Result 16.3 SECS (9.6-12.2); Partial Thromboplastin Time 36.4 SECS (20.8-36.0)
[2019-01-31] MEDS: ROSUVASTATIN 10 MG TABLET PO SCH (20:06)
[2019-01-31 21:05] LABS: Hematocrit 21.1 VOL% (35.7-47.0)
[2019-01-31 21:23] LABS: ABG Base Excess -0.7 MMOL/L (-2.5-2.5); ABG HCO3 23.9 MMOL/L (20-26); ABG Oxygen Saturation 99.3 % (95-100); ABG PCO2 42.5 MM HG (35-48); ABG PH 7.369 (7.35-7.45); ABG TCO2 23.3 MMOL/L (23-27)
[2019-01-31 21:26] LABS: Basophils % 0.2 % (0.0-0.8); Eosinophils % 0.2 % (0.00-10.9); Hematocrit 20.5 VOL% (35.7-47.0); Hemoglobin 6.8 GM/DL (12.0-16.0); Immature Granulocytes % 0.7 %; Immature Granulocytes Absolute 0.08 #; Lymphocytes # 1.3 10*3/uL (1.4-4.0); Lymphocytes % 11.6 % (21.3-54.2); Mean Corpuscular HGB Conc 33.2 GM/DL (32-36); Mean Corpuscular Volume 85.1 FL (87-102); Mean Platelet Volume 10.4 FL (9.6-12.0); Monocytes % 12.4 % (1.7-12.7); Neutrophils % 74.9 % (38.7-73.9); Red Blood Count 2.41 MC/CUMM (3.8-5.5); Red Cell Distribution Width 15.1 % (9.3-17.3); White Blood Count 11.2 T/CUMM (4-12)
[2019-01-31 21:29] LABS: Platelet Count 77 T/CUMM (130-400)
[2019-01-31 21:42] LABS: Albumin 1.9 G/DL (3.4-5.0); Bilirubin,Total 1.4 MG/DL (0.2-1.0); Calcium 6.8 MG/DL (8.5-10.1); Osmolality,Calculated 296.3 MOS/KG (273-304); Total Protein 3.4 G/DL (6.4-8.3)
[2019-01-31 22:09] LABS: Hypochromasia 1+; Platelet Estimate Decreased; Polychromasia Few
[2019-01-31] MEDS ORDERED: CALCIUM GLUCONATE 2,000 MG in SODIUM CHLORIDE 0.9% 100 ML IV ONE (22:23)
[2019-02-01] MEDS: MEROPENEM 500 MG in SODIUM CHLORIDE 0.9% 100 ML IV SCH ×4 (01:05→20:34)
[2019-02-01] MEDS: PHENYLEPHRINE DRIP 40 MG/250 ML PREMIX IV PRN ×2 (01:05→02:57)
[2019-02-01] MEDS: ALBUTEROL/IPRATROPIUM 3 ML NEB RESP TX SCH ×4 (01:08→19:21)
[2019-02-01] MEDS: NOREPINEPHRINE 8 MG in SODIUM CHLORIDE 0.9% 242 ML IV PRN (02:28)
[2019-02-01 04:43] LABS: ABG Base Excess 1.6 MMOL/L (-2.5-2.5); ABG HCO3 27.3 MMOL/L (20-26); ABG Oxygen Saturation 95.1 % (95-100); ABG PCO2 47.7 MM HG (35-48); ABG PH 7.376 (7.35-7.45); ABG PO2 74.2 MM HG (80-95); ABG TCO2 28.8 MMOL/L (23-27)
[2019-02-01 05:04] LABS: INR 1.3; PT Patient Result 13.9 SECS (9.6-12.2)
[2019-02-01 05:15] LABS: Albumin 2.5 G/DL (3.4-5.0); Calcium 7.8 MG/DL (8.5-10.1); Osmolality,Calculated 291.6 MOS/KG (273-304); Total Protein 4.8 G/DL (6.4-8.3)
[2019-02-01 05:21] LABS: Basophils % 0.3 % (0.0-0.8); Eosinophils % 0.2 % (0.00-10.9); Hemoglobin 11.2 GM/DL (12.0-16.0); Immature Granulocytes % 0.6 %; Immature Granulocytes Absolute 0.06 #; Lymphocytes # 0.9 10*3/uL (1.4-4.0); Lymphocytes % 9.5 % (21.3-54.2); Mean Corpuscular HGB Conc 33.9 GM/DL (32-36); Mean Corpuscular Volume 87.3 FL (87-102); Mean Platelet Volume 10.9 FL (9.6-12.0); Monocytes % 8.3 % (1.7-12.7); Neutrophils % 81.1 % (38.7-73.9); Platelet Count 140 T/CUMM (130-400); Red Blood Count 3.78 MC/CUMM (3.8-5.5); Red Cell Distribution Width 14.5 % (9.3-17.3); White Blood Count 9.8 T/CUMM (4-12)
[2019-02-01 07:31] LABS: Hematocrit 33.2 VOL% (35.7-47.0); Hemoglobin 11.3 GM/DL (12.0-16.0)
[2019-02-01] MEDS ORDERED: FUROSEMIDE 40 MG/4 ML VIAL IV ONE (07:32)
[2019-02-01] MEDS: PROPOFOL 1,000 MG/100 ML BOTTLE IV SCH ×3 (08:18→19:07)
[2019-02-01] MEDS: ZINC OXIDE PASTE 113 GM TUBE TOP SCH ×2 (09:47→20:35)
[2019-02-01] MEDS: POTASSIUM CHLORIDE 20 MEQ TABLET PO SCH ×2 (10:40→20:34)
[2019-02-01 13:26] LABS: Basophils % 0.3 % (0.0-0.8); Eosinophils # 0.1 10*3/uL (0.0-0.87); Eosinophils % 0.9 % (0.00-10.9); Hematocrit 30.2 VOL% (35.7-47.0); Hemoglobin 10.4 GM/DL (12.0-16.0); Immature Granulocytes % 0.4 %; Immature Granulocytes Absolute 0.04 #; Lymphocytes # 0.7 10*3/uL (1.4-4.0); Lymphocytes % 7.2 % (21.3-54.2); Mean Corpuscular HGB Conc 34.4 GM/DL (32-36); Mean Corpuscular Volume 86.3 FL (87-102); Mean Platelet Volume 10.3 FL (9.6-12.0); Monocytes % 7.3 % (1.7-12.7); Neutrophils % 83.9 % (38.7-73.9); Platelet Count 123 T/CUMM (130-400); Red Cell Distribution Width 14.8 % (9.3-17.3); White Blood Count 9.3 T/CUMM (4-12)
[2019-02-01 17:35] LABS: Hematocrit 29.4 VOL% (35.7-47.0)
[2019-02-01] MEDS: MAGNESIUM SULF RIDER 2 GM in PREMIX 1 EACH IV PRN (17:42)
[2019-02-01] MEDS: ROSUVASTATIN 10 MG TABLET PO SCH (20:34)
[2019-02-02] MEDS: MEROPENEM 500 MG in SODIUM CHLORIDE 0.9% 100 ML IV SCH ×4 (01:50→18:38)
[2019-02-02] MEDS: ALBUTEROL/IPRATROPIUM 3 ML NEB RESP TX SCH ×4 (01:55→19:35)
[2019-02-02] MEDS: PROPOFOL 1,000 MG/100 ML BOTTLE IV SCH ×3 (02:37→17:05)
[2019-02-02 05:32] LABS: ABG Base Excess 2.1 MMOL/L (-2.5-2.5); ABG HCO3 26.3 MMOL/L (20-26); ABG Oxygen Saturation 98.8 % (95-100); ABG PCO2 43.3 MM HG (35-48); ABG PH 7.404 (7.35-7.45); ABG TCO2 24.8 MMOL/L (23-27)
[2019-02-02 05:50] LABS: Basophils % 0.2 % (0.0-0.8); Eosinophils # 0.2 10*3/uL (0.0-0.87); Eosinophils % 1.7 % (0.00-10.9); Hematocrit 29.3 VOL% (35.7-47.0); Hemoglobin 9.9 GM/DL (12.0-16.0); INR 1.1; Immature Granulocytes % 0.4 %; Immature Granulocytes Absolute 0.04 #; Lymphocytes # 0.8 10*3/uL (1.4-4.0); Lymphocytes % 8.3 % (21.3-54.2); Mean Corpuscular HGB Conc 33.8 GM/DL (32-36); Mean Corpuscular Volume 86.2 FL (87-102); Mean Platelet Volume 11.4 FL (9.6-12.0); Monocytes % 8.1 % (1.7-12.7); Neutrophils % 81.3 % (38.7-73.9); Partial Thromboplastin Time 31.9 SECS (20.8-36.0); Platelet Count 131 T/CUMM (130-400); Red Cell Distribution Width 15.1 % (9.3-17.3); White Blood Count 9.1 T/CUMM (4-12)
[2019-02-02 05:58] LABS: Albumin 2.1 G/DL (3.4-5.0); Bilirubin,Total 1.4 MG/DL (0.2-1.0); Calcium 8.5 MG/DL (8.5-10.1); Total Protein 4.5 G/DL (6.4-8.3)
[2019-02-02] MEDS: POTASSIUM CHLORIDE 20 MEQ TABLET PO SCH ×2 (09:34→20:54)
[2019-02-02] MEDS: FUROSEMIDE 40 MG/4 ML VIAL IV SCH ×2 (09:35→16:32)
[2019-02-02] MEDS: HYDROmorphone 2 MG/1 ML VIAL IV PRN ×3 (09:36→17:26)
[2019-02-02] MEDS: ZINC OXIDE PASTE 113 GM TUBE TOP SCH ×2 (09:44→20:54)
[2019-02-02] MEDS ORDERED: INFLUENZA VIRUS VACCINE 0.5 ML SYRINGE IM ONE (14:48)
[2019-02-02] MEDS: ROSUVASTATIN 10 MG TABLET PO SCH (20:54)
[2019-02-02] MEDS: MORPHINE 4 MG/1 ML VIAL IV PRN (23:50)
[2019-02-03] MEDS: ALBUTEROL/IPRATROPIUM 3 ML NEB RESP TX SCH ×4 (01:07→19:05)
[2019-02-03] MEDS: MEROPENEM 500 MG in SODIUM CHLORIDE 0.9% 100 ML IV SCH ×4 (02:06→18:34)
[2019-02-03] MEDS ORDERED: PHENYLEPHRINE DRIP 40 MG/250 ML PREMIX IV PRN (03:05)
[2019-02-03 03:16] LABS: Basophils % 0.2 % (0.0-0.8); Eosinophils # 0.2 10*3/uL (0.0-0.87); Eosinophils % 1.9 % (0.00-10.9); Hematocrit 28.6 VOL% (35.7-47.0); Hemoglobin 9.4 GM/DL (12.0-16.0); Immature Granulocytes % 0.4 %; Immature Granulocytes Absolute 0.04 #; Lymphocytes # 0.9 10*3/uL (1.4-4.0); Lymphocytes % 10.2 % (21.3-54.2); Mean Corpuscular HGB Conc 32.9 GM/DL (32-36); Mean Corpuscular Volume 89.4 FL (87-102); Monocytes % 9.9 % (1.7-12.7); Neutrophils % 77.4 % (38.7-73.9); Platelet Count 136 T/CUMM (130-400); Red Cell Distribution Width 15.7 % (9.3-17.3); White Blood Count 9.1 T/CUMM (4-12)
[2019-02-03 03:26] LABS: INR 1.1; PT Patient Result 11.6 SECS (9.6-12.2); Partial Thromboplastin Time 29.8 SECS (20.8-36.0)
[2019-02-03 03:40] LABS: Calcium 7.8 MG/DL (8.5-10.1); Osmolality,Calculated 295.3 MOS/KG (273-304)
[2019-02-03 03:44] LABS: Prealbumin 6.9 MG/DL (20-40)
[2019-02-03 04:52] LABS: ABG Base Excess 5.8 MMOL/L (-2.5-2.5); ABG HCO3 29.7 MMOL/L (20-26); ABG Oxygen Saturation 98.6 % (95-100); ABG PCO2 52.4 MM HG (35-48); ABG PH 7.393 (7.35-7.45); ABG TCO2 28.8 MMOL/L (23-27)
[2019-02-03] MEDS: MAGNESIUM SULF RIDER 2 GM in PREMIX 1 EACH IV PRN (05:20)
[2019-02-03] MEDS: FUROSEMIDE 40 MG/4 ML VIAL IV SCH ×2 (08:31→17:31)
[2019-02-03] MEDS: PROPOFOL 1,000 MG/100 ML BOTTLE IV SCH (08:36)
[2019-02-03] MEDS: ZINC OXIDE PASTE 113 GM TUBE TOP SCH ×2 (08:52→20:56)
[2019-02-03] MEDS: POTASSIUM CHLORIDE 20 MEQ/15 ML UDCUP PER TUBE SCH ×2 (09:02→20:56)
[2019-02-03] MEDS: HYDROmorphone 2 MG/1 ML VIAL IV PRN ×2 (09:14→15:33)
[2019-02-03] MEDS ORDERED: PHENOL 1.4% THROAT SPRAY 177 ML BOTTLE PO PRN (16:00)
[2019-02-03] MEDS: MORPHINE 4 MG/1 ML VIAL IV PRN (18:25)
[2019-02-03] MEDS: NICOTINE 21 MG/24 HR PATCH TRANSDERM PRN (18:31)
[2019-02-03] MEDS: ROSUVASTATIN 10 MG TABLET PO SCH (20:56)
[2019-02-03 22:36] LABS: ABG Base Excess 5.8 MMOL/L (-2.5-2.5); ABG HCO3 29.7 MMOL/L (20-26); ABG Oxygen Saturation 98.4 % (95-100); ABG PCO2 55.8 MM HG (35-48); ABG PH 7.372 (7.35-7.45); ABG TCO2 29.7 MMOL/L (23-27)
[2019-02-04] MEDS: ALBUTEROL/IPRATROPIUM 3 ML NEB RESP TX SCH ×4 (00:31→19:29)
[2019-02-04] MEDS: MEROPENEM 500 MG in SODIUM CHLORIDE 0.9% 100 ML IV SCH ×4 (01:00→18:53)
[2019-02-04] MEDS: HYDROmorphone 2 MG/1 ML VIAL IV PRN ×5 (01:01→22:36)
[2019-02-04 03:43] LABS: ABG HCO3 30.8 MMOL/L (20-26); ABG Oxygen Saturation 98.6 % (95-100); ABG PCO2 57.2 MM HG (35-48); ABG PH 7.377 (7.35-7.45); ABG TCO2 30.8 MMOL/L (23-27)
[2019-02-04 03:52] LABS: Basophils % 0.2 % (0.0-0.8); Eosinophils # 0.2 10*3/uL (0.0-0.87); Eosinophils % 2.2 % (0.00-10.9); Hematocrit 29.1 VOL% (35.7-47.0); Hemoglobin 9.1 GM/DL (12.0-16.0); Immature Granulocytes % 0.5 %; Immature Granulocytes Absolute 0.04 #; Lymphocytes % 11.8 % (21.3-54.2); Mean Corpuscular HGB Conc 31.3 GM/DL (32-36); Mean Corpuscular Volume 94.8 FL (87-102); Mean Platelet Volume 11.5 FL (9.6-12.0); Monocytes % 10.8 % (1.7-12.7); Neutrophils % 74.5 % (38.7-73.9); Platelet Count 145 T/CUMM (130-400); Red Blood Count 3.07 MC/CUMM (3.8-5.5); Red Cell Distribution Width 15.9 % (9.3-17.3); White Blood Count 8.3 T/CUMM (4-12)
[2019-02-04 03:59] LABS: Calcium 8.1 MG/DL (8.5-10.1); Osmolality,Calculated 291.7 MOS/KG (273-304)
[2019-02-04 04:05] LABS: PT Patient Result 10.9 SECS (9.6-12.2); Partial Thromboplastin Time 28.5 SECS (20.8-36.0)
[2019-02-04] MEDS: FUROSEMIDE 40 MG/4 ML VIAL IV SCH ×2 (08:08→16:09)
[2019-02-04] MEDS: POTASSIUM CHLORIDE 20 MEQ/15 ML UDCUP PER TUBE SCH ×2 (08:08→21:43)
[2019-02-04] MEDS: ZINC OXIDE PASTE 113 GM TUBE TOP SCH ×2 (08:28→21:44)
[2019-02-04 08:41] LABS: ABG Base Excess 6.4 MMOL/L (-2.5-2.5); ABG HCO3 30.3 MMOL/L (20-26); ABG Oxygen Saturation 98.2 % (95-100); ABG PCO2 62.4 MM HG (35-48); ABG PH 7.343 (7.35-7.45); ABG PO2 99.9 MM HG (80-95); ABG TCO2 31.1 MMOL/L (23-27)
[2019-02-04] MEDS: ROSUVASTATIN 10 MG TABLET PO SCH (21:43)
[2019-02-05] MEDS: ALBUTEROL/IPRATROPIUM 3 ML NEB RESP TX SCH ×4 (00:05→19:03)
[2019-02-05] MEDS: MEROPENEM 500 MG in SODIUM CHLORIDE 0.9% 100 ML IV SCH ×2 (00:45→08:51)
[2019-02-05] MEDS: HYDROmorphone 2 MG/1 ML VIAL IV PRN ×3 (02:40→19:22)
[2019-02-05 04:01] LABS: Basophils % 0.3 % (0.0-0.8); Eosinophils # 0.3 10*3/uL (0.0-0.87); Eosinophils % 3.4 % (0.00-10.9); Hematocrit 29.1 VOL% (35.7-47.0); Hemoglobin 8.8 GM/DL (12.0-16.0); Immature Granulocytes % 0.4 %; Immature Granulocytes Absolute 0.03 #; Lymphocytes % 12.7 % (21.3-54.2); Mean Corpuscular HGB Conc 30.2 GM/DL (32-36); Mean Corpuscular Volume 95.7 FL (87-102); Monocytes % 12.4 % (1.7-12.7); Neutrophils % 70.8 % (38.7-73.9); Platelet Count 150 T/CUMM (130-400); Red Blood Count 3.04 MC/CUMM (3.8-5.5); Red Cell Distribution Width 15.8 % (9.3-17.3); White Blood Count 7.6 T/CUMM (4-12)
[2019-02-05 04:06] LABS: PT Patient Result 10.9 SECS (9.6-12.2)
[2019-02-05 04:09] LABS: Calcium 8.5 MG/DL (8.5-10.1); Osmolality,Calculated 292.6 MOS/KG (273-304)
[2019-02-05] MEDS: POTASSIUM CHLORIDE 20 MEQ/15 ML UDCUP PER TUBE SCH ×2 (08:49→20:28)
[2019-02-05] MEDS: FUROSEMIDE 40 MG/4 ML VIAL IV SCH ×2 (08:50→15:54)
[2019-02-05] MEDS: ZINC OXIDE PASTE 113 GM TUBE TOP SCH ×2 (08:54→20:28)
[2019-02-05 09:57] LABS: ABG Base Excess 9.2 MMOL/L (-2.5-2.5); ABG Oxygen Saturation 99.6 % (95-100); ABG PCO2 52.9 MM HG (35-48); ABG PH 7.429 (7.35-7.45); ABG TCO2 31.9 MMOL/L (23-27)
[2019-02-05] MEDS: ROSUVASTATIN 10 MG TABLET PO SCH (20:28)
[2019-02-06] MEDS: ALBUTEROL/IPRATROPIUM 3 ML NEB RESP TX SCH ×4 (00:48→20:11)
[2019-02-06 04:02] LABS: Basophils % 0.5 % (0.0-0.8); Eosinophils # 0.3 10*3/uL (0.0-0.87); Eosinophils % 3.8 % (0.00-10.9); Hematocrit 29.1 VOL% (35.7-47.0); Hemoglobin 9.1 GM/DL (12.0-16.0); Immature Granulocytes % 0.2 %; Immature Granulocytes Absolute 0.02 #; Mean Corpuscular HGB Conc 31.3 GM/DL (32-36); Mean Corpuscular Volume 93.6 FL (87-102); Mean Platelet Volume 11.8 FL (9.6-12.0); Monocytes % 11.9 % (1.7-12.7); Neutrophils % 71.6 % (38.7-73.9); Platelet Count 171 T/CUMM (130-400); Red Blood Count 3.11 MC/CUMM (3.8-5.5); Red Cell Distribution Width 15.7 % (9.3-17.3); White Blood Count 8.3 T/CUMM (4-12)
[2019-02-06 04:12] LABS: Alanine Aminotransferase < 9 U/L (13-56); Albumin 1.9 G/DL (3.4-5.0); Alkaline Phosphatase 76 U/L (45-117); Aspartate Amino Transferase 16 U/L (0-37); Blood Urea Nitrogen 21 MG/DL (7-18); Calcium 8.4 MG/DL (8.5-10.1); Estimated Glom Filtration Rate 129 ML/MIN; Glucose 90 MG/DL (74-106); Osmolality,Calculated 290.7 MOS/KG (273-304); Total Protein 5.1 G/DL (6.4-8.3)
[2019-02-06] MEDS: HYDROmorphone 2 MG/1 ML VIAL IV PRN ×4 (04:19→21:42)
[2019-02-06] MEDS ORDERED: POTASSIUM CHLORIDE 20 MEQ/15 ML UDCUP PER TUBE PRN (07:00)
[2019-02-06] MEDS: NICOTINE 21 MG/24 HR PATCH TRANSDERM PRN (08:33)
[2019-02-06] MEDS: FUROSEMIDE 40 MG/4 ML VIAL IV SCH ×2 (08:33→15:40)
[2019-02-06] MEDS: POTASSIUM CHLORIDE 20 MEQ/15 ML UDCUP PER TUBE SCH (09:20)
[2019-02-06] MEDS: ZINC OXIDE PASTE 113 GM TUBE TOP SCH ×2 (09:31→20:11)
[2019-02-06] MEDS: POTASSIUM CHLORIDE 20 MEQ TABLET PO PRN (09:31)
[2019-02-06] MEDS: POTASSIUM CHLORIDE 20 MEQ TABLET PO SCH (09:31)
[2019-02-06] MEDS: ROSUVASTATIN 10 MG TABLET PO SCH (20:05)
[2019-02-07] MEDS: HYDROmorphone 2 MG/1 ML VIAL IV PRN ×2 (01:30→16:45)
[2019-02-07] MEDS: ALBUTEROL/IPRATROPIUM 3 ML NEB RESP TX SCH ×4 (01:45→19:44)
[2019-02-07] MEDS: diphenhydrAMINE CAP 25 MG CAPSULE PO PRN ×3 (03:50→16:45)
[2019-02-07 04:09] LABS: Basophils % 0.4 % (0.0-0.8); Eosinophils # 0.2 10*3/uL (0.0-0.87); Eosinophils % 2.5 % (0.00-10.9); Hematocrit 29.5 VOL% (35.7-47.0); Immature Granulocytes % 0.8 %; Immature Granulocytes Absolute 0.07 #; Lymphocytes # 1.1 10*3/uL (1.4-4.0); Lymphocytes % 12.3 % (21.3-54.2); Mean Corpuscular HGB Conc 30.5 GM/DL (32-36); Mean Corpuscular Volume 94.9 FL (87-102); Mean Platelet Volume 11.2 FL (9.6-12.0); Monocytes % 11.4 % (1.7-12.7); Neutrophils % 72.6 % (38.7-73.9); Platelet Count 173 T/CUMM (130-400); Red Blood Count 3.11 MC/CUMM (3.8-5.5); Red Cell Distribution Width 15.5 % (9.3-17.3); White Blood Count 9.1 T/CUMM (4-12)
[2019-02-07 04:28] LABS: Calcium 8.5 MG/DL (8.5-10.1); Osmolality,Calculated 288.8 MOS/KG (273-304)
[2019-02-07 04:35] LABS: Prealbumin 7.6 MG/DL (20-40)
[2019-02-07] MEDS: MAGNESIUM SULF RIDER 2 GM in PREMIX 1 EACH IV PRN (05:17)
[2019-02-07] MEDS: POTASSIUM CHLORIDE 20 MEQ TABLET PO PRN (05:18)
[2019-02-07] MEDS ORDERED: INFLUENZA VIRUS VACCINE 0.5 ML SYRINGE IM ONE (08:00)
[2019-02-07] MEDS ORDERED: MORPHINE 4 MG/1 ML VIAL ONE (08:50)
[2019-02-07] MEDS ORDERED: MORPHINE 4 MG/1 ML VIAL IV ONE (09:00)
[2019-02-07] MEDS: POTASSIUM CHLORIDE 20 MEQ TABLET PO SCH (09:01)
[2019-02-07] MEDS: FUROSEMIDE 40 MG/4 ML VIAL IV SCH ×2 (09:10→17:05)
[2019-02-07] MEDS: NICOTINE 21 MG/24 HR PATCH TRANSDERM SCH (09:13)
[2019-02-07] MEDS: ZINC OXIDE PASTE 113 GM TUBE TOP SCH ×2 (09:14→21:37)
[2019-02-07] MEDS: ROSUVASTATIN 10 MG TABLET PO SCH (21:37)
[2019-02-08] MEDS: ALBUTEROL/IPRATROPIUM 3 ML NEB RESP TX SCH ×2 (00:23→07:22)
[2019-02-08] MEDS: HYDROmorphone 2 MG/1 ML VIAL IV PRN (00:33)
[2019-02-08] MEDS: diphenhydrAMINE CAP 25 MG CAPSULE PO PRN (00:33)
[2019-02-08] MEDS: FUROSEMIDE 40 MG/4 ML VIAL IV SCH (09:53)
[2019-02-08] MEDS: POTASSIUM CHLORIDE 20 MEQ TABLET PO SCH (09:53)
[2019-02-08] MEDS: NICOTINE 21 MG/24 HR PATCH TRANSDERM SCH (10:02)
[2019-02-08] MEDS: ZINC OXIDE PASTE 113 GM TUBE TOP SCH (10:02)
[2019-02-08] MEDS ORDERED: INFLUENZA VIRUS VACCINE 0.5 ML SYRINGE IM ONE (10:30)
[2019-02-08 13:20] VITALS: BP 88/58
== END 2019-02-08 13:31 | DRG 981 ==
LOC: EDBD → EDUNIT# → N.ED 18:44 → N.EDINP 21:35 → SUATTDRO 21:35 → N.CC 22:17 → N.TELEN 01-28 18:36 → N.ICU 01-31 05:43
PROVIDERS: ADMIT Internal Medicine; ATTEND Internal Medicine

== ENCOUNTER 2019-04-24 03:40 | Inpatient (IN) ==
[2019-04-24 05:52] LABS: Apearance,Urine CLOUDY (Clear); Bacteria,Urine Few /HPF (Few); Bilirubin,Urine Negative (Negative); Blood, Urine Moderate mg/dL (Negative); Glucose,Urine (UA) Negative (Negative); Hyaline Casts,Urine 235 /LPF (0-3); Ketones,Urine Negative (Negative); Mucus,Urine Occasional /LPF (Occasional); Nitrite,Urine Negative (Negative); Protein,Urine 100 MG/DL; RBC,Urine 143 /HPF (0-4); Squamous Epithelial Cell,Urine Many /HPF (0-10); Urine Color Yellow (Yellow); Urine Specific Gravity 1.015 (1.001-1.035); WBC,Urine 4100 /HPF (0-6)
[2019-04-24] MEDS ORDERED: CIPROFLOXACIN 500 MG TABLET PO STA (06:16)
[2019-04-24] MEDS ORDERED: SODIUM CHLORIDE 0.9% 1,000 ML IV STA (06:19)
[2019-04-24] MEDS ORDERED: SODIUM CHLORIDE 0.9% IV STA (06:20)
[2019-04-24] MEDS ORDERED: GENTAMICIN IV STA (06:20)
[2019-04-24] MEDS ORDERED: GENTAMICIN INJ 400 MG in SODIUM CHLORIDE 0.9% 100 ML IV STA (07:36)
[2019-04-24 07:42] LABS: Basophils % 0.7 % (0.0-0.8); Eosinophils # 0.1 10*3/uL (0.0-0.87); Eosinophils % 1.8 % (0.00-10.9); Hematocrit 36.5 VOL% (35.7-47.0); Immature Granulocytes % 0.4 %; Immature Granulocytes Absolute 0.02 #; Lymphocytes # 1.3 10*3/uL (1.4-4.0); Mean Corpuscular HGB Conc 28.5 GM/DL (32-36); Mean Corpuscular Volume 72.3 FL (87-102); Monocytes % 9.7 % (1.7-12.7); Neutrophils % 64.4 % (38.7-73.9); Platelet Count 284 T/CUMM (130-400); Red Blood Count 5.05 MC/CUMM (3.8-5.5); Red Cell Distribution Width 21.6 % (9.3-17.3); White Blood Count 5.7 T/CUMM (4-12)
[2019-04-24 07:43] LABS: Calcium 8.5 MG/DL (8.5-10.1); Osmolality,Calculated 276.8 MOS/KG (273-304)
[2019-04-24 07:44] LABS: Hemoglobin 10.4 GM/DL (12.0-16.0)
[2019-04-24 07:45] LABS: Hypochromasia 1+; Platelet Estimate Adequate
[2019-04-24 08:36] LABS: Thyroid Stimulating Hormone 3.59 uIU/ml (0.358-3.74)
[2019-04-24] MEDS: PANTOPRAZOLE 40 MG TABLET PO SCH (10:30)
[2019-04-24] MEDS: DOCUSATE SODIUM 100 MG CAPSULE PO SCH ×2 (10:30→21:00)
[2019-04-24] MEDS: POTASSIUM CHLORIDE 20 MEQ TABLET PO SCH ×4 (10:30→21:01)
[2019-04-24] MEDS: ENOXAPARIN 40 MG/0.4 ML SYRINGE SUBCUT SCH (10:30)
[2019-04-24] MEDS: NAPROXEN 500 MG TABLET PO SCH ×2 (10:30→21:00)
[2019-04-24] MEDS: SODIUM CHLORIDE 0.9% 1,000 ML IV SCH (11:48)
[2019-04-24] MEDS: ONDANSETRON 4 MG/2 ML VIAL IV PRN (13:58)
[2019-04-24] MEDS ORDERED: diphenhydrAMINE CAP 25 MG CAPSULE PO ONE (17:31)
[2019-04-24] MEDS ORDERED: QUEtiapine 25 MG TABLET PO SCH (21:00)
[2019-04-25] MEDS: SODIUM CHLORIDE 0.9% 1,000 ML IV SCH ×2 (00:45→13:08)
[2019-04-25] MEDS: POTASSIUM CHLORIDE 20 MEQ TABLET PO SCH (02:54)
[2019-04-25 06:56] LABS: Basophils # 0.1 10*3/uL (0.0-0.2); Basophils % 0.9 % (0.0-0.8); Eosinophils # 0.2 10*3/uL (0.0-0.87); Eosinophils % 2.8 % (0.00-10.9); Hematocrit 39.3 VOL% (35.7-47.0); Immature Granulocytes % 0.3 %; Immature Granulocytes Absolute 0.02 #; Lymphocytes # 1.4 10*3/uL (1.4-4.0); Lymphocytes % 24.6 % (21.3-54.2); Mean Corpuscular HGB Conc 27.5 GM/DL (32-36); Mean Corpuscular Volume 75.3 FL (87-102); Monocytes % 19.1 % (1.7-12.7); Neutrophils % 52.3 % (38.7-73.9); Platelet Count 244 T/CUMM (130-400); Red Blood Count 5.22 MC/CUMM (3.8-5.5); Red Cell Distribution Width 21.2 % (9.3-17.3); White Blood Count 5.8 T/CUMM (4-12)
[2019-04-25 06:57] LABS: Hemoglobin 10.8 GM/DL (12.0-16.0)
[2019-04-25 07:03] LABS: Eosinophils 2 % (0-10); Lymphocytes 34 % (20-55); Platelet Estimate Normal; Polychromasia Few; Segmented Neutrophils 50 % (50-85); Total Cells Counted 100
[2019-04-25 07:12] LABS: Calcium 7.7 MG/DL (8.5-10.1); Osmolality,Calculated 262.8 MOS/KG (273-304)
[2019-04-25] MEDS: DOCUSATE SODIUM 100 MG CAPSULE PO SCH ×2 (08:59→21:10)
[2019-04-25] MEDS: PANTOPRAZOLE 40 MG TABLET PO SCH (08:59)
[2019-04-25] MEDS ORDERED: QUEtiapine 25 MG TABLET PO SCH (09:00)
[2019-04-25] MEDS ORDERED: LIDOCAINE 1% 20 ML VIAL ONE (11:06)
[2019-04-25] MEDS ORDERED: SODIUM CHLORIDE 0.9% 250 ML IV SCH (11:30)
[2019-04-25] MEDS ORDERED: TISSUE ADHESIVE 1 EACH APPLICATOR TOP ONE (11:51)
[2019-04-25] MEDS ORDERED: PHENYLEPHRINE 1 MG/10 ML SYRINGE IV ONE (12:08)
[2019-04-25] MEDS ORDERED: LIDOCAINE 2% 5 ML VIAL ONE (12:08)
[2019-04-25] MEDS ORDERED: propofoL 200 MG/20 ML VIAL IV ONE (12:08)
[2019-04-25] MEDS: MEROPENEM 500 MG in SODIUM CHLORIDE 0.9% 100 ML IV SCH ×2 (13:08→21:06)
[2019-04-25] MEDS: POLYETHYLENE GLYCOL POWDER 17 GM PACK PO SCH (18:41)
[2019-04-25] MEDS: ONDANSETRON 4 MG/2 ML VIAL IV PRN (19:05)
[2019-04-26] MEDS: SODIUM CHLORIDE 0.9% 1,000 ML IV SCH (02:16)
[2019-04-26] MEDS: MEROPENEM 500 MG in SODIUM CHLORIDE 0.9% 100 ML IV SCH ×3 (05:05→22:23)
[2019-04-26 06:26] LABS: Basophils % 0.3 % (0.0-0.8); Eosinophils # 0.1 10*3/uL (0.0-0.87); Eosinophils % 1.5 % (0.00-10.9); Hematocrit 39.7 VOL% (35.7-47.0); Hemoglobin 10.9 GM/DL (12.0-16.0); Immature Granulocytes % 0.2 %; Immature Granulocytes Absolute 0.02 #; Lymphocytes # 1.1 10*3/uL (1.4-4.0); Lymphocytes % 12.2 % (21.3-54.2); Mean Corpuscular HGB Conc 27.5 GM/DL (32-36); Mean Corpuscular Volume 74.8 FL (87-102); Monocytes % 6.6 % (1.7-12.7); Neutrophils % 79.2 % (38.7-73.9); Platelet Count 249 T/CUMM (130-400); Red Blood Count 5.31 MC/CUMM (3.8-5.5); Red Cell Distribution Width 21.1 % (9.3-17.3); White Blood Count 8.6 T/CUMM (4-12)
[2019-04-26 06:46] LABS: Hypochromasia Slight; Platelet Estimate Adequate
[2019-04-26 08:01] LABS: Calcium 8.3 MG/DL (8.5-10.1)
[2019-04-26 08:02] LABS: Osmolality,Calculated 267.7 MOS/KG (273-304)
[2019-04-26] MEDS: PANTOPRAZOLE 40 MG TABLET PO SCH (09:24)
[2019-04-26] MEDS: ENOXAPARIN 40 MG/0.4 ML SYRINGE SUBCUT SCH (09:24)
[2019-04-26] MEDS: POLYETHYLENE GLYCOL POWDER 17 GM PACK PO SCH (09:24)
[2019-04-26] MEDS: DOCUSATE SODIUM 100 MG CAPSULE PO SCH ×2 (09:26→22:23)
[2019-04-27] MEDS: MEROPENEM 500 MG in SODIUM CHLORIDE 0.9% 100 ML IV SCH ×3 (06:22→22:14)
[2019-04-27 07:08] LABS: Basophils % 0.5 % (0.0-0.8); Eosinophils # 0.1 10*3/uL (0.0-0.87); Eosinophils % 2.2 % (0.00-10.9); Hematocrit 39.4 VOL% (35.7-47.0); Hemoglobin 10.8 GM/DL (12.0-16.0); Immature Granulocytes % 0.2 %; Immature Granulocytes Absolute 0.01 #; Lymphocytes # 0.9 10*3/uL (1.4-4.0); Lymphocytes % 21.9 % (21.3-54.2); Mean Corpuscular HGB Conc 27.4 GM/DL (32-36); Mean Corpuscular Volume 75.6 FL (87-102); Monocytes % 6.1 % (1.7-12.7); NRBC # 0.02 10*3/uL; Neutrophils % 69.1 % (38.7-73.9); Platelet Count 237 T/CUMM (130-400); Red Blood Count 5.21 MC/CUMM (3.8-5.5); Red Cell Distribution Width 21.2 % (9.3-17.3); White Blood Count 4.1 T/CUMM (4-12)
[2019-04-27 07:25] LABS: Calcium 8.2 MG/DL (8.5-10.1); Osmolality,Calculated 263.8 MOS/KG (273-304)
[2019-04-27 07:30] LABS: Anisocytosis 2+; Platelet Estimate Normal; Poikilocytosis 1+
[2019-04-27] MEDS: PANTOPRAZOLE 40 MG TABLET PO SCH (08:32)
[2019-04-27] MEDS: DOCUSATE SODIUM 100 MG CAPSULE PO SCH ×2 (08:32→22:15)
[2019-04-27] MEDS: ENOXAPARIN 40 MG/0.4 ML SYRINGE SUBCUT SCH (08:33)
[2019-04-27] MEDS: POLYETHYLENE GLYCOL POWDER 17 GM PACK PO SCH (09:00)
[2019-04-28] MEDS: MEROPENEM 500 MG in SODIUM CHLORIDE 0.9% 100 ML IV SCH (07:25)
[2019-04-28] MEDS: POLYETHYLENE GLYCOL POWDER 17 GM PACK PO SCH (08:24)
[2019-04-28] MEDS: PANTOPRAZOLE 40 MG TABLET PO SCH (08:24)
[2019-04-28] MEDS: ENOXAPARIN 40 MG/0.4 ML SYRINGE SUBCUT SCH (08:24)
[2019-04-28] MEDS: DOCUSATE SODIUM 100 MG CAPSULE PO SCH ×2 (08:24→20:45)
[2019-04-28] MEDS: CIPROFLOXACIN 500 MG TABLET PO SCH ×2 (08:24→20:45)
[2019-04-28] MEDS ORDERED: ALBUTEROL 2.5 MG/3 ML NEB RESP TX PRN (09:30)
[2019-04-28] MEDS: FUROSEMIDE 40 MG TABLET PO SCH (10:48)
[2019-04-28] MEDS ORDERED: diphenhydrAMINE 2% CREAM 28 GM TUBE TOP PRN (13:24)
[2019-04-28] MEDS ORDERED: ATORVASTATIN 20 MG TABLET PO SCH (21:00)
[2019-04-29 05:27] LABS: Basophils % 0.9 % (0.0-0.8); Eosinophils # 0.1 10*3/uL (0.0-0.87); Eosinophils % 4.1 % (0.00-10.9); Immature Granulocytes % 0.3 %; Immature Granulocytes Absolute 0.01 #; Lymphocytes % 30.3 % (21.3-54.2); Mean Corpuscular HGB Conc 27.5 GM/DL (32-36); Mean Corpuscular Volume 74.3 FL (87-102); Mean Platelet Volume 9.4 FL (9.6-12.0); Monocytes % 11.1 % (1.7-12.7); Neutrophils % 53.3 % (38.7-73.9); Platelet Count 243 T/CUMM (130-400); Red Blood Count 4.99 MC/CUMM (3.8-5.5); Red Cell Distribution Width 21.1 % (9.3-17.3); White Blood Count 3.4 T/CUMM (4-12)
[2019-04-29 05:48] LABS: % Iron Saturation 4.4 % (18-50); Calcium 8.5 MG/DL (8.5-10.1); Ferritin 25.3 ng/ml (8-252); Osmolality,Calculated 272.1 MOS/KG (273-304)
[2019-04-29 05:59] LABS: Hematocrit 36.5 VOL% (35.7-47.0); Hemoglobin 10.2 GM/DL (12.0-16.0)
[2019-04-29 06:12] LABS: Hypochromasia 1+
[2019-04-29 06:13] LABS: Anisocytosis 1+; Microcytosis 1+; Ovalocytes Few; Platelet Estimate Normal; Target Cells Slight
[2019-04-29 07:20] VITALS: BP 109/68
[2019-04-29] MEDS: FUROSEMIDE 40 MG TABLET PO SCH (08:56)
[2019-04-29] MEDS: PANTOPRAZOLE 40 MG TABLET PO SCH (08:56)
[2019-04-29] MEDS: DOCUSATE SODIUM 100 MG CAPSULE PO SCH (08:56)
[2019-04-29] MEDS: CIPROFLOXACIN 500 MG TABLET PO SCH (08:56)
[2019-04-29] MEDS: ENOXAPARIN 40 MG/0.4 ML SYRINGE SUBCUT SCH (08:57)
[2019-04-29] MEDS: POLYETHYLENE GLYCOL POWDER 17 GM PACK PO SCH (08:57)
[2019-04-29] MEDS ORDERED: ASPIRIN EC 81 MG TABLET PO SCH (09:00)
[2019-04-29] MEDS ORDERED: MAGNESIUM HYDROXIDE SUSP 30 ML UDCUP PO ONE (09:35)
[2019-04-29] MEDS ORDERED: BISACODYL 10 MG SUPP RECTAL ONE (09:36)
== END 2019-04-29 11:04 | disposition swing bed (61) | DRG 477 ==
LOC: EDBD → EDUNIT# → N.ED 03:40 → SUATTDRO 07:49 → N.EDINP 07:49 → N.3E 08:28
PROVIDERS: ADMIT Internal Medicine; ATTEND Internal Medicine

== ENCOUNTER 2019-05-23 18:26 | Observation (INO) ==
[2019-05-23] MEDS ORDERED: ASPIRIN 325 MG TABLET PO STA (18:43)
[2019-05-23 19:20] LABS: Basophils % 0.4 % (0.0-0.8); Eosinophils # 0.3 10*3/uL (0.0-0.87); Hematocrit 40.3 VOL% (35.7-47.0); Immature Granulocytes % 0.3 %; Immature Granulocytes Absolute 0.03 #; Lymphocytes # 1.4 10*3/uL (1.4-4.0); Lymphocytes % 15.1 % (21.3-54.2); Mean Corpuscular HGB Conc 27.3 GM/DL (32-36); Mean Corpuscular Volume 72.2 FL (87-102); Monocytes % 7.3 % (1.7-12.7); Neutrophils % 73.9 % (38.7-73.9); Platelet Count 306 T/CUMM (130-400); Red Blood Count 5.58 MC/CUMM (3.8-5.5); Red Cell Distribution Width 22.8 % (9.3-17.3); White Blood Count 8.9 T/CUMM (4-12)
[2019-05-23] MEDS ORDERED: FUROSEMIDE 40 MG/4 ML VIAL IV STA (19:58)
[2019-05-23 20:05] LABS: Alanine Aminotransferase < 6 U/L (13-56); Albumin 2.4 G/DL (3.4-5.0); Alkaline Phosphatase 110 U/L (45-117); Aspartate Amino Transferase 16 U/L (0-37); Blood Urea Nitrogen 12 MG/DL (7-18); Calcium 8.3 MG/DL (8.5-10.1); Estimated Glom Filtration Rate 111 ML/MIN; Glucose 86 MG/DL (74-106); Total Protein 7.1 G/DL (6.4-8.3)
[2019-05-23 20:13] LABS: Hypochromasia 2+
[2019-05-23 20:47] LABS: INR 1.1; PT Patient Result 11.9 SECS (9.6-12.2)
[2019-05-23] MEDS ORDERED: KETOROLAC 30 MG/1 ML VIAL IV STA (22:44)
[2019-05-24] MEDS ORDERED: ACETAMINOPHEN 325 MG TABLET PO PRN (00:49)
[2019-05-24] MEDS ORDERED: ONDANSETRON 4 MG/2 ML VIAL IV PRN (00:49)
[2019-05-24] MEDS ORDERED: ALBUTEROL 2.5 MG/3 ML NEB RESP TX PRN (00:56)
[2019-05-24] MEDS ORDERED: MAGNESIUM HYDROXIDE SUSP 30 ML UDCUP PO PRN (00:56)
[2019-05-24] MEDS ORDERED: diphenhydrAMINE CAP 25 MG CAPSULE PO PRN (00:56)
[2019-05-24] MEDS ORDERED: ALUMINUM/MAGNES/SIMETH MAX STR 30 ML UDCUP PO PRN (00:56)
[2019-05-24] MEDS ORDERED: guaiFENesin 200 MG/10 ML UDCUP PO PRN (00:56)
[2019-05-24] MEDS ORDERED: ZINC OXIDE PASTE 113 GM TUBE TOP PRN (00:56)
[2019-05-24] MEDS ORDERED: MAGNESIUM SULF RIDER 2 GM in PREMIX 1 EACH IV PRN (00:58)
[2019-05-24] MEDS ORDERED: MAGNESIUM SULF RIDER 4 GM in PREMIX 1 EACH IV PRN (00:58)
[2019-05-24 05:41] LABS: Alanine Aminotransferase < 6 U/L (13-56); Albumin 2.3 G/DL (3.4-5.0); Alkaline Phosphatase 105 U/L (45-117); Aspartate Amino Transferase 15 U/L (0-37); Blood Urea Nitrogen 12 MG/DL (7-18); Calcium 8.4 MG/DL (8.5-10.1); Estimated Glom Filtration Rate 88 ML/MIN; Glucose 98 MG/DL (74-106); Total Protein 6.8 G/DL (6.4-8.3)
[2019-05-24 05:45] LABS: Basophils # 0.1 10*3/uL (0.0-0.2); Basophils % 0.8 % (0.0-0.8); Eosinophils # 0.3 10*3/uL (0.0-0.87); Eosinophils % 3.9 % (0.00-10.9); Hematocrit 37.4 VOL% (35.7-47.0); Hemoglobin 10.3 GM/DL (12.0-16.0); Immature Granulocytes % 0.3 %; Immature Granulocytes Absolute 0.02 #; Lymphocytes # 1.5 10*3/uL (1.4-4.0); Lymphocytes % 23.6 % (21.3-54.2); Mean Corpuscular HGB Conc 27.5 GM/DL (32-36); Mean Corpuscular Volume 71.6 FL (87-102); Mean Platelet Volume 9.6 FL (9.6-12.0); Monocytes % 9.2 % (1.7-12.7); Neutrophils % 62.2 % (38.7-73.9); Platelet Count 310 T/CUMM (130-400); Red Blood Count 5.22 MC/CUMM (3.8-5.5); Red Cell Distribution Width 22.5 % (9.3-17.3); White Blood Count 6.5 T/CUMM (4-12)
[2019-05-24 06:03] LABS: Hypochromasia Slight; Ovalocytes Slight; Platelet Estimate Adequate
[2019-05-24] MEDS: ENOXAPARIN 40 MG/0.4 ML SYRINGE SUBCUT SCH (08:59)
[2019-05-24] MEDS: DOCUSATE SODIUM 100 MG CAPSULE PO SCH ×2 (08:59→21:01)
[2019-05-24] MEDS: PANTOPRAZOLE 40 MG TABLET PO SCH (08:59)
[2019-05-24] MEDS: MAGNESIUM OXIDE 400 MG TABLET PO SCH ×2 (09:00→21:01)
[2019-05-24] MEDS: FUROSEMIDE 40 MG/4 ML VIAL IV SCH ×2 (09:00→16:36)
[2019-05-24] MEDS: POLYETHYLENE GLYCOL POWDER 17 GM PACK PO SCH (09:01)
[2019-05-24] MEDS: LIDOCAINE 5% PATCH TRANSDERM SCH (09:01)
[2019-05-24] MEDS: ASPIRIN EC 81 MG TABLET PO SCH (09:31)
[2019-05-24] MEDS: POTASSIUM CHLORIDE 20 MEQ TABLET PO PRN ×4 (09:32→19:12)
[2019-05-24] MEDS ORDERED: ATORVASTATIN 20 MG TABLET PO SCH (21:00)
[2019-05-25 06:57] LABS: Calcium 8.7 MG/DL (8.5-10.1); Osmolality,Calculated 264.5 MOS/KG (273-304)
[2019-05-25 07:00] LABS: Basophils # 0.1 10*3/uL (0.0-0.2); Basophils % 0.8 % (0.0-0.8); Eosinophils # 0.3 10*3/uL (0.0-0.87); Eosinophils % 4.1 % (0.00-10.9); Hematocrit 37.7 VOL% (35.7-47.0); Hemoglobin 10.5 GM/DL (12.0-16.0); Immature Granulocytes % 0.5 %; Immature Granulocytes Absolute 0.03 #; Lymphocytes # 1.8 10*3/uL (1.4-4.0); Lymphocytes % 27.8 % (21.3-54.2); Mean Corpuscular HGB Conc 27.9 GM/DL (32-36); Mean Corpuscular Volume 71.9 FL (87-102); Monocytes % 7.8 % (1.7-12.7); Platelet Count 311 T/CUMM (130-400); Red Blood Count 5.24 MC/CUMM (3.8-5.5); Red Cell Distribution Width 22.5 % (9.3-17.3); White Blood Count 6.4 T/CUMM (4-12)
[2019-05-25 07:02] LABS: Hypochromasia 1+; Ovalocytes Slight; Platelet Estimate Adequate
[2019-05-25] MEDS: LIDOCAINE 5% PATCH TRANSDERM SCH (08:26)
[2019-05-25] MEDS: FUROSEMIDE 40 MG/4 ML VIAL IV SCH ×2 (08:26→15:49)
[2019-05-25] MEDS: DOCUSATE SODIUM 100 MG CAPSULE PO SCH (08:27)
[2019-05-25] MEDS: PANTOPRAZOLE 40 MG TABLET PO SCH (08:27)
[2019-05-25] MEDS: ENOXAPARIN 40 MG/0.4 ML SYRINGE SUBCUT SCH (08:27)
[2019-05-25] MEDS: ASPIRIN EC 81 MG TABLET PO SCH (08:27)
[2019-05-25] MEDS: MAGNESIUM OXIDE 400 MG TABLET PO SCH (08:29)
[2019-05-25] MEDS: POLYETHYLENE GLYCOL POWDER 17 GM PACK PO SCH (08:33)
[2019-05-25 15:38] VITALS: BP 153/86
== END 2019-05-25 19:21 | disposition home health service (06) ==
LOC: EDUNIT# → EDBD → N.ED 18:26 → N.EDINP 05-24 00:24 → INTOOBSV 05-24 00:24 → N.EDINP 05-24 01:20 → N.5E 05-24 01:44
PROVIDERS: ADMIT Internal Medicine; ATTEND Internal Medicine

== ENCOUNTER 2019-05-29 11:59 | Inpatient (IN) ==
[2019-05-29] MEDS ORDERED: KETOROLAC 30 MG/1 ML VIAL IV STA (13:11)
[2019-05-29 13:42] LABS: Calcium 8.5 MG/DL (8.5-10.1); Osmolality,Calculated 278.7 MOS/KG (273-304)
[2019-05-29 13:49] LABS: Basophils % 0.7 % (0.0-0.8); Eosinophils # 0.1 10*3/uL (0.0-0.87); Eosinophils % 1.7 % (0.00-10.9); Hematocrit 38.5 VOL% (35.7-47.0); Hemoglobin 10.8 GM/DL (12.0-16.0); Immature Granulocytes % 0.2 %; Immature Granulocytes Absolute 0.01 #; Lymphocytes # 1.3 10*3/uL (1.4-4.0); Lymphocytes % 21.6 % (21.3-54.2); Mean Corpuscular HGB Conc 28.1 GM/DL (32-36); Mean Corpuscular Volume 72.1 FL (87-102); Monocytes % 8.3 % (1.7-12.7); Neutrophils % 67.5 % (38.7-73.9); Platelet Count 336 T/CUMM (130-400); Red Blood Count 5.34 MC/CUMM (3.8-5.5); Red Cell Distribution Width 23.9 % (9.3-17.3); White Blood Count 5.9 T/CUMM (4-12)
[2019-05-29] MEDS ORDERED: FUROSEMIDE 40 MG/4 ML VIAL IV STA (13:53)
[2019-05-29 14:58] LABS: Anisocytosis 2+
[2019-05-29 14:59] LABS: Hypochromasia 2+; Poikilocytosis 2+
[2019-05-29 15:00] LABS: Macrocytosis 1+; Microcytosis 2+
[2019-05-29 15:01] LABS: Ovalocytes 1+; Polychromasia 1+; Schistocytes Few
[2019-05-29 15:02] LABS: Platelet Estimate Normal
[2019-05-29] MEDS ORDERED: ACETAMINOPHEN 325 MG TABLET ONE (16:03)
[2019-05-29] MEDS ORDERED: ACETAMINOPHEN 325 MG TABLET PO ONE (16:06)
[2019-05-29] MEDS ORDERED: NICOTINE 21 MG/24 HR PATCH TRANSDERM PRN (17:20)
[2019-05-29] MEDS ORDERED: MAGNESIUM SULF RIDER 4 GM in PREMIX 1 EACH IV PRN (17:20)
[2019-05-29] MEDS ORDERED: DOCUSATE SODIUM 100 MG CAPSULE PO PRN (17:20)
[2019-05-29] MEDS ORDERED: POTASSIUM CHLORIDE 20 MEQ/15 ML UDCUP PER TUBE PRN (17:20)
[2019-05-29] MEDS ORDERED: MAGNESIUM SULF RIDER 2 GM in PREMIX 1 EACH IV PRN (17:20)
[2019-05-29] MEDS ORDERED: POTASSIUM CHLORIDE 20 MEQ TABLET PO PRN (17:20)
[2019-05-29] MEDS ORDERED: BISACODYL 5 MG TABLET PO PRN (17:20)
[2019-05-29] MEDS ORDERED: POTASSIUM CHLORIDE RIDER 10 MEQ in PREMIX 1 EACH IV PRN (17:20)
[2019-05-29] MEDS ORDERED: hydrALAZINE 20 MG/1 ML VIAL IV PRN (17:51)
[2019-05-29] MEDS ORDERED: ALUM/MAG/SIMETH/LIDO VISC 1:1 30 ML BOTTLE PO ONE (19:00)
[2019-05-29] MEDS: FUROSEMIDE 40 MG/4 ML VIAL IV SCH (20:39)
[2019-05-29] MEDS: ENOXAPARIN 40 MG/0.4 ML SYRINGE SUBCUT SCH (20:40)
[2019-05-29] MEDS: diphenhydrAMINE CAP 25 MG CAPSULE PO PRN (20:40)
[2019-05-29 23:10] LABS: Apearance,Urine CLEAR (Clear); Bilirubin,Urine Negative (Negative); Blood, Urine Negative (Negative); Glucose,Urine (UA) Negative (Negative); Hyaline Casts,Urine 4 /LPF (0-3); Ketones,Urine Negative (Negative); Nitrite,Urine Negative (Negative); Protein,Urine 100 MG/DL; RBC,Urine 5 /HPF (0-4); Squamous Epithelial Cell,Urine Occasional /HPF (0-10); Urine Color Yellow (Yellow); Urine Specific Gravity 1.013 (1.001-1.035); Urine Urobilinogen < 2.0 EU/DL (0.2-1.0); WBC,Urine 16 /HPF (0-6)
[2019-05-30 01:27] LABS: Calcium 8.8 MG/DL (8.5-10.1); Osmolality,Calculated 270.2 MOS/KG (273-304); Risk Ratio 1.86; Thyroid Stimulating Hormone 2.17 uIU/ml (0.358-3.74)
[2019-05-30] MEDS: ACETAMINOPHEN 325 MG TABLET PO PRN ×5 (01:43→20:12)
[2019-05-30 01:48] LABS: Basophils % 0.8 % (0.0-0.8); Eosinophils # 0.2 10*3/uL (0.0-0.87); Eosinophils % 2.9 % (0.00-10.9); Hematocrit 40.9 VOL% (35.7-47.0); Hemoglobin 11.1 GM/DL (12.0-16.0); Immature Granulocytes % 0.2 %; Immature Granulocytes Absolute 0.01 #; Lymphocytes # 1.6 10*3/uL (1.4-4.0); Lymphocytes % 31.3 % (21.3-54.2); Mean Corpuscular HGB Conc 27.1 GM/DL (32-36); Mean Corpuscular Volume 73.7 FL (87-102); Mean Platelet Volume 9.8 FL (9.6-12.0); Monocytes % 10.3 % (1.7-12.7); Neutrophils % 54.5 % (38.7-73.9); Platelet Count 309 T/CUMM (130-400); Red Blood Count 5.55 MC/CUMM (3.8-5.5); Red Cell Distribution Width 24.2 % (9.3-17.3); White Blood Count 5.2 T/CUMM (4-12)
[2019-05-30] MEDS: PANTOPRAZOLE 40 MG TABLET PO SCH (08:08)
[2019-05-30] MEDS: FUROSEMIDE 40 MG/4 ML VIAL IV SCH ×2 (08:09→15:27)
[2019-05-30] MEDS ORDERED: ASPIRIN CHEW 81 MG TABLET PO SCH (09:00)
[2019-05-30] MEDS: ONDANSETRON 4 MG/2 ML VIAL IV PRN (15:28)
[2019-05-30] MEDS: ZINC OXIDE PASTE 113 GM TUBE TOP SCH ×2 (15:28→20:12)
[2019-05-30] MEDS: ENOXAPARIN 40 MG/0.4 ML SYRINGE SUBCUT SCH (20:12)
[2019-05-31 05:36] LABS: Basophils % 0.8 % (0.0-0.8); Eosinophils # 0.2 10*3/uL (0.0-0.87); Eosinophils % 3.8 % (0.00-10.9); Immature Granulocytes % 0.2 %; Immature Granulocytes Absolute 0.01 #; Lymphocytes # 1.4 10*3/uL (1.4-4.0); Lymphocytes % 28.2 % (21.3-54.2); Mean Corpuscular HGB Conc 27.5 GM/DL (32-36); Mean Corpuscular Volume 72.7 FL (87-102); Monocytes % 11.9 % (1.7-12.7); Neutrophils % 55.1 % (38.7-73.9); Platelet Count 296 T/CUMM (130-400); Red Blood Count 5.05 MC/CUMM (3.8-5.5); Red Cell Distribution Width 23.4 % (9.3-17.3); White Blood Count 4.8 T/CUMM (4-12)
[2019-05-31 05:58] LABS: Hematocrit 35.8 VOL% (35.7-47.0); Hemoglobin 10.1 GM/DL (12.0-16.0)
[2019-05-31 06:04] LABS: Calcium 8.6 MG/DL (8.5-10.1); Osmolality,Calculated 267.4 MOS/KG (273-304)
[2019-05-31 06:13] LABS: Hypochromasia 2+
[2019-05-31 06:14] LABS: Microcytosis 2+; Ovalocytes Few; Platelet Estimate Normal
[2019-05-31 06:15] LABS: Target Cells Slight
[2019-05-31] MEDS ORDERED: ALBUTEROL 2.5 MG/3 ML NEB RESP TX PRN (07:31)
[2019-05-31] MEDS ORDERED: guaiFENesin 200 MG/10 ML UDCUP PO PRN (07:31)
[2019-05-31] MEDS ORDERED: MAGNESIUM HYDROXIDE SUSP 30 ML UDCUP PO PRN (07:31)
[2019-05-31] MEDS ORDERED: ZINC OXIDE PASTE 113 GM TUBE TOP PRN (07:31)
[2019-05-31] MEDS: ASPIRIN EC 81 MG TABLET PO SCH (09:35)
[2019-05-31] MEDS: FUROSEMIDE 40 MG/4 ML VIAL IV SCH ×2 (09:35→15:34)
[2019-05-31] MEDS: POLYETHYLENE GLYCOL POWDER 17 GM PACK PO SCH (09:35)
[2019-05-31] MEDS: MAGNESIUM OXIDE 400 MG TABLET PO SCH ×3 (09:35→23:53)
[2019-05-31] MEDS: ZINC OXIDE PASTE 113 GM TUBE TOP SCH ×3 (09:36→23:52)
[2019-05-31] MEDS: PANTOPRAZOLE 40 MG TABLET PO SCH (09:36)
[2019-05-31] MEDS: DOCUSATE SODIUM 100 MG CAPSULE PO SCH ×3 (09:36→23:51)
[2019-05-31] MEDS ORDERED: ALUMINUM/MAGNES/SIMETH MAX STR 30 ML UDCUP PO PRN (09:38)
[2019-05-31] MEDS: LIDOCAINE 5% PATCH TRANSDERM SCH (11:10)
[2019-05-31] MEDS: carvediloL 6.25 MG TABLET PO SCH ×3 (11:10→23:52)
[2019-05-31] MEDS: ENOXAPARIN 40 MG/0.4 ML SYRINGE SUBCUT SCH ×2 (19:37→23:53)
[2019-05-31] MEDS: ACETAMINOPHEN 325 MG TABLET PO PRN (19:38)
[2019-05-31] MEDS: ATORVASTATIN 20 MG TABLET PO SCH (22:05)
[2019-06-01] MEDS: ACETAMINOPHEN 325 MG TABLET PO PRN (00:11)
[2019-06-01] MEDS: diphenhydrAMINE CAP 25 MG CAPSULE PO PRN (02:24)
[2019-06-01 05:27] LABS: Calcium 8.6 MG/DL (8.5-10.1); Osmolality,Calculated 253.5 MOS/KG (273-304)
[2019-06-01 05:37] LABS: Basophils % 0.6 % (0.0-0.8); Eosinophils # 0.2 10*3/uL (0.0-0.87); Eosinophils % 4.6 % (0.00-10.9); Hematocrit 35.6 VOL% (35.7-47.0); Hemoglobin 10.1 GM/DL (12.0-16.0); Immature Granulocytes % 0.2 %; Immature Granulocytes Absolute 0.01 #; Lymphocytes # 1.2 10*3/uL (1.4-4.0); Lymphocytes % 22.6 % (21.3-54.2); Mean Corpuscular HGB Conc 28.4 GM/DL (32-36); Mean Corpuscular Volume 72.2 FL (87-102); Monocytes % 10.4 % (1.7-12.7); Neutrophils % 61.6 % (38.7-73.9); Platelet Count 310 T/CUMM (130-400); Red Blood Count 4.93 MC/CUMM (3.8-5.5); Red Cell Distribution Width 23.7 % (9.3-17.3); White Blood Count 5.3 T/CUMM (4-12)
[2019-06-01 05:54] LABS: Hypochromasia 1+; Microcytosis 2+
[2019-06-01 05:55] LABS: Ovalocytes Few; Platelet Estimate Normal; Spherocytes Slight
[2019-06-01 05:56] LABS: Anisocytosis 1+
[2019-06-01] MEDS ORDERED: FUROSEMIDE 40 MG TABLET PO SCH (08:00)
[2019-06-01] MEDS ORDERED: LIDOCAINE 5% PATCH TRANSDERM SCH (09:00)
[2019-06-01] MEDS: carvediloL 6.25 MG TABLET PO SCH ×2 (09:35→21:17)
[2019-06-01] MEDS: PANTOPRAZOLE 40 MG TABLET PO SCH (09:35)
[2019-06-01] MEDS: DOCUSATE SODIUM 100 MG CAPSULE PO SCH ×2 (09:35→21:17)
[2019-06-01] MEDS: LIDOCAINE 5% PATCH TRANSDERM SCH (09:35)
[2019-06-01] MEDS: MAGNESIUM OXIDE 400 MG TABLET PO SCH ×2 (09:35→21:17)
[2019-06-01] MEDS: ASPIRIN EC 81 MG TABLET PO SCH (09:35)
[2019-06-01] MEDS: ZINC OXIDE PASTE 113 GM TUBE TOP SCH ×2 (09:36→21:17)
[2019-06-01] MEDS: POTASSIUM CHLORIDE 20 MEQ TABLET PO SCH (09:36)
[2019-06-01] MEDS: POLYETHYLENE GLYCOL POWDER 17 GM PACK PO SCH (09:36)
[2019-06-01] MEDS: ONDANSETRON 4 MG/2 ML VIAL IV PRN (19:27)
[2019-06-01] MEDS: ATORVASTATIN 20 MG TABLET PO SCH (21:17)
[2019-06-01] MEDS: ENOXAPARIN 40 MG/0.4 ML SYRINGE SUBCUT SCH (21:18)
[2019-06-02 06:46] LABS: Calcium 8.9 MG/DL (8.5-10.1); Osmolality,Calculated 262.8 MOS/KG (273-304)
[2019-06-02 06:50] LABS: Basophils % 0.6 % (0.0-0.8); Eosinophils # 0.2 10*3/uL (0.0-0.87); Eosinophils % 4.7 % (0.00-10.9); Hematocrit 36.4 VOL% (35.7-47.0); Immature Granulocytes % 0.4 %; Immature Granulocytes Absolute 0.02 #; Lymphocytes # 1.1 10*3/uL (1.4-4.0); Lymphocytes % 23.5 % (21.3-54.2); Mean Corpuscular HGB Conc 27.7 GM/DL (32-36); Mean Corpuscular Volume 72.7 FL (87-102); Monocytes % 11.2 % (1.7-12.7); Neutrophils % 59.6 % (38.7-73.9); Platelet Count 294 T/CUMM (130-400); Red Blood Count 5.01 MC/CUMM (3.8-5.5); White Blood Count 4.7 T/CUMM (4-12)
[2019-06-02 06:53] LABS: Hemoglobin 10.1 GM/DL (12.0-16.0)
[2019-06-02 07:08] LABS: Hypochromasia 1+; Ovalocytes Slight; Platelet Estimate Adequate
[2019-06-02 07:09] LABS: Microcytosis 1+
[2019-06-02] MEDS: POTASSIUM CHLORIDE 20 MEQ TABLET PO SCH (08:30)
[2019-06-02] MEDS: PANTOPRAZOLE 40 MG TABLET PO SCH (08:30)
[2019-06-02] MEDS: carvediloL 6.25 MG TABLET PO SCH (08:30)
[2019-06-02] MEDS: MAGNESIUM OXIDE 400 MG TABLET PO SCH (08:30)
[2019-06-02] MEDS: ASPIRIN EC 81 MG TABLET PO SCH (08:30)
[2019-06-02] MEDS: POLYETHYLENE GLYCOL POWDER 17 GM PACK PO SCH (08:30)
[2019-06-02] MEDS: LIDOCAINE 5% PATCH TRANSDERM SCH (08:30)
[2019-06-02] MEDS: DOCUSATE SODIUM 100 MG CAPSULE PO SCH (08:30)
[2019-06-02 12:13] VITALS: BP 113/73
== END 2019-06-02 15:25 | DRG 292 ==
LOC: EDBD → EDUNIT# → N.ED 11:59 → SUPCPDRO 17:20 → N.EDINP 17:20 → SUATTDRO 17:20 → N.EDINP 18:06 → N.TELES 18:12
PROVIDERS: ADMIT Internal Medicine; ATTEND Internal Medicine Geriatric Medicine

== ENCOUNTER 2019-06-10 12:22 | Inpatient (IN) ==
[2019-06-10] MEDS ORDERED: HYDROmorphone 2 MG/1 ML VIAL IV STA ×2 (12:57→13:57)
[2019-06-10] MEDS ORDERED: ONDANSETRON 4 MG/2 ML VIAL IV STA (12:57)
[2019-06-10 14:03] LABS: Calcium 8.8 MG/DL (8.5-10.1); Osmolality,Calculated 271.1 MOS/KG (273-304)
[2019-06-10 14:45] LABS: Sedimentation Rate-Westergren 28 MM/HR (0-30)
[2019-06-10 15:11] LABS: Basophils # 0.1 10*3/uL (0.0-0.2); Eosinophils # 0.1 10*3/uL (0.0-0.87); Hematocrit 43.1 VOL% (35.7-47.0); Hemoglobin 11.8 GM/DL (12.0-16.0); Immature Granulocytes % 0.3 %; Immature Granulocytes Absolute 0.02 #; Lymphocytes # 1.3 10*3/uL (1.4-4.0); Lymphocytes % 21.5 % (21.3-54.2); Mean Corpuscular HGB Conc 27.4 GM/DL (32-36); Mean Corpuscular Volume 73.5 FL (87-102); Monocytes % 6.9 % (1.7-12.7); NRBC # 0.02 10*3/uL; Neutrophils % 68.3 % (38.7-73.9); Platelet Count 408 T/CUMM (130-400); Red Blood Count 5.86 MC/CUMM (3.8-5.5); Red Cell Distribution Width 24.6 % (9.3-17.3); White Blood Count 5.9 T/CUMM (4-12)
[2019-06-10 15:15] LABS: Hypochromasia 1+; Microcytosis 1+
[2019-06-10 15:16] LABS: Ovalocytes Slight; Platelet Estimate Normal
[2019-06-10] MEDS ORDERED: ACETAMINOPHEN 325 MG TABLET PO PRN (15:33)
[2019-06-10] MEDS ORDERED: ONDANSETRON 4 MG/2 ML VIAL IV PRN ×2 (15:33→19:40)
[2019-06-10] MEDS ORDERED: NICOTINE 21 MG/24 HR PATCH TRANSDERM PRN (15:33)
[2019-06-10] MEDS ORDERED: ALBUTEROL 2.5 MG/3 ML NEB RESP TX PRN (15:35)
[2019-06-10 16:43] LABS: Hematocrit 40.5 VOL% (35.7-47.0); Hemoglobin 11.1 GM/DL (12.0-16.0)
[2019-06-10] MEDS ORDERED: LIDOCAINE 1% 20 ML VIAL ONE (17:59)
[2019-06-10] MEDS ORDERED: ONDANSETRON 4 MG/2 ML VIAL ONE ×2 (19:35→19:52)
[2019-06-10] MEDS ORDERED: SEVOFLURANE 1 UNIT/15 MINUTE INH ONE (19:51)
[2019-06-10] MEDS ORDERED: LIDOCAINE 2% 5 ML VIAL ONE (19:51)
[2019-06-10] MEDS ORDERED: propofoL 200 MG/20 ML VIAL IV ONE (19:51)
[2019-06-10] MEDS ORDERED: PHENYLEPHRINE 1 MG/10 ML SYRINGE IV ONE (19:52)
[2019-06-10] MEDS ORDERED: SODIUM CHLORIDE 0.9% 1,000 ML IV ONE (19:52)
[2019-06-10] MEDS ORDERED: ePHEDrine 50 MG/ML AMP ONE (19:52)
[2019-06-10] MEDS ORDERED: fentaNYL 100 MCG/2 ML VIAL ONE (19:52)
[2019-06-10] MEDS ORDERED: ROCURONIUM 100 MG/10 ML VIAL IV ONE (19:52)
[2019-06-10] MEDS ORDERED: SUCCINYLCHOLINE 200 MG/10 ML VIAL ONE (19:52)
[2019-06-10] MEDS: MAGNESIUM OXIDE 400 MG TABLET PO SCH (20:39)
[2019-06-10] MEDS: FUROSEMIDE 40 MG TABLET PO SCH (20:40)
[2019-06-10] MEDS: ATORVASTATIN 20 MG TABLET PO SCH (20:40)
[2019-06-10] MEDS: carvediloL 6.25 MG TABLET PO SCH (20:45)
[2019-06-10 21:19] LABS: PT Patient Result 10.9 SECS (9.6-12.2); Partial Thromboplastin Time 22.1 SECS (20.8-36.0)
[2019-06-10 21:40] LABS: Hematocrit 38.3 VOL% (35.7-47.0); Hemoglobin 10.3 GM/DL (12.0-16.0)
[2019-06-11] MEDS: MORPHINE 4 MG/1 ML VIAL IV PRN ×3 (05:35→14:55)
[2019-06-11 06:47] LABS: % Iron Saturation 6.8 % (18-50); Calcium 8.8 MG/DL (8.5-10.1); Ferritin 39.4 ng/ml (8-252); Osmolality,Calculated 265.5 MOS/KG (273-304)
[2019-06-11 06:49] LABS: Basophils % 0.5 % (0.0-0.8); Eosinophils # 0.1 10*3/uL (0.0-0.87); Eosinophils % 0.8 % (0.00-10.9); Hematocrit 32.6 VOL% (35.7-47.0); Hemoglobin 8.8 GM/DL (12.0-16.0); Immature Granulocytes % 0.3 %; Immature Granulocytes Absolute 0.02 #; Lymphocytes # 1.6 10*3/uL (1.4-4.0); Mean Corpuscular Volume 75.6 FL (87-102); Mean Platelet Volume 10.1 FL (9.6-12.0); Monocytes % 11.9 % (1.7-12.7); Neutrophils % 60.5 % (38.7-73.9); Platelet Count 325 T/CUMM (130-400); Red Blood Count 4.31 MC/CUMM (3.8-5.5); Red Cell Distribution Width 23.8 % (9.3-17.3); White Blood Count 6.2 T/CUMM (4-12)
[2019-06-11 06:53] LABS: Anisocytosis 1+; Hypochromasia 1+; Microcytosis 1+
[2019-06-11 06:54] LABS: Platelet Estimate Adequate
[2019-06-11] MEDS ORDERED: POTASSIUM CHLORIDE 20 MEQ TABLET PO SCH (09:00)
[2019-06-11] MEDS: BISACODYL 5 MG TABLET PO SCH (09:34)
[2019-06-11] MEDS: FUROSEMIDE 40 MG TABLET PO SCH ×2 (09:34→22:35)
[2019-06-11] MEDS: MAGNESIUM OXIDE 400 MG TABLET PO SCH ×2 (09:34→22:34)
[2019-06-11] MEDS: carvediloL 6.25 MG TABLET PO SCH ×2 (09:34→17:29)
[2019-06-11 09:57] LABS: Hematocrit 30.7 VOL% (35.7-47.0); Hemoglobin 8.3 GM/DL (12.0-16.0)
[2019-06-11] MEDS ORDERED: LEVOFLOXACIN INJ 750 MG in PREMIX 1 EACH IV SCH (12:30)
[2019-06-11] MEDS ORDERED: guaiFENesin/DM ER 600-30 MG TABLET PO PRN (12:39)
[2019-06-11 13:43] LABS: Hematocrit 31.1 VOL% (35.7-47.0); Hemoglobin 8.5 GM/DL (12.0-16.0)
[2019-06-11] MEDS: diphenhydrAMINE CAP 25 MG CAPSULE PO PRN (17:29)
[2019-06-11 19:42] LABS: Hematocrit 29.2 VOL% (35.7-47.0); Hemoglobin 8.1 GM/DL (12.0-16.0)
[2019-06-11] MEDS: ATORVASTATIN 20 MG TABLET PO SCH (22:35)
[2019-06-12 06:30] LABS: Basophils % 0.3 % (0.0-0.8); Eosinophils % 0.2 % (0.00-10.9); Hematocrit 30.4 VOL% (35.7-47.0); Hemoglobin 8.4 GM/DL (12.0-16.0); Immature Granulocytes % 0.5 %; Immature Granulocytes Absolute 0.03 #; Lymphocytes # 1.4 10*3/uL (1.4-4.0); Lymphocytes % 21.3 % (21.3-54.2); Mean Corpuscular HGB Conc 27.6 GM/DL (32-36); Mean Corpuscular Volume 74.9 FL (87-102); Mean Platelet Volume 10.3 FL (9.6-12.0); Monocytes % 11.6 % (1.7-12.7); Neutrophils % 66.1 % (38.7-73.9); Platelet Count 321 T/CUMM (130-400); Red Blood Count 4.06 MC/CUMM (3.8-5.5); Red Cell Distribution Width 23.4 % (9.3-17.3); White Blood Count 6.6 T/CUMM (4-12)
[2019-06-12 06:54] LABS: Calcium 8.6 MG/DL (8.5-10.1); Osmolality,Calculated 264.1 MOS/KG (273-304)
[2019-06-12 08:10] LABS: Platelet Estimate Normal
[2019-06-12 08:11] LABS: Hypochromasia 1+; Poikilocytosis Slight
[2019-06-12 08:12] LABS: Macrocytosis 1+; Polychromasia Slight
[2019-06-12 08:13] LABS: Anisocytosis 2+
[2019-06-12] MEDS: SODIUM CHLORIDE 0.9% 1,000 ML IV SCH ×3 (08:24→23:50)
[2019-06-12] MEDS ORDERED: ALUM/MAG/SIMETH/LIDO VISC 1:1 30 ML BOTTLE PO ONE (09:10)
[2019-06-12 09:39] LABS: Albumin 2.5 G/DL (3.4-5.0); Bilirubin,Total 0.4 MG/DL (0.2-1.0); Calcium 8.5 MG/DL (8.5-10.1); Osmolality,Calculated 264.9 MOS/KG (273-304); Total Protein 7.3 G/DL (6.4-8.3)
[2019-06-12] MEDS: carvediloL 6.25 MG TABLET PO SCH ×2 (10:36→16:52)
[2019-06-12] MEDS: BISACODYL 5 MG TABLET PO SCH (10:36)
[2019-06-12] MEDS: MAGNESIUM OXIDE 400 MG TABLET PO SCH ×2 (10:36→21:03)
[2019-06-12] MEDS: MORPHINE 4 MG/1 ML VIAL IV PRN ×2 (14:17→20:20)
[2019-06-12] MEDS: ATORVASTATIN 20 MG TABLET PO SCH (21:03)
[2019-06-12 21:06] LABS: Calcium 7.6 MG/DL (8.5-10.1); Osmolality,Calculated 263.2 MOS/KG (273-304)
[2019-06-12 21:10] LABS: Troponin I 0.024 NG/ML (0.00-0.045)
[2019-06-13] MEDS: MORPHINE 4 MG/1 ML VIAL IV PRN ×3 (00:43→20:03)
[2019-06-13 03:00] LABS: Troponin I < 0.015 NG/ML (0.00-0.045)
[2019-06-13] MEDS: SODIUM CHLORIDE 0.9% 1,000 ML IV SCH ×4 (07:17→19:30)
[2019-06-13] MEDS: MAGNESIUM OXIDE 400 MG TABLET PO SCH ×2 (08:37→20:46)
[2019-06-13] MEDS: carvediloL 6.25 MG TABLET PO SCH ×2 (08:37→17:03)
[2019-06-13] MEDS: BISACODYL 5 MG TABLET PO SCH (08:38)
[2019-06-13 09:21] LABS: Troponin I < 0.015 NG/ML (0.00-0.045)
[2019-06-13 09:30] LABS: Calcium 8.1 MG/DL (8.5-10.1); Osmolality,Calculated 259.5 MOS/KG (273-304)
[2019-06-13] MEDS ORDERED: SODIUM POLYSTYRENE SULFATE 15 GM/60 ML BOTTLE PO ONE (09:47)
[2019-06-13 09:50] LABS: Basophils % 0.3 % (0.0-0.8); Eosinophils % 0.4 % (0.00-10.9); Hematocrit 29.2 VOL% (35.7-47.0); Hemoglobin 8.1 GM/DL (12.0-16.0); Immature Granulocytes % 0.4 %; Immature Granulocytes Absolute 0.03 #; Lymphocytes # 1.5 10*3/uL (1.4-4.0); Lymphocytes % 21.1 % (21.3-54.2); Mean Corpuscular HGB Conc 27.7 GM/DL (32-36); Mean Corpuscular Volume 73.2 FL (87-102); Mean Platelet Volume 10.8 FL (9.6-12.0); Monocytes % 12.7 % (1.7-12.7); Neutrophils % 65.1 % (38.7-73.9); Platelet Count 331 T/CUMM (130-400); Red Blood Count 3.99 MC/CUMM (3.8-5.5); Red Cell Distribution Width 23.2 % (9.3-17.3); White Blood Count 7.1 T/CUMM (4-12)
[2019-06-13 10:10] LABS: Hypochromasia 1+; Ovalocytes Slight; Platelet Estimate Adequate
[2019-06-13] MEDS ORDERED: LEVOFLOXACIN INJ 750 MG in PREMIX 1 EACH IV SCH (14:00)
[2019-06-13 15:33] LABS: Calcium 8.1 MG/DL (8.5-10.1); Osmolality,Calculated 270.7 MOS/KG (273-304)
[2019-06-13] MEDS: ALUM/MAG/SIMETH/LIDO VISC 1:1 30 ML BOTTLE PO PRN (17:58)
[2019-06-13] MEDS: ATORVASTATIN 20 MG TABLET PO SCH (20:46)
[2019-06-14] MEDS: SODIUM CHLORIDE 0.9% 1,000 ML IV SCH ×2 (05:00→20:34)
[2019-06-14 05:45] LABS: Calcium 8.2 MG/DL (8.5-10.1); Osmolality,Calculated 264.8 MOS/KG (273-304)
[2019-06-14 05:55] LABS: Basophils % 0.4 % (0.0-0.8); Eosinophils # 0.1 10*3/uL (0.0-0.87); Hemoglobin 7.7 GM/DL (12.0-16.0); Immature Granulocytes % 0.4 %; Immature Granulocytes Absolute 0.02 #; Lymphocytes # 1.4 10*3/uL (1.4-4.0); Lymphocytes % 25.9 % (21.3-54.2); Mean Corpuscular HGB Conc 28.1 GM/DL (32-36); Mean Corpuscular Volume 73.4 FL (87-102); Mean Platelet Volume 9.6 FL (9.6-12.0); Monocytes % 14.2 % (1.7-12.7); Neutrophils % 57.1 % (38.7-73.9); Platelet Count 280 T/CUMM (130-400); Red Blood Count 3.68 MC/CUMM (3.8-5.5); White Blood Count 5.6 T/CUMM (4-12)
[2019-06-14 05:57] LABS: Hypochromasia 1+; Microcytosis 1+; Ovalocytes Few; Tear Drop Cells Slight
[2019-06-14 05:58] LABS: Anisocytosis 1+; Platelet Estimate Normal
[2019-06-14] MEDS ORDERED: SODIUM CHLORIDE 0.9% 1,000 ML IV PRN ×2 (08:40→14:53)
[2019-06-14] MEDS: BISACODYL 5 MG TABLET PO SCH (09:02)
[2019-06-14] MEDS: carvediloL 6.25 MG TABLET PO SCH ×2 (09:03→18:02)
[2019-06-14] MEDS: MAGNESIUM OXIDE 400 MG TABLET PO SCH ×2 (09:03→20:34)
[2019-06-14] MEDS: diphenhydrAMINE CAP 25 MG CAPSULE PO PRN (09:44)
[2019-06-14] MEDS: ALUM/MAG/SIMETH/LIDO VISC 1:1 30 ML BOTTLE PO PRN (16:11)
[2019-06-14] MEDS: ATORVASTATIN 20 MG TABLET PO SCH (20:34)
[2019-06-14 20:39] LABS: Hematocrit 31.8 VOL% (35.7-47.0); Hemoglobin 8.9 GM/DL (12.0-16.0)
[2019-06-14] MEDS: MORPHINE 4 MG/1 ML VIAL IV PRN (22:01)
[2019-06-15] MEDS: diphenhydrAMINE CAP 25 MG CAPSULE PO PRN (03:20)
[2019-06-15 04:56] LABS: Basophils % 0.6 % (0.0-0.8); Eosinophils # 0.2 10*3/uL (0.0-0.87); Eosinophils % 2.8 % (0.00-10.9); Hematocrit 32.1 VOL% (35.7-47.0); Immature Granulocytes % 0.2 %; Immature Granulocytes Absolute 0.01 #; Lymphocytes # 1.4 10*3/uL (1.4-4.0); Mean Corpuscular HGB Conc 28.3 GM/DL (32-36); Mean Platelet Volume 9.8 FL (9.6-12.0); Monocytes % 11.8 % (1.7-12.7); Neutrophils % 58.6 % (38.7-73.9); Platelet Count 300 T/CUMM (130-400); Red Blood Count 4.28 MC/CUMM (3.8-5.5); Red Cell Distribution Width 22.5 % (9.3-17.3); White Blood Count 5.4 T/CUMM (4-12)
[2019-06-15 05:22] LABS: Calcium 8.5 MG/DL (8.5-10.1); Osmolality,Calculated 269.2 MOS/KG (273-304)
[2019-06-15 05:32] LABS: Hemoglobin 9.3 GM/DL (12.0-16.0)
[2019-06-15 05:35] LABS: Hypochromasia 1+; Microcytosis 1+; Ovalocytes Slight; Platelet Estimate Adequate
[2019-06-15 07:37] VITALS: BP 149/74
[2019-06-15] MEDS: MAGNESIUM OXIDE 400 MG TABLET PO SCH (08:28)
[2019-06-15] MEDS: BISACODYL 5 MG TABLET PO SCH (08:28)
[2019-06-15] MEDS: carvediloL 6.25 MG TABLET PO SCH (08:29)
[2019-06-15] MEDS: SODIUM CHLORIDE 0.9% 1,000 ML IV SCH (08:35)
[2019-06-15] MEDS: MORPHINE 4 MG/1 ML VIAL IV PRN (08:35)
[2019-06-15] MEDS: ALUM/MAG/SIMETH/LIDO VISC 1:1 30 ML BOTTLE PO PRN (11:55)
== END 2019-06-15 12:34 | DRG 515 ==
LOC: EDBD → EDUNIT# → N.ED 12:22 → N.EDINP 15:33 → N.5E 17:59
PROVIDERS: ADMIT Internal Medicine; ATTEND Internal Medicine

== ENCOUNTER 2019-06-21 15:21 | Inpatient (IN) ==
[2019-06-21] MEDS ORDERED: MORPHINE 4 MG/1 ML VIAL IM STA (16:26)
[2019-06-21] MEDS ORDERED: ONDANSETRON 4 MG/2 ML VIAL IM STA (16:26)
[2019-06-21 16:40] LABS: Calcium 9.1 MG/DL (8.5-10.1); Osmolality,Calculated 266.5 MOS/KG (273-304)
[2019-06-21 16:46] LABS: INR 1.1; PT Patient Result 11.4 SECS (9.6-12.2); Partial Thromboplastin Time 22.1 SECS (20.8-36.0)
[2019-06-21] MEDS ORDERED: MORPHINE 4 MG/1 ML VIAL IV ONE (17:29)
[2019-06-21 17:37] LABS: Basophils % 0.5 % (0.0-0.8); Eosinophils # 0.1 10*3/uL (0.0-0.87); Eosinophils % 1.3 % (0.00-10.9); Hematocrit 37.5 VOL% (35.7-47.0); Hemoglobin 10.8 GM/DL (12.0-16.0); Immature Granulocytes % 0.2 %; Immature Granulocytes Absolute 0.02 #; Lymphocytes # 1.3 10*3/uL (1.4-4.0); Lymphocytes % 15.7 % (21.3-54.2); Mean Corpuscular HGB Conc 28.8 GM/DL (32-36); Mean Corpuscular Volume 72.7 FL (87-102); Mean Platelet Volume 9.1 FL (9.6-12.0); Monocytes % 9.7 % (1.7-12.7); Neutrophils % 72.6 % (38.7-73.9); Platelet Count 326 T/CUMM (130-400); Red Blood Count 5.16 MC/CUMM (3.8-5.5); Red Cell Distribution Width 23.9 % (9.3-17.3); White Blood Count 8.3 T/CUMM (4-12)
[2019-06-21 17:44] LABS: Anisocytosis 2+; Hypochromasia 1+; Macrocytosis 1+; Microcytosis 2+; Platelet Estimate Normal; Polychromasia 1+
[2019-06-21] MEDS ORDERED: ACETAMINOPHEN 325 MG TABLET PO PRN ×2 (18:57→19:05)
[2019-06-21] MEDS ORDERED: ALBUTEROL 2.5 MG/3 ML NEB RESP TX PRN (19:05)
[2019-06-21] MEDS ORDERED: MAGNESIUM HYDROXIDE SUSP 30 ML UDCUP PO PRN (19:05)
[2019-06-21] MEDS ORDERED: BISACODYL 5 MG TABLET PO PRN (19:05)
[2019-06-21] MEDS ORDERED: NICOTINE 21 MG/24 HR PATCH TRANSDERM PRN (19:05)
[2019-06-21] MEDS ORDERED: ZINC OXIDE PASTE 113 GM TUBE TOP PRN (19:05)
[2019-06-21] MEDS: carvediloL 6.25 MG TABLET PO SCH (22:04)
[2019-06-21] MEDS: ATORVASTATIN 20 MG TABLET PO SCH (22:04)
[2019-06-21] MEDS: ENOXAPARIN 40 MG/0.4 ML SYRINGE SUBCUT SCH (22:05)
[2019-06-21] MEDS: MAGNESIUM OXIDE 400 MG TABLET PO SCH (22:05)
[2019-06-21] MEDS: FUROSEMIDE 40 MG TABLET PO SCH (22:18)
[2019-06-21] MEDS: VANCOMYCIN INJ 1,250 MG in SODIUM CHLORIDE 0.9% 250 ML IV SCH (22:35)
[2019-06-22 07:23] LABS: Alanine Aminotransferase < 9 U/L (13-56); Albumin 2.1 G/DL (3.4-5.0); Alkaline Phosphatase 104 U/L (45-117); Aspartate Amino Transferase 9 U/L (0-37); Blood Urea Nitrogen 17 MG/DL (7-18); Calcium 8.5 MG/DL (8.5-10.1); Estimated Glom Filtration Rate 72 ML/MIN; Glucose 96 MG/DL (74-106); Osmolality,Calculated 263.7 MOS/KG (273-304); Total Protein 6.2 G/DL (6.4-8.3)
[2019-06-22 07:43] LABS: Basophils % 0.4 % (0.0-0.8); Eosinophils # 0.1 10*3/uL (0.0-0.87); Eosinophils % 1.7 % (0.00-10.9); Hematocrit 31.1 VOL% (35.7-47.0); Immature Granulocytes % 0.6 %; Immature Granulocytes Absolute 0.03 #; Lymphocytes % 18.5 % (21.3-54.2); Mean Corpuscular Volume 74.4 FL (87-102); Monocytes % 13.1 % (1.7-12.7); Neutrophils % 65.7 % (38.7-73.9); Platelet Count 287 T/CUMM (130-400); Red Blood Count 4.18 MC/CUMM (3.8-5.5); Red Cell Distribution Width 23.5 % (9.3-17.3)
[2019-06-22 07:44] LABS: Hemoglobin 8.7 GM/DL (12.0-16.0); White Blood Count 5.4 T/CUMM (4-12)
[2019-06-22 08:16] LABS: Hypochromasia 2+; Microcytosis 2+; Platelet Estimate Normal
[2019-06-22] MEDS: POLYETHYLENE GLYCOL POWDER 17 GM PACK PO SCH (11:02)
[2019-06-22] MEDS: ASPIRIN EC 81 MG TABLET PO SCH (11:03)
[2019-06-22] MEDS: MAGNESIUM OXIDE 400 MG TABLET PO SCH ×2 (11:03→20:34)
[2019-06-22] MEDS: MORPHINE 4 MG/1 ML VIAL IV PRN ×2 (11:04→18:47)
[2019-06-22] MEDS: carvediloL 6.25 MG TABLET PO SCH ×2 (11:04→17:13)
[2019-06-22] MEDS: POTASSIUM CHLORIDE 20 MEQ TABLET PO SCH (11:04)
[2019-06-22] MEDS: LIDOCAINE 5% PATCH TRANSDERM SCH (11:16)
[2019-06-22] MEDS ORDERED: DEXTROSE 10% 250 ML BAG IV PRN (12:51)
[2019-06-22] MEDS ORDERED: GLUCAGON 1 MG VIAL IM PRN (12:51)
[2019-06-22] MEDS: VANCOMYCIN INJ 1,250 MG in SODIUM CHLORIDE 0.9% 250 ML IV SCH (15:29)
[2019-06-22] MEDS: FUROSEMIDE 40 MG TABLET PO SCH ×2 (15:29→20:31)
[2019-06-22] MEDS ORDERED: TUBERCULIN SKIN TEST 0.1 ML SYRINGE INTRADERM ONE (16:14)
[2019-06-22] MEDS ORDERED: INSULIN REGULAR 100 UNIT/ML SUBCUT SCH (16:30)
[2019-06-22] MEDS: INSULIN REGULAR 100 UNIT/ML SUBCUT SCH (17:00)
[2019-06-22] MEDS: ONDANSETRON 4 MG/2 ML VIAL IV PRN (18:44)
[2019-06-22] MEDS: diphenhydrAMINE CAP 25 MG CAPSULE PO PRN (19:38)
[2019-06-22] MEDS: ENOXAPARIN 40 MG/0.4 ML SYRINGE SUBCUT SCH (20:34)
[2019-06-22] MEDS: ATORVASTATIN 20 MG TABLET PO SCH (20:34)
[2019-06-23 04:51] LABS: Basophils % 0.5 % (0.0-0.8); Eosinophils # 0.1 10*3/uL (0.0-0.87); Eosinophils % 2.3 % (0.00-10.9); Hematocrit 34.8 VOL% (35.7-47.0); Immature Granulocytes % 0.3 %; Immature Granulocytes Absolute 0.02 #; Mean Corpuscular HGB Conc 27.3 GM/DL (32-36); Mean Corpuscular Volume 75.8 FL (87-102); Monocytes % 12.1 % (1.7-12.7); Neutrophils % 68.8 % (38.7-73.9); Platelet Count 310 T/CUMM (130-400); Red Blood Count 4.59 MC/CUMM (3.8-5.5); Red Cell Distribution Width 23.7 % (9.3-17.3); White Blood Count 6.1 T/CUMM (4-12)
[2019-06-23 05:10] LABS: Calcium 8.5 MG/DL (8.5-10.1); Osmolality,Calculated 253.4 MOS/KG (273-304)
[2019-06-23 05:19] LABS: Hemoglobin 9.6 GM/DL (12.0-16.0)
[2019-06-23 05:39] LABS: Hypochromasia 1+; Microcytosis 2+; Target Cells Slight
[2019-06-23 05:40] LABS: Ovalocytes Few; Platelet Estimate Normal
[2019-06-23] MEDS: MORPHINE 4 MG/1 ML VIAL IV PRN ×3 (09:25→21:59)
[2019-06-23] MEDS: INSULIN REGULAR 100 UNIT/ML SUBCUT SCH ×2 (09:25→16:21)
[2019-06-23] MEDS: carvediloL 6.25 MG TABLET PO SCH ×2 (09:27→17:35)
[2019-06-23] MEDS: MAGNESIUM OXIDE 400 MG TABLET PO SCH ×2 (10:36→21:59)
[2019-06-23] MEDS: ASPIRIN EC 81 MG TABLET PO SCH (10:36)
[2019-06-23] MEDS: POTASSIUM CHLORIDE 20 MEQ TABLET PO SCH (10:36)
[2019-06-23] MEDS: VANCOMYCIN INJ 1,250 MG in SODIUM CHLORIDE 0.9% 250 ML IV SCH (10:39)
[2019-06-23] MEDS ORDERED: SKIN HEALING OINT (AQUAPHOR) 50 GM TUBE TOP SCH (11:00)
[2019-06-23] MEDS: POLYETHYLENE GLYCOL POWDER 17 GM PACK PO SCH (11:14)
[2019-06-23] MEDS: LIDOCAINE 5% PATCH TRANSDERM SCH (11:45)
[2019-06-23 14:22] LABS: Calcium 8.3 MG/DL (8.5-10.1); Osmolality,Calculated 258.9 MOS/KG (273-304)
[2019-06-23] MEDS: ONDANSETRON 4 MG/2 ML VIAL IV PRN (18:28)
[2019-06-23] MEDS: ENOXAPARIN 40 MG/0.4 ML SYRINGE SUBCUT SCH (21:58)
[2019-06-23] MEDS: diphenhydrAMINE CAP 25 MG CAPSULE PO PRN (21:59)
[2019-06-23] MEDS: ATORVASTATIN 20 MG TABLET PO SCH (21:59)
[2019-06-24] MEDS: VANCOMYCIN INJ 1,250 MG in SODIUM CHLORIDE 0.9% 250 ML IV SCH ×2 (05:45→23:03)
[2019-06-24] MEDS: MORPHINE 4 MG/1 ML VIAL IV PRN (05:45)
[2019-06-24 06:11] LABS: Calcium 8.4 MG/DL (8.5-10.1); Osmolality,Calculated 251.5 MOS/KG (273-304)
[2019-06-24 06:28] LABS: Basophils % 0.4 % (0.0-0.8); Eosinophils # 0.2 10*3/uL (0.0-0.87); Eosinophils % 3.4 % (0.00-10.9); Hematocrit 33.6 VOL% (35.7-47.0); Hemoglobin 9.2 GM/DL (12.0-16.0); Immature Granulocytes % 0.4 %; Immature Granulocytes Absolute 0.02 #; Lymphocytes # 1.1 10*3/uL (1.4-4.0); Lymphocytes % 22.2 % (21.3-54.2); Mean Corpuscular HGB Conc 27.4 GM/DL (32-36); Mean Corpuscular Volume 77.2 FL (87-102); Mean Platelet Volume 9.4 FL (9.6-12.0); Monocytes % 12.7 % (1.7-12.7); Neutrophils % 60.9 % (38.7-73.9); Platelet Count 289 T/CUMM (130-400); Red Blood Count 4.35 MC/CUMM (3.8-5.5); White Blood Count 4.7 T/CUMM (4-12)
[2019-06-24 06:51] LABS: Platelet Estimate Normal; Poikilocytosis 1+
[2019-06-24 06:52] LABS: Anisocytosis 3+; Burr Cells Few; Giant Platelets Few; Ovalocytes Few; Target Cells Few
[2019-06-24] MEDS: INSULIN REGULAR 100 UNIT/ML SUBCUT SCH ×2 (08:22→17:07)
[2019-06-24] MEDS: carvediloL 6.25 MG TABLET PO SCH ×2 (08:39→17:07)
[2019-06-24] MEDS: POLYETHYLENE GLYCOL POWDER 17 GM PACK PO SCH (10:13)
[2019-06-24] MEDS: LIDOCAINE 5% PATCH TRANSDERM SCH (10:13)
[2019-06-24] MEDS: MAGNESIUM OXIDE 400 MG TABLET PO SCH ×2 (10:13→23:03)
[2019-06-24] MEDS: ASPIRIN EC 81 MG TABLET PO SCH (10:13)
[2019-06-24] MEDS: POTASSIUM CHLORIDE 20 MEQ TABLET PO SCH (10:13)
[2019-06-24] MEDS: SODIUM CHLORIDE 0.9% 250 ML IV SCH ×3 (11:30→17:06)
[2019-06-24] MEDS: ENOXAPARIN 40 MG/0.4 ML SYRINGE SUBCUT SCH (23:02)
[2019-06-24] MEDS: ATORVASTATIN 20 MG TABLET PO SCH (23:03)
[2019-06-25 06:16] LABS: Basophils % 0.8 % (0.0-0.8); Eosinophils # 0.2 10*3/uL (0.0-0.87); Eosinophils % 3.2 % (0.00-10.9); Immature Granulocytes % 0.2 %; Immature Granulocytes Absolute 0.01 #; Lymphocytes % 20.8 % (21.3-54.2); Mean Corpuscular HGB Conc 28.4 GM/DL (32-36); Mean Corpuscular Volume 74.5 FL (87-102); Mean Platelet Volume 9.7 FL (9.6-12.0); Monocytes % 14.1 % (1.7-12.7); Neutrophils % 60.9 % (38.7-73.9); Platelet Count 280 T/CUMM (130-400); Red Blood Count 4.16 MC/CUMM (3.8-5.5); Red Cell Distribution Width 22.8 % (9.3-17.3)
[2019-06-25 06:33] LABS: Calcium 8.6 MG/DL (8.5-10.1); Osmolality,Calculated 253.4 MOS/KG (273-304)
[2019-06-25 06:59] LABS: Hemoglobin 8.9 GM/DL (12.0-16.0)
[2019-06-25] MEDS: ALUMINUM/MAGNES/SIMETH MAX STR 30 ML UDCUP PO PRN (08:35)
[2019-06-25] MEDS: carvediloL 6.25 MG TABLET PO SCH ×2 (08:36→16:39)
[2019-06-25] MEDS: MAGNESIUM OXIDE 400 MG TABLET PO SCH ×2 (08:36→20:53)
[2019-06-25] MEDS: ASPIRIN EC 81 MG TABLET PO SCH (08:36)
[2019-06-25] MEDS: LIDOCAINE 5% PATCH TRANSDERM SCH (08:36)
[2019-06-25] MEDS: POLYETHYLENE GLYCOL POWDER 17 GM PACK PO SCH (08:36)
[2019-06-25] MEDS: POTASSIUM CHLORIDE 20 MEQ TABLET PO SCH (08:36)
[2019-06-25] MEDS: INSULIN REGULAR 100 UNIT/ML SUBCUT SCH ×2 (08:37→16:17)
[2019-06-25 09:11] LABS: Anisocytosis 2+; Hypochromasia 3+; Microcytosis 2+; Platelet Estimate Normal
[2019-06-25] MEDS: SODIUM CHLORIDE 0.9% 250 ML IV SCH ×4 (11:28→11:31)
[2019-06-25] MEDS: CLINDAMYCIN 300 MG CAPSULE PO SCH ×2 (13:42→22:51)
[2019-06-25] MEDS: ATORVASTATIN 20 MG TABLET PO SCH (20:53)
[2019-06-25] MEDS: ENOXAPARIN 40 MG/0.4 ML SYRINGE SUBCUT SCH (20:53)
[2019-06-25] MEDS: diphenhydrAMINE CAP 25 MG CAPSULE PO PRN (20:53)
[2019-06-26 05:39] LABS: Basophils % 0.6 % (0.0-0.8); Eosinophils # 0.2 10*3/uL (0.0-0.87); Eosinophils % 3.6 % (0.00-10.9); Hematocrit 30.4 VOL% (35.7-47.0); Hemoglobin 8.8 GM/DL (12.0-16.0); Immature Granulocytes % 0.4 %; Immature Granulocytes Absolute 0.02 #; Lymphocytes % 18.1 % (21.3-54.2); Mean Corpuscular HGB Conc 28.9 GM/DL (32-36); Mean Corpuscular Volume 74.9 FL (87-102); Mean Platelet Volume 9.9 FL (9.6-12.0); Monocytes % 13.3 % (1.7-12.7); Platelet Count 293 T/CUMM (130-400); Red Blood Count 4.06 MC/CUMM (3.8-5.5); White Blood Count 5.4 T/CUMM (4-12)
[2019-06-26 06:07] LABS: Calcium 8.8 MG/DL (8.5-10.1); Osmolality,Calculated 259.9 MOS/KG (273-304)
[2019-06-26] MEDS: CLINDAMYCIN 300 MG CAPSULE PO SCH ×3 (06:18→21:08)
[2019-06-26 07:00] LABS: Anisocytosis 1+; Hypochromasia 1+; Ovalocytes 1+
[2019-06-26 07:01] LABS: Platelet Estimate Normal; Tear Drop Cells 1+
[2019-06-26] MEDS: INSULIN REGULAR 100 UNIT/ML SUBCUT SCH ×2 (08:49→16:51)
[2019-06-26] MEDS: carvediloL 6.25 MG TABLET PO SCH ×2 (09:40→16:51)
[2019-06-26] MEDS: ASPIRIN EC 81 MG TABLET PO SCH (10:03)
[2019-06-26] MEDS: POLYETHYLENE GLYCOL POWDER 17 GM PACK PO SCH (10:03)
[2019-06-26] MEDS: POTASSIUM CHLORIDE 20 MEQ TABLET PO SCH (10:03)
[2019-06-26] MEDS: MAGNESIUM OXIDE 400 MG TABLET PO SCH ×2 (10:03→21:07)
[2019-06-26] MEDS: LIDOCAINE 5% PATCH TRANSDERM SCH (10:03)
[2019-06-26] MEDS: diphenhydrAMINE CAP 25 MG CAPSULE PO PRN (19:47)
[2019-06-26] MEDS: ATORVASTATIN 20 MG TABLET PO SCH (21:08)
[2019-06-26] MEDS: ENOXAPARIN 40 MG/0.4 ML SYRINGE SUBCUT SCH (21:08)
[2019-06-27] MEDS: CLINDAMYCIN 300 MG CAPSULE PO SCH ×3 (05:54→21:41)
[2019-06-27] MEDS ORDERED: FUROSEMIDE 40 MG/4 ML VIAL IV ONE (07:07)
[2019-06-27 07:12] LABS: Basophils % 0.8 % (0.0-0.8); Eosinophils # 0.2 10*3/uL (0.0-0.87); Eosinophils % 3.9 % (0.00-10.9); Hematocrit 29.6 VOL% (35.7-47.0); Hemoglobin 8.1 GM/DL (12.0-16.0); Immature Granulocytes % 0.2 %; Immature Granulocytes Absolute 0.01 #; Lymphocytes # 1.1 10*3/uL (1.4-4.0); Lymphocytes % 21.4 % (21.3-54.2); Mean Corpuscular HGB Conc 27.4 GM/DL (32-36); Mean Corpuscular Volume 75.9 FL (87-102); Mean Platelet Volume 10.6 FL (9.6-12.0); Monocytes % 13.1 % (1.7-12.7); Neutrophils % 60.6 % (38.7-73.9); Platelet Count 301 T/CUMM (130-400); Red Cell Distribution Width 23.1 % (9.3-17.3); White Blood Count 5.2 T/CUMM (4-12)
[2019-06-27 07:15] LABS: Hypochromasia 1+; Ovalocytes Slight; Platelet Estimate Adequate
[2019-06-27 07:16] LABS: Calcium 8.7 MG/DL (8.5-10.1); Osmolality,Calculated 265.7 MOS/KG (273-304)
[2019-06-27] MEDS: INSULIN REGULAR 100 UNIT/ML SUBCUT SCH ×3 (07:43→20:21)
[2019-06-27] MEDS: carvediloL 6.25 MG TABLET PO SCH ×2 (07:44→16:51)
[2019-06-27] MEDS: ASPIRIN EC 81 MG TABLET PO SCH (09:57)
[2019-06-27] MEDS: POLYETHYLENE GLYCOL POWDER 17 GM PACK PO SCH (09:57)
[2019-06-27] MEDS: MAGNESIUM OXIDE 400 MG TABLET PO SCH ×2 (09:57→20:21)
[2019-06-27] MEDS: POTASSIUM CHLORIDE 20 MEQ TABLET PO SCH (09:58)
[2019-06-27] MEDS: LIDOCAINE 5% PATCH TRANSDERM SCH (09:59)
[2019-06-27] MEDS ORDERED: SODIUM POLYSTYRENE SULFATE 15 GM/60 ML BOTTLE PO ONE (11:30)
[2019-06-27] MEDS ORDERED: IRON SUCROSE 300 MG in SODIUM CHLORIDE 0.9% 100 ML IV ONE (12:00)
[2019-06-27] MEDS: MORPHINE 4 MG/1 ML VIAL IV PRN (14:28)
[2019-06-27 15:51] LABS: Alanine Aminotransferase < 9 U/L (13-56); Albumin 2.3 G/DL (3.4-5.0); Alkaline Phosphatase 110 U/L (45-117); Aspartate Amino Transferase 14 U/L (0-37); Blood Urea Nitrogen 24 MG/DL (7-18); Calcium 8.6 MG/DL (8.5-10.1); Estimated Glom Filtration Rate 66 ML/MIN; Glucose 109 MG/DL (74-106); Osmolality,Calculated 268.5 MOS/KG (273-304)
[2019-06-27 15:55] LABS: Basophils % 0.7 % (0.0-0.8); Eosinophils # 0.2 10*3/uL (0.0-0.87); Hematocrit 29.4 VOL% (35.7-47.0); Hemoglobin 8.2 GM/DL (12.0-16.0); Immature Granulocytes % 0.2 %; Immature Granulocytes Absolute 0.01 #; Lymphocytes # 1.1 10*3/uL (1.4-4.0); Lymphocytes % 24.4 % (21.3-54.2); Mean Corpuscular HGB Conc 27.9 GM/DL (32-36); Mean Corpuscular Volume 74.2 FL (87-102); Monocytes % 14.4 % (1.7-12.7); Neutrophils % 55.3 % (38.7-73.9); Platelet Count 316 T/CUMM (130-400); Red Blood Count 3.96 MC/CUMM (3.8-5.5); Red Cell Distribution Width 22.8 % (9.3-17.3); White Blood Count 4.6 T/CUMM (4-12)
[2019-06-27 16:03] LABS: Anisocytosis Slight; Hypochromasia 1+; Microcytosis 1+; Ovalocytes Few; Platelet Estimate Normal
[2019-06-27 16:04] LABS: Target Cells Few; Tear Drop Cells Few
[2019-06-27] MEDS: ENOXAPARIN 40 MG/0.4 ML SYRINGE SUBCUT SCH (20:21)
[2019-06-27] MEDS: ATORVASTATIN 20 MG TABLET PO SCH (20:21)
[2019-06-28 05:22] LABS: Calcium 8.7 MG/DL (8.5-10.1); Osmolality,Calculated 265.7 MOS/KG (273-304)
[2019-06-28] MEDS: CLINDAMYCIN 300 MG CAPSULE PO SCH ×3 (05:35→21:05)
[2019-06-28] MEDS: INSULIN REGULAR 100 UNIT/ML SUBCUT SCH ×4 (08:28→21:10)
[2019-06-28] MEDS: POLYETHYLENE GLYCOL POWDER 17 GM PACK PO SCH (09:56)
[2019-06-28] MEDS: carvediloL 6.25 MG TABLET PO SCH ×2 (09:56→16:55)
[2019-06-28] MEDS: ASPIRIN EC 81 MG TABLET PO SCH (09:56)
[2019-06-28] MEDS: MAGNESIUM OXIDE 400 MG TABLET PO SCH ×2 (09:56→20:24)
[2019-06-28] MEDS: POTASSIUM CHLORIDE 20 MEQ TABLET PO SCH (09:56)
[2019-06-28] MEDS: LIDOCAINE 5% PATCH TRANSDERM SCH (09:57)
[2019-06-28] MEDS: MORPHINE 4 MG/1 ML VIAL IV PRN (14:14)
[2019-06-28] MEDS: ONDANSETRON 4 MG/2 ML VIAL IV PRN (19:22)
[2019-06-28] MEDS: ENOXAPARIN 40 MG/0.4 ML SYRINGE SUBCUT SCH (20:24)
[2019-06-28] MEDS: ALUMINUM/MAGNES/SIMETH MAX STR 30 ML UDCUP PO PRN (20:24)
[2019-06-28] MEDS: ATORVASTATIN 20 MG TABLET PO SCH (20:24)
[2019-06-29] MEDS: CLINDAMYCIN 300 MG CAPSULE PO SCH ×3 (06:12→21:17)
[2019-06-29 06:19] LABS: Basophils % 0.7 % (0.0-0.8); Eosinophils # 0.3 10*3/uL (0.0-0.87); Eosinophils % 4.9 % (0.00-10.9); Immature Granulocytes % 0.5 %; Immature Granulocytes Absolute 0.03 #; Lymphocytes # 1.3 10*3/uL (1.4-4.0); Lymphocytes % 23.8 % (21.3-54.2); Mean Corpuscular Volume 76.4 FL (87-102); Mean Platelet Volume 9.7 FL (9.6-12.0); Monocytes % 9.2 % (1.7-12.7); NRBC # 0.03 10*3/uL; Neutrophils % 60.9 % (38.7-73.9); Platelet Count 311 T/CUMM (130-400); Red Blood Count 3.98 MC/CUMM (3.8-5.5); White Blood Count 5.5 T/CUMM (4-12)
[2019-06-29 06:31] LABS: Calcium 8.6 MG/DL (8.5-10.1); Osmolality,Calculated 262.8 MOS/KG (273-304)
[2019-06-29 06:40] LABS: Hematocrit 30.1 VOL% (35.7-47.0); Hemoglobin 8.3 GM/DL (12.0-16.0)
[2019-06-29 06:56] LABS: Hypochromasia 1+; Platelet Estimate Adequate
[2019-06-29 06:57] LABS: Microcytosis 1+; Ovalocytes Slight
[2019-06-29] MEDS: POTASSIUM CHLORIDE 20 MEQ TABLET PO SCH (09:02)
[2019-06-29] MEDS: LIDOCAINE 5% PATCH TRANSDERM SCH (09:02)
[2019-06-29] MEDS: POLYETHYLENE GLYCOL POWDER 17 GM PACK PO SCH (09:02)
[2019-06-29] MEDS: carvediloL 6.25 MG TABLET PO SCH ×2 (09:03→16:20)
[2019-06-29] MEDS: ASPIRIN EC 81 MG TABLET PO SCH (09:03)
[2019-06-29] MEDS: LINACLOTIDE 145 MCG CAPSULE PO SCH (09:03)
[2019-06-29] MEDS: MAGNESIUM OXIDE 400 MG TABLET PO SCH ×2 (09:03→21:17)
[2019-06-29] MEDS: INSULIN REGULAR 100 UNIT/ML SUBCUT SCH ×4 (09:08→22:04)
[2019-06-29] MEDS: ENOXAPARIN 40 MG/0.4 ML SYRINGE SUBCUT SCH (21:17)
[2019-06-29] MEDS: ATORVASTATIN 20 MG TABLET PO SCH (21:17)
[2019-06-30 05:40] LABS: Calcium 9.1 MG/DL (8.5-10.1); Osmolality,Calculated 255.4 MOS/KG (273-304)
[2019-06-30 06:04] LABS: Basophils % 0.5 % (0.0-0.8); Eosinophils # 0.3 10*3/uL (0.0-0.87); Eosinophils % 4.4 % (0.00-10.9); Hematocrit 32.8 VOL% (35.7-47.0); Immature Granulocytes % 0.4 %; Immature Granulocytes Absolute 0.02 #; Lymphocytes # 1.5 10*3/uL (1.4-4.0); Lymphocytes % 27.2 % (21.3-54.2); Mean Corpuscular HGB Conc 27.4 GM/DL (32-36); Monocytes % 8.1 % (1.7-12.7); NRBC # 0.05 10*3/uL; Neutrophils % 59.4 % (38.7-73.9); Platelet Count 320 T/CUMM (130-400); Red Blood Count 4.26 MC/CUMM (3.8-5.5); Red Cell Distribution Width 23.1 % (9.3-17.3); White Blood Count 5.7 T/CUMM (4-12)
[2019-06-30 06:06] LABS: Anisocytosis 1+; Hypochromasia 2+; Microcytosis 1+; Ovalocytes Slight; Polychromasia Slight; Target Cells Slight
[2019-06-30 06:07] LABS: Giant Platelets Few; Platelet Estimate Normal
[2019-06-30] MEDS: CLINDAMYCIN 300 MG CAPSULE PO SCH (06:13)
[2019-06-30] MEDS ORDERED: SODIUM POLYSTYRENE SULFATE 15 GM/60 ML BOTTLE PO ONE (07:16)
[2019-06-30] MEDS ORDERED: FUROSEMIDE 40 MG/4 ML VIAL IV ONE (07:17)
[2019-06-30] MEDS ORDERED: INSULIN REGULAR 100 UNIT/ML SUBCUT ONE (07:18)
[2019-06-30] MEDS: LIDOCAINE 5% PATCH TRANSDERM SCH (09:03)
[2019-06-30] MEDS: LINACLOTIDE 145 MCG CAPSULE PO SCH (09:03)
[2019-06-30] MEDS: MAGNESIUM OXIDE 400 MG TABLET PO SCH (09:03)
[2019-06-30] MEDS: POLYETHYLENE GLYCOL POWDER 17 GM PACK PO SCH (09:03)
[2019-06-30] MEDS: POTASSIUM CHLORIDE 20 MEQ TABLET PO SCH (09:03)
[2019-06-30] MEDS: ASPIRIN EC 81 MG TABLET PO SCH (09:03)
[2019-06-30] MEDS: INSULIN REGULAR 100 UNIT/ML SUBCUT SCH ×2 (09:04→11:57)
[2019-06-30] MEDS: carvediloL 6.25 MG TABLET PO SCH (09:04)
[2019-06-30 10:57] LABS: Apearance,Urine CLEAR (Clear); Bilirubin,Urine Negative (Negative); Blood, Urine Negative (Negative); Glucose,Urine (UA) Negative (Negative); Ketones,Urine Negative (Negative); Nitrite,Urine Negative (Negative); Protein,Urine Negative; RBC,Urine 1 /HPF (0-4); Urine Color Yellow (Yellow); Urine Specific Gravity 1.003 (1.001-1.035); Urine Urobilinogen < 2.0 EU/DL (0.2-1.0); WBC,Urine <1 /HPF (0-6)
[2019-06-30] MEDS ORDERED: ALUM/MAG/SIMETH/LIDO VISC 1:1 30 ML BOTTLE PO ONE (10:57)
[2019-06-30 11:29] VITALS: BP 103/49
[2019-06-30 12:50] LABS: Albumin 2.4 G/DL (3.4-5.0); Bilirubin,Total 0.5 MG/DL (0.2-1.0); Osmolality,Calculated 263.7 MOS/KG (273-304); Total Protein 7.2 G/DL (6.4-8.3)
[2019-06-30] MEDS ORDERED: BENZONATATE 100 MG CAPSULE PO PRN (12:58)
[2019-06-30] MEDS ORDERED: FLUTICASONE/SALMETEROL 100-50 DISKUS 14 DOSE INH SCH (21:00)
[2019-06-30] MEDS ORDERED: MONTELUKAST 10 MG TABLET PO SCH (21:00)
== END 2019-06-30 14:40 | disposition swing bed (61) | DRG 603 ==
LOC: EDBD → EDUNIT# → N.ED 15:21 → INTOOBSV 18:48 → N.3E 18:48 → SUATTDRO 06-23 16:00
PROVIDERS: ADMIT Internal Medicine; ATTEND Internal Medicine